=== PATIENT | male | born 1940 | race Caucasian/White ===

== ENCOUNTER 2016-08-30 13:34 | Outpatient (CLI) | payer MEDICARE, OTHER | END 2016-08-30 23:59 | DX: E11.9 Type 2 diabetes mellitus without complications (principal); N42.89 Other specified disorders of prostate; Z12.5 Encounter for screening for malignant neoplasm of prostate | CPT/HCPCS: 36415; 83036; G0103 ==

== ENCOUNTER 2016-10-01 10:35 | Outpatient (CLI) | payer MEDICARE, OTHER | END 2016-10-01 10:36 | disposition home or self-care (01) | DX: I10 Essential (primary) hypertension (principal) ==

== ENCOUNTER 2016-10-10 12:11 | Outpatient (CLI) | payer MEDICARE, OTHER | END 2016-10-10 12:12 | disposition home or self-care (01) | DX: I10 Essential (primary) hypertension (principal) ==

== ENCOUNTER 2016-11-22 11:05 | Outpatient (CLI) | payer MEDICARE, OTHER ==
[2016-11-22 13:38] LABS: BASOPHILS % (AUTO) 0.2 %; EOSINOPHILS # (AUTO) 0.1 10^3/uL (0.0-0.7); EOSINOPHILS % (AUTO) 0.6 %; HCT - HEMATOCRIT 40.1 % (42.0-52.0); HGB - HEMOGLOBIN 13.6 g/dL (14.0-18.0); LYMPHOCYTES # (AUTO) 18.8 10^3/uL (1.5-3.5); LYMPHOCYTES % (AUTO) 78.9 %; MEAN CORPUSCULAR HEMOGLOBIN 29.5 pg (27.0-31.0); MEAN CORPUSCULAR HGB CONC 33.8 g/dL (32.0-36.0); MEAN CORPUSCULAR VOLUME 87.2 fL (80.0-94.0); MEAN PLATELET VOLUME 8.9 fL (7.4-11.4); MONOCYTES # (AUTO) 0.7 10^3/uL (0.0-1.0); NEUTROPHILS # (AUTO) 4.1 10^3/uL (1.5-6.6); NEUTROPHILS % (AUTO) 17.3 %; NUCLEATED RED BLOOD CELLS AUTO 0.1 /100WBC; UNCORRECTED WHITE BLOOD COUNT 23.8 x10^3/uL; WHITE BLOOD COUNT 23.8 x10^3/uL (4.8-10.8)
[2016-11-22 13:56] LABS: ALBUMIN/GLOBULIN RATIO 1.3 (1.0-2.2); BILIRUBIN,TOTAL 0.6 mg/dL (0.2-1.0); BUN - BLOOD UREA NITROGEN 21 mg/dL (6-20); CALCIUM 9.6 mg/dL (8.5-10.3); CARBON DIOXIDE - CO2 30 mmol/L (21-32); CHLORIDE 99 mmol/L (101-111); CHOL/HDL RATIO 4.7 (<5.0); CHOLESTEROL 193 mg/dL; CREATININE 0.9 mg/dL (0.6-1.2); GFR - MDRD 82 (>89); GLUCOSE 99 mg/dL (70-100); HDL CHOLESTEROL 41 mg/dL; LDL/HDL RATIO 2.9 (<3.6); POTASSIUM 4.2 mmol/L (3.5-5.0); SODIUM 137 mmol/L (135-145); TOTAL PROTEIN 7.1 g/dL (6.7-8.2); TRIGLYCERIDES 159 mg/dL; VLDL CHOLESTEROL 32 mg/dL
[2016-11-22 14:17] LABS: WBC MORPHOLOGY (MULTIPLE) 2+ REACTIVE LYMPHS (NORMAL)
[2016-11-22 14:43] LABS: HEMOGLOBIN A1C 0.67 g/dL
== END 2016-11-22 11:06 | disposition home or self-care (01) ==
LOC: LAB.WCP 11:05
PROVIDERS: ATTEND Family Medicine
DX: I10 Essential (primary) hypertension (principal); E11.9 Type 2 diabetes mellitus without complications; E78.5 Hyperlipidemia, unspecified
CPT/HCPCS: 36415; 80053; 80061; 83036; 85025

== ENCOUNTER 2017-01-08 11:08 | Outpatient (CLI) | payer MEDICARE, OTHER ==
[2017-01-08 19:41] LABS: BASOPHILS % (AUTO) 0.1 %; EOSINOPHILS % (AUTO) 0.1 %; HCT - HEMATOCRIT 38.5 % (42.0-52.0); HGB - HEMOGLOBIN 12.6 g/dL (14.0-18.0); MEAN CORPUSCULAR HEMOGLOBIN 29.8 pg (27.0-31.0); MEAN CORPUSCULAR HGB CONC 32.6 g/dL (32.0-36.0); MEAN CORPUSCULAR VOLUME 91.3 fL (80.0-94.0); MEAN PLATELET VOLUME 8.8 fL (7.4-11.4); MONOCYTES % (AUTO) 2.9 %; NEUTROPHILS % (AUTO) 18.9 %; RED BLOOD COUNT 4.22 10^6/uL (4.70-6.10); RED CELL DISTRIBUTION WIDTH 14.7 % (12.0-15.0); UNCORRECTED WHITE BLOOD COUNT 24.8 x10^3/uL; WHITE BLOOD COUNT 24.8 x10^3/uL (4.8-10.8)
[2017-01-08 20:01] LABS: BAND NEUTROPHILS % (MANUAL) 0 %
[2017-01-08 20:32] LABS: PLATELET ESTIMATE, MANUAL NORMAL (130-450,000) (NORMAL); PLATELET MORPHOLOGY NORMAL APPEARANCE (NORMAL); SLIDE SENT FOR PATH REVIEW? Indicated
[2017-01-08 20:34] LABS: LYMPHOCYTES % (MANUAL) 50 %; NEUTROPHILS % (MANUAL) 24 %; NP AUTO DIFFERENTIAL? YES; NP MAN DIFFERENTIAL? NO; TOTAL CELLS COUNTED 100
[2017-01-08 20:39] LABS: CBC SPECIMEN NUMBER 711330; PATHOLOGIST REVIEW ORDER PATH SLIDE REVIEW
== END 2017-01-08 11:09 | disposition home or self-care (01) ==
LOC: LAB.WCP 11:08
PROVIDERS: ATTEND Family Medicine
DX: D72.829 Elevated white blood cell count, unspecified (principal)
CPT/HCPCS: 36415; 85025

== ENCOUNTER 2017-02-27 09:13 | Outpatient (CLI) | payer MEDICARE, OTHER ==
[2017-02-27 13:32] LABS: ALBUMIN/GLOBULIN RATIO 1.4 (1.0-2.2); BILIRUBIN,TOTAL 0.6 mg/dL (0.2-1.0); BUN - BLOOD UREA NITROGEN 22 mg/dL (6-20); CALCIUM 9.6 mg/dL (8.5-10.3); CARBON DIOXIDE - CO2 29 mmol/L (21-32); CHLORIDE 98 mmol/L (101-111); CHOL/HDL RATIO 5.4 (<5.0); CHOLESTEROL 216 mg/dL; GFR - MDRD 72 (>89); GLUCOSE 111 mg/dL (70-100); HDL CHOLESTEROL 40 mg/dL; LDL/HDL RATIO 3.3 (<3.6); POTASSIUM 4.4 mmol/L (3.5-5.0); SODIUM 135 mmol/L (135-145); TOTAL PROTEIN 7.3 g/dL (6.7-8.2); TRIGLYCERIDES 217 mg/dL; VLDL CHOLESTEROL 43 mg/dL
[2017-02-27 13:59] LABS: HEMOGLOBIN A1C 0.63 g/dL
== END 2017-02-27 09:14 | disposition home or self-care (01) ==
LOC: LAB.WCP 09:13
PROVIDERS: ATTEND Family Medicine
DX: E78.5 Hyperlipidemia, unspecified (principal); E11.9 Type 2 diabetes mellitus without complications
CPT/HCPCS: 36415; 80053; 80061; 83036

== ENCOUNTER 2017-03-19 13:03 | Outpatient (CLI) | payer MEDICARE, OTHER | END 2017-03-19 13:04 | disposition home or self-care (01) | LOC: SC 13:03 | PROVIDERS: ATTEND Internal Medicine Pulmonary Disease | DX: G47.33 Obstructive sleep apnea (adult) (pediatric) (principal); I10 Essential (primary) hypertension | CPT/HCPCS: 99203; G0463; 99212 ==

== ENCOUNTER 2017-04-01 20:26 | Outpatient (CLI) | payer MEDICARE, OTHER | END 2017-04-01 20:27 | disposition home or self-care (01) | LOC: SC 20:26 | PROVIDERS: ATTEND Internal Medicine Pulmonary Disease | DX: G47.33 Obstructive sleep apnea (adult) (pediatric) (principal); G47.61 Periodic limb movement disorder; Z68.30 Body mass index [BMI] 30.0-30.9, adult | CPT/HCPCS: 95810 ==

== ENCOUNTER 2017-05-23 11:05 | Outpatient (CLI) | payer MEDICARE, OTHER ==
[2017-05-23 19:13] LABS: ALBUMIN/GLOBULIN RATIO 1.2 (1.0-2.2); BILIRUBIN,TOTAL 0.9 mg/dL (0.2-1.0); BUN - BLOOD UREA NITROGEN 24 mg/dL (6-20); CARBON DIOXIDE - CO2 27 mmol/L (21-32); CHLORIDE 97 mmol/L (101-111); CHOL/HDL RATIO 5.2 (<5.0); CHOLESTEROL 208 mg/dL; CREATININE 1.1 mg/dL (0.6-1.2); GFR - MDRD 65 (>89); GLUCOSE 111 mg/dL (70-100); HDL CHOLESTEROL 40 mg/dL; LDL/HDL RATIO 3.4 (<3.6); POTASSIUM 4.1 mmol/L (3.5-5.0); SODIUM 133 mmol/L (135-145); TOTAL PROTEIN 7.7 g/dL (6.7-8.2); TRIGLYCERIDES 169 mg/dL; VLDL CHOLESTEROL 34 mg/dL
== END 2017-05-23 11:06 | disposition home or self-care (01) ==
LOC: LAB.WCP 11:05
PROVIDERS: ATTEND Family Medicine
DX: E78.5 Hyperlipidemia, unspecified (principal)
CPT/HCPCS: 36415; 80053; 80061

== ENCOUNTER 2017-05-27 09:11 | Outpatient (CLI) | payer MEDICARE, OTHER | END 2017-05-27 09:12 | disposition home or self-care (01) | LOC: SC 09:11 | PROVIDERS: ATTEND Nurse Practitioner Family | DX: G47.33 Obstructive sleep apnea (adult) (pediatric) (principal); G47.61 Periodic limb movement disorder | CPT/HCPCS: 99214; G0463; 99212 ==

== ENCOUNTER 2017-07-22 20:32 | Outpatient (CLI) | payer MEDICARE, OTHER | END 2017-07-22 20:33 | disposition home or self-care (01) | LOC: SC 20:32 | PROVIDERS: ATTEND Internal Medicine Pulmonary Disease | DX: G47.33 Obstructive sleep apnea (adult) (pediatric) (principal); G47.61 Periodic limb movement disorder | CPT/HCPCS: 95811 ==

== ENCOUNTER 2017-08-26 13:38 | Outpatient (CLI) | payer MEDICARE, OTHER | END 2017-08-26 13:39 | disposition home or self-care (01) | LOC: SC 13:38 | PROVIDERS: ATTEND Nurse Practitioner Family | DX: G47.33 Obstructive sleep apnea (adult) (pediatric) (principal) | CPT/HCPCS: 99214; G0463; 99212 ==

== ENCOUNTER 2017-09-16 08:54 | Outpatient (CLI) | payer MEDICARE, OTHER ==
[2017-09-16 13:44] LABS: ALBUMIN 4.1 g/dL (3.2-5.5); ALBUMIN/GLOBULIN RATIO 1.2 (1.0-2.2); ALKALINE PHOSPHATASE 60 IU/L (42-121); ALT ALANINE AMINOTRANSFERASE 21 IU/L (10-60); AST ASPARTATE AMINOTRANSFERASE 27 IU/L (10-42); BILIRUBIN,TOTAL 0.6 mg/dL (0.2-1.0); BUN - BLOOD UREA NITROGEN 21 mg/dL (6-20); CALCIUM 9.2 mg/dL (8.5-10.3); CARBON DIOXIDE - CO2 28 mmol/L (21-32); CHLORIDE 98 mmol/L (101-111); CHOL/HDL RATIO 4.5 (<5.0); CHOLESTEROL 195 mg/dL; GFR - MDRD 72 (>89); GLUCOSE 116 mg/dL (70-100); HDL CHOLESTEROL 43 mg/dL; LDL CHOLESTEROL,CALCULATED 126 mg/dL; LDL/HDL RATIO 2.9 (<3.6); SODIUM 135 mmol/L (135-145); TOTAL PROTEIN 7.4 g/dL (6.7-8.2); VLDL CHOLESTEROL 26 mg/dL
== END 2017-09-16 08:55 | disposition home or self-care (01) ==
LOC: LAB.WCP 08:54
PROVIDERS: ATTEND Family Medicine
DX: E78.5 Hyperlipidemia, unspecified (principal)
CPT/HCPCS: 36415; 80053; 80061; 83721

== ENCOUNTER 2017-11-13 10:17 | Outpatient (CLI) | payer MEDICARE, OTHER | END 2017-11-13 10:18 | disposition home or self-care (01) | LOC: SC 10:17 | PROVIDERS: ATTEND Nurse Practitioner Family | DX: G47.33 Obstructive sleep apnea (adult) (pediatric) (principal) | CPT/HCPCS: 99213; G0463; 99212 ==

== ENCOUNTER 2017-12-26 10:03 | Outpatient (CLI) | payer MEDICARE, OTHER | END 2017-12-26 10:04 | disposition home or self-care (01) | LOC: SC 10:03 | PROVIDERS: ATTEND Nurse Practitioner Family | DX: G47.33 Obstructive sleep apnea (adult) (pediatric) (principal) | CPT/HCPCS: 99213; G0463; 99212 ==

== ENCOUNTER 2017-12-31 08:19 | Outpatient (CLI) | payer MEDICARE, OTHER ==
[2017-12-31 12:57] LABS: BASOPHILS % (AUTO) 0.1 %; EOSINOPHILS % (AUTO) 0.3 %; HGB - HEMOGLOBIN 14.5 g/dL (14.0-18.0); LYMPHOCYTES % (AUTO) 79.7 %; MEAN CORPUSCULAR HEMOGLOBIN 29.9 pg (27.0-31.0); MEAN CORPUSCULAR HGB CONC 32.7 g/dL (32.0-36.0); MEAN CORPUSCULAR VOLUME 91.4 fL (80.0-94.0); MEAN PLATELET VOLUME 9.5 fL (7.4-11.4); MONOCYTES % (AUTO) 2.6 %; NEUTROPHILS % (AUTO) 17.3 %; PLT - PLATELET COUNT 209 10^3/uL (130-450); RED BLOOD COUNT 4.85 10^6/uL (4.70-6.10); RED CELL DISTRIBUTION WIDTH 15.3 % (12.0-15.0); WHITE BLOOD COUNT 24.9 x10^3/uL (4.8-10.8)
[2017-12-31 13:23] LABS: ABNORMAL LYMPHS % (MANUAL) 0 %; BAND NEUTROPHILS % (MANUAL) 0 %
[2017-12-31 13:32] LABS: LYMPHOCYTES # (MANUAL) 17.2 10^3/uL (1.5-3.5); LYMPHOCYTES % (MANUAL) 59 %; MONOCYTES # (MANUAL) 1.2 10^3/uL (0.0-1.0); NEUTROPHILS # (MANUAL) 6.5 10^3/uL (1.5-6.6); NEUTROPHILS % (MANUAL) 26 %; RBC MORPHOLOGY (MULTIPLE) 1+ ANISOCYTOSIS (NORMAL)
[2017-12-31 13:35] LABS: DIFFERENTIAL COMMENT MANUAL DIFFERENTIAL
== END 2017-12-31 08:20 | disposition home or self-care (01) ==
LOC: LAB.WCP 08:19
PROVIDERS: ATTEND Family Medicine
DX: Z01.812 Encounter for preprocedural laboratory examination (principal); Z86.010 Personal history of colon polyps
CPT/HCPCS: 36415; 85025

== ENCOUNTER 2018-01-02 13:02 | Day surgery (SDC) | payer MEDICARE, OTHER ==
[2018-01-02] MEDS ORDERED: LACTATED RINGERS 1,000 ML IV ONE (13:30)
[2018-01-02] MEDS ORDERED: PROPOFOL 200 MG/20 ML VIAL IVP ONE (14:45)
[2018-01-02 15:03] VITALS: BP 152/88
== END 2018-01-02 13:03 | disposition home or self-care (01) ==
LOC: SDS 13:02
PROVIDERS: ATTEND Internal Medicine Gastroenterology
PROC: 0DJD8ZZ Inspection of Lower Intestinal Tract, Via Natural or Artificial Opening Endoscopic (ICD-10-PCS; principal; 2018-01-02 14:15)
DX: Z12.11 Encounter for screening for malignant neoplasm of colon (principal); K57.30 Diverticulosis of large intestine without perforation or abscess without bleeding; Z86.010 Personal history of colon polyps; E11.9 Type 2 diabetes mellitus without complications; I10 Essential (primary) hypertension; E78.5 Hyperlipidemia, unspecified
CPT/HCPCS: G0105; J7120

== ENCOUNTER 2018-02-17 08:00 | Outpatient (CLI) | payer MEDICARE, OTHER ==
[2018-02-17 13:58] LABS: ALBUMIN 3.9 g/dL (3.2-5.5); ALBUMIN/GLOBULIN RATIO 1.1 (1.0-2.2); ALKALINE PHOSPHATASE 53 IU/L (42-121); ALT ALANINE AMINOTRANSFERASE 19 IU/L (10-60); AST ASPARTATE AMINOTRANSFERASE 26 IU/L (10-42); BUN - BLOOD UREA NITROGEN 23 mg/dL (6-20); CALCIUM 9.3 mg/dL (8.5-10.3); CARBON DIOXIDE - CO2 32 mmol/L (21-32); CHLORIDE 99 mmol/L (101-111); CHOL/HDL RATIO 4.2 (<5.0); CHOLESTEROL 162 mg/dL; CREATININE 0.9 mg/dL (0.6-1.2); GFR - MDRD 81 (>89); GLUCOSE 110 mg/dL (70-100); HDL CHOLESTEROL 39 mg/dL; LDL CHOLESTEROL,CALCULATED 101 mg/dL; LDL/HDL RATIO 2.6 (<3.6); SODIUM 139 mmol/L (135-145); TOTAL PROTEIN 7.4 g/dL (6.7-8.2); VLDL CHOLESTEROL 22 mg/dL
[2018-02-17 14:03] LABS: HB2 TOTAL 15.3 g/dL; HEMOGLOBIN A1C 0.58 g/dL; HEMOGLOBIN A1C % 5.6 % (4.6-6.2)
== END 2018-02-17 08:01 | disposition home or self-care (01) ==
LOC: LAB.WCP 08:00
PROVIDERS: ATTEND Family Medicine
DX: E78.5 Hyperlipidemia, unspecified (principal); E11.9 Type 2 diabetes mellitus without complications
CPT/HCPCS: 36415; 80053; 80061; 83036; 83721

== ENCOUNTER 2018-02-24 08:00 | Outpatient (CLI) | payer MEDICARE, OTHER ==
[2018-02-24 19:44] LABS: CALCIUM 9.4 mg/dL (8.5-10.3); CREATININE 0.9 mg/dL (0.6-1.2)
== END 2018-02-24 08:01 | disposition home or self-care (01) ==
LOC: LAB.WCP 08:00
PROVIDERS: ATTEND Family Medicine
DX: E87.6 Hypokalemia (principal)
CPT/HCPCS: 36415; 80048

== ENCOUNTER 2018-02-25 08:54 | Outpatient (CLI) | payer MEDICARE, OTHER | END 2018-02-25 08:55 | disposition home or self-care (01) | LOC: SC 08:54 | PROVIDERS: ATTEND Nurse Practitioner Family | DX: G47.33 Obstructive sleep apnea (adult) (pediatric) (principal) | CPT/HCPCS: 99214; G0463; 99212 ==

== ENCOUNTER 2018-03-31 09:59 | Outpatient (CLI) | payer MEDICARE, OTHER ==
[2018-03-31 13:37] LABS: CALCIUM 9.3 mg/dL (8.5-10.3); CREATININE 0.9 mg/dL (0.6-1.2)
== END 2018-03-31 10:00 | disposition home or self-care (01) ==
LOC: LAB.WCP 09:59
PROVIDERS: ATTEND Family Medicine
DX: E87.6 Hypokalemia (principal)
CPT/HCPCS: 36415; 80048

== ENCOUNTER 2018-04-09 09:33 | Outpatient (CLI) | payer MEDICARE, OTHER ==
[2018-04-09 13:20] LABS: CREATININE 0.9 mg/dL (0.6-1.2)
== END 2018-04-09 09:34 | disposition home or self-care (01) ==
LOC: LAB.WCP 09:33
PROVIDERS: ATTEND Family Medicine
DX: E87.6 Hypokalemia (principal)
CPT/HCPCS: 36415; 80048

== ENCOUNTER 2018-04-29 08:48 | Outpatient (CLI) | payer MEDICARE, OTHER | END 2018-04-29 08:49 | disposition home or self-care (01) | LOC: SC 08:48 | PROVIDERS: ATTEND Nurse Practitioner Family | DX: G47.33 Obstructive sleep apnea (adult) (pediatric) (principal) | CPT/HCPCS: 99214; G0463; 99212 ==

== ENCOUNTER 2018-09-15 10:40 | Outpatient (CLI) | payer MEDICARE, OTHER ==
[2018-09-15 19:53] LABS: BASOPHILS % (AUTO) 0.2 %; EOSINOPHILS % (AUTO) 0.2 %; HGB - HEMOGLOBIN 14.9 g/dL (14.0-18.0); LYMPHOCYTES % (AUTO) 74.2 %; MEAN CORPUSCULAR HGB CONC 32.3 g/dL (32.0-36.0); MEAN CORPUSCULAR VOLUME 89.7 fL (80.0-94.0); MEAN PLATELET VOLUME 9.3 fL (7.4-11.4); MONOCYTES % (AUTO) 3.4 %; PLT - PLATELET COUNT 222 10^3/uL (130-450); RED BLOOD COUNT 5.13 10^6/uL (4.70-6.10); WHITE BLOOD COUNT 19.7 x10^3/uL (4.8-10.8)
[2018-09-15 19:59] LABS: ALBUMIN 4.2 g/dL (3.2-5.5); ALBUMIN/GLOBULIN RATIO 1.2 (1.0-2.2); ALKALINE PHOSPHATASE 60 IU/L (42-121); ALT ALANINE AMINOTRANSFERASE 22 IU/L (10-60); AST ASPARTATE AMINOTRANSFERASE 27 IU/L (10-42); BILIRUBIN,TOTAL 0.6 mg/dL (0.2-1.0); BUN - BLOOD UREA NITROGEN 20 mg/dL (6-20); CHOL/HDL RATIO 4.2 (<5.0); CHOLESTEROL 191 mg/dL; CREATININE 0.7 mg/dL (0.6-1.2); GFR - MDRD 109 (>89); HDL CHOLESTEROL 46 mg/dL; LDL CHOLESTEROL,CALCULATED 109 mg/dL; LDL/HDL RATIO 2.4 (<3.6); TOTAL PROTEIN 7.6 g/dL (6.7-8.2); VLDL CHOLESTEROL 36 mg/dL
[2018-09-15 20:07] LABS: CALCIUM 9.3 mg/dL (8.5-10.3); CARBON DIOXIDE - CO2 36 mmol/L (21-32); CHLORIDE 97 mmol/L (101-111); GLUCOSE 89 mg/dL (70-100); SODIUM 143 mmol/L (135-145)
[2018-09-15 20:11] LABS: ABNORMAL LYMPHS % (MANUAL) 0 %
[2018-09-15 20:27] LABS: CREATININE,URINE 52.1 mg/dL; MICROALBUM/CREATININE RATIO,UR 15.4 ug/mg (<30.0); MICROALBUMIN,URINE 0.8 mg/dL (0-300.0)
[2018-09-15 22:02] LABS: HB2 TOTAL 16.7 g/dL; HEMOGLOBIN A1C 0.64 g/dL; HEMOGLOBIN A1C % 5.7 % (4.6-6.2)
[2018-09-15 22:27] LABS: BAND NEUTROPHILS % (MANUAL) 2 %; DIFFERENTIAL COMMENT MANUAL DIFFERENTIAL; EOSINOPHILS # (MANUAL) 0.2 10^3/uL (0-0.7); LYMPHOCYTES # (MANUAL) 14.4 10^3/uL (1.5-3.5); LYMPHOCYTES % (MANUAL) 38 %; NEUTROPHILS # (MANUAL) 5.1 10^3/uL (1.5-6.6); NEUTROPHILS % (MANUAL) 24 %; PLATELET ESTIMATE, MANUAL NORMAL (130-450,000) (NORMAL); PLATELET MORPHOLOGY NORMAL APPEARANCE (NORMAL); RBC MORPHOLOGY (MULTIPLE) NORMAL APPEARANCE (NORMAL)
== END 2018-09-15 10:41 | disposition home or self-care (01) ==
LOC: LAB.WCP 10:40
PROVIDERS: ATTEND Family Medicine
DX: E87.6 Hypokalemia (principal); E11.9 Type 2 diabetes mellitus without complications; E78.5 Hyperlipidemia, unspecified; I10 Essential (primary) hypertension
CPT/HCPCS: 36415; 80053; 80061; 82043; 82570; 83036; 83721; 85025

== ENCOUNTER 2018-09-17 07:14 | Outpatient (CLI) | payer MEDICARE, OTHER | END 2018-09-17 07:15 | disposition home or self-care (01) | LOC: DI 07:14 | PROVIDERS: ATTEND Family Medicine | DX: R01.1 Cardiac murmur, unspecified (principal); I11.9 Hypertensive heart disease without heart failure; I35.0 Nonrheumatic aortic (valve) stenosis; I77.810 Thoracic aortic ectasia | CPT/HCPCS: 93306 ==

== ENCOUNTER 2018-09-22 07:57 | Outpatient (CLI) | payer MEDICARE, OTHER | END 2018-09-22 23:59 | LOC: LAB.WCP 07:57 | PROVIDERS: ATTEND Family Medicine | DX: E87.6 Hypokalemia (principal) | CPT/HCPCS: 36415; 80048 ==

== ENCOUNTER 2018-09-23 08:00 | Outpatient (CLI) | payer MEDICARE, OTHER ==
[2018-09-23 19:02] LABS: CALCIUM 9.2 mg/dL (8.5-10.3); CREATININE 0.8 mg/dL (0.6-1.2)
== END 2018-09-23 23:59 | disposition home or self-care (01) ==
LOC: LAB.WCP 08:00
PROVIDERS: ATTEND Family Medicine
DX: E87.6 Hypokalemia (principal)
CPT/HCPCS: 36415; 80048

== ENCOUNTER 2018-10-16 09:08 | Outpatient (CLI) | payer MEDICARE, OTHER ==
[2018-10-16 13:20] LABS: CALCIUM 9.9 mg/dL (8.5-10.3); CREATININE 0.9 mg/dL (0.6-1.2)
== END 2018-10-16 23:59 | disposition home or self-care (01) ==
LOC: LAB.WCP 09:08
PROVIDERS: ATTEND Family Medicine
DX: E87.6 Hypokalemia (principal)
CPT/HCPCS: 36415; 80048

== ENCOUNTER 2018-10-30 08:00 | Outpatient (CLI) | payer MEDICARE, OTHER ==
[2018-10-30 13:16] LABS: CALCIUM 9.5 mg/dL (8.5-10.3); CREATININE 1.1 mg/dL (0.6-1.2)
== END 2018-10-30 23:59 | disposition home or self-care (01) ==
LOC: LAB.WCP 08:00
PROVIDERS: ATTEND Family Medicine
DX: E87.6 Hypokalemia (principal)
CPT/HCPCS: 36415; 80048

== ENCOUNTER 2018-12-09 09:40 | Outpatient (CLI) | payer MEDICARE, OTHER ==
[2018-12-09 13:51] LABS: ALBUMIN 4.2 g/dL (3.2-5.5); ALBUMIN/GLOBULIN RATIO 1.4 (1.0-2.2); ALKALINE PHOSPHATASE 45 IU/L (42-121); ALT ALANINE AMINOTRANSFERASE 19 IU/L (10-60); AST ASPARTATE AMINOTRANSFERASE 22 IU/L (10-42); BASOPHILS % (AUTO) 0.2 %; BILIRUBIN,TOTAL 0.8 mg/dL (0.2-1.0); BUN - BLOOD UREA NITROGEN 26 mg/dL (6-20); CALCIUM 9.3 mg/dL (8.5-10.3); CARBON DIOXIDE - CO2 28 mmol/L (21-32); CHLORIDE 100 mmol/L (101-111); CHOL/HDL RATIO 4.2 (<5.0); CHOLESTEROL 183 mg/dL; CREATININE 0.9 mg/dL (0.6-1.2); EOSINOPHILS # (AUTO) 0.1 10^3/uL (0.0-0.7); EOSINOPHILS % (AUTO) 0.3 %; GFR - MDRD 81 (>89); GLUCOSE 98 mg/dL (70-100); HDL CHOLESTEROL 44 mg/dL; HGB - HEMOGLOBIN 13.7 g/dL (14.0-18.0); LDL CHOLESTEROL,CALCULATED 119 mg/dL; LDL/HDL RATIO 2.7 (<3.6); LYMPHOCYTES # (AUTO) 18.6 10^3/uL (1.5-3.5); LYMPHOCYTES % (AUTO) 80.1 %; MEAN CORPUSCULAR HEMOGLOBIN 29.3 pg (27.0-31.0); MEAN CORPUSCULAR HGB CONC 33.4 g/dL (32.0-36.0); MEAN CORPUSCULAR VOLUME 87.8 fL (80.0-94.0); MEAN PLATELET VOLUME 8.7 fL (7.4-11.4); MONOCYTES # (AUTO) 0.7 10^3/uL (0.0-1.0); MONOCYTES % (AUTO) 3.1 %; NEUTROPHILS # (AUTO) 3.8 10^3/uL (1.5-6.6); NEUTROPHILS % (AUTO) 16.3 %; PLT - PLATELET COUNT 197 10^3/uL (130-450); RED BLOOD COUNT 4.66 10^6/uL (4.70-6.10); RED CELL DISTRIBUTION WIDTH 15.1 % (12.0-15.0); SODIUM 136 mmol/L (135-145); TOTAL PROTEIN 7.2 g/dL (6.7-8.2); VLDL CHOLESTEROL 20 mg/dL; WHITE BLOOD COUNT 23.2 x10^3/uL (4.8-10.8)
[2018-12-09 14:13] LABS: PLATELET ESTIMATE, MANUAL NORMAL (130-450,000) (NORMAL); PLATELET MORPHOLOGY 2+ LARGE PLATELETS (NORMAL)
[2018-12-09 14:19] LABS: HB2 TOTAL 15.2 g/dL; HEMOGLOBIN A1C 0.68 g/dL; HEMOGLOBIN A1C % 6.2 % (4.6-6.2)
== END 2018-12-09 09:41 | disposition home or self-care (01) ==
LOC: LAB.WCP 09:40
PROVIDERS: ATTEND Family Medicine
DX: E78.5 Hyperlipidemia, unspecified (principal); E11.9 Type 2 diabetes mellitus without complications; I10 Essential (primary) hypertension
CPT/HCPCS: 36415; 80053; 80061; 83036; 83721; 85025

== ENCOUNTER 2019-05-13 15:24 | Outpatient (CLI) | payer MEDICARE, OTHER ==
[2019-05-13 16:12] VITALS: BP 120/80
--- NOTE | 2019-05-13 16:12 | SLEEP CARE CONSULTATION ---
Information from patient questionnaire entered by Daisy Ward. I have reviewed and concur with the information entered by Daisy Ward. This document represents the service I personally performed and the decisions made by me, Anabel Leal, RN, MSN, DISP[employer]ER [employer]. History of Present Illness Previous diagnosis: Very Severe, Obstructive Sleep Apnea-Hypopnea Syndrome AHI: 70.9 Reason for follow up: annual Equipment type: CPAP Equipment obtained from: [facility] Mask style: Full face Mask brand: Rezolve Backup mask available: Yes Last cushion change: 2 weeks ago CPAP Compliance Data - Data Reviewed with Patient Average duration of nightly device use: 8.7 Compliance rate %: 100 (180 days) Current pressure setting (cmH2O): 12-14 Humidity settin Heated hose settin Average residual AHI: 9.3 Central apnea: 2.4 Obstructive apnea: 6.3 Hypopnea: 0.6 Subjective Patient concerns: reports: air blowing in eyes (rare). denies: aerophagia, mask discomfort, mask leak noise, condensation in mask/hose, nasal congestion, dry mouth, nose, throat, epistaxis Observed to snore while using device: No Current pressure setting perceived as: comfortable On therapy, patient: reports: sleeping better, awakening more refreshed, being more awake and alert during the day, more rested overall. denies: drowsiness while driving Initial [place] Sleepiness Scale score: 4 Current [place] Sleepiness Scale score: 2 Allergies and Home Medications Known drug allergies: Yes (erythromycin) Home medication list reviewed: Yes Allergy and home medication list: Lisinopril 40 mg tab one daily Atorvastatin 40mg tab one daily at bedtime Ibuprofen 800mg tab one prn up to 3 per day Hydrochlorothiazide 50mg tab one daily in the morning Amlodipine 10mg tab one daily Centrum Silver vitamin Tab one daily Aspirin EC 81mg tab one twice daily Vitamin D3 2000 units twice daily Fish oil 1400mg cap one daily Colace stool softener 100mg cap one twice daily Latanoprost 0.005% ophthalmic solution One drop each eye daily Timolol 0.5% ophthalmic solution One drop left eye twice daily Potassium Chloride ER 20meq tab one daily Review of Systems Review of systems same as previous: Yes Physical Exam Blood Pressure: 120/80 Cuff size: long Heart Rate: 51 O2 Saturation: 95 Height: 5 ft 11 in Weight: 241 lb 12.8 oz Body Mass Index: 33.7 BMI Classification: Obesity Class 1 Impression and Plan 1. Obstructive Sleep Apnea-Hypopnea Syndrome, very severe , with good treatment compliance and elevated residual apnea control. On CPAP therapy, the patient has better sleep quality and is more rested overall. To reduce residual apnea I will change his autoCPAP to [id number]. He is to contact me if uncomfortable to adjust pressure future. He is also advised to continue to lose weight as his BMI is still too high and class 1 obesity which increases apnea risk and overall health risks. I reviewed BMI chart and goals. Significant weight loss will also reduce his CPAP pressure requirements. Symptoms to report for pressure change discussed. Patient's apnea severity and rationale for treatment to reduce apnea, improve sleep quality and reduce cardiovascular and cerebrovascular events was reviewed. I also reviewed the benefit of consistent device use of CPAP for hypertension . * Change CPAP pressure to 16-20 cmH2O * Notify me if snoring with mask or feeling that the pressure is too much or too little * Continue to lose weight * Return for follow up in 1-2 months , or sooner if concerns arise I spent 100% of this 28 minute visit face to face with the patient with greater than 50% of this was spent time counseling the patient and coordination of care.
== END 2019-05-13 15:25 | disposition home or self-care (01) ==
LOC: SC 15:24
PROVIDERS: ATTEND Nurse Practitioner Family
DX: G47.33 Obstructive sleep apnea (adult) (pediatric) (principal); E66.9 Obesity, unspecified; Z68.33 Body mass index [BMI] 33.0-33.9, adult
CPT/HCPCS: 99214; G0463; 99212

== ENCOUNTER 2019-06-08 07:00 | Outpatient (CLI) | payer MEDICARE, OTHER ==
[2019-06-08 15:43] LABS: CALCIUM 9.1 mg/dL (8.5-10.3); CREATININE 0.8 mg/dL (0.6-1.2)
[2019-06-08 16:02] LABS: HEMOGLOBIN A1C 0.56 g/dL; HEMOGLOBIN A1C % 5.8 % (4.6-6.2)
== END 2019-06-08 23:59 | disposition home or self-care (01) ==
LOC: LAB.WCP 07:00
PROVIDERS: ATTEND Family Medicine
DX: E11.9 Type 2 diabetes mellitus without complications (principal)
CPT/HCPCS: 36415; 80048; 83036; 84443

== ENCOUNTER 2019-06-09 11:32 | Outpatient (CLI) | payer MEDICARE, OTHER ==
[2019-06-09 18:50] LABS: CALCIUM 9.2 mg/dL (8.5-10.3); CREATININE 0.7 mg/dL (0.6-1.2)
== END 2019-06-09 23:59 | disposition home or self-care (01) ==
LOC: LAB.WCP 11:32
PROVIDERS: ATTEND Family Medicine
DX: E87.6 Hypokalemia (principal)
CPT/HCPCS: 36415; 80048

== ENCOUNTER 2019-06-16 10:41 | Outpatient (CLI) | payer MEDICARE, OTHER ==
[2019-06-16 18:54] LABS: CALCIUM 9.6 mg/dL (8.5-10.3); CREATININE 0.8 mg/dL (0.6-1.2)
== END 2019-06-16 23:59 | disposition home or self-care (01) ==
LOC: LAB.WCP 10:41
PROVIDERS: ATTEND Family Medicine
DX: I10 Essential (primary) hypertension (principal); E87.6 Hypokalemia
CPT/HCPCS: 36415; 80048; 82088; 84244

== ENCOUNTER 2019-07-13 15:30 | Outpatient (CLI) | payer MEDICARE, OTHER ==
[2019-07-13 16:34] VITALS: BP 136/66
--- NOTE | 2019-07-13 16:34 | SLEEP CARE CONSULTATION ---
Information from patient questionnaire entered by Daisy Ward. I have reviewed and concur with the information entered by Daisy Ward. This document represents the service I personally performed and the decisions made by me, Anabel Leal, RN, MSN, FILM LABORATORY TECHNICIAN. History of Present Illness Previous diagnosis: Very Severe, Obstructive Sleep Apnea-Hypopnea Syndrome AHI: 70.9 Reason for follow up: other (2 month) Equipment type: CPAP Equipment obtained from: [facility] Mask style: Full face Mask brand: Resmed Backup mask available: Yes Last cushion change: 1 month ago HPI additional information: The auto CPAP pressure was increased to [id number] for elevated residual AHI but patient was unable to tolerate pressure change. Thus it was instead changed to [id number] and able to tolerate. CPAP Compliance Data - Data Reviewed with Patient Average duration of nightly device use: 8.99 Compliance rate %: 98.3 (60 days) Current pressure setting (cmH2O): 14-16 Humidity settin Heated hose settin Average residual AHI: 9.0 Central apnea: 2.5 Obstructive apnea: 5.7 Hypopnea: 0.8 Average large leak: zero Subjective Patient concerns: denies: aerophagia, mask discomfort, air blowing in eyes, mask leak noise, condensation in mask/hose, nasal congestion, dry mouth, nose, throat, epistaxis Observed to snore while using device: No Current pressure setting perceived as: comfortable On therapy, patient: reports: sleeping better, awakening more refreshed, being more awake and alert during the day, more rested overall. denies: drowsiness while driving Initial [place] Sleepiness Scale score: 4 Current [place] Sleepiness Scale score: 3 Allergies and Home Medications Known drug allergies: Yes Home medication list reviewed: Yes (added metoprolol 25mg bid and increased potassium to bid) Review of Systems Review of systems same as previous: No (medications changed to lower blood pressure ) Physical Exam Blood Pressure: 136/66 Cuff size: long Heart Rate: 58 O2 Saturation: 97 Height: 5 ft 10 in Weight: 236 lb 9.6 oz Weight change since last visit: lost 5 pounds Body Mass Index: 33.9 BMI Classification: Obesity Class 1 Impression and Plan 1. Obstructive Sleep Apnea-Hypopnea Syndrome, very severe, with good treatment compliance and good apnea control. On CPAP therapy, the patient has better sleep quality and is more rested overall. Since his residual AHI is still elevated, I will slightly adjust autoCPAP pressure to [id number]. He is to contact me if uncomfortable as before. The last pressure change of 16 to 20 cmH20 and uncomfortable and increased flatus. Patient's apnea severity and rationale for treatment to reduce apnea, improve sleep quality and reduce cardiovascular and cerebrovascular events was reviewed. I also reviewed the benefit of consistent device use of CPAP for hypertension. * Change CPAP pressure to 16-18 cmH2O * Notify me if snoring with mask or feeling that the pressure is too much or too little * Attempt to lose weight * Call this office if any problems using CPAP * Return for follow up in 2 months , or sooner if concerns arise Time Spent with Patient (minutes): 20 I spent 100% of this visit face to face with the patient with greater than 50% of this was spent time counseling the patient and coordination of care.
== END 2019-07-13 15:31 | disposition home or self-care (01) ==
LOC: SC 15:30
PROVIDERS: ATTEND Nurse Practitioner Family
DX: G47.33 Obstructive sleep apnea (adult) (pediatric) (principal); E66.9 Obesity, unspecified; Z68.33 Body mass index [BMI] 33.0-33.9, adult
CPT/HCPCS: 99213; G0463; 99212

== ENCOUNTER 2019-09-08 10:19 | Outpatient (CLI) | payer MEDICARE, OTHER ==
--- NOTE | 2019-09-08 11:05 | SLEEP CARE CONSULTATION ---
Information from patient questionnaire entered by Candi Engle. I have reviewed and concur with the information entered by Candi Engle. This document represents the service I personally performed and the decisions made by me, Anabel Leal, RN, MSN, BREAD PANNER. History of Present Illness Previous diagnosis: Very Severe, Obstructive Sleep Apnea-Hypopnea Syndrome AHI: 70.9 Reason for follow up: other (2 month with pressure change) Equipment type: CPAP Equipment obtained from: [facility] Mask style: Full face Backup mask available: Yes (old mask ) Last cushion change: last night Prior sleep studies: Yes HPI additional information: Pressure change comfortable. CPAP Compliance Data - Data Reviewed with Patient Average duration of nightly device use: 9h 12s Compliance rate %: 98.3 Current pressure setting (cmH2O): 16-18 Humidity settin Heated hose settin Average residual AHI: 8.9 Central apnea: 2.4 Obstructive apnea: 5.9 Hypopnea: 0.5 Average large leak: 1s Subjective Patient concerns: denies: aerophagia, mask discomfort, air blowing in eyes, mask leak noise, condensation in mask/hose, nasal congestion, dry mouth, nose, throat, epistaxis Observed to snore while using device: No Current pressure setting perceived as: comfortable On therapy, patient: reports: sleeping better, awakening more refreshed, being more awake and alert during the day, more rested overall. denies: drowsiness while driving Initial [place] Sleepiness Scale score: 4 Current [place] Sleepiness Scale score: 3 Allergies and Home Medications Known drug allergies: Yes (erythromycin ) Home medication list reviewed: Yes (new HTN meds ) Allergy and home medication list: Medication Name (generic/name brand) Strength & Dosage Lisinopril 40 mg tab one daily Simvastatin 40mg tab one daily at bedtime Ibuprofen 800mg tab one prn up to 3 per day Triamterene /Hydrochlorothiazide 75/ 50mg tab one daily in the morning metoprolol 25mg daily Amlodipine 10mg tab one daily Centrum Silver vitamin Tab one daily Aspirin EC 81mg tab one twice daily Vitamin D3 2000 units twice daily Fish oil 1200mg cap one daily Colace stool softener 100mg cap one twice daily Latanoprost 0.005% ophthalmic solution One drop each eye daily Timolol 0.5% ophthalmic solution One drop left eye twice daily Potassium Chloride ER 20meq tab one daily Review of Systems Review of systems same as previous: No Physical Exam Blood Pressure: 110/70 Cuff size: long Heart Rate: 75 O2 Saturation: 96 Height: 5 ft 10 in Weight: 236 lb 9.6 oz Body Mass Index: 33.9 BMI Classification: Obese Impression and Plan 1. Obstructive Sleep Apnea-Hypopnea Syndrome, very severe, with good treatment compliance and slightly elevated residual AHIl. On CPAP therapy, the patient has better sleep quality and is more rested overall. Higher CPAP pressures u ncomfortable with increase in flatus as well aerophagia. Thus the current pressure range seems to be the best CPAP pressure so far in controlling his apnea comfortably. I will confer with Dr. Hinds if a BiPAP is an option for treatment. I will contact patient if BiPAP is recommended. Patient has maintained weight. Currently patients BMI is 33.9 obesity class. He has been slowly losing weight with diet modification of healthy content and smaller portions. He was 260 in November 2017. I reviewed how obesity increases the risk of apnea, CPAP pressure requirements and overall health risks especially cardiovascular and diabetes. Thus patient is advised to continue to lose weight. A diet consultation can be helpful in achieving optimal weight loss goals. The BMI chart was reviewed. I emphasized it is a guideline and that central obesity is goal of weight loss to reduce health risks. Patient states he has discussed weight loss goals with their PCP. He is advised to consider a referral to a labor training manager. The patient's CPAP pressure range should accommodate some weight loss. Symptoms to report for additional pressure adjustment discussed. Patient's apnea severity and rationale for treatment to reduce apnea, improve sleep quality and reduce cardiovascular and cerebrovascular events was reviewed. I also reviewed the benefit of consistent device use of CPAP for hypertension. * Continue CPAP pressure at 16-18 cmH2O * Confer with Dr. Hinds. * Notify me if snoring with mask or feeling that the pressure is too much or too little * Attempt to lose weight * Call this office if any problems using CPAP * Return for follow up in 1 year , or sooner if concerns arise I later conferred with Dr. Hinds and he felt current CPAP pressure adequate and no need for transition to BiPAP at this time. Time Spent with Patient (minutes): 25 I spent 100% of this visit face to face with the patient with greater than 50% of this was spent time counseling the patient and coordination of care.
[2019-09-08 11:06] VITALS: BP 110/70
== END 2019-09-08 10:20 | disposition home or self-care (01) ==
LOC: SC 10:19
PROVIDERS: ATTEND Nurse Practitioner Family
DX: G47.33 Obstructive sleep apnea (adult) (pediatric) (principal); E66.9 Obesity, unspecified; Z68.33 Body mass index [BMI] 33.0-33.9, adult
CPT/HCPCS: 99214; G0463; 99212

== ENCOUNTER 2019-11-26 10:06 | Outpatient (CLI) | payer MEDICARE, OTHER ==
[2019-11-26 13:34] LABS: CALCIUM 9.4 mg/dL (8.5-10.3); CREATININE 1.2 mg/dL (0.6-1.2)
== END 2019-11-26 23:59 | disposition home or self-care (01) ==
LOC: LAB.WCP 10:06
PROVIDERS: ATTEND Family Medicine
DX: E87.6 Hypokalemia (principal)
CPT/HCPCS: 36415; 80048

== ENCOUNTER 2020-04-05 08:00 | Outpatient (CLI) | payer MEDICARE, OTHER ==
[2020-04-05 19:00] LABS: CALCIUM 9.5 mg/dL (8.5-10.3); CREATININE 1.1 mg/dL (0.6-1.2)
== END 2020-04-05 23:59 | disposition home or self-care (01) ==
LOC: LAB.WCP 08:00
PROVIDERS: ATTEND Family Medicine
DX: N18.9 Chronic kidney disease, unspecified (principal)
CPT/HCPCS: 36415; 80048

== ENCOUNTER 2020-08-30 08:58 | Outpatient (CLI) | payer MEDICARE, OTHER ==
--- NOTE | 2020-08-30 09:28 | SLEEP CARE CONSULTATION ---
Information from patient questionnaire entered by Daisy Ward. I have reviewed and concur with the information entered by Daisy Ward. This document represents the service I personally performed and the decisions made by , Matilde Khan ARNP. History of Present Illness Service Date and Time: 08/30/2020 0858 Previous diagnosis: Very Severe, Obstructive Sleep Apnea-Hypopnea Syndrome AHI: 70.9 (in 2017) Reason for follow up: annual (last seen 08/2019) Equipment type: CPAP Equipment obtained from: [facility] (getting supplies as needed) Mask style: Full face Backup mask available: Yes (old mask) Last cushion change: 3 weeks Prior sleep studies: Yes Year and Where: 2016 - [facility]; 1991 - in [facility] additional information: RAVEN SUTHERLAND was diagnosed to have very severe, AHI 70.9, obstructive sleep apnea-hypopnea syndrome and returned today for CPAP therapy annual follow-up. CPAP Compliance Data - Data Reviewed with Patient Average duration of nightly device use: 8 hr 52 min Compliance rate %: 99.4 (180 days) Current pressure setting (cmH2O): 16-18 Humidity settin Heated hose settin Average residual AHI: 5.4 Average large leak: 26 sec Subjective Patient concerns: denies: aerophagia, mask discomfort, air blowing in eyes, mask leak noise, condensation in mask/hose, nasal congestion, dry mouth, nose, throat, epistaxis, other Observed to snore while using device: No Current pressure setting perceived as: comfortable On therapy, patient: reports: sleeping better, awakening more refreshed, being more awake and alert during the day, more rested overall. denies: drowsiness while driving Initial [place] Sleepiness Scale score: 4 (in 2017) Current [place] Sleepiness Scale score: 2 Allergies and Home Medications Drug allergies reviewed: Yes (erythromycin) Home medication list reviewed: Yes (no changes) Review of Systems Review of systems same as previous: Yes (no changes) Physical Exam Heart Rate: 58 O2 Saturation: 96 Height: 5 ft 10 in Weight: 233 lb Body Mass Index: 33.4 BMI Classification: Obese Impression and Plan 1. Obstructive Sleep Apnea-Hypopnea Syndrome, very severe, with good treatment compliance and good apnea control. On CPAP therapy, the patient has better sleep quality and is more rested overall. He has no complaints or issues with mask or CPAP use. He states he has been using a CPAP for 25 years and is comfortable with its use. He has been trying to lose weight and does have a dog he has to take for walks twice a day. Currently patients BMI is 33.4. Obesity increases the risk of apnea, CPAP pressure requirements and overall health risks especially cardiovascular and diabetes. Thus patient is advised to continue to try lose weight. Weight loss can be done with reducing portion size, reducing refined foods and balancing content with vegetables, fruit and whole grain foods. Patient's apnea severity and rationale for treatment to reduce apnea, improve sleep quality and reduce cardiovascular and cerebrovascular events was reviewed. I also reviewed the benefit of consistent device use of CPAP for hypertension. * Continue auto CPAP pressure at 16-18 cmH2O * Notify me if snoring with mask or feeling that the pressure is too much or too little * Attempt to lose weight * Call this office if any problems using CPAP * Return for follow up in 1 year, or sooner if concerns arise Counseling Topics: Spare mask, Weight loss health impact Visit Type: In Office Time Spent with Patient (minutes): 14 Provider Statement: I spent 100% of the Face to Face Visit with the patient with greater than 50% spent counseling the patient and coordination of care.
== END 2020-08-30 08:59 | disposition home or self-care (01) ==
LOC: SC 08:58
PROVIDERS: ATTEND Nurse Practitioner Family
DX: G47.33 Obstructive sleep apnea (adult) (pediatric) (principal); E66.9 Obesity, unspecified; Z68.32 Body mass index [BMI] 32.0-32.9, adult
CPT/HCPCS: 99212; G0463

== ENCOUNTER 2020-09-09 08:00 | Outpatient (CLI) | payer MEDICARE, OTHER ==
[2020-09-09 11:52] LABS: BASOPHILS % (AUTO) 0.3 %; EOSINOPHILS % (AUTO) 0.6 %; HCT - HEMATOCRIT 46.9 % (42.0-52.0); HGB - HEMOGLOBIN 14.7 g/dL (14.0-18.0); LYMPHOCYTES % (AUTO) 80.1 %; MEAN CORPUSCULAR HGB CONC 31.3 g/dL (32.0-36.0); MEAN CORPUSCULAR VOLUME 95.7 fL (80.0-94.0); MEAN PLATELET VOLUME 11.3 fL (7.4-11.4); MONOCYTES % (AUTO) 2.5 %; NEUTROPHILS % (AUTO) 16.2 %; PLT - PLATELET COUNT 220 10^3/uL (130-450); RED CELL DISTRIBUTION WIDTH 14.3 % (12.0-15.0); WHITE BLOOD COUNT 22.4 x10^3/uL (4.8-10.8)
[2020-09-09 12:00] LABS: SLIDE REVIEW? Indicated
[2020-09-09 12:01] LABS: ABNORMAL LYMPHS % (MANUAL) 0 %; BAND NEUTROPHILS % (MANUAL) 0 %
[2020-09-09 12:12] LABS: EOSINOPHILS # (MANUAL) 0.2 10^3/uL (0-0.7); LYMPHOCYTES # (MANUAL) 18.1 10^3/uL (1.5-3.5); LYMPHOCYTES % (MANUAL) 66 %; MONOCYTES # (MANUAL) 0.9 10^3/uL (0.0-1.0); NEUTROPHILS # (MANUAL) 3.1 10^3/uL (1.5-6.6); REACTIVE LYMPHS % (MANUAL) 15 %
[2020-09-09 12:13] LABS: DIFFERENTIAL COMMENT MANUAL DIFFERENTIAL; RBC MORPHOLOGY (MULTIPLE) 2+ ANISOCYTOSIS (NORMAL)
[2020-09-09 12:20] LABS: ESTIMATED AVERAGE GLUCOSE 117 mg/dL (70-100); HEMOGLOBIN A1c% 5.7 % (4.27-6.07)
[2020-09-09 12:46] LABS: THYROID STIMULATING HORMONE 1.41 uIU/mL (0.34-5.60)
[2020-09-09 12:47] LABS: ALBUMIN 4.2 g/dL (3.2-5.5); ALBUMIN/GLOBULIN RATIO 1.3 (1.0-2.2); ALKALINE PHOSPHATASE 57 IU/L (42-121); ALT ALANINE AMINOTRANSFERASE 30 IU/L (10-60); AST ASPARTATE AMINOTRANSFERASE 26 IU/L (10-42); BILIRUBIN,TOTAL 0.7 mg/dL (0.2-1.0); BUN - BLOOD UREA NITROGEN 24 mg/dL (6-20); CALCIUM 9.7 mg/dL (8.5-10.3); CARBON DIOXIDE - CO2 30 mmol/L (21-32); CHLORIDE 98 mmol/L (101-111); CHOL/HDL RATIO 3.5 (<5.0); CHOLESTEROL 179 mg/dL; CREATININE 1.1 mg/dL (0.6-1.2); GFR - MDRD 64 (>89); GLUCOSE 98 mg/dL (70-100); HDL CHOLESTEROL 51 mg/dL; LDL CHOLESTEROL,CALCULATED 112 mg/dL; LDL/HDL RATIO 2.2 (<3.6); POTASSIUM 4.2 mmol/L (3.5-5.0); SODIUM 137 mmol/L (135-145); TOTAL PROTEIN 7.5 g/dL (6.7-8.2); TRIGLYCERIDES 78 mg/dL; VLDL CHOLESTEROL 16 mg/dL
[2020-09-09 12:59] LABS: CREATININE,URINE 63.5 mg/dL
[2020-09-09 13:05] LABS: MICROALBUMIN,URINE < 0.2 mg/dL (0-300.0)
== END 2020-09-09 08:01 | disposition home or self-care (01) ==
LOC: LAB.WCP 08:00
PROVIDERS: ATTEND Internal Medicine
DX: E11.22 Type 2 diabetes mellitus with diabetic chronic kidney disease (principal); N18.9 Chronic kidney disease, unspecified; Z85.46 Personal history of malignant neoplasm of prostate; C91.10 Chronic lymphocytic leukemia of B-cell type not having achieved remission
CPT/HCPCS: 36415; 80053; 80061; 82043; 82570; 83036; 83721; 84153; 84443; 85025

== ENCOUNTER 2021-05-30 07:06 | Outpatient (CLI) | payer MEDICARE, OTHER ==
[2021-05-30 12:15] LABS: CREATININE,URINE 56.6 mg/dL; MICROALBUM/CREATININE RATIO,UR 3.5 ug/mg (<30.0); MICROALBUMIN,URINE 0.2 mg/dL (0-300.0)
[2021-05-30 12:23] LABS: ALBUMIN 4.3 g/dL (3.2-5.5); ALBUMIN/GLOBULIN RATIO 1.2 (1.0-2.2); ALKALINE PHOSPHATASE 51 IU/L (42-121); ALT ALANINE AMINOTRANSFERASE 22 IU/L (10-60); AST ASPARTATE AMINOTRANSFERASE 23 IU/L (10-42); BILIRUBIN,TOTAL 0.6 mg/dL (0.2-1.0); BUN - BLOOD UREA NITROGEN 26 mg/dL (6-20); CALCIUM 10.1 mg/dL (8.5-10.3); CARBON DIOXIDE - CO2 31 mmol/L (21-32); CHLORIDE 98 mmol/L (101-111); CHOLESTEROL 182 mg/dL; CREATININE 1.2 mg/dL (0.6-1.2); GFR - MDRD 58 (>89); GLUCOSE 96 mg/dL (70-100); HDL CHOLESTEROL 45 mg/dL; LDL CHOLESTEROL,CALCULATED 117 mg/dL; LDL/HDL RATIO 2.6 (<3.6); POTASSIUM 3.9 mmol/L (3.5-5.0); SODIUM 140 mmol/L (135-145); TOTAL PROTEIN 7.8 g/dL (6.7-8.2); TRIGLYCERIDES 102 mg/dL; VLDL CHOLESTEROL 20 mg/dL
[2021-05-30 12:48] LABS: ESTIMATED AVERAGE GLUCOSE 111 mg/dL (70-100); HEMOGLOBIN A1c% 5.5 % (4.27-6.07)
[2021-05-30 12:57] LABS: BASOPHILS % (AUTO) 0.2 %; HCT - HEMATOCRIT 46.2 % (42.0-52.0); HGB - HEMOGLOBIN 14.2 g/dL (14.0-18.0); LYMPHOCYTES % (AUTO) 74.1 %; MEAN CORPUSCULAR HEMOGLOBIN 29.8 pg (27.0-31.0); MEAN CORPUSCULAR HGB CONC 30.7 g/dL (32.0-36.0); MEAN CORPUSCULAR VOLUME 96.9 fL (80.0-94.0); MEAN PLATELET VOLUME 11.8 fL (7.4-11.4); MONOCYTES % (AUTO) 6.9 %; NEUTROPHILS % (AUTO) 17.7 %; PLT - PLATELET COUNT 227 10^3/uL (130-450); RED BLOOD COUNT 4.77 10^6/uL (4.70-6.10); RED CELL DISTRIBUTION WIDTH 13.2 % (12.0-15.0); WHITE BLOOD COUNT 19.2 x10^3/uL (4.8-10.8)
[2021-05-30 13:00] LABS: ABNORMAL LYMPHS % (MANUAL) 0 %; BAND NEUTROPHILS % (MANUAL) 0 %
[2021-05-30 14:15] LABS: DIFFERENTIAL COMMENT MANUAL DIFFERENTIAL; EOSINOPHILS # (MANUAL) 0.6 10^3/uL (0-0.7); LYMPHOCYTES # (MANUAL) 14.6 10^3/uL (1.5-3.5); LYMPHOCYTES % (MANUAL) 76 %; MONOCYTES # (MANUAL) 0.8 10^3/uL (0.0-1.0); NEUTROPHILS # (MANUAL) 3.3 10^3/uL (1.5-6.6); PLATELET ESTIMATE, MANUAL NORMAL (130-450,000) (NORMAL); PLATELET MORPHOLOGY NORMAL APPEARANCE (NORMAL); RBC MORPHOLOGY (MULTIPLE) NORMAL APPEARANCE (NORMAL); WBC MORPHOLOGY (MULTIPLE) NORMAL APPEARANCE (NORMAL)
== END 2021-05-30 23:59 | disposition home or self-care (01) ==
LOC: LAB.WCP 07:06
PROVIDERS: ATTEND Internal Medicine
DX: E11.9 Type 2 diabetes mellitus without complications (principal); E55.9 Vitamin D deficiency, unspecified; I10 Essential (primary) hypertension
CPT/HCPCS: 36415; 80053; 80061; 82043; 82306; 82570; 83036; 83721; 85025

== ENCOUNTER 2021-10-12 10:01 | Outpatient (CLI) | payer MEDICARE, OTHER ==
[2021-10-12 11:56] LABS: BASOPHILS % (AUTO) 0.2 %; EOSINOPHILS % (AUTO) 0.5 %; HCT - HEMATOCRIT 44.4 % (42.0-52.0); HGB - HEMOGLOBIN 14.5 g/dL (14.0-18.0); LYMPHOCYTES % (AUTO) 74.8 %; MEAN CORPUSCULAR HEMOGLOBIN 29.9 pg (27.0-31.0); MEAN CORPUSCULAR HGB CONC 32.7 g/dL (32.0-36.0); MEAN CORPUSCULAR VOLUME 91.5 fL (80.0-94.0); MEAN PLATELET VOLUME 11.2 fL (7.4-11.4); MONOCYTES % (AUTO) 3.4 %; PLT - PLATELET COUNT 213 10^3/uL (130-450); RED BLOOD COUNT 4.85 10^6/uL (4.70-6.10); RED CELL DISTRIBUTION WIDTH 14.5 % (12.0-15.0)
[2021-10-12 12:18] LABS: ALBUMIN 4.6 g/dL (3.2-5.5); ALBUMIN/GLOBULIN RATIO 1.4 (1.0-2.2); ALKALINE PHOSPHATASE 78 IU/L (42-121); ALT ALANINE AMINOTRANSFERASE 15 IU/L (10-60); AST ASPARTATE AMINOTRANSFERASE 26 IU/L (10-42); BILIRUBIN,TOTAL 0.9 mg/dL (0.2-1.0); BUN - BLOOD UREA NITROGEN 40 mg/dL (6-20); CALCIUM 9.9 mg/dL (8.5-10.3); CARBON DIOXIDE - CO2 31 mmol/L (21-32); CHLORIDE 96 mmol/L (101-111); CHOL/HDL RATIO 3.9 (<5.0); CHOLESTEROL 174 mg/dL; CREATININE 1.5 mg/dL (0.6-1.2); GFR - MDRD 45 (>89); GLUCOSE 107 mg/dL (70-100); HDL CHOLESTEROL 45 mg/dL; LDL CHOLESTEROL,CALCULATED 109 mg/dL; LDL/HDL RATIO 2.4 (<3.6); POTASSIUM 3.4 mmol/L (3.5-5.0); SLIDE REVIEW? Indicated; SODIUM 138 mmol/L (135-145); TOTAL PROTEIN 7.8 g/dL (6.7-8.2); TRIGLYCERIDES 102 mg/dL; VLDL CHOLESTEROL 20 mg/dL
[2021-10-12 12:19] LABS: ABNORMAL LYMPHS % (MANUAL) 0 %; BAND NEUTROPHILS % (MANUAL) 0 %
[2021-10-12 12:23] LABS: BASOPHILS # (MANUAL) 0.2 10^3/uL (0-0.1); BASOPHILS % (MANUAL) 1 %; DIFFERENTIAL COMMENT MANUAL DIFFERENTIAL; EOSINOPHILS # (MANUAL) 0.2 10^3/uL (0-0.7); LYMPHOCYTES # (MANUAL) 13.4 10^3/uL (1.5-3.5); LYMPHOCYTES % (MANUAL) 36 %; MONOCYTES # (MANUAL) 0.6 10^3/uL (0.0-1.0); NEUTROPHILS # (MANUAL) 5.6 10^3/uL (1.5-6.6); REACTIVE LYMPHS % (MANUAL) 31 %
[2021-10-12 13:31] LABS: ESTIMATED AVERAGE GLUCOSE 114 mg/dL (70-100); HEMOGLOBIN A1c% 5.6 % (4.27-6.07)
== END 2021-10-12 10:02 | disposition home or self-care (01) ==
LOC: LAB.N 10:01
PROVIDERS: ATTEND Internal Medicine
DX: E11.9 Type 2 diabetes mellitus without complications (principal); E78.5 Hyperlipidemia, unspecified; Z85.46 Personal history of malignant neoplasm of prostate; C91.10 Chronic lymphocytic leukemia of B-cell type not having achieved remission
CPT/HCPCS: 36415; 80053; 80061; 83036; 83721; 84153; 85025

== ENCOUNTER 2021-12-04 13:53 | Outpatient (CLI) | payer MEDICARE, OTHER ==
[2021-12-04 17:42] LABS: BASOPHILS % (AUTO) 0.2 %; EOSINOPHILS % (AUTO) 0.4 %; HCT - HEMATOCRIT 32.9 % (42.0-52.0); HGB - HEMOGLOBIN 10.4 g/dL (14.0-18.0); LYMPHOCYTES % (AUTO) 86.1 %; MEAN CORPUSCULAR HEMOGLOBIN 29.5 pg (27.0-31.0); MEAN CORPUSCULAR HGB CONC 31.6 g/dL (32.0-36.0); MEAN CORPUSCULAR VOLUME 93.2 fL (80.0-94.0); MEAN PLATELET VOLUME 10.8 fL (7.4-11.4); MONOCYTES % (AUTO) 0.4 %; NEUTROPHILS % (AUTO) 12.7 %; PLT - PLATELET COUNT 228 10^3/uL (130-450); RED BLOOD COUNT 3.53 10^6/uL (4.70-6.10); RED CELL DISTRIBUTION WIDTH 13.7 % (12.0-15.0); SLIDE REVIEW? Indicated; WHITE BLOOD COUNT 31.8 x10^3/uL (4.8-10.8)
[2021-12-04 17:43] LABS: ABNORMAL LYMPHS % (MANUAL) 0 %; BAND NEUTROPHILS % (MANUAL) 0 %
[2021-12-04 17:48] LABS: ALBUMIN 3.6 g/dL (3.2-5.5); ALBUMIN/GLOBULIN RATIO 1.2 (1.0-2.2); BILIRUBIN,TOTAL 0.3 mg/dL (0.2-1.0); CALCIUM 9.5 mg/dL (8.5-10.3); CREATININE 1.3 mg/dL (0.6-1.2); POTASSIUM 3.9 mmol/L (3.5-5.0); TOTAL PROTEIN 6.6 g/dL (6.7-8.2)
[2021-12-04 18:05] LABS: EOSINOPHILS # (MANUAL) 0.3 10^3/uL (0-0.7); LYMPHOCYTES # (MANUAL) 24.8 10^3/uL (1.5-3.5); LYMPHOCYTES % (MANUAL) 78 %; MONOCYTES # (MANUAL) 1.3 10^3/uL (0.0-1.0); NEUTROPHILS # (MANUAL) 5.4 10^3/uL (1.5-6.6)
[2021-12-04 18:13] LABS: DIFFERENTIAL COMMENT MANUAL DIFFERENTIAL; PLATELET ESTIMATE, MANUAL NORMAL (130-450,000) (NORMAL); PLATELET MORPHOLOGY NORMAL APPEARANCE (NORMAL); RBC MORPHOLOGY (MULTIPLE) NORMAL APPEARANCE (NORMAL); SLIDE SENT FOR PATH REVIEW? Indicated; WBC MORPHOLOGY (MULTIPLE) 2+ SMUDGE (NORMAL)
== END 2021-12-04 13:54 | disposition home or self-care (01) ==
LOC: LAB.N 13:53
PROVIDERS: ATTEND Internal Medicine
DX: I10 Essential (primary) hypertension (principal); E78.5 Hyperlipidemia, unspecified; D72.820 Lymphocytosis (symptomatic)
CPT/HCPCS: 36415; 80053; 85025

== ENCOUNTER 2022-01-10 16:52 | Outpatient (CLI) | payer MEDICARE | END 2022-01-10 16:53 | disposition critical access hospital (66) | LOC: EMS 16:52 | DX: R53.1 Weakness (principal); R42 Dizziness and giddiness; R63.0 Anorexia; Z86.16 Personal history of COVID-19 | CPT/HCPCS: A0425; A0427 ==

== ENCOUNTER 2022-01-10 17:10 | Observation (INO) | payer MEDICARE ==
[2022-01-10 17:41] LABS: BASOPHILS % (AUTO) 0.2 %; HCT - HEMATOCRIT 36.3 % (42.0-52.0); HGB - HEMOGLOBIN 12.1 g/dL (14.0-18.0); LYMPHOCYTES % (AUTO) 58.4 %; MEAN CORPUSCULAR HEMOGLOBIN 29.7 pg (27.0-31.0); MEAN CORPUSCULAR HGB CONC 33.3 g/dL (32.0-36.0); MEAN CORPUSCULAR VOLUME 89.2 fL (80.0-94.0); MEAN PLATELET VOLUME 9.8 fL (7.4-11.4); MONOCYTES % (AUTO) 3.2 %; NEUTROPHILS % (AUTO) 37.8 %; PLT - PLATELET COUNT 241 10^3/uL (130-450); RED BLOOD COUNT 4.07 10^6/uL (4.70-6.10); RED CELL DISTRIBUTION WIDTH 14.6 % (12.0-15.0); WHITE BLOOD COUNT 33.9 x10^3/uL (4.8-10.8)
[2022-01-10] MEDS ORDERED: SODIUM CHLORIDE 0.9% 1,000 ML IV STA (17:41)
--- NOTE | 2022-01-10 17:44 | ED Physician Documentation ---
History of Present Illness - Stated complaint Stated Complaint: GENERAL WEAKNESS - Chief complaint Chief Complaint: Neuro - History obtained from History obtained from: Patient, EMS - Additonal information Additional information: 81-year-old gentleman with history of mitral regurgitation, glaucoma was hospitalized in November for hyperkalemia. He was initially taken [facility] and eventually transferred to [place] where he recovered without the need for dialysis. He states that the hyperkalemia was simply due to potassium supplements and that his renal function was fine. Later was being worked up for replacement of a urinary sphincter and had a stress and an echo which were negative per him and then subsequently got COVID about 3 weeks ago. Ever since getting COVID has been very fatigued with poor appetite. More recently has been testing negative for COVID but today he was feeling quite weak and get up to walk to the living room and did not make it because of weakness. There was no syncope. He did suffer a skin tear on the right elbow. He also has a history of chronically elevated leukocytosis being followed by a heavy equipment plumbing supervisor. He was noted to be orthostatic for EMS with a systolic blood pressure in the 70s on standing. Review of Systems Ten Systems: 10 systems reviewed and negative Constitutional: reports: Fatigue. denies: Fever, Chills Throat: denies: Dental pain / toothache Cardiac: denies: Chest pain / pressure, Palpitations Respiratory: denies: Dyspnea, Cough GI: reports: Constipation. denies: Abdominal Pain, Nausea, Vomiting PD PAST MEDICAL HISTORY - Present Medications Home Medications: Ambulatory Orders Medication Instructions Recorded Confirmed Amlodipine Besylate [Norvasc] 10 mg PO DAILY 01/02/18 01/02/18 Aspirin 81 mg PO DAILY 01/02/18 01/02/18 Atorvastatin Calcium 40 mg PO DAILY 01/02/18 01/02/18 Docusate Sodium 100 mg PO BID 01/02/18 01/02/18 Ibuprofen 800 mg PO TID PRN 01/02/18 01/02/18 Latanoprost 0.005% Ophth Drops 1 drops EACHEYE QPM 01/02/18 01/02/18 [Xalatan Ophth Drops] Lisinopril [Zestril] 40 mg PO DAILY 01/02/18 01/02/18 Multivitamin/Iron/Folic Acid 1 tab PO DAILY 01/02/18 01/02/18 [Centrum Adults Tablet] [place]-3/Dha/Epa/Fish Oil [Fish Oil 1 each PO DAILY 01/02/18 01/02/18 1,000 mg Softgel] Timolol 0.5% Ophth Drops [Timoptic 1 drops LEFTEYE BID 01/02/18 01/02/18 0.5% Ophth Drops] hydroCHLOROthiazide 50 mg PO DAILY 01/02/18 01/02/18 [Hydrochlorothiazide] - Allergies Allergies/Adverse Reactions: Allergies Allergy/AdvReac Type Severity Reaction Status Date / Time erythromycin base AdvReac all mycins Verified 01/10/22 17:21 cause open sores in mouth PD ED PE NORMAL - Vitals Vital signs reviewed: Yes - General General: Alert and oriented X 3, No acute distress - HEENT HEENT: PERRL, Other (Lazy eye) - Neck Neck: Supple, no meningeal sign, No bony TTP - Cardiac Cardiac: RRR, Other (Decrescendo systolic murmur heard best at the apex consistent with known mitral valve regurgitation) - Respiratory Respiratory: No respiratory distress, Clear bilaterally - Abdomen Abdomen: Normal bowel sounds, Soft, Non tender - Back Back: No CVA TTP, No spinal TTP - Derm Derm: Normal color, Warm and dry - Extremities Extremities: Other (Small skin tear abrasion on right olecranon, not deep, not tender) - Neuro Neuro: Alert and oriented X 3, Normal speech Eye Opening: Spontaneous Motor: Obeys Commands Verbal: Oriented GCS Score: 15 - Psych Psych: Normal mood, Normal affect Results - Vitals Vitals: Vital Signs - 24 hr 01/10/22 01/10/22 17:17 18:44 Temperature 37.6 C 36.3 C L Heart Rate 82 94 Respiratory 13 18 Rate Blood Pressure 125/62 106/64 O2 Saturation 94 100 Oxygen O2 Source Room air - EKG (time done) 1721 Rate: Rate (enter#) (87) Rhythm: NSR [place]: Normal Intervals: RBBB QRS: Normal Ischemia: Normal ST segments Compare to prior EKG: Changed from prior EKG (No change from December 19, 2021) Computer interpretation: Agree with computer - Labs Labs: Laboratory Tests 01/10/22 01/10/22 17:29 17:29 WBC 33.9 H RBC 4.07 L Hgb 12.1 L Hct 36.3 L MCV 89.2 MCH 29.7 MCHC 33.3 RDW 14.6 Plt Count 241 MPV 9.8 Neut # (Auto) Not Reportable Lymph # (Auto) Not Reportable [place] # (Auto) Not Reportable Eos # (Auto) Not Reportable Baso # (Auto) Not Reportable Absolute Nucleated RBC Not Reportable Total Counted 100 Band Neuts % (Manual) 0 Abnorm Lymph % (Manual) 0 Nucleated RBC % Not Reportable Neutrophils # (Manual) 14.6 H Lymphocytes # (Manual) 17.6 H Monocytes # (Manual) 1.7 H Eosinophils # (Manual) 0.0 Basophils # (Manual) 0.0 Differential Comment MANUAL DIFFERENTIAL WBC Morphology NORMAL APPEARANCE Platelet Estimate NORMAL (130-450,000) Platelet Morphology NORMAL APPEARANCE RBC Morph Micro Appear NORMAL APPEARANCE Sodium 133 L Potassium 3.0 L Chloride 93 L Carbon Dioxide 26 Anion Gap 14.0 H BUN 36 H Creatinine 2.1 H Estimated GFR (MDRD) 30 L Glucose 168 H Calcium 9.6 Total Bilirubin 1.3 H AST 23 ALT 18 Alkaline Phosphatase 70 Total Protein 7.5 Albumin 3.5 Globulin 4.0 Albumin/Globulin Ratio 0.9 L Lipase 30 PD MEDICAL DECISION MAKING - ED course ED course: 81-year-old gentleman presents with weakness related to orthostasis. He is found to have [place], his baseline creatinines have been in the low ones but bouncing around a bit this year. After the administration of 2 L of crystalloid and some oral potassium supplementation for a potassium level of 3.0 he was still feeling very weak and still orthostatic with a 20-25 point systolic drop for the RN. As such I spoke with Dr. Her for observation at 7:55 PM. Departure - Departure Disposition: ED Place in Observation Clinical Impression: Orthostasis, [place] (acute kidney injury) Condition: Stable
[2022-01-10 17:50] LABS: ABNORMAL LYMPHS % (MANUAL) 0 %; BAND NEUTROPHILS % (MANUAL) 0 %
[2022-01-10 17:56] LABS: ALBUMIN 3.5 g/dL (3.2-5.5); ALBUMIN/GLOBULIN RATIO 0.9 (1.0-2.2); BILIRUBIN,TOTAL 1.3 mg/dL (0.2-1.0); CALCIUM 9.6 mg/dL (8.5-10.3); CREATININE 2.1 mg/dL (0.6-1.2); TOTAL PROTEIN 7.5 g/dL (6.7-8.2)
[2022-01-10] MEDS ORDERED: POTASSIUM CHLORIDE 20 MEQ TABLET PO STA (18:01)
[2022-01-10] MEDS ORDERED: LACTATED RINGERS 1,000 ML IV STA (18:01)
[2022-01-10 18:14] LABS: LYMPHOCYTES # (MANUAL) 17.6 10^3/uL (1.5-3.5); LYMPHOCYTES % (MANUAL) 52 %; MONOCYTES # (MANUAL) 1.7 10^3/uL (0.0-1.0); NEUTROPHILS # (MANUAL) 14.6 10^3/uL (1.5-6.6)
[2022-01-10 18:15] LABS: DIFFERENTIAL COMMENT MANUAL DIFFERENTIAL; PLATELET ESTIMATE, MANUAL NORMAL (130-450,000) (NORMAL); PLATELET MORPHOLOGY NORMAL APPEARANCE (NORMAL); RBC MORPHOLOGY (MULTIPLE) NORMAL APPEARANCE (NORMAL); WBC MORPHOLOGY (MULTIPLE) NORMAL APPEARANCE (NORMAL)
--- OUTSIDE RECORDS SUMMARY | 2022-01-10 18:25 | EXTERNAL MEDICAL SUMMARY RPT | Continuity of Care Document ---
:1940 Author Organization [place] Address [address] [place] [address] Phone Allergies No information. Encounters No information. Functional Status No information. Immunizations No information. Medications date description facility Docusate Sodium 100 MG Oral Capsule I [facility] [id number] Ibuprofen 800 MG Oral Tablet [facility] [id number]+0000 Lisinopril 40 MG Oral Tablet [facility] [id number]+0000 Potassium Chloride 20 MEQ Extended Rel ease [facility] Tablet [id number] Aspirin 81 MG Oral Capsule [facility] pital [id number]+0000 Amlodipine 10 MG Oral Tablet [facility] [id number]+0000 Hydrochlorothiazide 50 MG / Triamteren e 75 [facility] MG Oral Tablet [id number]+0000 latanoprost 0.05 MG/ML [id number] Nystatin 100 UNT/MG Topical Powder Is [facility] [id number]+0000 Cholecalciferol 2000 UNT Oral Capsule [facility] [id number]+0000 Rosuvastatin calcium 40 MG Oral Tablet [facility] [id number]+0000 Metoprolol Tartrate 25 MG Oral Tablet [facility] Problems No information. Procedures date description facility + General Physician [facility] Results/Labs test date author facility value unit interpret ation Result panel 1 (unknown) (no (unknown) (unknown) (no value) (units (unk nown) date) unknown) (unknown) (no (unknown) (unknown) [address] [place] [address] (units (unknown) date) unknown) (unknown) (no (unknown) (unknown) CAMILLA Ortiz (units ( unknown) date) [id number] unknown) (unknown) (no (unknown) (unknown) [facility] (units (unknown) date) unknown) (unknown) (no (unknown) (unknown) Signed (units (unkno wn) date) unknown) (unknown) (no (unknown) (unknown) XRay Report (units (un known) date) unknown) (unknown) (no (unknown) (unknown) (no value) (units (unk nown) date) unknown) (unknown) (no (unknown) (unknown) 11/24/21 (units (unkno wn) date) unknown) (unknown) (no (unknown) (unknown) 1. Triangular (units ( unknown) date) shaped opacity unknown) within the left lung base is nonspecific and may (unknown) (no (unknown) (unknown) 2. Elsewhere, no (units (unknown) date) acute unknown) cardiopulmonary disease. (unknown) (no (unknown) (unknown) Approved by: (units (u nknown) date) Gunnar Houser unknownAlina Arroyo on 11/24/2021 at 22:51 (unknown) (no (unknown) (unknown) Bones and chest (units (unknown) date) wall: No unknown) suspicious bony lesions. Overlying soft tissues (unknown) (no (unknown) (unknown) COMPARISON: (units (un known) date) None. unknown) (unknown) (no (unknown) (unknown) Dictated by: (units (u nknown) date) kyle Pope M.D. on 11/24/2021 at 22:49 (unknown) (no (unknown) (unknown) FINDINGS: (units (unkn own) date) unknown) (unknown) (no (unknown) (unknown) IMPRESSION: (units (un known) date) unknown) (unknown) (no (unknown) (unknown) INDICATIONS: (units (u nknown) date) weakness unknown) (unknown) (no (unknown) (unknown) Lungs and pleura: (units (unknown) date) There is a unknown) triangular-shaped opacity projecting over the (unknown) (no (unknown) (unknown) Mediastinum: (units (u nknown) date) Mediastinal unknown) contours appear normal. Heart size is normal. (unknown) (no (unknown) (unknown) Surgical changes (units (unknown) date) and devices: unknown) None. (unknown) (no (unknown) (unknown) TECHNIQUE: One (units (unknown) date) view of the chest unknown) was acquired. (unknown) (no (unknown) (unknown) hemidiaphragm (units ( unknown) date) measuring up to unknown) 1.4 cm. Lungs are otherwise clear. No pleural (unknown) (no (unknown) (unknown) or pneumothorax. (units (unknown) date) unknown) (unknown) (no (unknown) (unknown) or resolution. (units (unknown) date) unknown) (unknown) (no (unknown) (unknown) possible (units (unkno wn) date) scarring. unknown) However, short-term follow-up is recommended to demonstrate (unknown) (no (unknown) (unknown) unremarkable. (units ( unknown) date) unknown) (unknown) (no (unknown) (unknown) Accession Number: (units (unknown) date) [id number] unknown) (unknown) (no (unknown) (unknown) Age/Sex: 81 / M (units (unknown) date) Date of Service: unknown) (unknown) (no (unknown) (unknown) : 1940 (units (unknown) date) Acct:[id number] unknown) (unknown) (no (unknown) (unknown) Loc: ED (units (unkno wn) date) unknown) (unknown) (no (unknown) (unknown) [id number] (units (unk nown) date) unknown) (unknown) (no (unknown) (unknown) Ordering (units (unkno wn) date) Provider: unknown) Aroldo Bazan D.O. (unknown) (no (unknown) (unknown) PROCEDURE: XR (units (unknown) date) CHEST 1V unknown) (unknown) (no (unknown) (unknown) Patient: (units (unkno wn) date) Raven Sutherland unknown) MR#: (unknown) (no (unknown) (unknown) Procedure: XR (units ( unknown) date) chest 1V unknown) (unknown) (no (unknown) (unknown) appear (units (unkno wn) date) unknown) (unknown) (no (unknown) (unknown) effusions (units (unkn own) date) unknown) (unknown) (no (unknown) (unknown) left (units (unkno wn) date) unknown) (unknown) (no (unknown) (unknown) represent (units (unkn own) date) unknown) (unknown) (no (unknown) (unknown) stability (units (unkn own) date) unknown) Result panel 2 (unknown) (no date) (unknown) (unknown) 13.0 g/dL (unkn own) (unknown) (no date) (unknown) (unknown) 14.1 % (unkn own) (unknown) (no date) (unknown) (unknown) 229 X10 3/uL (unkn own) (unknown) (no date) (unknown) (unknown) 29.2 PG (unkn own) (unknown) (no date) (unknown) (unknown) 31.9 % (unkn own) (unknown) (no date) (unknown) (unknown) 35.4 X10 3/uL (unkn own) (unknown) (no date) (unknown) (unknown) 4.45 X10 6/uL (unkn own) (unknown) (no date) (unknown) (unknown) 40.7 % (unkn own) (unknown) (no date) (unknown) (unknown) 91.5 fL (unkn own) Result panel 3 (unknown) (no (unknown) (unknown) (no value) (units (unk nown) date) unknown) (unknown) (no (unknown) (unknown) Date of Service: (units (unknown) date) 11/24/21 unknown) (unknown) (no (unknown) (unknown) (no value) (units (unk nown) date) unknown) (unknown) (no (unknown) (unknown) 11/24/21 21:40 (units (unknown) date) unknown) (unknown) (no (unknown) (unknown) Allergies (units (unkn own) date) unknown) (unknown) (no (unknown) (unknown) ED Orders (units (unkn own) date) unknown) (unknown) (no (unknown) (unknown) Emergency Report (units (unknown) date) unknown) (unknown) (no (unknown) (unknown) [facility] (units (unknown) date) [address] unknown) [place] [address] (unknown) (no (unknown) (unknown) Lab Results (units (un known) date) unknown) (unknown) (no (unknown) (unknown) Vital Signs - 8 (units (unknown) date) hr unknown) (unknown) (no (unknown) (unknown) (no value) (units (unk nown) date) unknown) (unknown) (no (unknown) (unknown) 11/24/21 (units (unkno wn) date) Range/Units unknown) (unknown) (no (unknown) (unknown) 21:40 (units (unkno wn) date) unknown) (unknown) (no (unknown) (unknown) 11/24/21 (units (unkno wn) date) unknown) (unknown) (no (unknown) (unknown) [id number] (units (unkn own) date) unknown) (unknown) (no (unknown) (unknown) 11/24/21 21:14 (units (unknown) date) unknown) (unknown) (no (unknown) (unknown) 11/24/21 21:40 (units (unknown) date) unknown) (unknown) (no (unknown) (unknown) 20:03 11/24/21 (units (unknown) date) unknown) (unknown) (no (unknown) (unknown) 21:19 11/24/21 (units (unknown) date) unknown) (unknown) (no (unknown) (unknown) 21:20 (units (unkno wn) date) unknown) (unknown) (no (unknown) (unknown) 21:30 (units (unkno wn) date) unknown) (unknown) (no (unknown) (unknown) Age/Sex: 81 / M (units (unknown) date) unknown) (unknown) (no (unknown) (unknown) Allergy/AdvReac (units (unknown) date) Type Severity unknown) Reaction Status Date / Time (unknown) (no (unknown) (unknown) Baso # (Auto) (units ( unknown) date) Not Reportable unknown) (unknown) (no (unknown) (unknown) Baso % (Auto) (units ( unknown) date) Not Reportable unknown) (unknown) (no (unknown) (unknown) Blood Pressure (units (unknown) date) 155/93 H unknown) 11/24/21 20:03 (unknown) (no (unknown) (unknown) Blood Pressure (units (unknown) date) 155/93 H 156/70 unknown) H (unknown) (no (unknown) (unknown) Blood Pressure (units (unknown) date) 162/70 H unknown) (unknown) (no (unknown) (unknown) Chief complaint: (units (unknown) date) Weakness unknown) (unknown) (no (unknown) (unknown) Complete Blood (units (unknown) date) Count AUTO DIFF unknown) Stat (unknown) (no (unknown) (unknown) Comprehensive (units ( unknown) date) Metabolic Panel unknown) Stat (unknown) (no (unknown) (unknown) Course (units (unkno wn) date) unknown) (unknown) (no (unknown) (unknown) : 1940 (units (unknown) date) Acct:[id number] unknown) (unknown) (no (unknown) (unknown) Departure (units (unkn own) date) unknown) (unknown) (no (unknown) (unknown) Discharge Plan (units (unknown) date) unknown) (unknown) (no (unknown) (unknown) EKG-12 Lead Stat (units (unknown) date) unknown) (unknown) (no (unknown) (unknown) ER Physician: (units ( unknown) date) Aroldo Bazan unknown) D.O. (unknown) (no (unknown) (unknown) Eos % (Auto) (units (u nknown) date) Not Reportable unknown) (unknown) (no (unknown) (unknown) Exam (units (unkno wn) date) unknown) (unknown) (no (unknown) (unknown) General (units (unkno wn) date) unknown) (unknown) (no (unknown) (unknown) GenericComposite (units (unknown) date) [Plt Count 229 unknown) (150-400) X10^3/uL ] (unknown) (no (unknown) (unknown) GenericComposite (units (unknown) date) [RBC 4.45 L unknown) (4.5-5.9) X10^6/uL ] (unknown) (no (unknown) (unknown) GenericComposite (units (unknown) date) [WBC 35.4 H* unknown) (4.5-11.0) X10^3/uL ] (unknown) (no (unknown) (unknown) HPI - Weakness (units (unknown) date) unknown) (unknown) (no (unknown) (unknown) Hct 40.7 L (units (un known) date) (41-53) % unknown) (unknown) (no (unknown) (unknown) Hgb 13.0 L (units (un known) date) (13.5-17.5) g/dL unknown) (unknown) (no (unknown) (unknown) Initial Vital (units ( unknown) date) Signs unknown) (unknown) (no (unknown) (unknown) Initial Vital (units ( unknown) date) Signs: unknown) (unknown) (no (unknown) (unknown) Lab Data (units (unkno wn) date) unknown) (unknown) (no (unknown) (unknown) Labs: (units (unkno wn) date) unknown) (unknown) (no (unknown) (unknown) Lipase Stat (units (un known) date) unknown) (unknown) (no (unknown) (unknown) Lymph # (Auto) (units (unknown) date) Not Reportable unknown) (unknown) (no (unknown) (unknown) Lymph % (Auto) (units (unknown) date) Not Reportable unknown) (unknown) (no (unknown) (unknown) MCH 29.2 (units (unkn own) date) (26-34) PG unknown) (unknown) (no (unknown) (unknown) MCHC 31.9 (units (unk nown) date) (30-36) % unknown) (unknown) (no (unknown) (unknown) MCV 91.5 (units (unkn own) date) (80-100) fL unknown) (unknown) (no (unknown) (unknown) MDM - Weakness (units (unknown) date) unknown) (unknown) (no (unknown) (unknown) [address], (units (unknown) date) MD [Primary Care unknown) Provider] - (unknown) (no (unknown) (unknown) Mode of arrival: (units (unknown) date) Wheelchair unknown) (unknown) (no (unknown) (unknown) [place] # (Auto) (units ( unknown) date) Not Reportable unknown) (unknown) (no (unknown) (unknown) [place] % (Auto) (units ( unknown) date) Not Reportable unknown) (unknown) (no (unknown) (unknown) Neut % (Auto) (units ( unknown) date) Not Reportable unknown) (unknown) (no (unknown) (unknown) Ordered: (units (unkno wn) date) unknown) (unknown) (no (unknown) (unknown) Orders (units (unkno wn) date) unknown) (unknown) (no (unknown) (unknown) Patient History (units (unknown) date) unknown) (unknown) (no (unknown) (unknown) Patient: (units (unkno wn) date) Raven Sutherland unknown) MR#: M (unknown) (no (unknown) (unknown) Pulse Oximetry (units (unknown) date) unknown) (unknown) (no (unknown) (unknown) Pulse Oximetry (units (unknown) date) 94 11/24/21 unknown) 20:03 (unknown) (no (unknown) (unknown) Pulse Oximetry (units (unknown) date) 94 89 L 96 unknown) (unknown) (no (unknown) (unknown) Pulse Rate 87 (units (unknown) date) 11/24/21 20:03 unknown) (unknown) (no (unknown) (unknown) Pulse Rate 72 (units ( unknown) date) unknown) (unknown) (no (unknown) (unknown) Pulse Rate 87 76 (units (unknown) date) 77 unknown) (unknown) (no (unknown) (unknown) RDW 14.1 (units (unkn own) date) (11.6-14.8) % unknown) (unknown) (no (unknown) (unknown) Referrals: (units (unk nown) date) unknown) (unknown) (no (unknown) (unknown) Related Data (units (u nknown) date) unknown) (unknown) (no (unknown) (unknown) Respiratory Rate (units (unknown) date) unknown) (unknown) (no (unknown) (unknown) Respiratory Rate (units (unknown) date) 15 11/24/21 unknown) 20:03 (unknown) (no (unknown) (unknown) Respiratory Rate (units (unknown) date) 15 25 H 18 unknown) (unknown) (no (unknown) (unknown) Result diagrams: (units (unknown) date) unknown) (unknown) (no (unknown) (unknown) Signed By: (units (unk nown) date) unknown) (unknown) (no (unknown) (unknown) Smoking Status: (units (unknown) date) Never smoker unknown) (unknown) (no (unknown) (unknown) Smoking Status: (units (unknown) date) Never smoker unknown) (unknown) (no (unknown) (unknown) Social History (units (unknown) date) unknown) (unknown) (no (unknown) (unknown) Sodium Chloride (units (unknown) date) (Normal Saline unknown) 0.9%) 1,000 mls @ 150 mls/hr IV CONT DEE (unknown) (no (unknown) (unknown) Source: patient (units (unknown) date) unknown) (unknown) (no (unknown) (unknown) Stated (units (unkno wn) date) complaint: unknown) Worsening Weakness x3 days (unknown) (no (unknown) (unknown) Substance Use (units ( unknown) date) Type: does not unknown) use (unknown) (no (unknown) (unknown) Temperature (units (un known) date) unknown) (unknown) (no (unknown) (unknown) Temperature (units (un known) date) 98.4 F 11/24/21 unknown) 20:03 (unknown) (no (unknown) (unknown) Temperature 98.4 (units (unknown) date) F unknown) (unknown) (no (unknown) (unknown) Time Seen by (units (u nknown) date) Provider: unknown) 11/24/21 21:14 (unknown) (no (unknown) (unknown) Troponin + CK (units ( unknown) date) Cardiac Panel unknown) Stat (unknown) (no (unknown) (unknown) Vital Signs (units (un known) date) unknown) (unknown) (no (unknown) (unknown) Vital signs: (units (u nknown) date) unknown) (unknown) (no (unknown) (unknown) XR chest 1V Stat (units (unknown) date) unknown) (unknown) (no (unknown) (unknown) [Embedded Image (units (unknown) date) Not Available] unknown) (unknown) (no (unknown) (unknown) alcohol intake (units (unknown) date) frequency: unknown) holidays/special occasions only (unknown) (no (unknown) (unknown) myacin family (units ( unknown) date) Allergy Blister unknown) Uncoded 11/24/21 20:03 Result panel 4 (unknown) (no date) (unknown) (unknown) 1+ (units (unkn own) unknown) (unknown) (no date) (unknown) (unknown) 100 (units (unkn own) unknown) (unknown) (no date) (unknown) (unknown) 13.0 g/dL (unkn own) (unknown) (no date) (unknown) (unknown) 14.1 % (unkn own) (unknown) (no date) (unknown) (unknown) 21.0 % (unkn own) (unknown) (no date) (unknown) (unknown) 229 X10 3/uL (unkn own) (unknown) (no date) (unknown) (unknown) 29.2 PG (unkn own) (unknown) (no date) (unknown) (unknown) 3.0 % (unkn own) (unknown) (no date) (unknown) (unknown) 31.9 % (unkn own) (unknown) (no date) (unknown) (unknown) 35.4 X10 3/uL (unkn own) (unknown) (no date) (unknown) (unknown) 4.45 X10 6/uL (unkn own) (unknown) (no date) (unknown) (unknown) 40.7 % (unkn own) (unknown) (no date) (unknown) (unknown) 7434 /uL (unkn own) (unknown) (no date) (unknown) (unknown) 76.0 % (unkn own) (unknown) (no date) (unknown) (unknown) 91.5 fL (unkn own) (unknown) (no date) (unknown) (unknown) Normal (units (unkn own) Morphology unknown) Result panel 5 (unknown) (no date) (unknown) (unknown) 0.016 ng/mL (unkn own) (unknown) (no date) (unknown) (unknown) 0.6 mg/dL (unkn own) (unknown) (no date) (unknown) (unknown) 1.2 (units (unkn own) unknown) (unknown) (no date) (unknown) (unknown) 10.7 mg/dL (unkn own) (unknown) (no date) (unknown) (unknown) 111 mmol/L (unkn own) (unknown) (no date) (unknown) (unknown) 117 mg/dL (unkn own) (unknown) (no date) (unknown) (unknown) 13 mmol/L (unkn own) (unknown) (no date) (unknown) (unknown) 134 mmol/L (unkn own) (unknown) (no date) (unknown) (unknown) 17 IU/L (unkn own) (unknown) (no date) (unknown) (unknown) 192 U/L (unkn own) (unknown) (no date) (unknown) (unknown) 2.53 mg/dL (unkn own) (unknown) (no date) (unknown) (unknown) 25 mL/min (unkn own) (unknown) (no date) (unknown) (unknown) 26 IU/L (unkn own) (unknown) (no date) (unknown) (unknown) 27.7 (units (unkn own) unknown) (unknown) (no date) (unknown) (unknown) 3.7 g/dL (unkn own) (unknown) (no date) (unknown) (unknown) 319 U/L (unkn own) (unknown) (no date) (unknown) (unknown) 4.6 g/dL (unkn own) (unknown) (no date) (unknown) (unknown) 53 U/L (unkn own) (unknown) (no date) (unknown) (unknown) 70 mg/dL (unkn own) (unknown) (no date) (unknown) (unknown) 8.3 g/dL (unkn own) (unknown) (no date) (unknown) (unknown) 8.6 mmol/L (unkn own) (unknown) (no date) (unknown) (unknown) Test not % (unkn own) performed (unknown) (no date) (unknown) (unknown) Test not ng/mL (unkn own) performed Result panel 6 (unknown) (no (unknown) (unknown) (no value) (units (unk nown) date) unknown) (unknown) (no (unknown) (unknown) [address]units (unkn own) date) Street unknown) (unknown) (no (unknown) (unknown) [place], [place] (units ( unknown) date) [id number] unknown) (unknown) (no (unknown) (unknown) [facility] (units (unknown) date) unknown) (unknown) (no (unknown) (unknown) Signed (units (unkno wn) date) unknown) (unknown) (no (unknown) (unknown) Ultrasound (units (unk nown) date) Report unknown) (unknown) (no (unknown) (unknown) (no value) (units (unk nown) date) unknown) (unknown) (no (unknown) (unknown) 11/24/21 (units (unkno wn) date) unknown) (unknown) (no (unknown) (unknown) 1. No evidence (units (unknown) date) of unknown) hydronephrosis. (unknown) (no (unknown) (unknown) 2. Bilateral (units (u nknown) date) mild renal unknown) cortical thinning. (unknown) (no (unknown) (unknown) Approved by: (units (u nknown) date) Gunnar Houser unknownAlina Arroyo on 11/25/2021 at 0:16 (unknown) (no (unknown) (unknown) Bladder: (units (unkno wn) date) Pre-void bladder unknown) was nondistended. Limited evaluation for (unknown) (no (unknown) (unknown) COMPARISON: (units (un known) date) None. unknown) (unknown) (no (unknown) (unknown) Dictated by: (units (u nknown) date) Gunnar Houser unknown) Cruz on 11/25/2021 at 0:10 (unknown) (no (unknown) (unknown) FINDINGS: (units (unkn own) date) unknown) (unknown) (no (unknown) (unknown) IMPRESSION: (units (un known) date) unknown) (unknown) (no (unknown) (unknown) INDICATIONS: (units (u nknown) date) ACUTE RENAL unknown) FAILURE (unknown) (no (unknown) (unknown) Kidneys: Right (units (unknown) date) kidney measures unknown) 11.8 cm long; left kidney measures 11.6 cm (unknown) (no (unknown) (unknown) Miscellaneous: (units (unknown) date) No free pelvic unknown) fluid. (unknown) (no (unknown) (unknown) Real-time (units (unkn own) date) scanning was unknown) performed of the kidneys and bladder, with image (unknown) (no (unknown) (unknown) TECHNIQUE: (units (unk nown) date) unknown) (unknown) (no (unknown) (unknown) cortical (units (unkno wn) date) echotexture unknown) appears grossly within normal limits. No hydronephrosis. (unknown) (no (unknown) (unknown) interrogation. (units (unknown) date) (Of note, unknown) ureteral jets may not be detectable in up to 25% of (unknown) (no (unknown) (unknown) or stones. On (units (unknown) date) pre-void images, unknown) neither ureteral jets are noted with color (unknown) (no (unknown) (unknown) renal cortical (units (unknown) date) thickness is 1.5 unknown) cm; left renal cortical thickness is 1.5 cm. (unknown) (no (unknown) (unknown) to insufficient (units (unknown) date) differences in unknown) specific gravity between ureteral and bladder (unknown) (no (unknown) (unknown) Accession (units (unkn own) date) Number: unknown) [id number] (unknown) (no (unknown) (unknown) Age/Sex: 81 / M (units (unknown) date) Date of unknown) Service: (unknown) (no (unknown) (unknown) : 1940 (units (unknown) date) unknown) Acct:[id number] (unknown) (no (unknown) (unknown) Doppler (units (unkno wn) date) unknown) (unknown) (no (unknown) (unknown) Loc: ED (units (unkno wn) date) unknown) (unknown) (no (unknown) (unknown) [id number] (units (unk nown) date) unknown) (unknown) (no (unknown) (unknown) Ordering (units (unkno wn) date) Provider: unknown) Aroldo Bazan D.O. (unknown) (no (unknown) (unknown) PROCEDURE: US (units (unknown) date) RENAL COMPLETE unknown) (unknown) (no (unknown) (unknown) Patient: (units (unkno wn) date) ReginaRaven tipton unknown) N MR#: (unknown) (no (unknown) (unknown) Procedure: US (units ( unknown) date) renal complete unknown) (unknown) (no (unknown) (unknown) Renal (units (unkno wn) date) unknown) (unknown) (no (unknown) (unknown) cases due (units (unkn own) date) unknown) (unknown) (no (unknown) (unknown) documentation. (units (unknown) date) unknown) (unknown) (no (unknown) (unknown) intraluminal (units (u nknown) date) masses unknown) (unknown) (no (unknown) (unknown) long. Right (units (u nknown) date) unknown) (unknown) (no (unknown) (unknown) urine). (units (unkno wn) date) unknown) Result panel 7 (unknown) (no date) (unknown) (unknown) Negative (units (unkn own) unknown) Result panel 8 (unknown) (no date) (unknown) (unknown) 104 mmol/L (unkn own) (unknown) (no date) (unknown) (unknown) 108.6 mg/dL (unkn own) Result panel 9 (unknown) (no (unknown) (unknown) (no value) (units (unk nown) date) unknown) (unknown) (no (unknown) (unknown) Date of Service: (units (unknown) date) 11/24/21 unknown) (unknown) (no (unknown) (unknown) (no value) (units (unk nown) date) unknown) (unknown) (no (unknown) (unknown) 11/24/21 21:40 (units (unknown) date) unknown) (unknown) (no (unknown) (unknown) Admin: 11/24/21 (units (unknown) date) 22:08 Dose: 150 unknown) mls/hr (unknown) (no (unknown) (unknown) Admin: 11/24/21 (units (unknown) date) 22:52 Dose: 250 unknown) mls/hr (unknown) (no (unknown) (unknown) Admin: 11/24/21 (units (unknown) date) 23:01 Dose: unknown) 1,000 mls/hr (unknown) (no (unknown) (unknown) Admin: 11/24/21 (units (unknown) date) 23:16 Dose: 140 unknown) mls/hr (unknown) (no (unknown) (unknown) Allergies (units (unkn own) date) unknown) (unknown) (no (unknown) (unknown) Documented by: (units (unknown) date) ATAYLOR unknown) Cosigned by: FREDIS (unknown) (no (unknown) (unknown) Documented by: (units (unknown) date) ATAYLOR unknown) (unknown) (no (unknown) (unknown) Documented by: (units (unknown) date) SBALDWIN unknown) (unknown) (no (unknown) (unknown) ED Orders (units (unkn own) date) unknown) (unknown) (no (unknown) (unknown) Emergency Report (units (unknown) date) unknown) (unknown) (no (unknown) (unknown) Infusion: (units (unkn own) date) 11/24/21 23:01 unknown) Dose: 0 mls/hr (unknown) (no (unknown) (unknown) [facility] (units (unknown) date) [address] unknown) [place] [address] (unknown) (no (unknown) (unknown) Lab Results (units (un known) date) unknown) (unknown) (no (unknown) (unknown) Last Admin: (units (un known) date) 11/24/21 22:56 unknown) Dose: 40 mg (unknown) (no (unknown) (unknown) Last Admin: (units (un known) date) 11/24/21 23:09 unknown) Dose: 5 unit (unknown) (no (unknown) (unknown) Last Admin: (units (un known) date) 11/24/21 23:15 unknown) Dose: 20 mg (unknown) (no (unknown) (unknown) Last Infusion: (units (unknown) date) 11/24/21 23:11 unknown) Dose: 0 mls/hr (unknown) (no (unknown) (unknown) Last Infusion: (units (unknown) date) 11/24/21 23:54 unknown) Dose: 0 mls/hr (unknown) (no (unknown) (unknown) Last Infusion: (units (unknown) date) 11/25/21 00:10 unknown) Dose: 0 mls/hr (unknown) (no (unknown) (unknown) Last Infusion: (units (unknown) date) 11/25/21 00:17 unknown) Dose: 150 mls/hr (unknown) (no (unknown) (unknown) PRN Reason: (units (un known) date) Hypoglycemia unknown) (unknown) (no (unknown) (unknown) Point of Care (units ( unknown) date) Testing unknown) (unknown) (no (unknown) (unknown) Stop: 11/24/21 (units (unknown) date) 22:22 unknown) (unknown) (no (unknown) (unknown) Stop: 11/24/21 (units (unknown) date) 22:50 unknown) (unknown) (no (unknown) (unknown) Stop: 11/24/21 (units (unknown) date) 23:20 unknown) (unknown) (no (unknown) (unknown) Vital Signs - 8 (units (unknown) date) hr unknown) (unknown) (no (unknown) (unknown) (no value) (units (unk nown) date) unknown) (unknown) (no (unknown) (unknown) 11/24/21 (units (unkno wn) date) 11/24/21 11/24/21 unknown) Range/Units (unknown) (no (unknown) (unknown) 11/24/21 (units (unkno wn) date) Range/Units unknown) (unknown) (no (unknown) (unknown) 21:40 21:40 (units (un known) date) 22:32 unknown) (unknown) (no (unknown) (unknown) 23:30 (units (unkno wn) date) unknown) (unknown) (no (unknown) (unknown) 11/24/21 (units (unkno wn) date) unknown) (unknown) (no (unknown) (unknown) [id number] (units (unkn own) date) unknown) (unknown) (no (unknown) (unknown) 00:00 (units (unkno wn) date) unknown) (unknown) (no (unknown) (unknown) 11/24/21 21:14 (units (unknown) date) unknown) (unknown) (no (unknown) (unknown) 11/24/21 21:40 (units (unknown) date) unknown) (unknown) (no (unknown) (unknown) 11/24/21 22:21 (units (unknown) date) unknown) (unknown) (no (unknown) (unknown) 11/24/21 22:32 (units (unknown) date) unknown) (unknown) (no (unknown) (unknown) 11/24/21 23:30 (units (unknown) date) unknown) (unknown) (no (unknown) (unknown) 20:03 11/24/21 (units (unknown) date) unknown) (unknown) (no (unknown) (unknown) 21:19 11/24/21 (units (unknown) date) unknown) (unknown) (no (unknown) (unknown) 21:20 (units (unkno wn) date) unknown) (unknown) (no (unknown) (unknown) 21:30 11/24/21 (units (unknown) date) unknown) (unknown) (no (unknown) (unknown) 22:00 11/24/21 (units (unknown) date) unknown) (unknown) (no (unknown) (unknown) 22:01 (units (unkno wn) date) unknown) (unknown) (no (unknown) (unknown) 22:30 11/24/21 (units (unknown) date) unknown) (unknown) (no (unknown) (unknown) 23:00 11/24/21 (units (unknown) date) unknown) (unknown) (no (unknown) (unknown) 23:04 (units (unkno wn) date) unknown) (unknown) (no (unknown) (unknown) 23:20 11/24/21 (units (unknown) date) unknown) (unknown) (no (unknown) (unknown) 23:30 11/25/21 (units (unknown) date) unknown) (unknown) (no (unknown) (unknown) ALT (<50) (units (un known) date) IU/L unknown) (unknown) (no (unknown) (unknown) ALT 17 (<50) (units (unknown) date) IU/L unknown) (unknown) (no (unknown) (unknown) AST (17-59) (units ( unknown) date) IU/L unknown) (unknown) (no (unknown) (unknown) AST 26 (units (unkno wn) date) (17-59) IU/L unknown) (unknown) (no (unknown) (unknown) Age/Sex: 81 / M (units (unknown) date) unknown) (unknown) (no (unknown) (unknown) Albumin (units (unkno wn) date) (3.5-5.0) g/dL unknown) (unknown) (no (unknown) (unknown) Albumin 4.6 (units ( unknown) date) (3.5-5.0) g/dL unknown) (unknown) (no (unknown) (unknown) Albumin/Globulin (units (unknown) date) Ratio (1.0-2.8) unknown) (unknown) (no (unknown) (unknown) Albumin/Globulin (units (unknown) date) Ratio 1.2 unknown) (1.0-2.8) (unknown) (no (unknown) (unknown) Albuterol (units (unkn own) date) (Albuterol 2.5 unknown) Mg/3 Ml Neb (Adult)) 20 mg INH NOW ONE (unknown) (no (unknown) (unknown) Alkaline (units (unkno wn) date) Phosphatase unknown) (38-126) U/L (unknown) (no (unknown) (unknown) Alkaline (units (unkno wn) date) Phosphatase 192 unknown) H (38-126) U/L (unknown) (no (unknown) (unknown) Allergy/AdvReac (units (unknown) date) Type Severity unknown) Reaction Status Date / Time (unknown) (no (unknown) (unknown) BUN (9-20) (units (u nknown) date) mg/dL unknown) (unknown) (no (unknown) (unknown) BUN 70 H (units (unk nown) date) (9-20) mg/dL unknown) (unknown) (no (unknown) (unknown) BUN/Creatinine (units (unknown) date) Ratio (6-22) unknown) (unknown) (no (unknown) (unknown) BUN/Creatinine (units (unknown) date) Ratio 27.7 H unknown) (6-22) (unknown) (no (unknown) (unknown) Baso # (Auto) (units ( unknown) date) unknown) (unknown) (no (unknown) (unknown) Baso # (Auto) (units ( unknown) date) Not Reportable unknown) (unknown) (no (unknown) (unknown) Baso % (Auto) (units ( unknown) date) unknown) (unknown) (no (unknown) (unknown) Baso % (Auto) (units ( unknown) date) Not Reportable unknown) (unknown) (no (unknown) (unknown) Blood Pressure (units (unknown) date) 131/58 L unknown) (unknown) (no (unknown) (unknown) Blood Pressure (units (unknown) date) 133/63 129/62 unknown) (unknown) (no (unknown) (unknown) Blood Pressure (units (unknown) date) 155/93 H unknown) 11/24/21 20:03 (unknown) (no (unknown) (unknown) Blood Pressure (units (unknown) date) 155/93 H 156/70 unknown) H (unknown) (no (unknown) (unknown) Blood Pressure (units (unknown) date) 162/70 H 164/76 unknown) H (unknown) (no (unknown) (unknown) CK-MB (CK-2) (units (u nknown) date) unknown) (unknown) (no (unknown) (unknown) CK-MB (CK-2) (units (u nknown) date) TNP unknown) (unknown) (no (unknown) (unknown) CK-MB (CK-2) Rel (units (unknown) date) Index unknown) (unknown) (no (unknown) (unknown) CK-MB (CK-2) Rel (units (unknown) date) Index TNP unknown) (unknown) (no (unknown) (unknown) COVID19 -Nasal (units (unknown) date) RAPID/Pre-Proc unknown) Stat (unknown) (no (unknown) (unknown) Calcium (units (unkno wn) date) (8.4-10.2) mg/dL unknown) (unknown) (no (unknown) (unknown) Calcium 10.7 H (units (unknown) date) (8.4-10.2) unknown) mg/dL (unknown) (no (unknown) (unknown) Calcium (units (unkno wn) date) Gluconate 9.3 unknown) meq/ (Sodium Chloride) 70 mls @ 140 mls/hr IV NOW ONE (unknown) (no (unknown) (unknown) Carbon Dioxide (units (unknown) date) (22-32) mmol/L unknown) (unknown) (no (unknown) (unknown) Carbon Dioxide (units (unknown) date) 13 L (22-32) unknown) mmol/L (unknown) (no (unknown) (unknown) Chief complaint: (units (unknown) date) Weakness unknown) (unknown) (no (unknown) (unknown) Chloride (units (unkno wn) date) (98-107) mmol/L unknown) (unknown) (no (unknown) (unknown) Chloride 111 H (units (unknown) date) (98-107) unknown) mmol/L (unknown) (no (unknown) (unknown) Complete Blood (units (unknown) date) Count AUTO DIFF unknown) Stat (unknown) (no (unknown) (unknown) Comprehensive (units ( unknown) date) Metabolic Panel unknown) Stat (unknown) (no (unknown) (unknown) Course (units (unkno wn) date) unknown) (unknown) (no (unknown) (unknown) Creatinine (units (unk nown) date) (0.66-1.25) unknown) mg/dL (unknown) (no (unknown) (unknown) Creatinine (units (unk nown) date) 2.53 H unknown) (0.66-1.25) mg/dL (unknown) (no (unknown) (unknown) Creatinine Urine (units (unknown) date) Random Stat unknown) (unknown) (no (unknown) (unknown) : 1940 (units (unknown) date) Acct:[id number] unknown) (unknown) (no (unknown) (unknown) Departure (units (unkn own) date) unknown) (unknown) (no (unknown) (unknown) Dextrose (D10w) (units (unknown) date) 250 mls @ 999 unknown) mls/hr IV PRN PRN (unknown) (no (unknown) (unknown) Discharge Plan (units (unknown) date) unknown) (unknown) (no (unknown) (unknown) Discontinued (units (u nknown) date) Medications unknown) (unknown) (no (unknown) (unknown) EKG-12 Lead Stat (units (unknown) date) unknown) (unknown) (no (unknown) (unknown) ER Physician: (units ( unknown) date) Aroldo Bazan unknown) D.O. (unknown) (no (unknown) (unknown) Eos % (Auto) (units (u nknown) date) unknown) (unknown) (no (unknown) (unknown) Eos % (Auto) (units (u nknown) date) Not Reportable unknown) (unknown) (no (unknown) (unknown) Estimated GFR (units ( unknown) date) (>60) mL/min unknown) (unknown) (no (unknown) (unknown) Estimated GFR (units ( unknown) date) 25 L (>60) unknown) mL/min (unknown) (no (unknown) (unknown) Exam (units (unkno wn) date) unknown) (unknown) (no (unknown) (unknown) Furosemide (units (unk nown) date) (Furosemide 40 unknown) Mg/4 Ml Vial) 40 mg IV NOW ONE (unknown) (no (unknown) (unknown) General (units (unkno wn) date) unknown) (unknown) (no (unknown) (unknown) GenericComposite (units (unknown) date) [Plt Count unknown) (150-400) X10^3/uL ] (unknown) (no (unknown) (unknown) GenericComposite (units (unknown) date) [Plt Count 229 unknown) (150-400) X10^3/uL ] (unknown) (no (unknown) (unknown) GenericComposite (units (unknown) date) [RBC (4.5-5.9) unknown) X10^6/uL ] (unknown) (no (unknown) (unknown) GenericComposite (units (unknown) date) [RBC 4.45 L unknown) (4.5-5.9) X10^6/uL ] (unknown) (no (unknown) (unknown) GenericComposite (units (unknown) date) [WBC (4.5-11.0) unknown) X10^3/uL ] (unknown) (no (unknown) (unknown) GenericComposite (units (unknown) date) [WBC 35.4 H* unknown) (4.5-11.0) X10^3/uL ] (unknown) (no (unknown) (unknown) Globulin (units (o wn) date) (1.7-4.1) g/dL unknown) (unknown) (no (unknown) (unknown) Globulin 3.7 (units (unknown) date) (1.7-4.1) g/dL unknown) (unknown) (no (unknown) (unknown) Glucose (units (unkno wn) date) (80-110) mg/dL unknown) (unknown) (no (unknown) (unknown) Glucose 117 H (units (unknown) date) (80-110) mg/dL unknown) (unknown) (no (unknown) (unknown) Glucose POC (units (un known) date) 136 unknown) (unknown) (no (unknown) (unknown) HPI - Weakness (units (unknown) date) unknown) (unknown) (no (unknown) (unknown) Hct (41-53) % (units (unknown) date) unknown) (unknown) (no (unknown) (unknown) Hct 40.7 L (units (un known) date) (41-53) % unknown) (unknown) (no (unknown) (unknown) Hgb (units (unkno wn) date) (13.5-17.5) g/dL unknown) (unknown) (no (unknown) (unknown) Hgb 13.0 L (units (un known) date) (13.5-17.5) g/dL unknown) (unknown) (no (unknown) (unknown) Initial Vital (units ( unknown) date) Signs unknown) (unknown) (no (unknown) (unknown) Initial Vital (units ( unknown) date) Signs: unknown) (unknown) (no (unknown) (unknown) Insulin Human (units (u nknown) date) Regular (Insulin unknown) Regular 100 Unit/Ml 3 Ml Vial) 5 unit IV NOW ONE (unknown) (no (unknown) (unknown) Lab Data (units (unkno wn) date) unknown) (unknown) (no (unknown) (unknown) Labs: (units (unkno wn) date) unknown) (unknown) (no (unknown) (unknown) Lipase (units (unkno wn) date) (23-300) U/L unknown) (unknown) (no (unknown) (unknown) Lipase 319 H (units (unknown) date) (23-300) U/L unknown) (unknown) (no (unknown) (unknown) Lipase Stat (units (un known) date) unknown) (unknown) (no (unknown) (unknown) Lymph # (Auto) (units (unknown) date) unknown) (unknown) (no (unknown) (unknown) Lymph # (Auto) (units (unknown) date) Not Reportable unknown) (unknown) (no (unknown) (unknown) Lymph % (Auto) (units (unknown) date) unknown) (unknown) (no (unknown) (unknown) Lymph % (Auto) (units (unknown) date) Not Reportable unknown) (unknown) (no (unknown) (unknown) Lymphocytes % (units ( unknown) date) (Manual) unknown) (25-45) % (unknown) (no (unknown) (unknown) Lymphocytes % (units ( unknown) date) (Manual) 76.0 H unknown) (25-45) % (unknown) (no (unknown) (unknown) MCH (26-34) (units ( unknown) date) PG unknown) (unknown) (no (unknown) (unknown) MCH 29.2 (units (unkn own) date) (26-34) PG unknown) (unknown) (no (unknown) (unknown) MCHC (30-36) (units (unknown) date) % unknown) (unknown) (no (unknown) (unknown) MCHC 31.9 (units (unk nown) date) (30-36) % unknown) (unknown) (no (unknown) (unknown) MCV (80-100) (units (unknown) date) fL unknown) (unknown) (no (unknown) (unknown) MCV 91.5 (units (unkn own) date) (80-100) fL unknown) (unknown) (no (unknown) (unknown) MDM - Weakness (units (unknown) date) unknown) (unknown) (no (unknown) (unknown) [address], (units (unknown) date) MD [Primary Care unknown) Provider] - (unknown) (no (unknown) (unknown) Mode of arrival: (units (unknown) date) Wheelchair unknown) (unknown) (no (unknown) (unknown) [place] # (Auto) (units ( unknown) date) unknown) (unknown) (no (unknown) (unknown) [place] # (Auto) (units ( unknown) date) Not Reportable unknown) (unknown) (no (unknown) (unknown) [place] % (Auto) (units ( unknown) date) unknown) (unknown) (no (unknown) (unknown) [place] % (Auto) (units ( unknown) date) Not Reportable unknown) (unknown) (no (unknown) (unknown) Monocytes % (units (un known) date) (Manual) (2-11) unknown) % (unknown) (no (unknown) (unknown) Monocytes % (units (un known) date) (Manual) 3.0 unknown) (2-11) % (unknown) (no (unknown) (unknown) Neut % (Auto) (units ( unknown) date) unknown) (unknown) (no (unknown) (unknown) Neut % (Auto) (units ( unknown) date) Not Reportable unknown) (unknown) (no (unknown) (unknown) Neutrophils # (units ( unknown) date) (Manual) unknown) ([id number]) /uL (unknown) (no (unknown) (unknown) Neutrophils # (units ( unknown) date) (Manual) 7434 H unknown) ([id number]) /uL (unknown) (no (unknown) (unknown) Ordered: (units (unkno wn) date) unknown) (unknown) (no (unknown) (unknown) Orders (units (unkno wn) date) unknown) (unknown) (no (unknown) (unknown) Patient History (units (unknown) date) unknown) (unknown) (no (unknown) (unknown) Patient: (units (unkno wn) date) Raven Sutherland unknown) MR#: M (unknown) (no (unknown) (unknown) Potassium (units (unkn own) date) (3.4-5.1) mmol/L unknown) (unknown) (no (unknown) (unknown) Potassium 8.6 (units (unknown) date) H* (3.4-5.1) unknown) mmol/L (unknown) (no (unknown) (unknown) Pulse Oximetry (units (unknown) date) 100 97 unknown) (unknown) (no (unknown) (unknown) Pulse Oximetry (units (unknown) date) 94 11/24/21 unknown) 20:03 (unknown) (no (unknown) (unknown) Pulse Oximetry (units (unknown) date) 97 97 unknown) (unknown) (no (unknown) (unknown) Pulse Oximetry (units (unknown) date) 94 89 L 96 unknown) (unknown) (no (unknown) (unknown) Pulse Oximetry (units (unknown) date) 96 96 unknown) (unknown) (no (unknown) (unknown) Pulse Rate 87 (units (unknown) date) 11/24/21 20:03 unknown) (unknown) (no (unknown) (unknown) Pulse Rate 72 78 (units (unknown) date) 79 unknown) (unknown) (no (unknown) (unknown) Pulse Rate 72 80 (units (unknown) date) 81 unknown) (unknown) (no (unknown) (unknown) Pulse Rate 79 91 (units (unknown) date) H 104 H unknown) (unknown) (no (unknown) (unknown) Pulse Rate 87 76 (units (unknown) date) 77 unknown) (unknown) (no (unknown) (unknown) RBC Morphology (units (unknown) date) unknown) (unknown) (no (unknown) (unknown) RBC Morphology (units (unknown) date) Normal morphology unknown) (unknown) (no (unknown) (unknown) RDW (units (unkno wn) date) (11.6-14.8) % unknown) (unknown) (no (unknown) (unknown) RDW 14.1 (units (unkn own) date) (11.6-14.8) % unknown) (unknown) (no (unknown) (unknown) Referrals: (units (unk nown) date) unknown) (unknown) (no (unknown) (unknown) Related Data (units (u nknown) date) unknown) (unknown) (no (unknown) (unknown) Respiratory Rate (units (unknown) date) unknown) (unknown) (no (unknown) (unknown) Respiratory Rate (units (unknown) date) 15 11/24/21 unknown) 20:03 (unknown) (no (unknown) (unknown) Respiratory Rate (units (unknown) date) 23 25 H unknown) (unknown) (no (unknown) (unknown) Respiratory Rate (units (unknown) date) 15 25 H 18 unknown) (unknown) (no (unknown) (unknown) Respiratory Rate (units (unknown) date) 25 H 11 L 22 unknown) (unknown) (no (unknown) (unknown) Result diagrams: (units (unknown) date) unknown) (unknown) (no (unknown) (unknown) SARS-CoV-2 (PCR) (units (unknown) date) Negative unknown) (Negative) (unknown) (no (unknown) (unknown) SARS-CoV-2 (PCR) (units (unknown) date) (Negative) unknown) (unknown) (no (unknown) (unknown) Seg Neutrophils (units (unknown) date) % (38-70) % unknown) (unknown) (no (unknown) (unknown) Seg Neutrophils (units (unknown) date) % 21.0 L unknown) (38-70) % (unknown) (no (unknown) (unknown) Signed By: (units (unk nown) date) unknown) (unknown) (no (unknown) (unknown) Smoking Status: (units (unknown) date) Never smoker unknown) (unknown) (no (unknown) (unknown) Smoking Status: (units (unknown) date) Never smoker unknown) (unknown) (no (unknown) (unknown) Smudge Cells (units (u nknown) date) unknown) (unknown) (no (unknown) (unknown) Smudge Cells 1+ (units (unknown) date) H unknown) (unknown) (no (unknown) (unknown) Social History (units (unknown) date) unknown) (unknown) (no (unknown) (unknown) Sodium (units (unkno wn) date) (137-145) mmol/L unknown) (unknown) (no (unknown) (unknown) Sodium 134 L (units (unknown) date) (137-145) mmol/L unknown) (unknown) (no (unknown) (unknown) Sodium Chloride (units (unknown) date) (Normal Saline unknown) 0.9%) 1,000 mls @ 1,000 mls/hr IV BOLUS ONE (unknown) (no (unknown) (unknown) Sodium Chloride (units (unknown) date) (Normal Saline unknown) 0.9%) 1,000 mls @ 150 mls/hr IV CONT DEE (unknown) (no (unknown) (unknown) Sodium Urine (units (u nknown) date) Random Stat unknown) (unknown) (no (unknown) (unknown) Source: patient (units (unknown) date) unknown) (unknown) (no (unknown) (unknown) Stated (units (unkno wn) date) complaint: unknown) Worsening Weakness x3 days (unknown) (no (unknown) (unknown) Substance Use (units ( unknown) date) Type: does not unknown) use (unknown) (no (unknown) (unknown) Temperature (units (un known) date) unknown) (unknown) (no (unknown) (unknown) Temperature (units (un known) date) 98.4 F 11/24/21 unknown) 20:03 (unknown) (no (unknown) (unknown) Temperature 98.4 (units (unknown) date) F unknown) (unknown) (no (unknown) (unknown) Time Seen by (units (u nknown) date) Provider: unknown) 11/24/21 21:14 (unknown) (no (unknown) (unknown) Total Bilirubin (units (unknown) date) (0.2-1.3) mg/dL unknown) (unknown) (no (unknown) (unknown) Total Bilirubin (units (unknown) date) 0.6 (0.2-1.3) unknown) mg/dL (unknown) (no (unknown) (unknown) Total Counted (units ( unknown) date) unknown) (unknown) (no (unknown) (unknown) Total Counted (units ( unknown) date) 100 unknown) (unknown) (no (unknown) (unknown) Total Creatine (units (unknown) date) Kinase (55-170) unknown) U/L (unknown) (no (unknown) (unknown) Total Creatine (units (unknown) date) Kinase 53 L unknown) (55-170) U/L (unknown) (no (unknown) (unknown) Total Protein (units ( unknown) date) (6.3-8.2) g/dL unknown) (unknown) (no (unknown) (unknown) Total Protein (units ( unknown) date) 8.3 H (6.3-8.2) unknown) g/dL (unknown) (no (unknown) (unknown) Troponin + CK (units ( unknown) date) Cardiac Panel unknown) Stat (unknown) (no (unknown) (unknown) Troponin I (units (unk nown) date) (0.01-0.034) unknown) ng/mL (unknown) (no (unknown) (unknown) Troponin I (units (unk nown) date) 0.016 unknown) (0.01-0.034) ng/mL (unknown) (no (unknown) (unknown) US renal (units (unkno wn) date) complete Stat unknown) (unknown) (no (unknown) (unknown) Ur Random Sodium (units (unknown) date) (30-90) unknown) mmol/L (unknown) (no (unknown) (unknown) Ur Random Sodium (units (unknown) date) 104 H (30-90) unknown) mmol/L (unknown) (no (unknown) (unknown) Urine Creatinine (units (unknown) date) mg/dL unknown) (unknown) (no (unknown) (unknown) Urine Creatinine (units (unknown) date) 108.6 mg/dL unknown) (unknown) (no (unknown) (unknown) Vital Signs (units (un known) date) unknown) (unknown) (no (unknown) (unknown) Vital signs: (units (u nknown) date) unknown) (unknown) (no (unknown) (unknown) XR chest 1V Stat (units (unknown) date) unknown) (unknown) (no (unknown) (unknown) [Embedded Image (units (unknown) date) Not Available] unknown) (unknown) (no (unknown) (unknown) alcohol intake (units (unknown) date) frequency: unknown) holidays/special occasions only (unknown) (no (unknown) (unknown) myacin family (units ( unknown) date) Allergy Blister unknown) Uncoded 11/24/21 20:03 Result panel 10 (unknown) (no (unknown) (unknown) (no value) (units (unk nown) date) unknown) (unknown) (no (unknown) (unknown) Date of Service: (units (unknown) date) 11/24/21 unknown) (unknown) (no (unknown) (unknown) (no value) (units (unk nown) date) unknown) (unknown) (no (unknown) (unknown) 11/24/21 21:40 (units (unknown) date) unknown) (unknown) (no (unknown) (unknown) Admin: 11/24/21 (units (unknown) date) 22:08 Dose: 150 unknown) mls/hr (unknown) (no (unknown) (unknown) Admin: 11/24/21 (units (unknown) date) 22:52 Dose: 250 unknown) mls/hr (unknown) (no (unknown) (unknown) Admin: 11/24/21 (units (unknown) date) 23:01 Dose: unknown) 1,000 mls/hr (unknown) (no (unknown) (unknown) Admin: 11/24/21 (units (unknown) date) 23:16 Dose: 140 unknown) mls/hr (unknown) (no (unknown) (unknown) Allergies (units (unkn own) date) unknown) (unknown) (no (unknown) (unknown) Documented by: (units (unknown) date) NAMITAOR unknown) Cosigned by: FREDIS (unknown) (no (unknown) (unknown) Documented by: (units (unknown) date) JAIRO unknown) (unknown) (no (unknown) (unknown) Documented by: (units (unknown) date) FREDIS unknown) (unknown) (no (unknown) (unknown) ED Orders (units (unkn own) date) unknown) (unknown) (no (unknown) (unknown) Emergency Report (units (unknown) date) unknown) (unknown) (no (unknown) (unknown) Infusion: (units (unkn own) date) 11/24/21 23:01 unknown) Dose: 0 mls/hr (unknown) (no (unknown) (unknown) [facility] (units (unknown) date) [address] unknown) [place] [address] (unknown) (no (unknown) (unknown) Lab Results (units (un known) date) unknown) (unknown) (no (unknown) (unknown) Last Admin: (units (un known) date) 11/24/21 22:56 unknown) Dose: 40 mg (unknown) (no (unknown) (unknown) Last Admin: (units (un known) date) 11/24/21 23:09 unknown) Dose: 5 unit (unknown) (no (unknown) (unknown) Last Admin: (units (un known) date) 11/24/21 23:15 unknown) Dose: 20 mg (unknown) (no (unknown) (unknown) Last Infusion: (units (unknown) date) 11/24/21 23:11 unknown) Dose: 0 mls/hr (unknown) (no (unknown) (unknown) Last Infusion: (units (unknown) date) 11/24/21 23:54 unknown) Dose: 0 mls/hr (unknown) (no (unknown) (unknown) Last Infusion: (units (unknown) date) 11/25/21 00:10 unknown) Dose: 0 mls/hr (unknown) (no (unknown) (unknown) Last Infusion: (units (unknown) date) 11/25/21 00:17 unknown) Dose: 150 mls/hr (unknown) (no (unknown) (unknown) PRN Reason: (units (un known) date) Hypoglycemia unknown) (unknown) (no (unknown) (unknown) Point of Care (units ( unknown) date) Testing unknown) (unknown) (no (unknown) (unknown) Stop: 11/24/21 (units (unknown) date) 22:22 unknown) (unknown) (no (unknown) (unknown) Stop: 11/24/21 (units (unknown) date) 22:50 unknown) (unknown) (no (unknown) (unknown) Stop: 11/24/21 (units (unknown) date) 23:20 unknown) (unknown) (no (unknown) (unknown) Vital Signs - 8 (units (unknown) date) hr unknown) (unknown) (no (unknown) (unknown) (no value) (units (unk nown) date) unknown) (unknown) (no (unknown) (unknown) 11/24/21 (units (unkno wn) date) 11/24/21 11/24/21 unknown) Range/Units (unknown) (no (unknown) (unknown) 11/24/21 (units (unkno wn) date) Range/Units unknown) (unknown) (no (unknown) (unknown) 21:40 21:40 (units (un known) date) 22:32 unknown) (unknown) (no (unknown) (unknown) 23:30 (units (unkno wn) date) unknown) (unknown) (no (unknown) (unknown) 11/24/21 (units (unkno wn) date) unknown) (unknown) (no (unknown) (unknown) [id number] (units (unkn own) date) unknown) (unknown) (no (unknown) (unknown) 00:00 (units (unkno wn) date) unknown) (unknown) (no (unknown) (unknown) 11/24/21 21:14 (units (unknown) date) unknown) (unknown) (no (unknown) (unknown) 11/24/21 21:40 (units (unknown) date) unknown) (unknown) (no (unknown) (unknown) 11/24/21 22:21 (units (unknown) date) unknown) (unknown) (no (unknown) (unknown) 11/24/21 22:32 (units (unknown) date) unknown) (unknown) (no (unknown) (unknown) 11/24/21 23:30 (units (unknown) date) unknown) (unknown) (no (unknown) (unknown) 11/25/21 00:56 (units (unknown) date) unknown) (unknown) (no (unknown) (unknown) 20:03 11/24/21 (units (unknown) date) unknown) (unknown) (no (unknown) (unknown) 21:19 11/24/21 (units (unknown) date) unknown) (unknown) (no (unknown) (unknown) 21:20 (units (unkno wn) date) unknown) (unknown) (no (unknown) (unknown) 21:30 11/24/21 (units (unknown) date) unknown) (unknown) (no (unknown) (unknown) 22:00 11/24/21 (units (unknown) date) unknown) (unknown) (no (unknown) (unknown) 22:01 (units (unkno wn) date) unknown) (unknown) (no (unknown) (unknown) 22:30 11/24/21 (units (unknown) date) unknown) (unknown) (no (unknown) (unknown) 23:00 11/24/21 (units (unknown) date) unknown) (unknown) (no (unknown) (unknown) 23:04 (units (unkno wn) date) unknown) (unknown) (no (unknown) (unknown) 23:20 11/24/21 (units (unknown) date) unknown) (unknown) (no (unknown) (unknown) 23:30 11/25/21 (units (unknown) date) unknown) (unknown) (no (unknown) (unknown) ALT (<50) (units (un known) date) IU/L unknown) (unknown) (no (unknown) (unknown) ALT 17 (<50) (units (unknown) date) IU/L unknown) (unknown) (no (unknown) (unknown) AST (17-59) (units ( unknown) date) IU/L unknown) (unknown) (no (unknown) (unknown) AST 26 (units (unkno wn) date) (17-59) IU/L unknown) (unknown) (no (unknown) (unknown) Age/Sex: 81 / M (units (unknown) date) unknown) (unknown) (no (unknown) (unknown) Albumin (units (unkno wn) date) (3.5-5.0) g/dL unknown) (unknown) (no (unknown) (unknown) Albumin 4.6 (units ( unknown) date) (3.5-5.0) g/dL unknown) (unknown) (no (unknown) (unknown) Albumin/Globulin (units (unknown) date) Ratio (1.0-2.8) unknown) (unknown) (no (unknown) (unknown) Albumin/Globulin (units (unknown) date) Ratio 1.2 unknown) (1.0-2.8) (unknown) (no (unknown) (unknown) Albuterol (units (unkn own) date) (Albuterol 2.5 unknown) Mg/3 Ml Neb (Adult)) 20 mg INH NOW ONE (unknown) (no (unknown) (unknown) Alkaline (units (unkno wn) date) Phosphatase unknown) (38-126) U/L (unknown) (no (unknown) (unknown) Alkaline (units (unkno wn) date) Phosphatase 192 unknown) H (38-126) U/L (unknown) (no (unknown) (unknown) Allergy/AdvReac (units (unknown) date) Type Severity unknown) Reaction Status Date / Time (unknown) (no (unknown) (unknown) BMP [Basic (units (unk nown) date) Metabolic Panel] unknown) Stat (unknown) (no (unknown) (unknown) BUN (9-20) (units (u nknown) date) mg/dL unknown) (unknown) (no (unknown) (unknown) BUN 70 H (units (unk nown) date) (9-20) mg/dL unknown) (unknown) (no (unknown) (unknown) BUN/Creatinine (units (unknown) date) Ratio (6-22) unknown) (unknown) (no (unknown) (unknown) BUN/Creatinine (units (unknown) date) Ratio 27.7 H unknown) (6-22) (unknown) (no (unknown) (unknown) Baso # (Auto) (units ( unknown) date) unknown) (unknown) (no (unknown) (unknown) Baso # (Auto) (units ( unknown) date) Not Reportable unknown) (unknown) (no (unknown) (unknown) Baso % (Auto) (units ( unknown) date) unknown) (unknown) (no (unknown) (unknown) Baso % (Auto) (units ( unknown) date) Not Reportable unknown) (unknown) (no (unknown) (unknown) Blood Pressure (units (unknown) date) 131/58 L unknown) (unknown) (no (unknown) (unknown) Blood Pressure (units (unknown) date) 133/63 129/62 unknown) (unknown) (no (unknown) (unknown) Blood Pressure (units (unknown) date) 155/93 H unknown) 11/24/21 20:03 (unknown) (no (unknown) (unknown) Blood Pressure (units (unknown) date) 155/93 H 156/70 unknown) H (unknown) (no (unknown) (unknown) Blood Pressure (units (unknown) date) 162/70 H 164/76 unknown) H (unknown) (no (unknown) (unknown) CK-MB (CK-2) (units (u nknown) date) unknown) (unknown) (no (unknown) (unknown) CK-MB (CK-2) (units (u nknown) date) TNP unknown) (unknown) (no (unknown) (unknown) CK-MB (CK-2) Rel (units (unknown) date) Index unknown) (unknown) (no (unknown) (unknown) CK-MB (CK-2) Rel (units (unknown) date) Index TNP unknown) (unknown) (no (unknown) (unknown) COVID19 -Nasal (units (unknown) date) RAPID/Pre-Proc unknown) Stat (unknown) (no (unknown) (unknown) Calcium (units (unkno wn) date) (8.4-10.2) mg/dL unknown) (unknown) (no (unknown) (unknown) Calcium 10.7 H (units (unknown) date) (8.4-10.2) unknown) mg/dL (unknown) (no (unknown) (unknown) Calcium (units (unkno wn) date) Gluconate 9.3 unknown) meq/ (Sodium Chloride) 70 mls @ 140 mls/hr IV NOW ONE (unknown) (no (unknown) (unknown) Carbon Dioxide (units (unknown) date) (22-32) mmol/L unknown) (unknown) (no (unknown) (unknown) Carbon Dioxide (units (unknown) date) 13 L (22-32) unknown) mmol/L (unknown) (no (unknown) (unknown) Chief complaint: (units (unknown) date) Weakness unknown) (unknown) (no (unknown) (unknown) Chloride (units (unkno wn) date) (98-107) mmol/L unknown) (unknown) (no (unknown) (unknown) Chloride 111 H (units (unknown) date) (98-107) unknown) mmol/L (unknown) (no (unknown) (unknown) Complete Blood (units (unknown) date) Count AUTO DIFF unknown) Stat (unknown) (no (unknown) (unknown) Comprehensive (units ( unknown) date) Metabolic Panel unknown) Stat (unknown) (no (unknown) (unknown) Course (units (unkno wn) date) unknown) (unknown) (no (unknown) (unknown) Creatinine (units (unk nown) date) (0.66-1.25) unknown) mg/dL (unknown) (no (unknown) (unknown) Creatinine (units (unk nown) date) 2.53 H unknown) (0.66-1.25) mg/dL (unknown) (no (unknown) (unknown) Creatinine Urine (units (unknown) date) Random Stat unknown) (unknown) (no (unknown) (unknown) : 1940 (units (unknown) date) Acct:[id number] unknown) (unknown) (no (unknown) (unknown) Departure (units (unkn own) date) unknown) (unknown) (no (unknown) (unknown) Dextrose (D10w) (units (unknown) date) 250 mls @ 999 unknown) mls/hr IV PRN PRN (unknown) (no (unknown) (unknown) Discharge Plan (units (unknown) date) unknown) (unknown) (no (unknown) (unknown) Discontinued (units (u nknown) date) Medications unknown) (unknown) (no (unknown) (unknown) EKG-12 Lead Stat (units (unknown) date) unknown) (unknown) (no (unknown) (unknown) ER Physician: (units ( unknown) date) Aroldo Bazan unknown) D.O. (unknown) (no (unknown) (unknown) Eos % (Auto) (units (u nknown) date) unknown) (unknown) (no (unknown) (unknown) Eos % (Auto) (units (u nknown) date) Not Reportable unknown) (unknown) (no (unknown) (unknown) Estimated GFR (units ( unknown) date) (>60) mL/min unknown) (unknown) (no (unknown) (unknown) Estimated GFR (units ( unknown) date) 25 L (>60) unknown) mL/min (unknown) (no (unknown) (unknown) Exam (units (unkno wn) date) unknown) (unknown) (no (unknown) (unknown) Furosemide (units (unk nown) date) (Furosemide 40 unknown) Mg/4 Ml Vial) 40 mg IV NOW ONE (unknown) (no (unknown) (unknown) General (units (unkno wn) date) unknown) (unknown) (no (unknown) (unknown) GenericComposite (units (unknown) date) [Plt Count unknown) (150-400) X10^3/uL ] (unknown) (no (unknown) (unknown) GenericComposite (units (unknown) date) [Plt Count 229 unknown) (150-400) X10^3/uL ] (unknown) (no (unknown) (unknown) GenericComposite (units (unknown) date) [RBC (4.5-5.9) unknown) X10^6/uL ] (unknown) (no (unknown) (unknown) GenericComposite (units (unknown) date) [RBC 4.45 L unknown) (4.5-5.9) X10^6/uL ] (unknown) (no (unknown) (unknown) GenericComposite (units (unknown) date) [WBC (4.5-11.0) unknown) X10^3/uL ] (unknown) (no (unknown) (unknown) GenericComposite (units (unknown) date) [WBC 35.4 H* unknown) (4.5-11.0) X10^3/uL ] (unknown) (no (unknown) (unknown) Globulin (units (unkno wn) date) (1.7-4.1) g/dL unknown) (unknown) (no (unknown) (unknown) Globulin 3.7 (units (unknown) date) (1.7-4.1) g/dL unknown) (unknown) (no (unknown) (unknown) Glucose (units (unkno wn) date) (80-110) mg/dL unknown) (unknown) (no (unknown) (unknown) Glucose 117 H (units (unknown) date) (80-110) mg/dL unknown) (unknown) (no (unknown) (unknown) Glucose POC (units (un known) date) 119 unknown) (unknown) (no (unknown) (unknown) HPI - Weakness (units (unknown) date) unknown) (unknown) (no (unknown) (unknown) Hct (41-53) % (units (unknown) date) unknown) (unknown) (no (unknown) (unknown) Hct 40.7 L (units (un known) date) (41-53) % unknown) (unknown) (no (unknown) (unknown) Hgb (units (unkno wn) date) (13.5-17.5) g/dL unknown) (unknown) (no (unknown) (unknown) Hgb 13.0 L (units (un known) date) (13.5-17.5) g/dL unknown) (unknown) (no (unknown) (unknown) Initial Vital (units ( unknown) date) Signs unknown) (unknown) (no (unknown) (unknown) Initial Vital (units ( unknown) date) Signs: unknown) (unknown) (no (unknown) (unknown) Insulin Human (units (u nknown) date) Regular (Insulin unknown) Regular 100 Unit/Ml 3 Ml Vial) 5 unit IV NOW ONE (unknown) (no (unknown) (unknown) Lab Data (units (unkno wn) date) unknown) (unknown) (no (unknown) (unknown) Labs: (units (unkno wn) date) unknown) (unknown) (no (unknown) (unknown) Lipase (units (unkno wn) date) (23-300) U/L unknown) (unknown) (no (unknown) (unknown) Lipase 319 H (units (unknown) date) (23-300) U/L unknown) (unknown) (no (unknown) (unknown) Lipase Stat (units (un known) date) unknown) (unknown) (no (unknown) (unknown) Lymph # (Auto) (units (unknown) date) unknown) (unknown) (no (unknown) (unknown) Lymph # (Auto) (units (unknown) date) Not Reportable unknown) (unknown) (no (unknown) (unknown) Lymph % (Auto) (units (unknown) date) unknown) (unknown) (no (unknown) (unknown) Lymph % (Auto) (units (unknown) date) Not Reportable unknown) (unknown) (no (unknown) (unknown) Lymphocytes % (units ( unknown) date) (Manual) unknown) (25-45) % (unknown) (no (unknown) (unknown) Lymphocytes % (units ( unknown) date) (Manual) 76.0 H unknown) (25-45) % (unknown) (no (unknown) (unknown) MCH (26-34) (units ( unknown) date) PG unknown) (unknown) (no (unknown) (unknown) MCH 29.2 (units (unkn own) date) (26-34) PG unknown) (unknown) (no (unknown) (unknown) MCHC (30-36) (units (unknown) date) % unknown) (unknown) (no (unknown) (unknown) MCHC 31.9 (units (unk nown) date) (30-36) % unknown) (unknown) (no (unknown) (unknown) MCV (80-100) (units (unknown) date) fL unknown) (unknown) (no (unknown) (unknown) MCV 91.5 (units (unkn own) date) (80-100) fL unknown) (unknown) (no (unknown) (unknown) MDM - Weakness (units (unknown) date) unknown) (unknown) (no (unknown) (unknown) [address], (units (unknown) date) MD [Primary Care unknown) Provider] - (unknown) (no (unknown) (unknown) Mode of arrival: (units (unknown) date) Wheelchair unknown) (unknown) (no (unknown) (unknown) [place] # (Auto) (units ( unknown) date) unknown) (unknown) (no (unknown) (unknown) [place] # (Auto) (units ( unknown) date) Not Reportable unknown) (unknown) (no (unknown) (unknown) [place] % (Auto) (units ( unknown) date) unknown) (unknown) (no (unknown) (unknown) [place] % (Auto) (units ( unknown) date) Not Reportable unknown) (unknown) (no (unknown) (unknown) Monocytes % (units (un known) date) (Manual) (2-11) unknown) % (unknown) (no (unknown) (unknown) Monocytes % (units (un known) date) (Manual) 3.0 unknown) (2-11) % (unknown) (no (unknown) (unknown) Neut % (Auto) (units ( unknown) date) unknown) (unknown) (no (unknown) (unknown) Neut % (Auto) (units ( unknown) date) Not Reportable unknown) (unknown) (no (unknown) (unknown) Neutrophils # (units ( unknown) date) (Manual) unknown) ([id number]) /uL (unknown) (no (unknown) (unknown) Neutrophils # (units ( unknown) date) (Manual) 7434 H unknown) ([id number]) /uL (unknown) (no (unknown) (unknown) Ordered: (units (unkno wn) date) unknown) (unknown) (no (unknown) (unknown) Orders (units (unkno wn) date) unknown) (unknown) (no (unknown) (unknown) Patient History (units (unknown) date) unknown) (unknown) (no (unknown) (unknown) Patient: (units (unkno wn) date) Raven Sutherland unknown) MR#: M (unknown) (no (unknown) (unknown) Potassium (units (unkn own) date) (3.4-5.1) mmol/L unknown) (unknown) (no (unknown) (unknown) Potassium 8.6 (units (unknown) date) H* (3.4-5.1) unknown) mmol/L (unknown) (no (unknown) (unknown) Pulse Oximetry (units (unknown) date) 100 97 unknown) (unknown) (no (unknown) (unknown) Pulse Oximetry (units (unknown) date) 94 11/24/21 unknown) 20:03 (unknown) (no (unknown) (unknown) Pulse Oximetry (units (unknown) date) 97 97 unknown) (unknown) (no (unknown) (unknown) Pulse Oximetry (units (unknown) date) 94 89 L 96 unknown) (unknown) (no (unknown) (unknown) Pulse Oximetry (units (unknown) date) 96 96 unknown) (unknown) (no (unknown) (unknown) Pulse Rate 87 (units (unknown) date) 11/24/21 20:03 unknown) (unknown) (no (unknown) (unknown) Pulse Rate 72 78 (units (unknown) date) 79 unknown) (unknown) (no (unknown) (unknown) Pulse Rate 72 80 (units (unknown) date) 81 unknown) (unknown) (no (unknown) (unknown) Pulse Rate 79 91 (units (unknown) date) H 104 H unknown) (unknown) (no (unknown) (unknown) Pulse Rate 87 76 (units (unknown) date) 77 unknown) (unknown) (no (unknown) (unknown) RBC Morphology (units (unknown) date) unknown) (unknown) (no (unknown) (unknown) RBC Morphology (units (unknown) date) Normal morphology unknown) (unknown) (no (unknown) (unknown) RDW (units (unkno wn) date) (11.6-14.8) % unknown) (unknown) (no (unknown) (unknown) RDW 14.1 (units (unkn own) date) (11.6-14.8) % unknown) (unknown) (no (unknown) (unknown) Referrals: (units (unk nown) date) unknown) (unknown) (no (unknown) (unknown) Related Data (units (u nknown) date) unknown) (unknown) (no (unknown) (unknown) Respiratory Rate (units (unknown) date) unknown) (unknown) (no (unknown) (unknown) Respiratory Rate (units (unknown) date) 15 11/24/21 unknown) 20:03 (unknown) (no (unknown) (unknown) Respiratory Rate (units (unknown) date) 23 25 H unknown) (unknown) (no (unknown) (unknown) Respiratory Rate (units (unknown) date) 15 25 H 18 unknown) (unknown) (no (unknown) (unknown) Respiratory Rate (units (unknown) date) 25 H 11 L 22 unknown) (unknown) (no (unknown) (unknown) Result diagrams: (units (unknown) date) unknown) (unknown) (no (unknown) (unknown) SARS-CoV-2 (PCR) (units (unknown) date) Negative unknown) (Negative) (unknown) (no (unknown) (unknown) SARS-CoV-2 (PCR) (units (unknown) date) (Negative) unknown) (unknown) (no (unknown) (unknown) Seg Neutrophils (units (unknown) date) % (38-70) % unknown) (unknown) (no (unknown) (unknown) Seg Neutrophils (units (unknown) date) % 21.0 L unknown) (38-70) % (unknown) (no (unknown) (unknown) Signed By: (units (unk nown) date) unknown) (unknown) (no (unknown) (unknown) Smoking Status: (units (unknown) date) Never smoker unknown) (unknown) (no (unknown) (unknown) Smoking Status: (units (unknown) date) Never smoker unknown) (unknown) (no (unknown) (unknown) Smudge Cells (units (u nknown) date) unknown) (unknown) (no (unknown) (unknown) Smudge Cells 1+ (units (unknown) date) H unknown) (unknown) (no (unknown) (unknown) Social History (units (unknown) date) unknown) (unknown) (no (unknown) (unknown) Sodium (units (unkno wn) date) (137-145) mmol/L unknown) (unknown) (no (unknown) (unknown) Sodium 134 L (units (unknown) date) (137-145) mmol/L unknown) (unknown) (no (unknown) (unknown) Sodium Chloride (units (unknown) date) (Normal Saline unknown) 0.9%) 1,000 mls @ 1,000 mls/hr IV BOLUS ONE (unknown) (no (unknown) (unknown) Sodium Chloride (units (unknown) date) (Normal Saline unknown) 0.9%) 1,000 mls @ 150 mls/hr IV CONT DEE (unknown) (no (unknown) (unknown) Sodium Urine (units (u nknown) date) Random Stat unknown) (unknown) (no (unknown) (unknown) Source: patient (units (unknown) date) unknown) (unknown) (no (unknown) (unknown) Stated (units (unkno wn) date) complaint: unknown) Worsening Weakness x3 days (unknown) (no (unknown) (unknown) Substance Use (units ( unknown) date) Type: does not unknown) use (unknown) (no (unknown) (unknown) Temperature (units (un known) date) unknown) (unknown) (no (unknown) (unknown) Temperature (units (un known) date) 98.4 F 11/24/21 unknown) 20:03 (unknown) (no (unknown) (unknown) Temperature 98.4 (units (unknown) date) F unknown) (unknown) (no (unknown) (unknown) Time Seen by (units (u nknown) date) Provider: unknown) 11/24/21 21:14 (unknown) (no (unknown) (unknown) Total Bilirubin (units (unknown) date) (0.2-1.3) mg/dL unknown) (unknown) (no (unknown) (unknown) Total Bilirubin (units (unknown) date) 0.6 (0.2-1.3) unknown) mg/dL (unknown) (no (unknown) (unknown) Total Counted (units ( unknown) date) unknown) (unknown) (no (unknown) (unknown) Total Counted (units ( unknown) date) 100 unknown) (unknown) (no (unknown) (unknown) Total Creatine (units (unknown) date) Kinase (55-170) unknown) U/L (unknown) (no (unknown) (unknown) Total Creatine (units (unknown) date) Kinase 53 L unknown) (55-170) U/L (unknown) (no (unknown) (unknown) Total Protein (units ( unknown) date) (6.3-8.2) g/dL unknown) (unknown) (no (unknown) (unknown) Total Protein (units ( unknown) date) 8.3 H (6.3-8.2) unknown) g/dL (unknown) (no (unknown) (unknown) Troponin + CK (units ( unknown) date) Cardiac Panel unknown) Stat (unknown) (no (unknown) (unknown) Troponin I (units (unk nown) date) (0.01-0.034) unknown) ng/mL (unknown) (no (unknown) (unknown) Troponin I (units (unk nown) date) 0.016 unknown) (0.01-0.034) ng/mL (unknown) (no (unknown) (unknown) US renal (units (unkno wn) date) complete Stat unknown) (unknown) (no (unknown) (unknown) Ur Random Sodium (units (unknown) date) (30-90) unknown) mmol/L (unknown) (no (unknown) (unknown) Ur Random Sodium (units (unknown) date) 104 H (30-90) unknown) mmol/L (unknown) (no (unknown) (unknown) Urine Creatinine (units (unknown) date) mg/dL unknown) (unknown) (no (unknown) (unknown) Urine Creatinine (units (unknown) date) 108.6 mg/dL unknown) (unknown) (no (unknown) (unknown) Vital Signs (units (un known) date) unknown) (unknown) (no (unknown) (unknown) Vital signs: (units (u nknown) date) unknown) (unknown) (no (unknown) (unknown) XR chest 1V Stat (units (unknown) date) unknown) (unknown) (no (unknown) (unknown) [Embedded Image (units (unknown) date) Not Available] unknown) (unknown) (no (unknown) (unknown) alcohol intake (units (unknown) date) frequency: unknown) holidays/special occasions only (unknown) (no (unknown) (unknown) myacin family (units ( unknown) date) Allergy Blister unknown) Uncoded 11/24/21 20:03 Result panel 11 (unknown) (no (unknown) (unknown) (no value) (units (unk nown) date) unknown) (unknown) (no (unknown) (unknown) Date of Service: (units (unknown) date) 11/24/21 unknown) (unknown) (no (unknown) (unknown) (no value) (units (unk nown) date) unknown) (unknown) (no (unknown) (unknown) 11/24/21 21:40 (units (unknown) date) unknown) (unknown) (no (unknown) (unknown) Admin: 11/24/21 (units (unknown) date) 22:08 Dose: 150 unknown) mls/hr (unknown) (no (unknown) (unknown) Admin: 11/24/21 (units (unknown) date) 22:52 Dose: 250 unknown) mls/hr (unknown) (no (unknown) (unknown) Admin: 11/24/21 (units (unknown) date) 23:01 Dose: unknown) 1,000 mls/hr (unknown) (no (unknown) (unknown) Admin: 11/24/21 (units (unknown) date) 23:16 Dose: 140 unknown) mls/hr (unknown) (no (unknown) (unknown) Allergies (units (unkn own) date) unknown) (unknown) (no (unknown) (unknown) Documented by: (units (unknown) date) JAIRO unknown) Cosigned by: FREDIS (unknown) (no (unknown) (unknown) Documented by: (units (unknown) date) JAIRO unknown) (unknown) (no (unknown) (unknown) Documented by: (units (unknown) date) FREDIS unknown) (unknown) (no (unknown) (unknown) ED Orders (units (unkn own) date) unknown) (unknown) (no (unknown) (unknown) Emergency Report (units (unknown) date) unknown) (unknown) (no (unknown) (unknown) Infusion: (units (unkn own) date) 11/24/21 23:01 unknown) Dose: 0 mls/hr (unknown) (no (unknown) (unknown) [facility] (units (unknown) date) [address] unknown) [place] [address] (unknown) (no (unknown) (unknown) Lab Results (units (un known) date) unknown) (unknown) (no (unknown) (unknown) Last Admin: (units (un known) date) 11/24/21 22:56 unknown) Dose: 40 mg (unknown) (no (unknown) (unknown) Last Admin: (units (un known) date) 11/24/21 23:09 unknown) Dose: 5 unit (unknown) (no (unknown) (unknown) Last Admin: (units (un known) date) 11/24/21 23:15 unknown) Dose: 20 mg (unknown) (no (unknown) (unknown) Last Infusion: (units (unknown) date) 11/24/21 23:11 unknown) Dose: 0 mls/hr (unknown) (no (unknown) (unknown) Last Infusion: (units (unknown) date) 11/24/21 23:54 unknown) Dose: 0 mls/hr (unknown) (no (unknown) (unknown) Last Infusion: (units (unknown) date) 11/25/21 00:10 unknown) Dose: 0 mls/hr (unknown) (no (unknown) (unknown) Last Infusion: (units (unknown) date) 11/25/21 00:17 unknown) Dose: 150 mls/hr (unknown) (no (unknown) (unknown) PRN Reason: (units (un known) date) Hypoglycemia unknown) (unknown) (no (unknown) (unknown) Point of Care (units ( unknown) date) Testing unknown) (unknown) (no (unknown) (unknown) Stop: 11/24/21 (units (unknown) date) 22:22 unknown) (unknown) (no (unknown) (unknown) Stop: 11/24/21 (units (unknown) date) 22:50 unknown) (unknown) (no (unknown) (unknown) Stop: 11/24/21 (units (unknown) date) 23:20 unknown) (unknown) (no (unknown) (unknown) Vital Signs - 8 (units (unknown) date) hr unknown) (unknown) (no (unknown) (unknown) (no value) (units (unk nown) date) unknown) (unknown) (no (unknown) (unknown) 11/24/21 (units (unkno wn) date) 11/24/21 11/24/21 unknown) Range/Units (unknown) (no (unknown) (unknown) 11/24/21 (units (unkno wn) date) Range/Units unknown) (unknown) (no (unknown) (unknown) 21:40 21:40 (units (un known) date) 22:32 unknown) (unknown) (no (unknown) (unknown) 23:30 (units (unkno wn) date) unknown) (unknown) (no (unknown) (unknown) 11/24/21 (units (unkno wn) date) unknown) (unknown) (no (unknown) (unknown) [id number] (units (unkn own) date) unknown) (unknown) (no (unknown) (unknown) 00:00 (units (unkno wn) date) unknown) (unknown) (no (unknown) (unknown) 11/24/21 21:14 (units (unknown) date) unknown) (unknown) (no (unknown) (unknown) 11/24/21 21:40 (units (unknown) date) unknown) (unknown) (no (unknown) (unknown) 11/24/21 22:21 (units (unknown) date) unknown) (unknown) (no (unknown) (unknown) 11/24/21 22:32 (units (unknown) date) unknown) (unknown) (no (unknown) (unknown) 11/24/21 23:30 (units (unknown) date) unknown) (unknown) (no (unknown) (unknown) 11/25/21 00:56 (units (unknown) date) unknown) (unknown) (no (unknown) (unknown) 20:03 11/24/21 (units (unknown) date) unknown) (unknown) (no (unknown) (unknown) 21:19 11/24/21 (units (unknown) date) unknown) (unknown) (no (unknown) (unknown) 21:20 (units (unkno wn) date) unknown) (unknown) (no (unknown) (unknown) 21:30 11/24/21 (units (unknown) date) unknown) (unknown) (no (unknown) (unknown) 22:00 11/24/21 (units (unknown) date) unknown) (unknown) (no (unknown) (unknown) 22:01 (units (unkno wn) date) unknown) (unknown) (no (unknown) (unknown) 22:30 11/24/21 (units (unknown) date) unknown) (unknown) (no (unknown) (unknown) 23:00 11/24/21 (units (unknown) date) unknown) (unknown) (no (unknown) (unknown) 23:04 (units (unkno wn) date) unknown) (unknown) (no (unknown) (unknown) 23:20 11/24/21 (units (unknown) date) unknown) (unknown) (no (unknown) (unknown) 23:30 11/25/21 (units (unknown) date) unknown) (unknown) (no (unknown) (unknown) 81-year-old male (units (unknown) date) Nonsmoker with unknown) history of HTN, hyperlipidemia presents with (unknown) (no (unknown) (unknown) ALT (<50) (units (un known) date) IU/L unknown) (unknown) (no (unknown) (unknown) ALT 17 (<50) (units (unknown) date) IU/L unknown) (unknown) (no (unknown) (unknown) AST (17-59) (units ( unknown) date) IU/L unknown) (unknown) (no (unknown) (unknown) AST 26 (units (unkno wn) date) (17-59) IU/L unknown) (unknown) (no (unknown) (unknown) Age/Sex: 81 / M (units (unknown) date) unknown) (unknown) (no (unknown) (unknown) Albumin (units (unkno wn) date) (3.5-5.0) g/dL unknown) (unknown) (no (unknown) (unknown) Albumin 4.6 (units ( unknown) date) (3.5-5.0) g/dL unknown) (unknown) (no (unknown) (unknown) Albumin/Globulin (units (unknown) date) Ratio (1.0-2.8) unknown) (unknown) (no (unknown) (unknown) Albumin/Globulin (units (unknown) date) Ratio 1.2 unknown) (1.0-2.8) (unknown) (no (unknown) (unknown) Albuterol (units (unkn own) date) (Albuterol 2.5 unknown) Mg/3 Ml Neb (Adult)) 20 mg INH NOW ONE (unknown) (no (unknown) (unknown) Alkaline (units (unkno wn) date) Phosphatase unknown) (38-126) U/L (unknown) (no (unknown) (unknown) Alkaline (units (unkno wn) date) Phosphatase 192 unknown) H (38-126) U/L (unknown) (no (unknown) (unknown) Allergy/AdvReac (units (unknown) date) Type Severity unknown) Reaction Status Date / Time (unknown) (no (unknown) (unknown) BMP [Basic (units (unk nown) date) Metabolic Panel] unknown) Stat (unknown) (no (unknown) (unknown) BUN (9-20) (units (u nknown) date) mg/dL unknown) (unknown) (no (unknown) (unknown) BUN 70 H (units (unk nown) date) (9-20) mg/dL unknown) (unknown) (no (unknown) (unknown) BUN/Creatinine (units (unknown) date) Ratio (6-22) unknown) (unknown) (no (unknown) (unknown) BUN/Creatinine (units (unknown) date) Ratio 27.7 H unknown) (6) (unknown) (no (unknown) (unknown) Baso # (Auto) (units ( unknown) date) unknown) (unknown) (no (unknown) (unknown) Baso # (Auto) (units ( unknown) date) Not Reportable unknown) (unknown) (no (unknown) (unknown) Baso % (Auto) (units ( unknown) date) unknown) (unknown) (no (unknown) (unknown) Baso % (Auto) (units ( unknown) date) Not Reportable unknown) (unknown) (no (unknown) (unknown) Blood Pressure (units (unknown) date) 131/58 L unknown) (unknown) (no (unknown) (unknown) Blood Pressure (units (unknown) date) 133/63 129/62 unknown) (unknown) (no (unknown) (unknown) Blood Pressure (units (unknown) date) 155/93 H unknown) 11/24/21 20:03 (unknown) (no (unknown) (unknown) Blood Pressure (units (unknown) date) 155/93 H 156/70 unknown) H (unknown) (no (unknown) (unknown) Blood Pressure (units (unknown) date) 162/70 H 164/76 unknown) H (unknown) (no (unknown) (unknown) CK-MB (CK-2) (units (u nknown) date) unknown) (unknown) (no (unknown) (unknown) CK-MB (CK-2) (units (u nknown) date) TNP unknown) (unknown) (no (unknown) (unknown) CK-MB (CK-2) Rel (units (unknown) date) Index unknown) (unknown) (no (unknown) (unknown) CK-MB (CK-2) Rel (units (unknown) date) Index TNP unknown) (unknown) (no (unknown) (unknown) COVID19 -Nasal (units (unknown) date) RAPID/Pre-Proc unknown) Stat (unknown) (no (unknown) (unknown) Calcium (units (unkno wn) date) (8.4-10.2) mg/dL unknown) (unknown) (no (unknown) (unknown) Calcium 10.7 H (units (unknown) date) (8.4-10.2) unknown) mg/dL (unknown) (no (unknown) (unknown) Calcium (units (unkno wn) date) Gluconate 9.3 unknown) meq/ (Sodium Chloride) 70 mls @ 140 mls/hr IV NOW ONE (unknown) (no (unknown) (unknown) Carbon Dioxide (units (unknown) date) (22-32) mmol/L unknown) (unknown) (no (unknown) (unknown) Carbon Dioxide (units (unknown) date) 13 L (22-32) unknown) mmol/L (unknown) (no (unknown) (unknown) Chief complaint: (units (unknown) date) Weakness unknown) (unknown) (no (unknown) (unknown) Chloride (units (unkno wn) date) (98-107) mmol/L unknown) (unknown) (no (unknown) (unknown) Chloride 111 H (units (unknown) date) (98-107) unknown) mmol/L (unknown) (no (unknown) (unknown) Complete Blood (units (unknown) date) Count AUTO DIFF unknown) Stat (unknown) (no (unknown) (unknown) Comprehensive (units ( unknown) date) Metabolic Panel unknown) Stat (unknown) (no (unknown) (unknown) Course (units (unkno wn) date) unknown) (unknown) (no (unknown) (unknown) Creatinine (units (unk nown) date) (0.66-1.25) unknown) mg/dL (unknown) (no (unknown) (unknown) Creatinine (units (unk nown) date) 2.53 H unknown) (0.66-1.25) mg/dL (unknown) (no (unknown) (unknown) Creatinine Urine (units (unknown) date) Random Stat unknown) (unknown) (no (unknown) (unknown) : 1940 (units (unknown) date) Acct:[id number] unknown) (unknown) (no (unknown) (unknown) Departure (units (unkn own) date) unknown) (unknown) (no (unknown) (unknown) Dextrose (D10w) (units (unknown) date) 250 mls @ 999 unknown) mls/hr IV PRN PRN (unknown) (no (unknown) (unknown) Discharge Plan (units (unknown) date) unknown) (unknown) (no (unknown) (unknown) Discontinued (units (u nknown) date) Medications unknown) (unknown) (no (unknown) (unknown) EKG-12 Lead Stat (units (unknown) date) unknown) (unknown) (no (unknown) (unknown) ER Physician: (units ( unknown) date) Aroldo Bazan unknown) D.O. (unknown) (no (unknown) (unknown) Eos % (Auto) (units (u nknown) date) unknown) (unknown) (no (unknown) (unknown) Eos % (Auto) (units (u nknown) date) Not Reportable unknown) (unknown) (no (unknown) (unknown) Estimated GFR (units ( unknown) date) (>60) mL/min unknown) (unknown) (no (unknown) (unknown) Estimated GFR (units ( unknown) date) 25 L (>60) unknown) mL/min (unknown) (no (unknown) (unknown) Exam (units (unkno wn) date) unknown) (unknown) (no (unknown) (unknown) Furosemide (units (unk nown) date) (Furosemide 40 unknown) Mg/4 Ml Vial) 40 mg IV NOW ONE (unknown) (no (unknown) (unknown) General (units (unkno wn) date) unknown) (unknown) (no (unknown) (unknown) GenericComposite (units (unknown) date) [Plt Count unknown) (150-400) X10^3/uL ] (unknown) (no (unknown) (unknown) GenericComposite (units (unknown) date) [Plt Count 229 unknown) (150-400) X10^3/uL ] (unknown) (no (unknown) (unknown) GenericComposite (units (unknown) date) [RBC (4.5-5.9) unknown) X10^6/uL ] (unknown) (no (unknown) (unknown) GenericComposite (units (unknown) date) [RBC 4.45 L unknown) (4.5-5.9) X10^6/uL ] (unknown) (no (unknown) (unknown) GenericComposite (units (unknown) date) [WBC (4.5-11.0) unknown) X10^3/uL ] (unknown) (no (unknown) (unknown) GenericComposite (units (unknown) date) [WBC 35.4 H* unknown) (4.5-11.0) X10^3/uL ] (unknown) (no (unknown) (unknown) Globulin (units (unkno wn) date) (1.7-4.1) g/dL unknown) (unknown) (no (unknown) (unknown) Globulin 3.7 (units (unknown) date) (1.7-4.1) g/dL unknown) (unknown) (no (unknown) (unknown) Glucose (units (unkno wn) date) (80-110) mg/dL unknown) (unknown) (no (unknown) (unknown) Glucose 117 H (units (unknown) date) (80-110) mg/dL unknown) (unknown) (no (unknown) (unknown) Glucose POC (units (un known) date) 119 unknown) (unknown) (no (unknown) (unknown) HPI - Weakness (units (unknown) date) unknown) (unknown) (no (unknown) (unknown) HPI Narrative: (units (unknown) date) unknown) (unknown) (no (unknown) (unknown) Hct (41-53) % (units (unknown) date) unknown) (unknown) (no (unknown) (unknown) Hct 40.7 L (units (un known) date) (41-53) % unknown) (unknown) (no (unknown) (unknown) Hgb (units (unkno wn) date) (13.5-17.5) g/dL unknown) (unknown) (no (unknown) (unknown) Hgb 13.0 L (units (un known) date) (13.5-17.5) g/dL unknown) (unknown) (no (unknown) (unknown) History of (units (unk nown) date) Present Illness unknown) (unknown) (no (unknown) (unknown) Initial Vital (units ( unknown) date) Signs unknown) (unknown) (no (unknown) (unknown) Initial Vital (units ( unknown) date) Signs: unknown) (unknown) (no (unknown) (unknown) Insulin Human (units (u nknown) date) Regular (Insulin unknown) Regular 100 Unit/Ml 3 Ml Vial) 5 unit IV NOW ONE (unknown) (no (unknown) (unknown) Lab Data (units (unkno wn) date) unknown) (unknown) (no (unknown) (unknown) Labs: (units (unkno wn) date) unknown) (unknown) (no (unknown) (unknown) Lipase (units (unkno wn) date) (23-300) U/L unknown) (unknown) (no (unknown) (unknown) Lipase 319 H (units (unknown) date) (23-300) U/L unknown) (unknown) (no (unknown) (unknown) Lipase Stat (units (un known) date) unknown) (unknown) (no (unknown) (unknown) Lymph # (Auto) (units (unknown) date) unknown) (unknown) (no (unknown) (unknown) Lymph # (Auto) (units (unknown) date) Not Reportable unknown) (unknown) (no (unknown) (unknown) Lymph % (Auto) (units (unknown) date) unknown) (unknown) (no (unknown) (unknown) Lymph % (Auto) (units (unknown) date) Not Reportable unknown) (unknown) (no (unknown) (unknown) Lymphocytes % (units ( unknown) date) (Manual) unknown) (25-45) % (unknown) (no (unknown) (unknown) Lymphocytes % (units ( unknown) date) (Manual) 76.0 H unknown) (25-45) % (unknown) (no (unknown) (unknown) MCH (26-34) (units ( unknown) date) PG unknown) (unknown) (no (unknown) (unknown) MCH 29.2 (units (unkn own) date) (26-34) PG unknown) (unknown) (no (unknown) (unknown) MCHC (30-36) (units (unknown) date) % unknown) (unknown) (no (unknown) (unknown) MCHC 31.9 (units (unk nown) date) (30-36) % unknown) (unknown) (no (unknown) (unknown) MCV (80-100) (units (unknown) date) fL unknown) (unknown) (no (unknown) (unknown) MCV 91.5 (units (unkn own) date) (80-100) fL unknown) (unknown) (no (unknown) (unknown) MDM - Weakness (units (unknown) date) unknown) (unknown) (no (unknown) (unknown) [address], (units (unknown) date) MD [Primary Care unknown) Provider] - (unknown) (no (unknown) (unknown) Mode of arrival: (units (unknown) date) Wheelchair unknown) (unknown) (no (unknown) (unknown) [place] # (Auto) (units ( unknown) date) unknown) (unknown) (no (unknown) (unknown) [place] # (Auto) (units ( unknown) date) Not Reportable unknown) (unknown) (no (unknown) (unknown) [place] % (Auto) (units ( unknown) date) unknown) (unknown) (no (unknown) (unknown) [place] % (Auto) (units ( unknown) date) Not Reportable unknown) (unknown) (no (unknown) (unknown) Monocytes % (units (un known) date) (Manual) (2-11) unknown) % (unknown) (no (unknown) (unknown) Monocytes % (units (un known) date) (Manual) 3.0 unknown) (2-11) % (unknown) (no (unknown) (unknown) Neut % (Auto) (units ( unknown) date) unknown) (unknown) (no (unknown) (unknown) Neut % (Auto) (units ( unknown) date) Not Reportable unknown) (unknown) (no (unknown) (unknown) Neutrophils # (units ( unknown) date) (Manual) unknown) ([id number]) /uL (unknown) (no (unknown) (unknown) Neutrophils # (units ( unknown) date) (Manual) 7434 H unknown) ([id number]) /uL (unknown) (no (unknown) (unknown) Ordered: (units (unkno wn) date) unknown) (unknown) (no (unknown) (unknown) Orders (units (unkno wn) date) unknown) (unknown) (no (unknown) (unknown) Patient History (units (unknown) date) unknown) (unknown) (no (unknown) (unknown) Patient: (units (unkno wn) date) Raven Sutherland unknown) MR#: M (unknown) (no (unknown) (unknown) Potassium (units (unkn own) date) (3.4-5.1) mmol/L unknown) (unknown) (no (unknown) (unknown) Potassium 8.6 (units (unknown) date) H* (3.4-5.1) unknown) mmol/L (unknown) (no (unknown) (unknown) Pulse Oximetry (units (unknown) date) 100 97 unknown) (unknown) (no (unknown) (unknown) Pulse Oximetry (units (unknown) date) 94 11/24/21 unknown) 20:03 (unknown) (no (unknown) (unknown) Pulse Oximetry (units (unknown) date) 97 97 unknown) (unknown) (no (unknown) (unknown) Pulse Oximetry (units (unknown) date) 94 89 L 96 unknown) (unknown) (no (unknown) (unknown) Pulse Oximetry (units (unknown) date) 96 96 unknown) (unknown) (no (unknown) (unknown) Pulse Rate 87 (units (unknown) date) 11/24/21 20:03 unknown) (unknown) (no (unknown) (unknown) Pulse Rate 72 78 (units (unknown) date) 79 unknown) (unknown) (no (unknown) (unknown) Pulse Rate 72 80 (units (unknown) date) 81 unknown) (unknown) (no (unknown) (unknown) Pulse Rate 79 91 (units (unknown) date) H 104 H unknown) (unknown) (no (unknown) (unknown) Pulse Rate 87 76 (units (unknown) date) 77 unknown) (unknown) (no (unknown) (unknown) RBC Morphology (units (unknown) date) unknown) (unknown) (no (unknown) (unknown) RBC Morphology (units (unknown) date) Normal morphology unknown) (unknown) (no (unknown) (unknown) RDW (units (unkno wn) date) (11.6-14.8) % unknown) (unknown) (no (unknown) (unknown) RDW 14.1 (units (unkn own) date) (11.6-14.8) % unknown) (unknown) (no (unknown) (unknown) Referrals: (units (unk nown) date) unknown) (unknown) (no (unknown) (unknown) Related Data (units (u nknown) date) unknown) (unknown) (no (unknown) (unknown) Respiratory Rate (units (unknown) date) unknown) (unknown) (no (unknown) (unknown) Respiratory Rate (units (unknown) date) 15 11/24/21 unknown) 20:03 (unknown) (no (unknown) (unknown) Respiratory Rate (units (unknown) date) 23 25 H unknown) (unknown) (no (unknown) (unknown) Respiratory Rate (units (unknown) date) 15 25 H 18 unknown) (unknown) (no (unknown) (unknown) Respiratory Rate (units (unknown) date) 25 H 11 L 22 unknown) (unknown) (no (unknown) (unknown) Result diagrams: (units (unknown) date) unknown) (unknown) (no (unknown) (unknown) SARS-CoV-2 (PCR) (units (unknown) date) Negative unknown) (Negative) (unknown) (no (unknown) (unknown) SARS-CoV-2 (PCR) (units (unknown) date) (Negative) unknown) (unknown) (no (unknown) (unknown) Seg Neutrophils (units (unknown) date) % (38-70) % unknown) (unknown) (no (unknown) (unknown) Seg Neutrophils (units (unknown) date) % 21.0 L unknown) (38-70) % (unknown) (no (unknown) (unknown) Signed By: (units (unk nown) date) unknown) (unknown) (no (unknown) (unknown) Smoking Status: (units (unknown) date) Never smoker unknown) (unknown) (no (unknown) (unknown) Smoking Status: (units (unknown) date) Never smoker unknown) (unknown) (no (unknown) (unknown) Smudge Cells (units (u nknown) date) unknown) (unknown) (no (unknown) (unknown) Smudge Cells 1+ (units (unknown) date) H unknown) (unknown) (no (unknown) (unknown) Social History (units (unknown) date) unknown) (unknown) (no (unknown) (unknown) Sodium (units (unkno wn) date) (137-145) mmol/L unknown) (unknown) (no (unknown) (unknown) Sodium 134 L (units (unknown) date) (137-145) mmol/L unknown) (unknown) (no (unknown) (unknown) Sodium Chloride (units (unknown) date) (Normal Saline unknown) 0.9%) 1,000 mls @ 1,000 mls/hr IV BOLUS ONE (unknown) (no (unknown) (unknown) Sodium Chloride (units (unknown) date) (Normal Saline unknown) 0.9%) 1,000 mls @ 150 mls/hr IV CONT DEE (unknown) (no (unknown) (unknown) Sodium Urine (units (u nknown) date) Random Stat unknown) (unknown) (no (unknown) (unknown) Source: patient (units (unknown) date) unknown) (unknown) (no (unknown) (unknown) Stated (units (unkno wn) date) complaint: unknown) Worsening Weakness x3 days (unknown) (no (unknown) (unknown) Substance Use (units ( unknown) date) Type: does not unknown) use (unknown) (no (unknown) (unknown) Temperature (units (un known) date) unknown) (unknown) (no (unknown) (unknown) Temperature (units (un known) date) 98.4 F 11/24/21 unknown) 20:03 (unknown) (no (unknown) (unknown) Temperature 98.4 (units (unknown) date) F unknown) (unknown) (no (unknown) (unknown) Time Seen by (units (u nknown) date) Provider: unknown) 11/24/21 21:14 (unknown) (no (unknown) (unknown) Total Bilirubin (units (unknown) date) (0.2-1.3) mg/dL unknown) (unknown) (no (unknown) (unknown) Total Bilirubin (units (unknown) date) 0.6 (0.2-1.3) unknown) mg/dL (unknown) (no (unknown) (unknown) Total Counted (units ( unknown) date) unknown) (unknown) (no (unknown) (unknown) Total Counted (units ( unknown) date) 100 unknown) (unknown) (no (unknown) (unknown) Total Creatine (units (unknown) date) Kinase (55-170) unknown) U/L (unknown) (no (unknown) (unknown) Total Creatine (units (unknown) date) Kinase 53 L unknown) (55-170) U/L (unknown) (no (unknown) (unknown) Total Protein (units ( unknown) date) (6.3-8.2) g/dL unknown) (unknown) (no (unknown) (unknown) Total Protein (units ( unknown) date) 8.3 H (6.3-8.2) unknown) g/dL (unknown) (no (unknown) (unknown) Troponin + CK (units ( unknown) date) Cardiac Panel unknown) Stat (unknown) (no (unknown) (unknown) Troponin I (units (unk nown) date) (0.01-0.034) unknown) ng/mL (unknown) (no (unknown) (unknown) Troponin I (units (unk nown) date) 0.016 unknown) (0.01-0.034) ng/mL (unknown) (no (unknown) (unknown) US renal (units (unkno wn) date) complete Stat unknown) (unknown) (no (unknown) (unknown) Ur Random Sodium (units (unknown) date) (30-90) unknown) mmol/L (unknown) (no (unknown) (unknown) Ur Random Sodium (units (unknown) date) 104 H (30-90) unknown) mmol/L (unknown) (no (unknown) (unknown) Urine Creatinine (units (unknown) date) mg/dL unknown) (unknown) (no (unknown) (unknown) Urine Creatinine (units (unknown) date) 108.6 mg/dL unknown) (unknown) (no (unknown) (unknown) Vital Signs (units (un known) date) unknown) (unknown) (no (unknown) (unknown) Vital signs: (units (u nknown) date) unknown) (unknown) (no (unknown) (unknown) XR chest 1V Stat (units (unknown) date) unknown) (unknown) (no (unknown) (unknown) [Embedded Image (units (unknown) date) Not Available] unknown) (unknown) (no (unknown) (unknown) alcohol intake (units (unknown) date) frequency: unknown) holidays/special occasions only (unknown) (no (unknown) (unknown) generalized (units (un known) date) weakness unknown) gradually worsening over the past few months. He states (unknown) (no (unknown) (unknown) myacin family (units ( unknown) date) Allergy Blister unknown) Uncoded 11/24/21 20:03 (unknown) (no (unknown) (unknown) some time, (units (unk nown) date) unknown) (unknown) (no (unknown) (unknown) that he feels (units ( unknown) date) like his joints unknown) are tired and this has been going on for quite Result panel 12 (unknown) (no (unknown) (unknown) (no value) (units (unk nown) date) unknown) (unknown) (no (unknown) (unknown) Radiologist (units (un known) date) Impression: unknown) (unknown) (no (unknown) (unknown) (no value) (units (unk nown) date) unknown) (unknown) (no (unknown) (unknown) Date of Service: (units (unknown) date) 11/24/21 unknown) (unknown) (no (unknown) (unknown) (no value) (units (unk nown) date) unknown) (unknown) (no (unknown) (unknown) 11/24/21 21:40 (units (unknown) date) unknown) (unknown) (no (unknown) (unknown) [address] [place] [address] (units (unknown) date) unknown) (unknown) (no (unknown) (unknown) Admin: 11/24/21 (units (unknown) date) 22:08 Dose: 150 unknown) mls/hr (unknown) (no (unknown) (unknown) Admin: 11/24/21 (units (unknown) date) 22:52 Dose: 250 unknown) mls/hr (unknown) (no (unknown) (unknown) Admin: 11/24/21 (units (unknown) date) 23:01 Dose: 1,000 unknown) mls/hr (unknown) (no (unknown) (unknown) Admin: 11/24/21 (units (unknown) date) 23:16 Dose: 140 unknown) mls/hr (unknown) (no (unknown) (unknown) Allergies (units (unkn own) date) unknown) (unknown) (no (unknown) (unknown) CAMILLA Ortiz (units ( unknown) date) [id number] unknown) (unknown) (no (unknown) (unknown) Documented by: (units (unknown) date) JAIRO Cosigned unknown) by: FREDIS (unknown) (no (unknown) (unknown) Documented by: (units (unknown) date) NAMITAOR unknown) (unknown) (no (unknown) (unknown) Documented by: (units (unknown) date) SBALDWIN unknown) (unknown) (no (unknown) (unknown) ED Orders (units (unkn own) date) unknown) (unknown) (no (unknown) (unknown) Emergency Report (units (unknown) date) unknown) (unknown) (no (unknown) (unknown) Infusion: (units (unkn own) date) 11/24/21 23:01 unknown) Dose: 0 mls/hr (unknown) (no (unknown) (unknown) [facility] (units (unknown) date) unknown) (unknown) (no (unknown) (unknown) [facility] (units (unknown) date) [address] unknown) [place] [address] (unknown) (no (unknown) (unknown) Lab Results (units (un known) date) unknown) (unknown) (no (unknown) (unknown) Last Admin: (units (un known) date) 11/24/21 22:56 unknown) Dose: 40 mg (unknown) (no (unknown) (unknown) Last Admin: (units (un known) date) 11/24/21 23:09 unknown) Dose: 5 unit (unknown) (no (unknown) (unknown) Last Admin: (units (un known) date) 11/24/21 23:15 unknown) Dose: 20 mg (unknown) (no (unknown) (unknown) Last Infusion: (units (unknown) date) 11/24/21 23:11 unknown) Dose: 0 mls/hr (unknown) (no (unknown) (unknown) Last Infusion: (units (unknown) date) 11/24/21 23:54 unknown) Dose: 0 mls/hr (unknown) (no (unknown) (unknown) Last Infusion: (units (unknown) date) 11/25/21 00:10 unknown) Dose: 0 mls/hr (unknown) (no (unknown) (unknown) Last Infusion: (units (unknown) date) 11/25/21 00:17 unknown) Dose: 150 mls/hr (unknown) (no (unknown) (unknown) PRN Reason: (units (un known) date) Hypoglycemia unknown) (unknown) (no (unknown) (unknown) Point of Care (units ( unknown) date) Testing unknown) (unknown) (no (unknown) (unknown) Signed (units (unkno wn) date) unknown) (unknown) (no (unknown) (unknown) Stop: 11/24/21 (units (unknown) date) 22:22 unknown) (unknown) (no (unknown) (unknown) Stop: 11/24/21 (units (unknown) date) 22:50 unknown) (unknown) (no (unknown) (unknown) Stop: 11/24/21 (units (unknown) date) 23:20 unknown) (unknown) (no (unknown) (unknown) Ultrasound Report (units (unknown) date) unknown) (unknown) (no (unknown) (unknown) Vital Signs - 8 (units (unknown) date) hr unknown) (unknown) (no (unknown) (unknown) (no value) (units (unk nown) date) unknown) (unknown) (no (unknown) (unknown) 11/24/21 11/24/21 (units (unknown) date) 11/24/21 unknown) Range/Units (unknown) (no (unknown) (unknown) 11/24/21 (units (unkno wn) date) Range/Units unknown) (unknown) (no (unknown) (unknown) 21:40 21:40 22:32 (units (unknown) date) unknown) (unknown) (no (unknown) (unknown) 23:30 (units (unkno wn) date) unknown) (unknown) (no (unknown) (unknown) 11/24/21 (units (unkno wn) date) unknown) (unknown) (no (unknown) (unknown) rales, or (units (unkn own) date) rhonchi. unknown) (unknown) (no (unknown) (unknown) [phone] (units (unkn own) date) unknown) (unknown) (no (unknown) (unknown) 00:00 (units (unkno wn) date) unknown) (unknown) (no (unknown) (unknown) 11/24/21 21:14 (units (unknown) date) unknown) (unknown) (no (unknown) (unknown) 11/24/21 21:40 (units (unknown) date) unknown) (unknown) (no (unknown) (unknown) 11/24/21 22:21 (units (unknown) date) unknown) (unknown) (no (unknown) (unknown) 11/24/21 22:32 (units (unknown) date) unknown) (unknown) (no (unknown) (unknown) 11/24/21 23:30 (units (unknown) date) unknown) (unknown) (no (unknown) (unknown) 11/25/21 00:56 (units (unknown) date) unknown) (unknown) (no (unknown) (unknown) 1. No evidence of (units (unknown) date) hydronephrosis. unknown) (unknown) (no (unknown) (unknown) 12 point review (units (unknown) date) of systems is unknown) negative except for those stated above (unknown) (no (unknown) (unknown) 2. Bilateral mild (units (unknown) date) renal cortical unknown) thinning.? (unknown) (no (unknown) (unknown) 20:03 11/24/21 (units (unknown) date) unknown) (unknown) (no (unknown) (unknown) 21:19 11/24/21 (units (unknown) date) unknown) (unknown) (no (unknown) (unknown) 21:20 (units (unkno wn) date) unknown) (unknown) (no (unknown) (unknown) 21:30 11/24/21 (units (unknown) date) unknown) (unknown) (no (unknown) (unknown) 22:00 11/24/21 (units (unknown) date) unknown) (unknown) (no (unknown) (unknown) 22:01 (units (unkno wn) date) unknown) (unknown) (no (unknown) (unknown) 22:30 11/24/21 (units (unknown) date) unknown) (unknown) (no (unknown) (unknown) 23:00 11/24/21 (units (unknown) date) unknown) (unknown) (no (unknown) (unknown) 23:04 (units (unkno wn) date) unknown) (unknown) (no (unknown) (unknown) 23:20 11/24/21 (units (unknown) date) unknown) (unknown) (no (unknown) (unknown) 23:30 11/25/21 (units (unknown) date) unknown) (unknown) (no (unknown) (unknown) 81-year-old male (units (unknown) date) Nonsmoker with unknown) history of HTN, hyperlipidemia presents with (unknown) (no (unknown) (unknown) ? (units (unkno wn) date) unknown) (unknown) (no (unknown) (unknown) ALT (<50) IU/L (units (unknown) date) unknown) (unknown) (no (unknown) (unknown) ALT 17 (<50) (units (unknown) date) IU/L unknown) (unknown) (no (unknown) (unknown) AST (17-59) (units ( unknown) date) IU/L unknown) (unknown) (no (unknown) (unknown) AST 26 (units (unkno wn) date) (17-59) IU/L unknown) (unknown) (no (unknown) (unknown) Accession Number: (units (unknown) date) [id number] ?? unknown) (unknown) (no (unknown) (unknown) Acct:[id number] (units (unknown) date) unknown) (unknown) (no (unknown) (unknown) Age/Sex: 81 / M (units (unknown) date) unknown) (unknown) (no (unknown) (unknown) Age/Sex: 81 / M (units (unknown) date) unknown) (unknown) (no (unknown) (unknown) Albumin (units (unkno wn) date) (3.5-5.0) g/dL unknown) (unknown) (no (unknown) (unknown) Albumin 4.6 (units ( unknown) date) (3.5-5.0) g/dL unknown) (unknown) (no (unknown) (unknown) Albumin/Globulin (units (unknown) date) Ratio (1.0-2.8) unknown) (unknown) (no (unknown) (unknown) Albumin/Globulin (units (unknown) date) Ratio 1.2 unknown) (1.0-2.8) (unknown) (no (unknown) (unknown) Albuterol (units (unkn own) date) (Albuterol 2.5 unknown) Mg/3 Ml Neb (Adult)) 20 mg INH NOW ONE (unknown) (no (unknown) (unknown) Alkaline (units (unkno wn) date) Phosphatase unknown) (38-126) U/L (unknown) (no (unknown) (unknown) Alkaline (units (unkno wn) date) Phosphatase 192 unknown) H (38-126) U/L (unknown) (no (unknown) (unknown) Allergy/AdvReac (units (unknown) date) Type Severity unknown) Reaction Status Date / Time (unknown) (no (unknown) (unknown) Approved by: (units (u nknown) date) kyle Pope M.D. on 11/25/2021 at 0:16 ? (unknown) (no (unknown) (unknown) BACK: Nontender (units (unknown) date) without deformity unknown) or crepitance. No flank tenderness. (unknown) (no (unknown) (unknown) BMP [Basic (units (unk nown) date) Metabolic Panel] unknown) Stat (unknown) (no (unknown) (unknown) BUN (9-20) (units (u nknown) date) mg/dL unknown) (unknown) (no (unknown) (unknown) BUN 70 H (units (unk nown) date) (9-20) mg/dL unknown) (unknown) (no (unknown) (unknown) BUN/Creatinine (units (unknown) date) Ratio (6-22) unknown) (unknown) (no (unknown) (unknown) BUN/Creatinine (units (unknown) date) Ratio 27.7 H unknown) (6-22) (unknown) (no (unknown) (unknown) Baso # (Auto) (units ( unknown) date) unknown) (unknown) (no (unknown) (unknown) Baso # (Auto) (units ( unknown) date) Not Reportable unknown) (unknown) (no (unknown) (unknown) Baso % (Auto) (units ( unknown) date) unknown) (unknown) (no (unknown) (unknown) Baso % (Auto) (units ( unknown) date) Not Reportable unknown) (unknown) (no (unknown) (unknown) Bladder:? (units (unkn own) date) Pre-void bladder unknown) was nondistended.? Limited evaluation for (unknown) (no (unknown) (unknown) Blood Pressure (units (unknown) date) 131/58 L unknown) (unknown) (no (unknown) (unknown) Blood Pressure (units (unknown) date) 133/63 129/62 unknown) (unknown) (no (unknown) (unknown) Blood Pressure (units (unknown) date) 155/93 H 11/24/21 unknown) 20:03 (unknown) (no (unknown) (unknown) Blood Pressure (units (unknown) date) 155/93 H 156/70 H unknown) (unknown) (no (unknown) (unknown) Blood Pressure (units (unknown) date) 162/70 H 164/76 H unknown) (unknown) (no (unknown) (unknown) CARDIOVASCULAR: (units (unknown) date) Denies chest pain, unknown) palpitations, orthopnea, edema, (unknown) (no (unknown) (unknown) CARDIOVASCULAR: (units (unknown) date) Regular rate and unknown) rhythm without murmurs, gallops, or rubs. (unknown) (no (unknown) (unknown) CK-MB (CK-2) (units (u nknown) date) unknown) (unknown) (no (unknown) (unknown) CK-MB (CK-2) (units (u nknown) date) TNP unknown) (unknown) (no (unknown) (unknown) CK-MB (CK-2) Rel (units (unknown) date) Index unknown) (unknown) (no (unknown) (unknown) CK-MB (CK-2) Rel (units (unknown) date) Index TNP unknown) (unknown) (no (unknown) (unknown) COMPARISON:? (units (u nknown) date) None. unknown) (unknown) (no (unknown) (unknown) COVID19 -Nasal (units (unknown) date) RAPID/Pre-Proc unknown) Stat (unknown) (no (unknown) (unknown) Calcium (units (unkno wn) date) (8.4-10.2) mg/dL unknown) (unknown) (no (unknown) (unknown) Calcium 10.7 H (units (unknown) date) (8.4-10.2) mg/dL unknown) (unknown) (no (unknown) (unknown) Calcium Gluconate (units (unknown) date) 9.3 meq/ (Sodium unknown) Chloride) 70 mls @ 140 mls/hr IV NOW ONE (unknown) (no (unknown) (unknown) Carbon Dioxide (units (unknown) date) (22-32) mmol/L unknown) (unknown) (no (unknown) (unknown) Carbon Dioxide (units (unknown) date) 13 L (22-32) unknown) mmol/L (unknown) (no (unknown) (unknown) Chief complaint: (units (unknown) date) Weakness unknown) (unknown) (no (unknown) (unknown) Chloride (units (unkno wn) date) (98-107) mmol/L unknown) (unknown) (no (unknown) (unknown) Chloride 111 H (units (unknown) date) (98-107) mmol/L unknown) (unknown) (no (unknown) (unknown) Complete Blood (units (unknown) date) Count AUTO DIFF unknown) Stat (unknown) (no (unknown) (unknown) Comprehensive (units ( unknown) date) Metabolic Panel unknown) Stat (unknown) (no (unknown) (unknown) Course (units (unkno wn) date) unknown) (unknown) (no (unknown) (unknown) Creatinine (units (unk nown) date) (0.66-1.25) mg/dL unknown) (unknown) (no (unknown) (unknown) Creatinine 2.53 (units (unknown) date) H (0.66-1.25) unknown) mg/dL (unknown) (no (unknown) (unknown) Creatinine Urine (units (unknown) date) Random Stat unknown) (unknown) (no (unknown) (unknown) : 1940 (units (unknown) date) Acct:[id number] unknown) (unknown) (no (unknown) (unknown) : 1940 (units (unknown) date) unknown) (unknown) (no (unknown) (unknown) Date of Service: (units (unknown) date) 11/24/21 unknown) (unknown) (no (unknown) (unknown) Departure (units (unkn own) date) unknown) (unknown) (no (unknown) (unknown) Dextrose (D10w) (units (unknown) date) 250 mls @ 999 unknown) mls/hr IV PRN PRN (unknown) (no (unknown) (unknown) Dictated by: (units (u nknown) date) Gunnar Houser, unknown) Cruz on 11/25/2021 at 0:10 ? ? (unknown) (no (unknown) (unknown) Discharge Plan (units (unknown) date) unknown) (unknown) (no (unknown) (unknown) Discontinued (units (u nknown) date) Medications unknown) (unknown) (no (unknown) (unknown) Doppler (units (unkno wn) date) unknown) (unknown) (no (unknown) (unknown) ECG Data (units (unkno wn) date) unknown) (unknown) (no (unknown) (unknown) EKG 1 (2121): (units ( unknown) date) EKG is normal unknown) sinus rhythm rate [70 ] and free of any signs of (unknown) (no (unknown) (unknown) EKG 2 (0112): (units ( unknown) date) EKG is normal unknown) sinus rhythm rate [103 ] and free of any signs of (unknown) (no (unknown) (unknown) EKG-12 Lead Stat (units (unknown) date) unknown) (unknown) (no (unknown) (unknown) ENT: Nose without (units (unknown) date) bleeding, purulent unknown) drainage. Throat without erythema, (unknown) (no (unknown) (unknown) ER Physician: (units ( unknown) date) Aroldo Bazan D.O. unknown) (unknown) (no (unknown) (unknown) EXTREMITIES: No (units (unknown) date) edema or joint unknown) tenderness. (unknown) (no (unknown) (unknown) EYES: Pupils (units (u nknown) date) equal round and unknown) reactive. Extraocular motions intact. No scleral (unknown) (no (unknown) (unknown) Eos % (Auto) (units (u nknown) date) unknown) (unknown) (no (unknown) (unknown) Eos % (Auto) Not (units (unknown) date) Reportable unknown) (unknown) (no (unknown) (unknown) Estimated GFR (units ( unknown) date) (>60) mL/min unknown) (unknown) (no (unknown) (unknown) Estimated GFR (units ( unknown) date) 25 L (>60) unknown) mL/min (unknown) (no (unknown) (unknown) Exam (units (unkno wn) date) unknown) (unknown) (no (unknown) (unknown) Exam Narrative: (units (unknown) date) unknown) (unknown) (no (unknown) (unknown) FINDINGS:? (units (unk nown) date) unknown) (unknown) (no (unknown) (unknown) Furosemide (units (unk nown) date) (Furosemide 40 unknown) Mg/4 Ml Vial) 40 mg IV NOW ONE (unknown) (no (unknown) (unknown) GASTROINTESTINAL: (units (unknown) date) Abdomen soft, unknown) non-tender, nondistended. (unknown) (no (unknown) (unknown) GASTROINTESTINAL: (units (unknown) date) Denies nausea, unknown) vomiting, abdominal pain, diarrhea, (unknown) (no (unknown) (unknown) GENERAL: Denies (units (unknown) date) chills, fatigue, unknown) malaise, fever, sweats. (unknown) (no (unknown) (unknown) GENERAL: [81 year (units (unknown) date) old patient unknown) appears stated age. Well-developed patient, in (unknown) (no (unknown) (unknown) : Denies (units (unk nown) date) dysuria, unknown) frequency, incontinence, hematuria, urinary retention. (unknown) (no (unknown) (unknown) General (units (unkno wn) date) unknown) (unknown) (no (unknown) (unknown) GenericComposite[ (units (unknown) date) Plt Count unknown) (150-400) X10^3/uL ] (unknown) (no (unknown) (unknown) GenericComposite[ (units (unknown) date) Plt Count 229 unknown) (150-400) X10^3/uL ] (unknown) (no (unknown) (unknown) GenericComposite[ (units (unknown) date) RBC (4.5-5.9) unknown) X10^6/uL ] (unknown) (no (unknown) (unknown) GenericComposite[ (units (unknown) date) RBC 4.45 L unknown) (4.5-5.9) X10^6/uL ] (unknown) (no (unknown) (unknown) GenericComposite[ (units (unknown) date) WBC (4.5-11.0) unknown) X10^3/uL ] (unknown) (no (unknown) (unknown) GenericComposite[ (units (unknown) date) WBC 35.4 H* unknown) (4.5-11.0) X10^3/uL ] (unknown) (no (unknown) (unknown) Globulin (units (unkno wn) date) (1.7-4.1) g/dL unknown) (unknown) (no (unknown) (unknown) Globulin 3.7 (units (unknown) date) (1.7-4.1) g/dL unknown) (unknown) (no (unknown) (unknown) Glucose (units (unkno wn) date) (80-110) mg/dL unknown) (unknown) (no (unknown) (unknown) Glucose 117 H (units (unknown) date) (80-110) mg/dL unknown) (unknown) (no (unknown) (unknown) Glucose POC (units (un known) date) 119 unknown) (unknown) (no (unknown) (unknown) HEAD: Atraumatic. (units (unknown) date) Normocephalic. unknown) (unknown) (no (unknown) (unknown) HEENT: Denies (units ( unknown) date) sinus pain, ear unknown) pain, sore throat, difficulty swallowing, (unknown) (no (unknown) (unknown) HPI - Weakness (units (unknown) date) unknown) (unknown) (no (unknown) (unknown) HPI Narrative: (units (unknown) date) unknown) (unknown) (no (unknown) (unknown) Hct (41-53) % (units (unknown) date) unknown) (unknown) (no (unknown) (unknown) Hct 40.7 L (units (un known) date) (41-53) % unknown) (unknown) (no (unknown) (unknown) Hgb (13.5-17.5) (units (unknown) date) g/dL unknown) (unknown) (no (unknown) (unknown) Hgb 13.0 L (units (un known) date) (13.5-17.5) g/dL unknown) (unknown) (no (unknown) (unknown) History of (units (unk nown) date) Present Illness unknown) (unknown) (no (unknown) (unknown) IMPRESSION:? (units (u nknown) date) unknown) (unknown) (no (unknown) (unknown) INDICATIONS:? (units ( unknown) date) ACUTE RENAL unknown) FAILURE (unknown) (no (unknown) (unknown) Imaging Data (units (u nknown) date) unknown) (unknown) (no (unknown) (unknown) Initial Vital (units ( unknown) date) Signs unknown) (unknown) (no (unknown) (unknown) Initial Vital (units ( unknown) date) Signs: unknown) (unknown) (no (unknown) (unknown) Insulin Human (units (u nknown) date) Regular (Insulin unknown) Regular 100 Unit/Ml 3 Ml Vial) 5 unit IV NOW ONE (unknown) (no (unknown) (unknown) Interpretation: (units (unknown) date) unknown) (unknown) (no (unknown) (unknown) Kidneys:? Right (units (unknown) date) kidney measures unknown) 11.8 cm long; left kidney measures 11.6 cm (unknown) (no (unknown) (unknown) Lab Data (units (unkno wn) date) unknown) (unknown) (no (unknown) (unknown) Labs: (units (unkno wn) date) unknown) (unknown) (no (unknown) (unknown) Lipase (23-300) (units (unknown) date) U/L unknown) (unknown) (no (unknown) (unknown) Lipase 319 H (units (unknown) date) (23-300) U/L unknown) (unknown) (no (unknown) (unknown) Lipase Stat (units (un known) date) unknown) (unknown) (no (unknown) (unknown) Loc: ED (units (unkno wn) date) unknown) (unknown) (no (unknown) (unknown) Lymph # (Auto) (units (unknown) date) unknown) (unknown) (no (unknown) (unknown) Lymph # (Auto) (units (unknown) date) Not Reportable unknown) (unknown) (no (unknown) (unknown) Lymph % (Auto) (units (unknown) date) unknown) (unknown) (no (unknown) (unknown) Lymph % (Auto) (units (unknown) date) Not Reportable unknown) (unknown) (no (unknown) (unknown) Lymphocytes % (units ( unknown) date) (Manual) (25-45) unknown) % (unknown) (no (unknown) (unknown) Lymphocytes % (units ( unknown) date) (Manual) 76.0 H unknown) (25-45) % (unknown) (no (unknown) (unknown) MCH (26-34) PG (units (unknown) date) unknown) (unknown) (no (unknown) (unknown) MCH 29.2 (units (unkn own) date) (26-34) PG unknown) (unknown) (no (unknown) (unknown) MCHC (30-36) % (units (unknown) date) unknown) (unknown) (no (unknown) (unknown) MCHC 31.9 (units (unk nown) date) (30-36) % unknown) (unknown) (no (unknown) (unknown) MCV (80-100) (units (unknown) date) fL unknown) (unknown) (no (unknown) (unknown) MCV 91.5 (units (unkn own) date) (80-100) fL unknown) (unknown) (no (unknown) (unknown) MDM - Weakness (units (unknown) date) unknown) (unknown) (no (unknown) (unknown) MR#: [id number] (units (unknown) date) unknown) (unknown) (no (unknown) (unknown) MUSCULOSKELETAL: (units (unknown) date) See HPI unknown) (unknown) (no (unknown) (unknown) [address], (units (unknown) date) MD [Primary Care unknown) Provider] - (unknown) (no (unknown) (unknown) Miscellaneous:? (units (unknown) date) No free pelvic unknown) fluid.? (unknown) (no (unknown) (unknown) Mode of arrival: (units (unknown) date) Wheelchair unknown) (unknown) (no (unknown) (unknown) [place] # (Auto) (units ( unknown) date) unknown) (unknown) (no (unknown) (unknown) [place] # (Auto) (units ( unknown) date) Not Reportable unknown) (unknown) (no (unknown) (unknown) [place] % (Auto) (units ( unknown) date) unknown) (unknown) (no (unknown) (unknown) [place] % (Auto) (units ( unknown) date) Not Reportable unknown) (unknown) (no (unknown) (unknown) Monocytes % (units (un known) date) (Manual) (2-11) unknown) % (unknown) (no (unknown) (unknown) Monocytes % (units (un known) date) (Manual) 3.0 unknown) (2-11) % (unknown) (no (unknown) (unknown) NECK: [place]achea (units ( unknown) date) midline. Non unknown) tender (unknown) (no (unknown) (unknown) NEURO: AOx3. (units (u nknown) date) unknown) (unknown) (no (unknown) (unknown) NEUROLOGIC: (units (un known) date) Denies weakness, unknown) headache, numbness, change in speech, confusion, (unknown) (no (unknown) (unknown) Narrative (units (unkn own) date) unknown) (unknown) (no (unknown) (unknown) Narrative: (units (unk nown) date) unknown) (unknown) (no (unknown) (unknown) Neut % (Auto) (units ( unknown) date) unknown) (unknown) (no (unknown) (unknown) Neut % (Auto) (units ( unknown) date) Not Reportable unknown) (unknown) (no (unknown) (unknown) Neutrophils # (units ( unknown) date) (Manual) unknown) ([id number]) /uL (unknown) (no (unknown) (unknown) Neutrophils # (units ( unknown) date) (Manual) 7434 H unknown) ([phone]) /uL (unknown) (no (unknown) (unknown) Ordered: (units (unkno wn) date) unknown) (unknown) (no (unknown) (unknown) Ordering (units (unkno wn) date) Provider: unknown) Aroldo Bazan D.O. (unknown) (no (unknown) (unknown) Orders (units (unkno wn) date) unknown) (unknown) (no (unknown) (unknown) PROCEDURE:? US (units (unknown) date) RENAL COMPLETE unknown) (unknown) (no (unknown) (unknown) PSYCHIATRIC: No (units (unknown) date) concerning unknown) psychosocial issues. (unknown) (no (unknown) (unknown) Patient History (units (unknown) date) unknown) (unknown) (no (unknown) (unknown) Patient: (units (unkno wn) date) Raven Sutherland unknown) MR#: M (unknown) (no (unknown) (unknown) Patient: (units (unkno wn) date) Raven Sutherland unknown) (unknown) (no (unknown) (unknown) Potassium (units (unkn own) date) (3.4-5.1) mmol/L unknown) (unknown) (no (unknown) (unknown) Potassium 8.6 (units (unknown) date) H* (3.4-5.1) unknown) mmol/L (unknown) (no (unknown) (unknown) Procedure: US (units ( unknown) date) renal complete unknown) (unknown) (no (unknown) (unknown) Pulse Oximetry (units (unknown) date) 100 97 unknown) (unknown) (no (unknown) (unknown) Pulse Oximetry (units (unknown) date) 94 11/24/21 unknown) 20:03 (unknown) (no (unknown) (unknown) Pulse Oximetry (units (unknown) date) 97 97 unknown) (unknown) (no (unknown) (unknown) Pulse Oximetry 94 (units (unknown) date) 89 L 96 unknown) (unknown) (no (unknown) (unknown) Pulse Oximetry 96 (units (unknown) date) 96 unknown) (unknown) (no (unknown) (unknown) Pulse Rate 87 (units (unknown) date) 11/24/21 20:03 unknown) (unknown) (no (unknown) (unknown) Pulse Rate 72 78 (units (unknown) date) 79 unknown) (unknown) (no (unknown) (unknown) Pulse Rate 72 80 (units (unknown) date) 81 unknown) (unknown) (no (unknown) (unknown) Pulse Rate 79 91 (units (unknown) date) H 104 H unknown) (unknown) (no (unknown) (unknown) Pulse Rate 87 76 (units (unknown) date) 77 unknown) (unknown) (no (unknown) (unknown) RBC Morphology (units (unknown) date) unknown) (unknown) (no (unknown) (unknown) RBC Morphology (units (unknown) date) Normal morphology unknown) (unknown) (no (unknown) (unknown) RDW (11.6-14.8) (units (unknown) date) % unknown) (unknown) (no (unknown) (unknown) RDW 14.1 (units (unkn own) date) (11.6-14.8) % unknown) (unknown) (no (unknown) (unknown) RESPIRATORY: Clear (units (unknown) date) to auscultation. unknown) Breath sounds equal bilaterally. No wheezes, (unknown) (no (unknown) (unknown) RESPIRATORY: (units (u nknown) date) Denies dyspnea, unknown) cough, wheezing, hemoptysis, sputum. (unknown) (no (unknown) (unknown) Real-time (units (unkn own) date) scanning was unknown) performed of the kidneys and bladder, with image (unknown) (no (unknown) (unknown) Referrals: (units (unk nown) date) unknown) (unknown) (no (unknown) (unknown) Related Data (units (u nknown) date) unknown) (unknown) (no (unknown) (unknown) Renal (units (unkno wn) date) unknown) (unknown) (no (unknown) (unknown) Renal US: (units (unk nown) date) unknown) (unknown) (no (unknown) (unknown) Respiratory Rate (units (unknown) date) unknown) (unknown) (no (unknown) (unknown) Respiratory Rate (units (unknown) date) 15 11/24/21 unknown) 20:03 (unknown) (no (unknown) (unknown) Respiratory Rate (units (unknown) date) 23 25 H unknown) (unknown) (no (unknown) (unknown) Respiratory Rate (units (unknown) date) 15 25 H 18 unknown) (unknown) (no (unknown) (unknown) Respiratory Rate (units (unknown) date) 25 H 11 L 22 unknown) (unknown) (no (unknown) (unknown) Result diagrams: (units (unknown) date) unknown) (unknown) (no (unknown) (unknown) Review of Systems (units (unknown) date) unknown) (unknown) (no (unknown) (unknown) SARS-CoV-2 (PCR) (units (unknown) date) Negative unknown) (Negative) (unknown) (no (unknown) (unknown) SARS-CoV-2 (PCR) (units (unknown) date) (Negative) unknown) (unknown) (no (unknown) (unknown) SKIN: Denies (units (u nknown) date) rash, skin unknown) lesions, or other (unknown) (no (unknown) (unknown) SKIN: No rash or (units (unknown) date) erythema of unknown) visible areas (unknown) (no (unknown) (unknown) Seg Neutrophils % (units (unknown) date) (38-70) % unknown) (unknown) (no (unknown) (unknown) Seg Neutrophils % (units (unknown) date) 21.0 L (38-70) unknown) % (unknown) (no (unknown) (unknown) Signed By: (units (unk nown) date) unknown) (unknown) (no (unknown) (unknown) Smoking Status: (units (unknown) date) Never smoker unknown) (unknown) (no (unknown) (unknown) Smoking Status: (units (unknown) date) Never smoker unknown) (unknown) (no (unknown) (unknown) Smudge Cells (units (u nknown) date) unknown) (unknown) (no (unknown) (unknown) Smudge Cells 1+ (units (unknown) date) H unknown) (unknown) (no (unknown) (unknown) Social History (units (unknown) date) (Reviewed 11/25/21 unknown) @ 01:28 by Aroldo Bazan DO) (unknown) (no (unknown) (unknown) Sodium (units (unkno wn) date) (137-145) mmol/L unknown) (unknown) (no (unknown) (unknown) Sodium 134 L (units (unknown) date) (137-145) mmol/L unknown) (unknown) (no (unknown) (unknown) Sodium Chloride (units (unknown) date) (Normal Saline unknown) 0.9%) 1,000 mls @ 1,000 mls/hr IV BOLUS ONE (unknown) (no (unknown) (unknown) Sodium Chloride (units (unknown) date) (Normal Saline unknown) 0.9%) 1,000 mls @ 150 mls/hr IV CONT DEE (unknown) (no (unknown) (unknown) Sodium Urine (units (u nknown) date) Random Stat unknown) (unknown) (no (unknown) (unknown) Source: patient (units (unknown) date) unknown) (unknown) (no (unknown) (unknown) Stated complaint: (units (unknown) date) Worsening Weakness unknown) x3 days (unknown) (no (unknown) (unknown) Substance Use (units ( unknown) date) Type: does not use unknown) (unknown) (no (unknown) (unknown) TECHNIQUE:? (units (un known) date) unknown) (unknown) (no (unknown) (unknown) Temperature (units (un known) date) unknown) (unknown) (no (unknown) (unknown) Temperature 98.4 (units (unknown) date) F 11/24/21 20:03 unknown) (unknown) (no (unknown) (unknown) Temperature 98.4 (units (unknown) date) F unknown) (unknown) (no (unknown) (unknown) Time Seen by (units (u nknown) date) Provider: 11/24/21 unknown) 21:14 (unknown) (no (unknown) (unknown) Total Bilirubin (units (unknown) date) (0.2-1.3) mg/dL unknown) (unknown) (no (unknown) (unknown) Total Bilirubin (units (unknown) date) 0.6 (0.2-1.3) unknown) mg/dL (unknown) (no (unknown) (unknown) Total Counted (units ( unknown) date) unknown) (unknown) (no (unknown) (unknown) Total Counted (units ( unknown) date) 100 unknown) (unknown) (no (unknown) (unknown) Total Creatine (units (unknown) date) Kinase (55-170) unknown) U/L (unknown) (no (unknown) (unknown) Total Creatine (units (unknown) date) Kinase 53 L unknown) (55-170) U/L (unknown) (no (unknown) (unknown) Total Protein (units ( unknown) date) (6.3-8.2) g/dL unknown) (unknown) (no (unknown) (unknown) Total Protein (units ( unknown) date) 8.3 H (6.3-8.2) unknown) g/dL (unknown) (no (unknown) (unknown) Troponin + CK (units ( unknown) date) Cardiac Panel Stat unknown) (unknown) (no (unknown) (unknown) Troponin I (units (unk nown) date) (0.01-0.034) unknown) ng/mL (unknown) (no (unknown) (unknown) Troponin I (units (unk nown) date) 0.016 unknown) (0.01-0.034) ng/mL (unknown) (no (unknown) (unknown) US renal complete (units (unknown) date) Stat unknown) (unknown) (no (unknown) (unknown) Ur Random Sodium (units (unknown) date) (30-90) mmol/L unknown) (unknown) (no (unknown) (unknown) Ur Random Sodium (units (unknown) date) 104 H (30-90) unknown) mmol/L (unknown) (no (unknown) (unknown) Urine Creatinine (units (unknown) date) mg/dL unknown) (unknown) (no (unknown) (unknown) Urine Creatinine (units (unknown) date) 108.6 mg/dL unknown) (unknown) (no (unknown) (unknown) Vital Signs (units (un known) date) unknown) (unknown) (no (unknown) (unknown) Vital signs: (units (u nknown) date) unknown) (unknown) (no (unknown) (unknown) XR chest 1V Stat (units (unknown) date) unknown) (unknown) (no (unknown) (unknown) [Embedded Image (units (unknown) date) Not Available] unknown) (unknown) (no (unknown) (unknown) alcohol intake (units (unknown) date) frequency: unknown) holidays/special occasions only (unknown) (no (unknown) (unknown) cases due (units (unkn own) date) unknown) (unknown) (no (unknown) (unknown) constipation, (units ( unknown) date) melena. unknown) (unknown) (no (unknown) (unknown) cortical (units (unkno wn) date) echotexture unknown) appears grossly within normal limits.? No hydronephrosis.? (unknown) (no (unknown) (unknown) dizziness. (units (unk nown) date) unknown) (unknown) (no (unknown) (unknown) documentation.? (units (unknown) date) unknown) (unknown) (no (unknown) (unknown) generalized (units (un known) date) weakness gradually unknown) worsening over the past few months. He states (unknown) (no (unknown) (unknown) generally, and on (units (unknown) date) the whole, and unknown) very nonspecifically he feels weak. (unknown) (no (unknown) (unknown) icterus. No (units (un known) date) injection or unknown) drainage. (unknown) (no (unknown) (unknown) interrogation.? (units (unknown) date) (Of note, ureteral unknown) jets may not be detectable in up to 25% of (unknown) (no (unknown) (unknown) intraluminal (units (u nknown) date) masses unknown) (unknown) (no (unknown) (unknown) inversions. OK (units (unknown) date) 126. QRS 140. T unknown) waves improved. (unknown) (no (unknown) (unknown) inversions. OK (units (unknown) date) 152. QRS 164. T unknown) waves peaked (unknown) (no (unknown) (unknown) ischemia or (units (un known) date) ectopy. No ST unknown) segmental elevation or depression. No T wave (unknown) (no (unknown) (unknown) long.? Right (units (u nknown) date) unknown) (unknown) (no (unknown) (unknown) medications or (units (unknown) date) diet. He denies unknown) any headache, blurred vision or trouble with (unknown) (no (unknown) (unknown) mild distress. (units (unknown) date) unknown) (unknown) (no (unknown) (unknown) myacin family (units ( unknown) date) Allergy Blister unknown) Uncoded 11/24/21 20:03 (unknown) (no (unknown) (unknown) or stones.? On (units (unknown) date) pre-void images, unknown) neither ureteral jets are noted with color (unknown) (no (unknown) (unknown) primary care (units (u nknown) date) provider early in unknown) the week. He denies any change in his (unknown) (no (unknown) (unknown) problems such as (units (unknown) date) unilateral unknown) numbness, tingling or weakness. He states that (unknown) (no (unknown) (unknown) renal cortical (units (unknown) date) thickness is 1.5 unknown) cm; left renal cortical thickness is 1.5 cm.? (unknown) (no (unknown) (unknown) seizures, (units (unkn own) date) incoordination. unknown) (unknown) (no (unknown) (unknown) some time, and he (units (unknown) date) met with his unknown) orthopedist today and has an appointment with his (unknown) (no (unknown) (unknown) speech. He (units (un known) date) denies any chest unknown) pain or shortness of breath. He denies any focal (unknown) (no (unknown) (unknown) that he feels (units ( unknown) date) like his joints unknown) are tired and this has been going on for quite (unknown) (no (unknown) (unknown) to insufficient (units (unknown) date) differences in unknown) specific gravity between ureteral and bladder (unknown) (no (unknown) (unknown) tonsillar (units (unkn own) date) hypertrophy or unknown) exudate. Airway patent. (unknown) (no (unknown) (unknown) urine).? (units (unkno wn) date) unknown) Result panel 13 (unknown) (no (unknown) (unknown) (no value) (units (unk nown) date) unknown) (unknown) (no (unknown) (unknown) Radiologist (units (un known) date) Impression: unknown) (unknown) (no (unknown) (unknown) (no value) (units (unk nown) date) unknown) (unknown) (no (unknown) (unknown) Date of Service: (units (unknown) date) 11/24/21 unknown) (unknown) (no (unknown) (unknown) (no value) (units (unk nown) date) unknown) (unknown) (no (unknown) (unknown) 11/24/21 21:40 (units (unknown) date) unknown) (unknown) (no (unknown) (unknown) 1 applic TOPICAL (units (unknown) date) BID 0RF unknown) (unknown) (no (unknown) (unknown) 1 drp OPHTHALMIC (units (unknown) date) (EYE) DAILY 0RF unknown) (unknown) (no (unknown) (unknown) 1 tab PO DAILY (units (unknown) date) 0RF unknown) (unknown) (no (unknown) (unknown) 1 tab PO QAM 0RF (units (unknown) date) unknown) (unknown) (no (unknown) (unknown) 1,000 mg PO DAILY (units (unknown) date) 0RF unknown) (unknown) (no (unknown) (unknown) 10 mg PO DAILY (units (unknown) date) 0RF unknown) (unknown) (no (unknown) (unknown) 10 mg PO DAILY (units (unknown) date) PRN (Reason: unknown) intercourse) 0RF (unknown) (no (unknown) (unknown) 100 mg PO BID 0RF (units (unknown) date) unknown) (unknown) (no (unknown) (unknown) [facility]) (unknown) (no (unknown) (unknown) 20 meq PO BID 0RF (units (unknown) date) unknown) (unknown) (no (unknown) (unknown) 20 mg PO DAILY (units (unknown) date) 0RF unknown) (unknown) (no (unknown) (unknown) 25 mg PO BID 0RF (units (unknown) date) unknown) (unknown) (no (unknown) (unknown) 40 mg PO DAILY (units (unknown) date) 0RF unknown) (unknown) (no (unknown) (unknown) 50 mcg PO DAILY (units (unknown) date) 0RF unknown) (unknown) (no (unknown) (unknown) 800 mg PO Q8H PRN (units (unknown) date) (Reason: Pain, unknown) Moderate) 0RF (unknown) (no (unknown) (unknown) 81 mg PO DAILY (units (unknown) date) 0RF unknown) (unknown) (no (unknown) (unknown) Admin: 11/24/21 (units (unknown) date) 22:08 Dose: 150 unknown) mls/hr (unknown) (no (unknown) (unknown) Admin: 11/24/21 (units (unknown) date) 22:52 Dose: 250 unknown) mls/hr (unknown) (no (unknown) (unknown) Admin: 11/24/21 (units (unknown) date) 23:01 Dose: 1,000 unknown) mls/hr (unknown) (no (unknown) (unknown) Admin: 11/24/21 (units (unknown) date) 23:16 Dose: 140 unknown) mls/hr (unknown) (no (unknown) (unknown) Allergies (units (unkn own) date) unknown) (unknown) (no (unknown) (unknown) [place], [place] (units ( unknown) date) [id number] unknown) (unknown) (no (unknown) (unknown) Documented by: (units (unknown) date) ATAYLOR Cosigned unknown) by: FREDIS (unknown) (no (unknown) (unknown) Documented by: (units (unknown) date) ATAYLJOHN unknown) (unknown) (no (unknown) (unknown) Documented by: (units (unknown) date) FREDIS unknown) (unknown) (no (unknown) (unknown) ED Orders (units (unkn own) date) unknown) (unknown) (no (unknown) (unknown) Emergency Report (units (unknown) date) unknown) (unknown) (no (unknown) (unknown) Home Medications (units (unknown) date) unknown) (unknown) (no (unknown) (unknown) Infusion: (units (unkn own) date) 11/24/21 23:01 unknown) Dose: 0 mls/hr (unknown) (no (unknown) (unknown) [facility] (units (unknown) date) unknown) (unknown) (no (unknown) (unknown) [facility] (units (unknown) date) [address] unknown) [place] [address] (unknown) (no (unknown) (unknown) Lab Results (units (un known) date) unknown) (unknown) (no (unknown) (unknown) Label Comments: (units (unknown) date) unknown) (unknown) (no (unknown) (unknown) Last Admin: (units (un known) date) 11/24/21 22:56 unknown) Dose: 40 mg (unknown) (no (unknown) (unknown) Last Admin: (units (un known) date) 11/24/21 23:09 unknown) Dose: 5 unit (unknown) (no (unknown) (unknown) Last Admin: (units (un known) date) 11/24/21 23:15 unknown) Dose: 20 mg (unknown) (no (unknown) (unknown) Last Infusion: (units (unknown) date) 11/24/21 23:11 unknown) Dose: 0 mls/hr (unknown) (no (unknown) (unknown) Last Infusion: (units (unknown) date) 11/24/21 23:54 unknown) Dose: 0 mls/hr (unknown) (no (unknown) (unknown) Last Infusion: (units (unknown) date) 11/25/21 00:10 unknown) Dose: 0 mls/hr (unknown) (no (unknown) (unknown) Last Infusion: (units (unknown) date) 11/25/21 00:17 unknown) Dose: 150 mls/hr (unknown) (no (unknown) (unknown) PRN Reason: (units (un known) date) Hypoglycemia unknown) (unknown) (no (unknown) (unknown) Point of Care (units ( unknown) date) Testing unknown) (unknown) (no (unknown) (unknown) Rx Instructions: (units (unknown) date) unknown) (unknown) (no (unknown) (unknown) Signed (units (unkno wn) date) unknown) (unknown) (no (unknown) (unknown) Stop: 11/24/21 (units (unknown) date) 22:22 unknown) (unknown) (no (unknown) (unknown) Stop: 11/24/21 (units (unknown) date) 22:50 unknown) (unknown) (no (unknown) (unknown) Stop: 11/24/21 (units (unknown) date) 23:20 unknown) (unknown) (no (unknown) (unknown) Take 1 tablet by (units (unknown) date) mouth once a day unknown) (unknown) (no (unknown) (unknown) Ultrasound Report (units (unknown) date) unknown) (unknown) (no (unknown) (unknown) Vital Signs - 8 (units (unknown) date) hr unknown) (unknown) (no (unknown) (unknown) administer (units (unk nown) date) approximately unknown) 30min before sexual activity; do not use more than 1 (unknown) (no (unknown) (unknown) (no value) (units (unk nown) date) unknown) (unknown) (no (unknown) (unknown) 11/24/21 11/24/21 (units (unknown) date) 11/24/21 unknown) Range/Units (unknown) (no (unknown) (unknown) 11/24/21 (units (unkno wn) date) Range/Units unknown) (unknown) (no (unknown) (unknown) 21:40 21:40 22:32 (units (unknown) date) unknown) (unknown) (no (unknown) (unknown) 23:30 (units (unkno wn) date) unknown) (unknown) (no (unknown) (unknown) Centrum Silver (units (unknown) date) 0.4-300-250 unknown) mg-mcg-mcg Tablet (unknown) (no (unknown) (unknown) Fish Oil Capsule (units (unknown) date) unknown) (unknown) (no (unknown) (unknown) Prevagen 20 mg (units (unknown) date) unknown) (unknown) (no (unknown) (unknown) amlodipine 10 mg (units (unknown) date) Tablet unknown) (unknown) (no (unknown) (unknown) aspirin 81 mg (units ( unknown) date) Capsule unknown) (unknown) (no (unknown) (unknown) cholecalciferol (units (unknown) date) (vitamin D3) unknown) [Vitamin D3] 50 mcg (2,000 unit) Capsule (unknown) (no (unknown) (unknown) docusate sodium (units (unknown) date) [Colace] 100 mg unknown) Capsule (unknown) (no (unknown) (unknown) ibuprofen 800 mg (units (unknown) date) Tablet unknown) (unknown) (no (unknown) (unknown) latanoprost 0.005 (units (unknown) date) % Drops unknown) (unknown) (no (unknown) (unknown) lisinopril 40 mg (units (unknown) date) tablet unknown) (unknown) (no (unknown) (unknown) metoprolol (units (unk nown) date) tartrate 25 mg unknown) Tablet (unknown) (no (unknown) (unknown) nystatin 100,000 (units (unknown) date) unit/gram Powder unknown) (unknown) (no (unknown) (unknown) potassium (units (unkn own) date) chloride 20 mEq unknown) Tablet Extended Release (unknown) (no (unknown) (unknown) rosuvastatin 40 (units (unknown) date) mg Tablet unknown) (unknown) (no (unknown) (unknown) tadalafil 10 mg (units (unknown) date) Tablet unknown) (unknown) (no (unknown) (unknown) timolol 0.5 % (units ( unknown) date) Drops unknown) (unknown) (no (unknown) (unknown) triamterene-hydro (units (unknown) date) chlorothiazid unknown) 75-50 mg Tablet (unknown) (no (unknown) (unknown) 11/24/21 (units (unkno wn) date) unknown) (unknown) (no (unknown) (unknown) Medication (units (unk nown) date) Instructions unknown) Recorded Confirmed (unknown) (no (unknown) (unknown) dose per 24hrs (units (unknown) date) unknown) (unknown) (no (unknown) (unknown) rales, or (units (unkn own) date) rhonchi. unknown) (unknown) (no (unknown) (unknown) (Colace) (units (unkno wn) date) unknown) (unknown) (no (unknown) (unknown) [phone] (units (unkn own) date) unknown) (unknown) (no (unknown) (unknown) 00:00 (units (unkno wn) date) unknown) (unknown) (no (unknown) (unknown) 11/24/21 21:14 (units (unknown) date) unknown) (unknown) (no (unknown) (unknown) 11/24/21 21:40 (units (unknown) date) unknown) (unknown) (no (unknown) (unknown) 11/24/21 22:21 (units (unknown) date) unknown) (unknown) (no (unknown) (unknown) 11/24/21 22:32 (units (unknown) date) unknown) (unknown) (no (unknown) (unknown) 11/24/21 23:30 (units (unknown) date) unknown) (unknown) (no (unknown) (unknown) 11/25/21 00:56 (units (unknown) date) unknown) (unknown) (no (unknown) (unknown) 1. No evidence of (units (unknown) date) hydronephrosis. unknown) (unknown) (no (unknown) (unknown) 12 point review (units (unknown) date) of systems is unknown) negative except for those stated above (unknown) (no (unknown) (unknown) 2. Bilateral mild (units (unknown) date) renal cortical unknown) thinning.? (unknown) (no (unknown) (unknown) 20:03 11/24/21 (units (unknown) date) unknown) (unknown) (no (unknown) (unknown) 21:19 11/24/21 (units (unknown) date) unknown) (unknown) (no (unknown) (unknown) 21:20 (units (unkno wn) date) unknown) (unknown) (no (unknown) (unknown) 21:30 11/24/21 (units (unknown) date) unknown) (unknown) (no (unknown) (unknown) 22:00 11/24/21 (units (unknown) date) unknown) (unknown) (no (unknown) (unknown) 22:01 (units (unkno wn) date) unknown) (unknown) (no (unknown) (unknown) 22:30 11/24/21 (units (unknown) date) unknown) (unknown) (no (unknown) (unknown) 23:00 11/24/21 (units (unknown) date) unknown) (unknown) (no (unknown) (unknown) 23:04 (units (unkno wn) date) unknown) (unknown) (no (unknown) (unknown) 23:20 11/24/21 (units (unknown) date) unknown) (unknown) (no (unknown) (unknown) 23:30 11/25/21 (units (unknown) date) unknown) (unknown) (no (unknown) (unknown) 81-year-old male (units (unknown) date) Nonsmoker with unknown) history of HTN, hyperlipidemia presents with (unknown) (no (unknown) (unknown) ? (units (unkno wn) date) unknown) (unknown) (no (unknown) (unknown) ALT (<50) IU/L (units (unknown) date) unknown) (unknown) (no (unknown) (unknown) ALT 17 (<50) (units (unknown) date) IU/L unknown) (unknown) (no (unknown) (unknown) AST (17-59) (units ( unknown) date) IU/L unknown) (unknown) (no (unknown) (unknown) AST 26 (units (unkno wn) date) (17-59) IU/L unknown) (unknown) (no (unknown) (unknown) Accession Number: (units (unknown) date) [id number] ?? unknown) (unknown) (no (unknown) (unknown) Acct:[id number] (units (unknown) date) unknown) (unknown) (no (unknown) (unknown) Age/Sex: 81 / M (units (unknown) date) unknown) (unknown) (no (unknown) (unknown) Age/Sex: 81 / M (units (unknown) date) unknown) (unknown) (no (unknown) (unknown) Albumin (units (unkno wn) date) (3.5-5.0) g/dL unknown) (unknown) (no (unknown) (unknown) Albumin 4.6 (units ( unknown) date) (3.5-5.0) g/dL unknown) (unknown) (no (unknown) (unknown) Albumin/Globulin (units (unknown) date) Ratio (1.0-2.8) unknown) (unknown) (no (unknown) (unknown) Albumin/Globulin (units (unknown) date) Ratio 1.2 unknown) (1.0-2.8) (unknown) (no (unknown) (unknown) Albuterol (units (unkn own) date) (Albuterol 2.5 unknown) Mg/3 Ml Neb (Adult)) 20 mg INH NOW ONE (unknown) (no (unknown) (unknown) Alkaline (units (unkno wn) date) Phosphatase unknown) (38-126) U/L (unknown) (no (unknown) (unknown) Alkaline (units (unkno wn) date) Phosphatase 192 unknown) H (38-126) U/L (unknown) (no (unknown) (unknown) Allergy/AdvReac (units (unknown) date) Type Severity unknown) Reaction Status Date / Time (unknown) (no (unknown) (unknown) Approved by: (units (u nknown) date) Gunnar Houser unknownAlina Arroyo on 11/25/2021 at 0:16 ? (unknown) (no (unknown) (unknown) BACK: Nontender (units (unknown) date) without deformity unknown) or crepitance. No flank tenderness. (unknown) (no (unknown) (unknown) BMP [Basic (units (unk nown) date) Metabolic Panel] unknown) Stat (unknown) (no (unknown) (unknown) BUN (9-20) (units (u nknown) date) mg/dL unknown) (unknown) (no (unknown) (unknown) BUN 70 H (units (unk nown) date) (9-20) mg/dL unknown) (unknown) (no (unknown) (unknown) BUN/Creatinine (units (unknown) date) Ratio (6-22) unknown) (unknown) (no (unknown) (unknown) BUN/Creatinine (units (unknown) date) Ratio 27.7 H unknown) (6-) (unknown) (no (unknown) (unknown) Baso # (Auto) (units ( unknown) date) unknown) (unknown) (no (unknown) (unknown) Baso # (Auto) (units ( unknown) date) Not Reportable unknown) (unknown) (no (unknown) (unknown) Baso % (Auto) (units ( unknown) date) unknown) (unknown) (no (unknown) (unknown) Baso % (Auto) (units ( unknown) date) Not Reportable unknown) (unknown) (no (unknown) (unknown) Bladder:? (units (unkn own) date) Pre-void bladder unknown) was nondistended.? Limited evaluation for (unknown) (no (unknown) (unknown) Blood Pressure (units (unknown) date) 131/58 L unknown) (unknown) (no (unknown) (unknown) Blood Pressure (units (unknown) date) 133/63 129/62 unknown) (unknown) (no (unknown) (unknown) Blood Pressure (units (unknown) date) 155/93 H 11/24/21 unknown) 20:03 (unknown) (no (unknown) (unknown) Blood Pressure (units (unknown) date) 155/93 H 156/70 H unknown) (unknown) (no (unknown) (unknown) Blood Pressure (units (unknown) date) 162/70 H 164/76 H unknown) (unknown) (no (unknown) (unknown) CARDIOVASCULAR: (units (unknown) date) Denies chest pain, unknown) palpitations, orthopnea, edema, (unknown) (no (unknown) (unknown) CARDIOVASCULAR: (units (unknown) date) Regular rate and unknown) rhythm without murmurs, gallops, or rubs. (unknown) (no (unknown) (unknown) CK-MB (CK-2) (units (u nknown) date) unknown) (unknown) (no (unknown) (unknown) CK-MB (CK-2) (units (u nknown) date) TNP unknown) (unknown) (no (unknown) (unknown) CK-MB (CK-2) Rel (units (unknown) date) Index unknown) (unknown) (no (unknown) (unknown) CK-MB (CK-2) Rel (units (unknown) date) Index TNP unknown) (unknown) (no (unknown) (unknown) COMPARISON:? (units (u nknown) date) None. unknown) (unknown) (no (unknown) (unknown) COVID19 -Nasal (units (unknown) date) RAPID/Pre-Proc unknown) Stat (unknown) (no (unknown) (unknown) Calcium (units (unkno wn) date) (8.4-10.2) mg/dL unknown) (unknown) (no (unknown) (unknown) Calcium 10.7 H (units (unknown) date) (8.4-10.2) mg/dL unknown) (unknown) (no (unknown) (unknown) Calcium Gluconate (units (unknown) date) 9.3 meq/ (Sodium unknown) Chloride) 70 mls @ 140 mls/hr IV NOW ONE (unknown) (no (unknown) (unknown) Carbon Dioxide (units (unknown) date) (22-32) mmol/L unknown) (unknown) (no (unknown) (unknown) Carbon Dioxide (units (unknown) date) 13 L (22-32) unknown) mmol/L (unknown) (no (unknown) (unknown) Chief complaint: (units (unknown) date) Weakness unknown) (unknown) (no (unknown) (unknown) Chloride (units (unkno wn) date) (98-107) mmol/L unknown) (unknown) (no (unknown) (unknown) Chloride 111 H (units (unknown) date) (98-107) mmol/L unknown) (unknown) (no (unknown) (unknown) Complete Blood (units (unknown) date) Count AUTO DIFF unknown) Stat (unknown) (no (unknown) (unknown) Comprehensive (units ( unknown) date) Metabolic Panel unknown) Stat (unknown) (no (unknown) (unknown) Course (units (unkno wn) date) unknown) (unknown) (no (unknown) (unknown) Creatinine (units (unk nown) date) (0.66-1.25) mg/dL unknown) (unknown) (no (unknown) (unknown) Creatinine 2.53 (units (unknown) date) H (0.66-1.25) unknown) mg/dL (unknown) (no (unknown) (unknown) Creatinine Urine (units (unknown) date) Random Stat unknown) (unknown) (no (unknown) (unknown) D3) (units (unkno wn) date) unknown) (unknown) (no (unknown) (unknown) : 1940 (units (unknown) date) Acct:[id number] unknown) (unknown) (no (unknown) (unknown) : 1940 (units (unknown) date) unknown) (unknown) (no (unknown) (unknown) Date of Service: (units (unknown) date) 11/24/21 unknown) (unknown) (no (unknown) (unknown) Departure (units (unkn own) date) unknown) (unknown) (no (unknown) (unknown) Dextrose (D10w) (units (unknown) date) 250 mls @ 999 unknown) mls/hr IV PRN PRN (unknown) (no (unknown) (unknown) Dictated by: (units (u nknown) date) Gunnar Houser unknownAlina Arroyo on 11/25/2021 at 0:10 ? ? (unknown) (no (unknown) (unknown) Discharge Plan (units (unknown) date) unknown) (unknown) (no (unknown) (unknown) Discontinued (units (u nknown) date) Medications unknown) (unknown) (no (unknown) (unknown) Doppler (units (unkno wn) date) unknown) (unknown) (no (unknown) (unknown) ECG Data (units (unkno wn) date) unknown) (unknown) (no (unknown) (unknown) EKG 1 (2121): (units ( unknown) date) EKG is normal unknown) sinus rhythm rate [70 ] and free of any signs of (unknown) (no (unknown) (unknown) EKG 2 (0112): (units ( unknown) date) EKG is normal unknown) sinus rhythm rate [103 ] and free of any signs of (unknown) (no (unknown) (unknown) EKG-12 Lead Stat (units (unknown) date) unknown) (unknown) (no (unknown) (unknown) ENT: Nose without (units (unknown) date) bleeding, purulent unknown) drainage. Throat without erythema, (unknown) (no (unknown) (unknown) ER Physician: (units ( unknown) date) Aroldo Bazan D.O. unknown) (unknown) (no (unknown) (unknown) EXTREMITIES: No (units (unknown) date) edema or joint unknown) tenderness. (unknown) (no (unknown) (unknown) EYES: Pupils (units (u nknown) date) equal round and unknown) reactive. Extraocular motions intact. No scleral (unknown) (no (unknown) (unknown) Eos % (Auto) (units (u nknown) date) unknown) (unknown) (no (unknown) (unknown) Eos % (Auto) Not (units (unknown) date) Reportable unknown) (unknown) (no (unknown) (unknown) Estimated GFR (units ( unknown) date) (>60) mL/min unknown) (unknown) (no (unknown) (unknown) Estimated GFR (units ( unknown) date) 25 L (>60) unknown) mL/min (unknown) (no (unknown) (unknown) Exam (units (unkno wn) date) unknown) (unknown) (no (unknown) (unknown) Exam Narrative: (units (unknown) date) unknown) (unknown) (no (unknown) (unknown) FINDINGS:? (units (unk nown) date) unknown) (unknown) (no (unknown) (unknown) Furosemide (units (unk nown) date) (Furosemide 40 unknown) Mg/4 Ml Vial) 40 mg IV NOW ONE (unknown) (no (unknown) (unknown) GASTROINTESTINAL: (units (unknown) date) Abdomen soft, unknown) non-tender, nondistended. (unknown) (no (unknown) (unknown) GASTROINTESTINAL: (units (unknown) date) Denies nausea, unknown) vomiting, abdominal pain, diarrhea, (unknown) (no (unknown) (unknown) GENERAL: Denies (units (unknown) date) chills, fatigue, unknown) malaise, fever, sweats. (unknown) (no (unknown) (unknown) GENERAL: [81 year (units (unknown) date) old patient unknown) appears stated age. Well-developed patient, in (unknown) (no (unknown) (unknown) : Denies (units (unk nown) date) dysuria, unknown) frequency, incontinence, hematuria, urinary retention. (unknown) (no (unknown) (unknown) General (units (unkno wn) date) unknown) (unknown) (no (unknown) (unknown) GenericComposite[ (units (unknown) date) Plt Count unknown) (150-400) X10^3/uL ] (unknown) (no (unknown) (unknown) GenericComposite[ (units (unknown) date) Plt Count 229 unknown) (150-400) X10^3/uL ] (unknown) (no (unknown) (unknown) GenericComposite[ (units (unknown) date) RBC (4.5-5.9) unknown) X10^6/uL ] (unknown) (no (unknown) (unknown) GenericComposite[ (units (unknown) date) RBC 4.45 L unknown) (4.5-5.9) X10^6/uL ] (unknown) (no (unknown) (unknown) GenericComposite[ (units (unknown) date) WBC (4.5-11.0) unknown) X10^3/uL ] (unknown) (no (unknown) (unknown) GenericComposite[ (units (unknown) date) WBC 35.4 H* unknown) (4.5-11.0) X10^3/uL ] (unknown) (no (unknown) (unknown) Globulin (units (unkno wn) date) (1.7-4.1) g/dL unknown) (unknown) (no (unknown) (unknown) Globulin 3.7 (units (unknown) date) (1.7-4.1) g/dL unknown) (unknown) (no (unknown) (unknown) Glucose (units (unkno wn) date) (80-110) mg/dL unknown) (unknown) (no (unknown) (unknown) Glucose 117 H (units (unknown) date) (80-110) mg/dL unknown) (unknown) (no (unknown) (unknown) Glucose POC (units (un known) date) 119 unknown) (unknown) (no (unknown) (unknown) HEAD: Atraumatic. (units (unknown) date) Normocephalic. unknown) (unknown) (no (unknown) (unknown) HEENT: Denies (units ( unknown) date) sinus pain, ear unknown) pain, sore throat, difficulty swallowing, (unknown) (no (unknown) (unknown) HPI - Weakness (units (unknown) date) unknown) (unknown) (no (unknown) (unknown) HPI Narrative: (units (unknown) date) unknown) (unknown) (no (unknown) (unknown) Hct (41-53) % (units (unknown) date) unknown) (unknown) (no (unknown) (unknown) Hct 40.7 L (units (un known) date) (41-53) % unknown) (unknown) (no (unknown) (unknown) Hgb (13.5-17.5) (units (unknown) date) g/dL unknown) (unknown) (no (unknown) (unknown) Hgb 13.0 L (units (un known) date) (13.5-17.5) g/dL unknown) (unknown) (no (unknown) (unknown) History of (units (unk nown) date) Present Illness unknown) (unknown) (no (unknown) (unknown) IMPRESSION:? (units (u nknown) date) unknown) (unknown) (no (unknown) (unknown) INDICATIONS:? (units ( unknown) date) ACUTE RENAL unknown) FAILURE (unknown) (no (unknown) (unknown) Imaging Data (units (u nknown) date) unknown) (unknown) (no (unknown) (unknown) Initial Vital (units ( unknown) date) Signs unknown) (unknown) (no (unknown) (unknown) Initial Vital (units ( unknown) date) Signs: unknown) (unknown) (no (unknown) (unknown) Insulin Human (units (u nknown) date) Regular (Insulin unknown) Regular 100 Unit/Ml 3 Ml Vial) 5 unit IV NOW ONE (unknown) (no (unknown) (unknown) Interpretation: (units (unknown) date) unknown) (unknown) (no (unknown) (unknown) Kidneys:? Right (units (unknown) date) kidney measures unknown) 11.8 cm long; left kidney measures 11.6 cm (unknown) (no (unknown) (unknown) Lab Data (units (unkno wn) date) unknown) (unknown) (no (unknown) (unknown) Labs: (units (unkno wn) date) unknown) (unknown) (no (unknown) (unknown) Lipase (23-300) (units (unknown) date) U/L unknown) (unknown) (no (unknown) (unknown) Lipase 319 H (units (unknown) date) (23-300) U/L unknown) (unknown) (no (unknown) (unknown) Lipase Stat (units (un known) date) unknown) (unknown) (no (unknown) (unknown) Loc: ED (units (unkno wn) date) unknown) (unknown) (no (unknown) (unknown) Lymph # (Auto) (units (unknown) date) unknown) (unknown) (no (unknown) (unknown) Lymph # (Auto) (units (unknown) date) Not Reportable unknown) (unknown) (no (unknown) (unknown) Lymph % (Auto) (units (unknown) date) unknown) (unknown) (no (unknown) (unknown) Lymph % (Auto) (units (unknown) date) Not Reportable unknown) (unknown) (no (unknown) (unknown) Lymphocytes % (units ( unknown) date) (Manual) (25-45) unknown) % (unknown) (no (unknown) (unknown) Lymphocytes % (units ( unknown) date) (Manual) 76.0 H unknown) (25-45) % (unknown) (no (unknown) (unknown) MCH (26-34) PG (units (unknown) date) unknown) (unknown) (no (unknown) (unknown) MCH 29.2 (units (unkn own) date) (26-34) PG unknown) (unknown) (no (unknown) (unknown) MCHC (30-36) % (units (unknown) date) unknown) (unknown) (no (unknown) (unknown) MCHC 31.9 (units (unk nown) date) (30-36) % unknown) (unknown) (no (unknown) (unknown) MCV (80-100) (units (unknown) date) fL unknown) (unknown) (no (unknown) (unknown) MCV 91.5 (units (unkn own) date) (80-100) fL unknown) (unknown) (no (unknown) (unknown) MDM - Weakness (units (unknown) date) unknown) (unknown) (no (unknown) (unknown) MR#: [id number] (units (unknown) date) unknown) (unknown) (no (unknown) (unknown) MUSCULOSKELETAL: (units (unknown) date) See HPI unknown) (unknown) (no (unknown) (unknown) [address], (units (unknown) date) MD [Primary Care unknown) Provider] - (unknown) (no (unknown) (unknown) Miscellaneous:? (units (unknown) date) No free pelvic unknown) fluid.? (unknown) (no (unknown) (unknown) Mode of arrival: (units (unknown) date) Wheelchair unknown) (unknown) (no (unknown) (unknown) [place] # (Auto) (units ( unknown) date) unknown) (unknown) (no (unknown) (unknown) [place] # (Auto) (units ( unknown) date) Not Reportable unknown) (unknown) (no (unknown) (unknown) [place] % (Auto) (units ( unknown) date) unknown) (unknown) (no (unknown) (unknown) [place] % (Auto) (units ( unknown) date) Not Reportable unknown) (unknown) (no (unknown) (unknown) Monocytes % (units (un known) date) (Manual) (2-11) unknown) % (unknown) (no (unknown) (unknown) Monocytes % (units (un known) date) (Manual) 3.0 unknown) (2-11) % (unknown) (no (unknown) (unknown) NECK: [place] (units ( unknown) date) midline. Non unknown) tender (unknown) (no (unknown) (unknown) NEURO: AOx3. (units (u nknown) date) unknown) (unknown) (no (unknown) (unknown) NEUROLOGIC: (units (un known) date) Denies weakness, unknown) headache, numbness, change in speech, confusion, (unknown) (no (unknown) (unknown) Narrative (units (unkn own) date) unknown) (unknown) (no (unknown) (unknown) Narrative: (units (unk nown) date) unknown) (unknown) (no (unknown) (unknown) Neut % (Auto) (units ( unknown) date) unknown) (unknown) (no (unknown) (unknown) Neut % (Auto) (units ( unknown) date) Not Reportable unknown) (unknown) (no (unknown) (unknown) Neutrophils # (units ( unknown) date) (Manual) unknown) ([id number]) /uL (unknown) (no (unknown) (unknown) Neutrophils # (units ( unknown) date) (Manual) 7434 H unknown) ([phone]) /uL (unknown) (no (unknown) (unknown) No Action (units (unkn own) date) unknown) (unknown) (no (unknown) (unknown) Ordered: (units (unkno wn) date) unknown) (unknown) (no (unknown) (unknown) Ordering (units (unkno wn) date) Provider: unknown) Aroldo Bazan D.O. (unknown) (no (unknown) (unknown) Orders (units (unkno wn) date) unknown) (unknown) (no (unknown) (unknown) PROCEDURE:? US (units (unknown) date) RENAL COMPLETE unknown) (unknown) (no (unknown) (unknown) PSYCHIATRIC: No (units (unknown) date) concerning unknown) psychosocial issues. (unknown) (no (unknown) (unknown) Patient History (units (unknown) date) unknown) (unknown) (no (unknown) (unknown) Patient: (units (unkno wn) date) Raven Sutherland unknown) MR#: M (unknown) (no (unknown) (unknown) Patient: (units (unkno wn) date) Raven Sutherland unknown) (unknown) (no (unknown) (unknown) Potassium (units (unkn own) date) (3.4-5.1) mmol/L unknown) (unknown) (no (unknown) (unknown) Potassium 8.6 (units (unknown) date) H* (3.4-5.1) unknown) mmol/L (unknown) (no (unknown) (unknown) Prescriptions: (units (unknown) date) unknown) (unknown) (no (unknown) (unknown) Prevagen 20 mg PO (units (unknown) date) DAILY 11/25/21 unknown) (unknown) (no (unknown) (unknown) Procedure: US (units ( unknown) date) renal complete unknown) (unknown) (no (unknown) (unknown) Pulse Oximetry (units (unknown) date) 100 97 unknown) (unknown) (no (unknown) (unknown) Pulse Oximetry (units (unknown) date) 94 11/24/21 unknown) 20:03 (unknown) (no (unknown) (unknown) Pulse Oximetry (units (unknown) date) 97 97 unknown) (unknown) (no (unknown) (unknown) Pulse Oximetry 94 (units (unknown) date) 89 L 96 unknown) (unknown) (no (unknown) (unknown) Pulse Oximetry 96 (units (unknown) date) 96 unknown) (unknown) (no (unknown) (unknown) Pulse Rate 87 (units (unknown) date) 11/24/21 20:03 unknown) (unknown) (no (unknown) (unknown) Pulse Rate 72 78 (units (unknown) date) 79 unknown) (unknown) (no (unknown) (unknown) Pulse Rate 72 80 (units (unknown) date) 81 unknown) (unknown) (no (unknown) (unknown) Pulse Rate 79 91 (units (unknown) date) H 104 H unknown) (unknown) (no (unknown) (unknown) Pulse Rate 87 76 (units (unknown) date) 77 unknown) (unknown) (no (unknown) (unknown) RBC Morphology (units (unknown) date) unknown) (unknown) (no (unknown) (unknown) RBC Morphology (units (unknown) date) Normal morphology unknown) (unknown) (no (unknown) (unknown) RDW (11.6-14.8) (units (unknown) date) % unknown) (unknown) (no (unknown) (unknown) RDW 14.1 (units (unkn own) date) (11.6-14.8) % unknown) (unknown) (no (unknown) (unknown) RESPIRATORY: Clear (units (unknown) date) to auscultation. unknown) Breath sounds equal bilaterally. No wheezes, (unknown) (no (unknown) (unknown) RESPIRATORY: (units (u nknown) date) Denies dyspnea, unknown) cough, wheezing, hemoptysis, sputum. (unknown) (no (unknown) (unknown) Real-time (units (unkn own) date) scanning was unknown) performed of the kidneys and bladder, with image (unknown) (no (unknown) (unknown) Referrals: (units (unk nown) date) unknown) (unknown) (no (unknown) (unknown) Related Data (units (u nknown) date) unknown) (unknown) (no (unknown) (unknown) Renal (units (unkno wn) date) unknown) (unknown) (no (unknown) (unknown) Renal US: (units (unk nown) date) unknown) (unknown) (no (unknown) (unknown) Respiratory Rate (units (unknown) date) unknown) (unknown) (no (unknown) (unknown) Respiratory Rate (units (unknown) date) 15 11/24/21 unknown) 20:03 (unknown) (no (unknown) (unknown) Respiratory Rate (units (unknown) date) 23 25 H unknown) (unknown) (no (unknown) (unknown) Respiratory Rate (units (unknown) date) 15 25 H 18 unknown) (unknown) (no (unknown) (unknown) Respiratory Rate (units (unknown) date) 25 H 11 L 22 unknown) (unknown) (no (unknown) (unknown) Result diagrams: (units (unknown) date) unknown) (unknown) (no (unknown) (unknown) Review of Systems (units (unknown) date) unknown) (unknown) (no (unknown) (unknown) SARS-CoV-2 (PCR) (units (unknown) date) Negative unknown) (Negative) (unknown) (no (unknown) (unknown) SARS-CoV-2 (PCR) (units (unknown) date) (Negative) unknown) (unknown) (no (unknown) (unknown) SKIN: Denies (units (u nknown) date) rash, skin unknown) lesions, or other (unknown) (no (unknown) (unknown) SKIN: No rash or (units (unknown) date) erythema of unknown) visible areas (unknown) (no (unknown) (unknown) Seg Neutrophils % (units (unknown) date) (38-70) % unknown) (unknown) (no (unknown) (unknown) Seg Neutrophils % (units (unknown) date) 21.0 L (38-70) unknown) % (unknown) (no (unknown) (unknown) Signed By: (units (unk nown) date) unknown) (unknown) (no (unknown) (unknown) Smoking Status: (units (unknown) date) Never smoker unknown) (unknown) (no (unknown) (unknown) Smoking Status: (units (unknown) date) Never smoker unknown) (unknown) (no (unknown) (unknown) Smudge Cells (units (u nknown) date) unknown) (unknown) (no (unknown) (unknown) Smudge Cells 1+ (units (unknown) date) H unknown) (unknown) (no (unknown) (unknown) Social History (units (unknown) date) (Reviewed 11/25/21 unknown) @ 01:28 by Aroldo Bazan DO) (unknown) (no (unknown) (unknown) Sodium (units (unkno wn) date) (137-145) mmol/L unknown) (unknown) (no (unknown) (unknown) Sodium 134 L (units (unknown) date) (137-145) mmol/L unknown) (unknown) (no (unknown) (unknown) Sodium Chloride (units (unknown) date) (Normal Saline unknown) 0.9%) 1,000 mls @ 1,000 mls/hr IV BOLUS ONE (unknown) (no (unknown) (unknown) Sodium Chloride (units (unknown) date) (Normal Saline unknown) 0.9%) 1,000 mls @ 150 mls/hr IV CONT DEE (unknown) (no (unknown) (unknown) Sodium Urine (units (u nknown) date) Random Stat unknown) (unknown) (no (unknown) (unknown) Source: patient (units (unknown) date) unknown) (unknown) (no (unknown) (unknown) Stated complaint: (units (unknown) date) Worsening Weakness unknown) x3 days (unknown) (no (unknown) (unknown) Substance Use (units ( unknown) date) Type: does not use unknown) (unknown) (no (unknown) (unknown) TECHNIQUE:? (units (un known) date) unknown) (unknown) (no (unknown) (unknown) Temperature (units (un known) date) unknown) (unknown) (no (unknown) (unknown) Temperature 98.4 (units (unknown) date) F 11/24/21 20:03 unknown) (unknown) (no (unknown) (unknown) Temperature 98.4 (units (unknown) date) F unknown) (unknown) (no (unknown) (unknown) Time Seen by (units (u nknown) date) Provider: 11/24/21 unknown) 21:14 (unknown) (no (unknown) (unknown) Total Bilirubin (units (unknown) date) (0.2-1.3) mg/dL unknown) (unknown) (no (unknown) (unknown) Total Bilirubin (units (unknown) date) 0.6 (0.2-1.3) unknown) mg/dL (unknown) (no (unknown) (unknown) Total Counted (units ( unknown) date) unknown) (unknown) (no (unknown) (unknown) Total Counted (units ( unknown) date) 100 unknown) (unknown) (no (unknown) (unknown) Total Creatine (units (unknown) date) Kinase (55-170) unknown) U/L (unknown) (no (unknown) (unknown) Total Creatine (units (unknown) date) Kinase 53 L unknown) (55-170) U/L (unknown) (no (unknown) (unknown) Total Protein (units ( unknown) date) (6.3-8.2) g/dL unknown) (unknown) (no (unknown) (unknown) Total Protein (units ( unknown) date) 8.3 H (6.3-8.2) unknown) g/dL (unknown) (no (unknown) (unknown) Troponin + CK (units ( unknown) date) Cardiac Panel Stat unknown) (unknown) (no (unknown) (unknown) Troponin I (units (unk nown) date) (0.01-0.034) unknown) ng/mL (unknown) (no (unknown) (unknown) Troponin I (units (unk nown) date) 0.016 unknown) (0.01-0.034) ng/mL (unknown) (no (unknown) (unknown) US renal complete (units (unknown) date) Stat unknown) (unknown) (no (unknown) (unknown) Ur Random Sodium (units (unknown) date) (30-90) mmol/L unknown) (unknown) (no (unknown) (unknown) Ur Random Sodium (units (unknown) date) 104 H (30-90) unknown) mmol/L (unknown) (no (unknown) (unknown) Urine Creatinine (units (unknown) date) mg/dL unknown) (unknown) (no (unknown) (unknown) Urine Creatinine (units (unknown) date) 108.6 mg/dL unknown) (unknown) (no (unknown) (unknown) Vital Signs (units (un known) date) unknown) (unknown) (no (unknown) (unknown) Vital signs: (units (u nknown) date) unknown) (unknown) (no (unknown) (unknown) XR chest 1V Stat (units (unknown) date) unknown) (unknown) (no (unknown) (unknown) [Embedded Image (units (unknown) date) Not Available] unknown) (unknown) (no (unknown) (unknown) alcohol intake (units (unknown) date) frequency: unknown) holidays/special occasions only (unknown) (no (unknown) (unknown) amlodipine 10 mg (units (unknown) date) tablet 10 mg PO unknown) DAILY 11/25/21 11/25/21 (unknown) (no (unknown) (unknown) aspirin 81 mg (units ( unknown) date) capsule 81 mg PO unknown) DAILY 11/25/21 11/25/21 (unknown) (no (unknown) (unknown) cases due (units (unkn own) date) unknown) (unknown) (no (unknown) (unknown) cholecalciferol (units (unknown) date) (vitamin D3) 50 50 unknown) mcg PO DAILY 11/25/21 11/25/21 (unknown) (no (unknown) (unknown) constipation, (units ( unknown) date) melena. unknown) (unknown) (no (unknown) (unknown) cortical (units (unkno wn) date) echotexture unknown) appears grossly within normal limits.? No hydronephrosis.? (unknown) (no (unknown) (unknown) dizziness. (units (unk nown) date) unknown) (unknown) (no (unknown) (unknown) documentation.? (units (unknown) date) unknown) (unknown) (no (unknown) (unknown) docusate sodium (units (unknown) date) 100 mg capsule 100 unknown) mg PO BID 11/25/21 11/25/21 (unknown) (no (unknown) (unknown) generalized (units (un known) date) weakness gradually unknown) worsening over the past few months. He states (unknown) (no (unknown) (unknown) generally, and on (units (unknown) date) the whole, and unknown) very nonspecifically he feels weak. (unknown) (no (unknown) (unknown) ibuprofen 800 mg (units (unknown) date) tablet 800 mg PO unknown) Q8H PRN 11/25/21 11/25/21 (unknown) (no (unknown) (unknown) icterus. No (units (un known) date) injection or unknown) drainage. (unknown) (no (unknown) (unknown) interrogation.? (units (unknown) date) (Of note, ureteral unknown) jets may not be detectable in up to 25% of (unknown) (no (unknown) (unknown) intraluminal (units (u nknown) date) masses unknown) (unknown) (no (unknown) (unknown) inversions. OK (units (unknown) date) 126. QRS 140. T unknown) waves improved. (unknown) (no (unknown) (unknown) inversions. OK (units (unknown) date) 152. QRS 164. T unknown) waves peaked (unknown) (no (unknown) (unknown) ischemia or (units (un known) date) ectopy. No ST unknown) segmental elevation or depression. No T wave (unknown) (no (unknown) (unknown) latanoprost 0.005 (units (unknown) date) % eye drops 1 drp unknown) OPHTHALMIC (EYE) DAILY 11/25/21 11/25/21 (unknown) (no (unknown) (unknown) lisinopril 40 mg (units (unknown) date) tablet 40 mg PO unknown) DAILY 11/25/21 11/25/21 (unknown) (no (unknown) (unknown) long.? Right (units (u nknown) date) unknown) (unknown) (no (unknown) (unknown) mcg (2,000 unit) (units (unknown) date) capsule (Vitamin unknown) (unknown) (no (unknown) (unknown) medications or (units (unknown) date) diet. He denies unknown) any headache, blurred vision or trouble with (unknown) (no (unknown) (unknown) metoprolol (units (unk nown) date) tartrate 25 mg unknown) tablet 25 mg PO BID 11/25/21 11/25/21 (unknown) (no (unknown) (unknown) mg-hydrochlorothi (units (unknown) date) azide 50 mg tablet unknown) (unknown) (no (unknown) (unknown) mg-lycopene 300 (units (unknown) date) mcg-lutein 250 mcg unknown) (unknown) (no (unknown) (unknown) mild distress. (units (unknown) date) unknown) (unknown) (no (unknown) (unknown) [id number] (units (unknown) date) c acid 0.4 1 tab unknown) PO DAILY 11/25/21 11/25/21 (unknown) (no (unknown) (unknown) myacin family (units ( unknown) date) Allergy Blister unknown) Uncoded 11/24/21 20:03 (unknown) (no (unknown) (unknown) nystatin 100,000 (units (unknown) date) unit/gram topical unknown) 1 applic TOPICAL BID 11/25/21 11/25/21 (unknown) (no (unknown) (unknown) omega-3 fatty (units ( unknown) date) acids 1,000 mg PO unknown) DAILY 11/25/21 11/25/21 (unknown) (no (unknown) (unknown) or stones.? On (units (unknown) date) pre-void images, unknown) neither ureteral jets are noted with color (unknown) (no (unknown) (unknown) potassium (units (unkn own) date) chloride 20 mEq 20 unknown) meq PO BID 11/25/21 11/25/21 (unknown) (no (unknown) (unknown) powder (units (unkno wn) date) unknown) (unknown) (no (unknown) (unknown) primary care (units (u nknown) date) provider early in unknown) the week. He denies any change in his (unknown) (no (unknown) (unknown) problems such as (units (unknown) date) unilateral unknown) numbness, tingling or weakness. He states that (unknown) (no (unknown) (unknown) renal cortical (units (unknown) date) thickness is 1.5 unknown) cm; left renal cortical thickness is 1.5 cm.? (unknown) (no (unknown) (unknown) rosuvastatin 40 (units (unknown) date) mg tablet 40 mg PO unknown) DAILY 11/25/21 11/25/21 (unknown) (no (unknown) (unknown) seizures, (units (unkn own) date) incoordination. unknown) (unknown) (no (unknown) (unknown) some time, and he (units (unknown) date) met with his unknown) orthopedist today and has an appointment with his (unknown) (no (unknown) (unknown) speech. He (units (un known) date) denies any chest unknown) pain or shortness of breath. He denies any focal (unknown) (no (unknown) (unknown) tablet (Centrum (units (unknown) date) Silver) unknown) (unknown) (no (unknown) (unknown) tablet,extended (units (unknown) date) release unknown) (unknown) (no (unknown) (unknown) tadalafil 10 mg (units (unknown) date) tablet 10 mg PO unknown) DAILY PRN 11/25/21 11/25/21 (unknown) (no (unknown) (unknown) that he feels (units ( unknown) date) like his joints unknown) are tired and this has been going on for quite (unknown) (no (unknown) (unknown) timolol 0.5 % eye (units (unknown) date) drops 1 drp unknown) OPHTHALMIC (EYE) DAILY 11/25/21 11/25/21 (unknown) (no (unknown) (unknown) to insufficient (units (unknown) date) differences in unknown) specific gravity between ureteral and bladder (unknown) (no (unknown) (unknown) tonsillar (units (unkn own) date) hypertrophy or unknown) exudate. Airway patent. (unknown) (no (unknown) (unknown) triamterene 75 1 (units (unknown) date) tab PO QAM unknown) 11/25/21 11/25/21 (unknown) (no (unknown) (unknown) urine).? (units (unkno wn) date) unknown) Result panel 14 (unknown) (no date) (unknown) (unknown) 10.9 mg/dL (unkn own) (unknown) (no date) (unknown) (unknown) 112 mmol/L (unkn own) (unknown) (no date) (unknown) (unknown) 115 mg/dL (unkn own) (unknown) (no date) (unknown) (unknown) 136 mmol/L (unkn own) (unknown) (no date) (unknown) (unknown) 14 mmol/L (unkn own) (unknown) (no date) (unknown) (unknown) 2.40 mg/dL (unkn own) (unknown) (no date) (unknown) (unknown) 26 mL/min (unkn own) (unknown) (no date) (unknown) (unknown) 27.5 (units unknown) (unknown) (unknown) (no date) (unknown) (unknown) 66 mg/dL (unkn own) (unknown) (no date) (unknown) (unknown) 7.7 mmol/L (unkn own) Result panel 15 (unknown) (no (unknown) (unknown) (no value) (units (unk nown) date) unknown) (unknown) (no (unknown) (unknown) Radiologist (units (un known) date) Impression: unknown) (unknown) (no (unknown) (unknown) (no value) (units (unk nown) date) unknown) (unknown) (no (unknown) (unknown) Date of Service: (units (unknown) date) 11/24/21 unknown) (unknown) (no (unknown) (unknown) (no value) (units (unk nown) date) unknown) (unknown) (no (unknown) (unknown) 11/24/21 21:40 (units (unknown) date) unknown) (unknown) (no (unknown) (unknown) 11/25/21 01:44 (units (unknown) date) unknown) (unknown) (no (unknown) (unknown) 1 applic TOPICAL (units (unknown) date) BID 0RF unknown) (unknown) (no (unknown) (unknown) 1 drp OPHTHALMIC (units (unknown) date) (EYE) DAILY 0RF unknown) (unknown) (no (unknown) (unknown) 1 tab PO DAILY (units (unknown) date) 0RF unknown) (unknown) (no (unknown) (unknown) 1 tab PO QAM 0RF (units (unknown) date) unknown) (unknown) (no (unknown) (unknown) 1,000 mg PO DAILY (units (unknown) date) 0RF unknown) (unknown) (no (unknown) (unknown) 10 mg PO DAILY (units (unknown) date) 0RF unknown) (unknown) (no (unknown) (unknown) 10 mg PO DAILY (units (unknown) date) PRN (Reason: unknown) intercourse) 0RF (unknown) (no (unknown) (unknown) 100 mg PO BID 0RF (units (unknown) date) unknown) (unknown) (no (unknown) (unknown) [facility] ([facility] unknown) (unknown) (no (unknown) (unknown) 20 meq PO BID 0RF (units (unknown) date) unknown) (unknown) (no (unknown) (unknown) 20 mg PO DAILY (units (unknown) date) 0RF unknown) (unknown) (no (unknown) (unknown) 25 mg PO BID 0RF (units (unknown) date) unknown) (unknown) (no (unknown) (unknown) 40 mg PO DAILY (units (unknown) date) 0RF unknown) (unknown) (no (unknown) (unknown) 50 mcg PO DAILY (units (unknown) date) 0RF unknown) (unknown) (no (unknown) (unknown) 800 mg PO Q8H PRN (units (unknown) date) (Reason: Pain, unknown) Moderate) 0RF (unknown) (no (unknown) (unknown) 81 mg PO DAILY (units (unknown) date) 0RF unknown) (unknown) (no (unknown) (unknown) Admin: 11/24/21 (units (unknown) date) 22:08 Dose: 150 unknown) mls/hr (unknown) (no (unknown) (unknown) Admin: 11/24/21 (units (unknown) date) 22:52 Dose: 250 unknown) mls/hr (unknown) (no (unknown) (unknown) Admin: 11/24/21 (units (unknown) date) 23:01 Dose: 1,000 unknown) mls/hr (unknown) (no (unknown) (unknown) Admin: 11/24/21 (units (unknown) date) 23:16 Dose: 140 unknown) mls/hr (unknown) (no (unknown) (unknown) Allergies (units (unkn own) date) unknown) (unknown) (no (unknown) (unknown) CAMILLA Ortiz (units ( unknown) date) [id number] unknown) (unknown) (no (unknown) (unknown) Documented by: (units (unknown) date) NAMITAOR Cosigned unknown) by: FREDIS (unknown) (no (unknown) (unknown) Documented by: (units (unknown) date) JAIRO unknown) (unknown) (no (unknown) (unknown) Documented by: (units (unknown) date) FREDIS unknown) (unknown) (no (unknown) (unknown) ED Orders (units (unkn own) date) unknown) (unknown) (no (unknown) (unknown) Emergency Report (units (unknown) date) unknown) (unknown) (no (unknown) (unknown) Home Medications (units (unknown) date) unknown) (unknown) (no (unknown) (unknown) Infusion: (units (unkn own) date) 11/24/21 23:01 unknown) Dose: 0 mls/hr (unknown) (no (unknown) (unknown) [facility] (units (unknown) date) unknown) (unknown) (no (unknown) (unknown) [facility] (units (unknown) date) [address] [place] [address] unknown) [place] [address] (unknown) (no (unknown) (unknown) Lab Results (units (un known) date) unknown) (unknown) (no (unknown) (unknown) Label Comments: (units (unknown) date) unknown) (unknown) (no (unknown) (unknown) Last Admin: (units (un known) date) 11/24/21 22:56 unknown) Dose: 40 mg (unknown) (no (unknown) (unknown) Last Admin: (units (un known) date) 11/24/21 23:09 unknown) Dose: 5 unit (unknown) (no (unknown) (unknown) Last Admin: (units (un known) date) 11/24/21 23:15 unknown) Dose: 20 mg (unknown) (no (unknown) (unknown) Last Infusion: (units (unknown) date) 11/24/21 23:11 unknown) Dose: 0 mls/hr (unknown) (no (unknown) (unknown) Last Infusion: (units (unknown) date) 11/24/21 23:54 unknown) Dose: 0 mls/hr (unknown) (no (unknown) (unknown) Last Infusion: (units (unknown) date) 11/25/21 00:10 unknown) Dose: 0 mls/hr (unknown) (no (unknown) (unknown) Last Infusion: (units (unknown) date) 11/25/21 00:17 unknown) Dose: 150 mls/hr (unknown) (no (unknown) (unknown) PRN Reason: (units (un known) date) Hypoglycemia unknown) (unknown) (no (unknown) (unknown) Point of Care (units ( unknown) date) Testing unknown) (unknown) (no (unknown) (unknown) Rx Instructions: (units (unknown) date) unknown) (unknown) (no (unknown) (unknown) Signed (units (unkno wn) date) unknown) (unknown) (no (unknown) (unknown) Stop: 11/24/21 (units (unknown) date) 22:22 unknown) (unknown) (no (unknown) (unknown) Stop: 11/24/21 (units (unknown) date) 22:50 unknown) (unknown) (no (unknown) (unknown) Stop: 11/24/21 (units (unknown) date) 23:20 unknown) (unknown) (no (unknown) (unknown) Take 1 tablet by (units (unknown) date) mouth once a day unknown) (unknown) (no (unknown) (unknown) Ultrasound Report (units (unknown) date) unknown) (unknown) (no (unknown) (unknown) Vital Signs - 8 (units (unknown) date) hr unknown) (unknown) (no (unknown) (unknown) administer (units (unk nown) date) approximately unknown) 30min before sexual activity; do not use more than 1 (unknown) (no (unknown) (unknown) (no value) (units (unk nown) date) unknown) (unknown) (no (unknown) (unknown) 11/24/21 11/24/21 (units (unknown) date) 11/24/21 unknown) Range/Units (unknown) (no (unknown) (unknown) 11/24/21 11/25/21 (units (unknown) date) Range/Units unknown) (unknown) (no (unknown) (unknown) 21:40 21:40 22:32 (units (unknown) date) unknown) (unknown) (no (unknown) (unknown) 23:30 01:44 (units (un known) date) unknown) (unknown) (no (unknown) (unknown) Centrum Silver (units (unknown) date) 0.4-300-250 unknown) mg-mcg-mcg Tablet (unknown) (no (unknown) (unknown) Fish Oil Capsule (units (unknown) date) unknown) (unknown) (no (unknown) (unknown) Prevagen 20 mg (units (unknown) date) unknown) (unknown) (no (unknown) (unknown) amlodipine 10 mg (units (unknown) date) Tablet unknown) (unknown) (no (unknown) (unknown) aspirin 81 mg (units ( unknown) date) Capsule unknown) (unknown) (no (unknown) (unknown) cholecalciferol (units (unknown) date) (vitamin D3) unknown) [Vitamin D3] 50 mcg (2,000 unit) Capsule (unknown) (no (unknown) (unknown) docusate sodium (units (unknown) date) [Colace] 100 mg unknown) Capsule (unknown) (no (unknown) (unknown) ibuprofen 800 mg (units (unknown) date) Tablet unknown) (unknown) (no (unknown) (unknown) latanoprost 0.005 (units (unknown) date) % Drops unknown) (unknown) (no (unknown) (unknown) lisinopril 40 mg (units (unknown) date) tablet unknown) (unknown) (no (unknown) (unknown) metoprolol (units (unk nown) date) tartrate 25 mg unknown) Tablet (unknown) (no (unknown) (unknown) nystatin 100,000 (units (unknown) date) unit/gram Powder unknown) (unknown) (no (unknown) (unknown) potassium (units (unkn own) date) chloride 20 mEq unknown) Tablet Extended Release (unknown) (no (unknown) (unknown) rosuvastatin 40 (units (unknown) date) mg Tablet unknown) (unknown) (no (unknown) (unknown) tadalafil 10 mg (units (unknown) date) Tablet unknown) (unknown) (no (unknown) (unknown) timolol 0.5 % (units ( unknown) date) Drops unknown) (unknown) (no (unknown) (unknown) triamterene-hydro (units (unknown) date) chlorothiazid unknown) 75-50 mg Tablet (unknown) (no (unknown) (unknown) 11/24/21 (units (unkno wn) date) unknown) (unknown) (no (unknown) (unknown) Medication (units (unk nown) date) Instructions unknown) Recorded Confirmed (unknown) (no (unknown) (unknown) dose per 24hrs (units (unknown) date) unknown) (unknown) (no (unknown) (unknown) rales, or (units (unkn own) date) rhonchi. unknown) (unknown) (no (unknown) (unknown) (Colace) (units (unkno wn) date) unknown) (unknown) (no (unknown) (unknown) [phone] (units (unkn own) date) unknown) (unknown) (no (unknown) (unknown) 00:00 (units (unkno wn) date) unknown) (unknown) (no (unknown) (unknown) 11/24/21 21:14 (units (unknown) date) unknown) (unknown) (no (unknown) (unknown) 11/24/21 21:40 (units (unknown) date) unknown) (unknown) (no (unknown) (unknown) 11/24/21 22:21 (units (unknown) date) unknown) (unknown) (no (unknown) (unknown) 11/24/21 22:32 (units (unknown) date) unknown) (unknown) (no (unknown) (unknown) 11/24/21 23:30 (units (unknown) date) unknown) (unknown) (no (unknown) (unknown) 11/25/21 00:56 (units (unknown) date) unknown) (unknown) (no (unknown) (unknown) 11/25/21 01:44 (units (unknown) date) unknown) (unknown) (no (unknown) (unknown) 1. No evidence of (units (unknown) date) hydronephrosis. unknown) (unknown) (no (unknown) (unknown) 12 point review (units (unknown) date) of systems is unknown) negative except for those stated above (unknown) (no (unknown) (unknown) 2. Bilateral mild (units (unknown) date) renal cortical unknown) thinning.? (unknown) (no (unknown) (unknown) 20:03 11/24/21 (units (unknown) date) unknown) (unknown) (no (unknown) (unknown) 21:19 11/24/21 (units (unknown) date) unknown) (unknown) (no (unknown) (unknown) 21:20 (units (unkno wn) date) unknown) (unknown) (no (unknown) (unknown) 21:30 11/24/21 (units (unknown) date) unknown) (unknown) (no (unknown) (unknown) 22:00 11/24/21 (units (unknown) date) unknown) (unknown) (no (unknown) (unknown) 22:01 (units (unkno wn) date) unknown) (unknown) (no (unknown) (unknown) 22:30 11/24/21 (units (unknown) date) unknown) (unknown) (no (unknown) (unknown) 23:00 11/24/21 (units (unknown) date) unknown) (unknown) (no (unknown) (unknown) 23:04 (units (unkno wn) date) unknown) (unknown) (no (unknown) (unknown) 23:20 11/24/21 (units (unknown) date) unknown) (unknown) (no (unknown) (unknown) 23:30 11/25/21 (units (unknown) date) unknown) (unknown) (no (unknown) (unknown) 81-year-old male (units (unknown) date) Nonsmoker with unknown) history of HTN, hyperlipidemia presents with (unknown) (no (unknown) (unknown) ? (units (unkno wn) date) unknown) (unknown) (no (unknown) (unknown) ALT (<50) (units (u nknown) date) IU/L unknown) (unknown) (no (unknown) (unknown) ALT 17 (<50) (units (unknown) date) IU/L unknown) (unknown) (no (unknown) (unknown) AST (17-59) (units (unknown) date) IU/L unknown) (unknown) (no (unknown) (unknown) AST 26 (units (unkno wn) date) (17-59) IU/L unknown) (unknown) (no (unknown) (unknown) Accession Number: (units (unknown) date) [id number] ?? unknown) (unknown) (no (unknown) (unknown) Acct:[id number] (units (unknown) date) unknown) (unknown) (no (unknown) (unknown) Age/Sex: 81 / M (units (unknown) date) unknown) (unknown) (no (unknown) (unknown) Age/Sex: 81 / M (units (unknown) date) unknown) (unknown) (no (unknown) (unknown) Albumin (units (unkno wn) date) (3.5-5.0) g/dL unknown) (unknown) (no (unknown) (unknown) Albumin 4.6 (units ( unknown) date) (3.5-5.0) g/dL unknown) (unknown) (no (unknown) (unknown) Albumin/Globulin (units (unknown) date) Ratio (1.0-2.8) unknown) (unknown) (no (unknown) (unknown) Albumin/Globulin (units (unknown) date) Ratio 1.2 unknown) (1.0-2.8) (unknown) (no (unknown) (unknown) Albuterol (units (unkn own) date) (Albuterol 2.5 unknown) Mg/3 Ml Neb (Adult)) 20 mg INH NOW ONE (unknown) (no (unknown) (unknown) Alkaline (units (unkno wn) date) Phosphatase unknown) (38-126) U/L (unknown) (no (unknown) (unknown) Alkaline (units (unkno wn) date) Phosphatase 192 unknown) H (38-126) U/L (unknown) (no (unknown) (unknown) Allergy/AdvReac (units (unknown) date) Type Severity unknown) Reaction Status Date / Time (unknown) (no (unknown) (unknown) Approved by: (units (u nknown) date) Gunnar Houser, unknownAlina Arroyo on 11/25/2021 at 0:16 ? (unknown) (no (unknown) (unknown) BACK: Nontender (units (unknown) date) without deformity unknown) or crepitance. No flank tenderness. (unknown) (no (unknown) (unknown) BMP [Basic (units (unk nown) date) Metabolic Panel] unknown) Stat (unknown) (no (unknown) (unknown) BUN 66 H (units (unk nown) date) (9-20) mg/dL unknown) (unknown) (no (unknown) (unknown) BUN 70 H (units (unk nown) date) (9-20) mg/dL unknown) (unknown) (no (unknown) (unknown) BUN/Creatinine (units (unknown) date) Ratio 27.5 H unknown) (6-22) (unknown) (no (unknown) (unknown) BUN/Creatinine (units (unknown) date) Ratio 27.7 H unknown) (6-22) (unknown) (no (unknown) (unknown) Baso # (Auto) (units ( unknown) date) unknown) (unknown) (no (unknown) (unknown) Baso # (Auto) (units ( unknown) date) Not Reportable unknown) (unknown) (no (unknown) (unknown) Baso % (Auto) (units ( unknown) date) unknown) (unknown) (no (unknown) (unknown) Baso % (Auto) (units ( unknown) date) Not Reportable unknown) (unknown) (no (unknown) (unknown) Bladder:? (units (unkn own) date) Pre-void bladder unknown) was nondistended.? Limited evaluation for (unknown) (no (unknown) (unknown) Blood Pressure (units (unknown) date) 131/58 L unknown) (unknown) (no (unknown) (unknown) Blood Pressure (units (unknown) date) 133/63 129/62 unknown) (unknown) (no (unknown) (unknown) Blood Pressure (units (unknown) date) 155/93 H 11/24/21 unknown) 20:03 (unknown) (no (unknown) (unknown) Blood Pressure (units (unknown) date) 155/93 H 156/70 H unknown) (unknown) (no (unknown) (unknown) Blood Pressure (units (unknown) date) 162/70 H 164/76 H unknown) (unknown) (no (unknown) (unknown) CARDIOVASCULAR: (units (unknown) date) Denies chest pain, unknown) palpitations, orthopnea, edema, (unknown) (no (unknown) (unknown) CARDIOVASCULAR: (units (unknown) date) Regular rate and unknown) rhythm without murmurs, gallops, or rubs. (unknown) (no (unknown) (unknown) CK-MB (CK-2) (units (u nknown) date) unknown) (unknown) (no (unknown) (unknown) CK-MB (CK-2) (units (u nknown) date) TNP unknown) (unknown) (no (unknown) (unknown) CK-MB (CK-2) Rel (units (unknown) date) Index unknown) (unknown) (no (unknown) (unknown) CK-MB (CK-2) Rel (units (unknown) date) Index TNP unknown) (unknown) (no (unknown) (unknown) COMPARISON:? (units (u nknown) date) None. unknown) (unknown) (no (unknown) (unknown) COVID19 -Nasal (units (unknown) date) RAPID/Pre-Proc unknown) Stat (unknown) (no (unknown) (unknown) Calcium 10.7 H (units (unknown) date) (8.4-10.2) mg/dL unknown) (unknown) (no (unknown) (unknown) Calcium 10.9 H (units (unknown) date) (8.4-10.2) mg/dL unknown) (unknown) (no (unknown) (unknown) Calcium Gluconate (units (unknown) date) 9.3 meq/ (Sodium unknown) Chloride) 70 mls @ 140 mls/hr IV NOW ONE (unknown) (no (unknown) (unknown) Carbon Dioxide (units (unknown) date) 13 L (22-32) unknown) mmol/L (unknown) (no (unknown) (unknown) Carbon Dioxide (units (unknown) date) 14 L (22-32) unknown) mmol/L (unknown) (no (unknown) (unknown) Chief complaint: (units (unknown) date) Weakness unknown) (unknown) (no (unknown) (unknown) Chloride 111 H (units (unknown) date) (98-107) mmol/L unknown) (unknown) (no (unknown) (unknown) Chloride 112 H (units (unknown) date) (98-107) mmol/L unknown) (unknown) (no (unknown) (unknown) Complete Blood (units (unknown) date) Count AUTO DIFF unknown) Stat (unknown) (no (unknown) (unknown) Comprehensive (units ( unknown) date) Metabolic Panel unknown) Stat (unknown) (no (unknown) (unknown) Course (units (unkno wn) date) unknown) (unknown) (no (unknown) (unknown) Creatinine 2.40 (units (unknown) date) H (0.66-1.25) unknown) mg/dL (unknown) (no (unknown) (unknown) Creatinine 2.53 (units (unknown) date) H (0.66-1.25) unknown) mg/dL (unknown) (no (unknown) (unknown) Creatinine Urine (units (unknown) date) Random Stat unknown) (unknown) (no (unknown) (unknown) D3) (units (unkno wn) date) unknown) (unknown) (no (unknown) (unknown) : 1940 (units (unknown) date) Acct:[id number] unknown) (unknown) (no (unknown) (unknown) : 1940 (units (unknown) date) unknown) (unknown) (no (unknown) (unknown) Date of Service: (units (unknown) date) 11/24/21 unknown) (unknown) (no (unknown) (unknown) Departure (units (unkn own) date) unknown) (unknown) (no (unknown) (unknown) Dextrose (D10w) (units (unknown) date) 250 mls @ 999 unknown) mls/hr IV PRN PRN (unknown) (no (unknown) (unknown) Dictated by: (units (u nknown) date) Gunnar Houser unknownAlina Arroyo on 11/25/2021 at 0:10 ? ? (unknown) (no (unknown) (unknown) Discharge Plan (units (unknown) date) unknown) (unknown) (no (unknown) (unknown) Discontinued (units (u nknown) date) Medications unknown) (unknown) (no (unknown) (unknown) Doppler (units (unkno wn) date) unknown) (unknown) (no (unknown) (unknown) ECG Data (units (unkno wn) date) unknown) (unknown) (no (unknown) (unknown) EKG 1 (2121): (units ( unknown) date) EKG is normal unknown) sinus rhythm rate [70 ] and free of any signs of (unknown) (no (unknown) (unknown) EKG 2 (0112): (units ( unknown) date) EKG is normal unknown) sinus rhythm rate [103 ] and free of any signs of (unknown) (no (unknown) (unknown) EKG-12 Lead Stat (units (unknown) date) unknown) (unknown) (no (unknown) (unknown) ENT: Nose without (units (unknown) date) bleeding, purulent unknown) drainage. Throat without erythema, (unknown) (no (unknown) (unknown) ER Physician: (units ( unknown) date) Aroldo Bazan D.O. unknown) (unknown) (no (unknown) (unknown) EXTREMITIES: No (units (unknown) date) edema or joint unknown) tenderness. (unknown) (no (unknown) (unknown) EYES: Pupils (units (u nknown) date) equal round and unknown) reactive. Extraocular motions intact. No scleral (unknown) (no (unknown) (unknown) Eos % (Auto) (units (u nknown) date) unknown) (unknown) (no (unknown) (unknown) Eos % (Auto) Not (units (unknown) date) Reportable unknown) (unknown) (no (unknown) (unknown) Estimated GFR (units ( unknown) date) 25 L (>60) unknown) mL/min (unknown) (no (unknown) (unknown) Estimated GFR (units ( unknown) date) 26 L (>60) unknown) mL/min (unknown) (no (unknown) (unknown) Exam (units (unkno wn) date) unknown) (unknown) (no (unknown) (unknown) Exam Narrative: (units (unknown) date) unknown) (unknown) (no (unknown) (unknown) FINDINGS:? (units (unk nown) date) unknown) (unknown) (no (unknown) (unknown) Furosemide (units (unk n) date) (Furosemide 40 unknown) Mg/4 Ml Vial) 40 mg IV NOW ONE (unknown) (no (unknown) (unknown) GASTROINTESTINAL: (units (unknown) date) Abdomen soft, unknown) non-tender, nondistended. (unknown) (no (unknown) (unknown) GASTROINTESTINAL: (units (unknown) date) Denies nausea, unknown) vomiting, abdominal pain, diarrhea, (unknown) (no (unknown) (unknown) GENERAL: Denies (units (unknown) date) chills, fatigue, unknown) malaise, fever, sweats. (unknown) (no (unknown) (unknown) GENERAL: [81 year (units (unknown) date) old patient unknown) appears stated age. Well-developed patient, in (unknown) (no (unknown) (unknown) : Denies (units (unk nown) date) dysuria, unknown) frequency, incontinence, hematuria, urinary retention. (unknown) (no (unknown) (unknown) General (units (unkno wn) date) unknown) (unknown) (no (unknown) (unknown) GenericComposite[ (units (unknown) date) Plt Count unknown) (150-400) X10^3/uL ] (unknown) (no (unknown) (unknown) GenericComposite[ (units (unknown) date) Plt Count 229 unknown) (150-400) X10^3/uL ] (unknown) (no (unknown) (unknown) GenericComposite[ (units (unknown) date) RBC (4.5-5.9) unknown) X10^6/uL ] (unknown) (no (unknown) (unknown) GenericComposite[ (units (unknown) date) RBC 4.45 L unknown) (4.5-5.9) X10^6/uL ] (unknown) (no (unknown) (unknown) GenericComposite[ (units (unknown) date) WBC (4.5-11.0) unknown) X10^3/uL ] (unknown) (no (unknown) (unknown) GenericComposite[ (units (unknown) date) WBC 35.4 H* unknown) (4.5-11.0) X10^3/uL ] (unknown) (no (unknown) (unknown) Globulin (units (unkno wn) date) (1.7-4.1) g/dL unknown) (unknown) (no (unknown) (unknown) Globulin 3.7 (units (unknown) date) (1.7-4.1) g/dL unknown) (unknown) (no (unknown) (unknown) Glucose 115 H (units (unknown) date) (80-110) mg/dL unknown) (unknown) (no (unknown) (unknown) Glucose 117 H (units (unknown) date) (80-110) mg/dL unknown) (unknown) (no (unknown) (unknown) Glucose POC (units (un known) date) 119 unknown) (unknown) (no (unknown) (unknown) HEAD: Atraumatic. (units (unknown) date) Normocephalic. unknown) (unknown) (no (unknown) (unknown) HEENT: Denies (units ( unknown) date) sinus pain, ear unknown) pain, sore throat, difficulty swallowing, (unknown) (no (unknown) (unknown) HPI - Weakness (units (unknown) date) unknown) (unknown) (no (unknown) (unknown) HPI Narrative: (units (unknown) date) unknown) (unknown) (no (unknown) (unknown) Hct (41-53) % (units (unknown) date) unknown) (unknown) (no (unknown) (unknown) Hct 40.7 L (units (un known) date) (41-53) % unknown) (unknown) (no (unknown) (unknown) Hgb (units (unkno wn) date) (13.5-17.5) g/dL unknown) (unknown) (no (unknown) (unknown) Hgb 13.0 L (units (un known) date) (13.5-17.5) g/dL unknown) (unknown) (no (unknown) (unknown) History of (units (unk nown) date) Present Illness unknown) (unknown) (no (unknown) (unknown) IMPRESSION:? (units (u nknown) date) unknown) (unknown) (no (unknown) (unknown) INDICATIONS:? (units ( unknown) date) ACUTE RENAL unknown) FAILURE (unknown) (no (unknown) (unknown) Imaging Data (units (u nknown) date) unknown) (unknown) (no (unknown) (unknown) Initial Vital (units ( unknown) date) Signs unknown) (unknown) (no (unknown) (unknown) Initial Vital (units ( unknown) date) Signs: unknown) (unknown) (no (unknown) (unknown) Insulin Human (units (u nknown) date) Regular (Insulin unknown) Regular 100 Unit/Ml 3 Ml Vial) 5 unit IV NOW ONE (unknown) (no (unknown) (unknown) Interpretation: (units (unknown) date) unknown) (unknown) (no (unknown) (unknown) Kidneys:? Right (units (unknown) date) kidney measures unknown) 11.8 cm long; left kidney measures 11.6 cm (unknown) (no (unknown) (unknown) Lab Data (units (unkno wn) date) unknown) (unknown) (no (unknown) (unknown) Labs: (units (unkno wn) date) unknown) (unknown) (no (unknown) (unknown) Lipase (units (unkno wn) date) (23-300) U/L unknown) (unknown) (no (unknown) (unknown) Lipase 319 H (units (unknown) date) (23-300) U/L unknown) (unknown) (no (unknown) (unknown) Lipase Stat (units (un known) date) unknown) (unknown) (no (unknown) (unknown) Loc: ED (units (unkno wn) date) unknown) (unknown) (no (unknown) (unknown) Lymph # (Auto) (units (unknown) date) unknown) (unknown) (no (unknown) (unknown) Lymph # (Auto) (units (unknown) date) Not Reportable unknown) (unknown) (no (unknown) (unknown) Lymph % (Auto) (units (unknown) date) unknown) (unknown) (no (unknown) (unknown) Lymph % (Auto) (units (unknown) date) Not Reportable unknown) (unknown) (no (unknown) (unknown) Lymphocytes % (units ( unknown) date) (Manual) unknown) (25-45) % (unknown) (no (unknown) (unknown) Lymphocytes % (units ( unknown) date) (Manual) 76.0 H unknown) (25-45) % (unknown) (no (unknown) (unknown) MCH (26-34) (units (unknown) date) PG unknown) (unknown) (no (unknown) (unknown) MCH 29.2 (units (unkn own) date) (26-34) PG unknown) (unknown) (no (unknown) (unknown) MCHC (30-36) (units (unknown) date) % unknown) (unknown) (no (unknown) (unknown) MCHC 31.9 (units (unk nown) date) (30-36) % unknown) (unknown) (no (unknown) (unknown) MCV (80-100) (units (unknown) date) fL unknown) (unknown) (no (unknown) (unknown) MCV 91.5 (units (unkn own) date) (80-100) fL unknown) (unknown) (no (unknown) (unknown) MDM - Weakness (units (unknown) date) unknown) (unknown) (no (unknown) (unknown) MR#: [id number] (units (unknown) date) unknown) (unknown) (no (unknown) (unknown) MUSCULOSKELETAL: (units (unknown) date) See HPI unknown) (unknown) (no (unknown) (unknown) [address], (units (unknown) date) MD [Primary Care unknown) Provider] - (unknown) (no (unknown) (unknown) Miscellaneous:? (units (unknown) date) No free pelvic unknown) fluid.? (unknown) (no (unknown) (unknown) Mode of arrival: (units (unknown) date) Wheelchair unknown) (unknown) (no (unknown) (unknown) [place] # (Auto) (units ( unknown) date) unknown) (unknown) (no (unknown) (unknown) [place] # (Auto) (units ( unknown) date) Not Reportable unknown) (unknown) (no (unknown) (unknown) [place] % (Auto) (units ( unknown) date) unknown) (unknown) (no (unknown) (unknown) [place] % (Auto) (units ( unknown) date) Not Reportable unknown) (unknown) (no (unknown) (unknown) Monocytes % (units (un known) date) (Manual) (2-11) unknown) % (unknown) (no (unknown) (unknown) Monocytes % (units (un known) date) (Manual) 3.0 unknown) (2-11) % (unknown) (no (unknown) (unknown) NECK: [place] (units ( unknown) date) midline. Non unknown) tender (unknown) (no (unknown) (unknown) NEURO: AOx3. (units (u nknown) date) unknown) (unknown) (no (unknown) (unknown) NEUROLOGIC: (units (un known) date) Denies weakness, unknown) headache, numbness, change in speech, confusion, (unknown) (no (unknown) (unknown) Narrative (units (unkn own) date) unknown) (unknown) (no (unknown) (unknown) Narrative: (units (unk nown) date) unknown) (unknown) (no (unknown) (unknown) Neut % (Auto) (units ( unknown) date) unknown) (unknown) (no (unknown) (unknown) Neut % (Auto) (units ( unknown) date) Not Reportable unknown) (unknown) (no (unknown) (unknown) Neutrophils # (units ( unknown) date) (Manual) unknown) ([id number]) /uL (unknown) (no (unknown) (unknown) Neutrophils # (units ( unknown) date) (Manual) 7434 H unknown) ([id number]) /uL (unknown) (no (unknown) (unknown) No Action (units (unkn own) date) unknown) (unknown) (no (unknown) (unknown) Ordered: (units (unkno wn) date) unknown) (unknown) (no (unknown) (unknown) Ordering (units (unkno wn) date) Provider: unknown) Aroldo Bazan D.O. (unknown) (no (unknown) (unknown) Orders (units (unkno wn) date) unknown) (unknown) (no (unknown) (unknown) PROCEDURE:? US (units (unknown) date) RENAL COMPLETE unknown) (unknown) (no (unknown) (unknown) PSYCHIATRIC: No (units (unknown) date) concerning unknown) psychosocial issues. (unknown) (no (unknown) (unknown) Patient History (units (unknown) date) unknown) (unknown) (no (unknown) (unknown) Patient: (units (unkno wn) date) Raven Sutherland unknown) MR#: M (unknown) (no (unknown) (unknown) Patient: (units (unkno wn) date) Raven Sutherland unknown) (unknown) (no (unknown) (unknown) Potassium 7.7 (units (unknown) date) H* (3.4-5.1) unknown) mmol/L (unknown) (no (unknown) (unknown) Potassium 8.6 (units (unknown) date) H* (3.4-5.1) unknown) mmol/L (unknown) (no (unknown) (unknown) Prescriptions: (units (unknown) date) unknown) (unknown) (no (unknown) (unknown) Prevagen 20 mg PO (units (unknown) date) DAILY 11/25/21 unknown) (unknown) (no (unknown) (unknown) Procedure: US (units ( unknown) date) renal complete unknown) (unknown) (no (unknown) (unknown) Pulse Oximetry (units (unknown) date) 100 97 unknown) (unknown) (no (unknown) (unknown) Pulse Oximetry (units (unknown) date) 94 11/24/21 unknown) 20:03 (unknown) (no (unknown) (unknown) Pulse Oximetry (units (unknown) date) 97 97 unknown) (unknown) (no (unknown) (unknown) Pulse Oximetry 94 (units (unknown) date) 89 L 96 unknown) (unknown) (no (unknown) (unknown) Pulse Oximetry 96 (units (unknown) date) 96 unknown) (unknown) (no (unknown) (unknown) Pulse Rate 87 (units (unknown) date) 11/24/21 20:03 unknown) (unknown) (no (unknown) (unknown) Pulse Rate 72 78 (units (unknown) date) 79 unknown) (unknown) (no (unknown) (unknown) Pulse Rate 72 80 (units (unknown) date) 81 unknown) (unknown) (no (unknown) (unknown) Pulse Rate 79 91 (units (unknown) date) H 104 H unknown) (unknown) (no (unknown) (unknown) Pulse Rate 87 76 (units (unknown) date) 77 unknown) (unknown) (no (unknown) (unknown) RBC Morphology (units (unknown) date) unknown) (unknown) (no (unknown) (unknown) RBC Morphology (units (unknown) date) Normal morphology unknown) (unknown) (no (unknown) (unknown) RDW (units (unkno wn) date) (11.6-14.8) % unknown) (unknown) (no (unknown) (unknown) RDW 14.1 (units (unkn own) date) (11.6-14.8) % unknown) (unknown) (no (unknown) (unknown) RESPIRATORY: Clear (units (unknown) date) to auscultation. unknown) Breath sounds equal bilaterally. No wheezes, (unknown) (no (unknown) (unknown) RESPIRATORY: (units (u nknown) date) Denies dyspnea, unknown) cough, wheezing, hemoptysis, sputum. (unknown) (no (unknown) (unknown) Real-time (units (unkn own) date) scanning was unknown) performed of the kidneys and bladder, with image (unknown) (no (unknown) (unknown) Referrals: (units (unk nown) date) unknown) (unknown) (no (unknown) (unknown) Related Data (units (u nknown) date) unknown) (unknown) (no (unknown) (unknown) Renal (units (unkno wn) date) unknown) (unknown) (no (unknown) (unknown) Renal US: (units (unk nown) date) unknown) (unknown) (no (unknown) (unknown) Respiratory Rate (units (unknown) date) unknown) (unknown) (no (unknown) (unknown) Respiratory Rate (units (unknown) date) 15 11/24/21 unknown) 20:03 (unknown) (no (unknown) (unknown) Respiratory Rate (units (unknown) date) 23 25 H unknown) (unknown) (no (unknown) (unknown) Respiratory Rate (units (unknown) date) 15 25 H 18 unknown) (unknown) (no (unknown) (unknown) Respiratory Rate (units (unknown) date) 25 H 11 L 22 unknown) (unknown) (no (unknown) (unknown) Result diagrams: (units (unknown) date) unknown) (unknown) (no (unknown) (unknown) Review of Systems (units (unknown) date) unknown) (unknown) (no (unknown) (unknown) SARS-CoV-2 (PCR) (units (unknown) date) (Negative) unknown) (unknown) (no (unknown) (unknown) SARS-CoV-2 (PCR) (units (unknown) date) Negative unknown) (Negative) (unknown) (no (unknown) (unknown) SKIN: Denies (units (u nknown) date) rash, skin unknown) lesions, or other (unknown) (no (unknown) (unknown) SKIN: No rash or (units (unknown) date) erythema of unknown) visible areas (unknown) (no (unknown) (unknown) Seg Neutrophils % (units (unknown) date) (38-70) % unknown) (unknown) (no (unknown) (unknown) Seg Neutrophils % (units (unknown) date) 21.0 L (38-70) unknown) % (unknown) (no (unknown) (unknown) Signed By: (units (unk nown) date) unknown) (unknown) (no (unknown) (unknown) Smoking Status: (units (unknown) date) Never smoker unknown) (unknown) (no (unknown) (unknown) Smoking Status: (units (unknown) date) Never smoker unknown) (unknown) (no (unknown) (unknown) Smudge Cells (units (u nknown) date) unknown) (unknown) (no (unknown) (unknown) Smudge Cells 1+ (units (unknown) date) H unknown) (unknown) (no (unknown) (unknown) Social History (units (unknown) date) (Reviewed 11/25/21 unknown) @ 01:28 by Aroldo Bazan DO) (unknown) (no (unknown) (unknown) Sodium 134 L (units (unknown) date) (137-145) mmol/L unknown) (unknown) (no (unknown) (unknown) Sodium 136 L (units (unknown) date) (137-145) mmol/L unknown) (unknown) (no (unknown) (unknown) Sodium Chloride (units (unknown) date) (Normal Saline unknown) 0.9%) 1,000 mls @ 1,000 mls/hr IV BOLUS ONE (unknown) (no (unknown) (unknown) Sodium Chloride (units (unknown) date) (Normal Saline unknown) 0.9%) 1,000 mls @ 150 mls/hr IV CONT EDE (unknown) (no (unknown) (unknown) Sodium Urine (units (u nknown) date) Random Stat unknown) (unknown) (no (unknown) (unknown) Source: patient (units (unknown) date) unknown) (unknown) (no (unknown) (unknown) Stated complaint: (units (unknown) date) Worsening Weakness unknown) x3 days (unknown) (no (unknown) (unknown) Substance Use (units ( unknown) date) Type: does not use unknown) (unknown) (no (unknown) (unknown) TECHNIQUE:? (units (un known) date) unknown) (unknown) (no (unknown) (unknown) Temperature (units (un known) date) unknown) (unknown) (no (unknown) (unknown) Temperature 98.4 (units (unknown) date) F 11/24/21 20:03 unknown) (unknown) (no (unknown) (unknown) Temperature 98.4 (units (unknown) date) F unknown) (unknown) (no (unknown) (unknown) Time Seen by (units (u nknown) date) Provider: 11/24/21 unknown) 21:14 (unknown) (no (unknown) (unknown) Total Bilirubin (units (unknown) date) (0.2-1.3) mg/dL unknown) (unknown) (no (unknown) (unknown) Total Bilirubin (units (unknown) date) 0.6 (0.2-1.3) unknown) mg/dL (unknown) (no (unknown) (unknown) Total Counted (units ( unknown) date) unknown) (unknown) (no (unknown) (unknown) Total Counted (units ( unknown) date) 100 unknown) (unknown) (no (unknown) (unknown) Total Creatine (units (unknown) date) Kinase (55-170) unknown) U/L (unknown) (no (unknown) (unknown) Total Creatine (units (unknown) date) Kinase 53 L unknown) (55-170) U/L (unknown) (no (unknown) (unknown) Total Protein (units ( unknown) date) (6.3-8.2) g/dL unknown) (unknown) (no (unknown) (unknown) Total Protein (units ( unknown) date) 8.3 H (6.3-8.2) unknown) g/dL (unknown) (no (unknown) (unknown) Troponin + CK (units ( unknown) date) Cardiac Panel Stat unknown) (unknown) (no (unknown) (unknown) Troponin I (units (unk nown) date) (0.01-0.034) unknown) ng/mL (unknown) (no (unknown) (unknown) Troponin I (units (unk nown) date) 0.016 unknown) (0.01-0.034) ng/mL (unknown) (no (unknown) (unknown) US renal complete (units (unknown) date) Stat unknown) (unknown) (no (unknown) (unknown) Ur Random Sodium (units (unknown) date) (30-90) mmol/L unknown) (unknown) (no (unknown) (unknown) Ur Random Sodium (units (unknown) date) 104 H (30-90) unknown) mmol/L (unknown) (no (unknown) (unknown) Urine Creatinine (units (unknown) date) mg/dL unknown) (unknown) (no (unknown) (unknown) Urine Creatinine (units (unknown) date) 108.6 mg/dL unknown) (unknown) (no (unknown) (unknown) Vital Signs (units (un known) date) unknown) (unknown) (no (unknown) (unknown) Vital signs: (units (u nknown) date) unknown) (unknown) (no (unknown) (unknown) XR chest 1V Stat (units (unknown) date) unknown) (unknown) (no (unknown) (unknown) [Embedded Image (units (unknown) date) Not Available] unknown) (unknown) (no (unknown) (unknown) alcohol intake (units (unknown) date) frequency: unknown) holidays/special occasions only (unknown) (no (unknown) (unknown) amlodipine 10 mg (units (unknown) date) tablet 10 mg PO unknown) DAILY 11/25/21 11/25/21 (unknown) (no (unknown) (unknown) aspirin 81 mg (units ( unknown) date) capsule 81 mg PO unknown) DAILY 11/25/21 11/25/21 (unknown) (no (unknown) (unknown) cases due (units (unkn own) date) unknown) (unknown) (no (unknown) (unknown) cholecalciferol (units (unknown) date) (vitamin D3) 50 50 unknown) mcg PO DAILY 11/25/21 11/25/21 (unknown) (no (unknown) (unknown) constipation, (units ( unknown) date) melena. unknown) (unknown) (no (unknown) (unknown) cortical (units (unkno wn) date) echotexture unknown) appears grossly within normal limits.? No hydronephrosis.? (unknown) (no (unknown) (unknown) dizziness. (units (unk nown) date) unknown) (unknown) (no (unknown) (unknown) documentation.? (units (unknown) date) unknown) (unknown) (no (unknown) (unknown) docusate sodium (units (unknown) date) 100 mg capsule 100 unknown) mg PO BID 11/25/21 11/25/21 (unknown) (no (unknown) (unknown) generalized (units (un known) date) weakness gradually unknown) worsening over the past few months. He states (unknown) (no (unknown) (unknown) generally, and on (units (unknown) date) the whole, and unknown) very nonspecifically he feels weak. (unknown) (no (unknown) (unknown) ibuprofen 800 mg (units (unknown) date) tablet 800 mg PO unknown) Q8H PRN 11/25/21 11/25/21 (unknown) (no (unknown) (unknown) icterus. No (units (un known) date) injection or unknown) drainage. (unknown) (no (unknown) (unknown) interrogation.? (units (unknown) date) (Of note, ureteral unknown) jets may not be detectable in up to 25% of (unknown) (no (unknown) (unknown) intraluminal (units (u nknown) date) masses unknown) (unknown) (no (unknown) (unknown) inversions. OK (units (unknown) date) 126. QRS 140. T unknown) waves improved. (unknown) (no (unknown) (unknown) inversions. OK (units (unknown) date) 152. QRS 164. T unknown) waves peaked (unknown) (no (unknown) (unknown) ischemia or (units (un known) date) ectopy. No ST unknown) segmental elevation or depression. No T wave (unknown) (no (unknown) (unknown) latanoprost 0.005 (units (unknown) date) % eye drops 1 drp unknown) OPHTHALMIC (EYE) DAILY 11/25/21 11/25/21 (unknown) (no (unknown) (unknown) lisinopril 40 mg (units (unknown) date) tablet 40 mg PO unknown) DAILY 11/25/21 11/25/21 (unknown) (no (unknown) (unknown) long.? Right (units (u nknown) date) unknown) (unknown) (no (unknown) (unknown) mcg (2,000 unit) (units (unknown) date) capsule (Vitamin unknown) (unknown) (no (unknown) (unknown) medications or (units (unknown) date) diet. He denies unknown) any headache, blurred vision or trouble with (unknown) (no (unknown) (unknown) metoprolol (units (unk nown) date) tartrate 25 mg unknown) tablet 25 mg PO BID 11/25/21 11/25/21 (unknown) (no (unknown) (unknown) mg-hydrochlorothi (units (unknown) date) azide 50 mg tablet unknown) (unknown) (no (unknown) (unknown) mg-lycopene 300 (units (unknown) date) mcg-lutein 250 mcg unknown) (unknown) (no (unknown) (unknown) mild distress. (units (unknown) date) unknown) (unknown) (no (unknown) (unknown) [id number] (units (unknown) date) c acid 0.4 1 tab unknown) PO DAILY 11/25/21 11/25/21 (unknown) (no (unknown) (unknown) myacin family (units ( unknown) date) Allergy Blister unknown) Uncoded 11/24/21 20:03 (unknown) (no (unknown) (unknown) nystatin 100,000 (units (unknown) date) unit/gram topical unknown) 1 applic TOPICAL BID 11/25/21 11/25/21 (unknown) (no (unknown) (unknown) omega-3 fatty (units ( unknown) date) acids 1,000 mg PO unknown) DAILY 11/25/21 11/25/21 (unknown) (no (unknown) (unknown) or stones.? On (units (unknown) date) pre-void images, unknown) neither ureteral jets are noted with color (unknown) (no (unknown) (unknown) potassium (units (unkn own) date) chloride 20 mEq 20 unknown) meq PO BID 11/25/21 11/25/21 (unknown) (no (unknown) (unknown) powder (units (unkno wn) date) unknown) (unknown) (no (unknown) (unknown) primary care (units (u nknown) date) provider early in unknown) the week. He denies any change in his (unknown) (no (unknown) (unknown) problems such as (units (unknown) date) unilateral unknown) numbness, tingling or weakness. He states that (unknown) (no (unknown) (unknown) renal cortical (units (unknown) date) thickness is 1.5 unknown) cm; left renal cortical thickness is 1.5 cm.? (unknown) (no (unknown) (unknown) rosuvastatin 40 (units (unknown) date) mg tablet 40 mg PO unknown) DAILY 11/25/21 11/25/21 (unknown) (no (unknown) (unknown) seizures, (units (unkn own) date) incoordination. unknown) (unknown) (no (unknown) (unknown) some time, and he (units (unknown) date) met with his unknown) orthopedist today and has an appointment with his (unknown) (no (unknown) (unknown) speech. He (units (un known) date) denies any chest unknown) pain or shortness of breath. He denies any focal (unknown) (no (unknown) (unknown) tablet (Centrum (units (unknown) date) Silver) unknown) (unknown) (no (unknown) (unknown) tablet,extended (units (unknown) date) release unknown) (unknown) (no (unknown) (unknown) tadalafil 10 mg (units (unknown) date) tablet 10 mg PO unknown) DAILY PRN 11/25/21 11/25/21 (unknown) (no (unknown) (unknown) that he feels (units ( unknown) date) like his joints unknown) are tired and this has been going on for quite (unknown) (no (unknown) (unknown) timolol 0.5 % eye (units (unknown) date) drops 1 drp unknown) OPHTHALMIC (EYE) DAILY 11/25/21 11/25/21 (unknown) (no (unknown) (unknown) to insufficient (units (unknown) date) differences in unknown) specific gravity between ureteral and bladder (unknown) (no (unknown) (unknown) tonsillar (units (unkn own) date) hypertrophy or unknown) exudate. Airway patent. (unknown) (no (unknown) (unknown) triamterene 75 1 (units (unknown) date) tab PO QAM unknown) 11/25/21 11/25/21 (unknown) (no (unknown) (unknown) urine).? (units (unkno wn) date) unknown) Result panel 16 (unknown) (no (unknown) (unknown) (no value) (units (unk nown) date) unknown) (unknown) (no (unknown) (unknown) Radiologist (units (un known) date) Impression: unknown) (unknown) (no (unknown) (unknown) (no value) (units (unk nown) date) unknown) (unknown) (no (unknown) (unknown) Date of Service: (units (unknown) date) 11/24/21 unknown) (unknown) (no (unknown) (unknown) (no value) (units (unk nown) date) unknown) (unknown) (no (unknown) (unknown) 11/24/21 21:40 (units (unknown) date) unknown) (unknown) (no (unknown) (unknown) 11/25/21 01:44 (units (unknown) date) unknown) (unknown) (no (unknown) (unknown) 1 applic TOPICAL (units (unknown) date) BID 0RF unknown) (unknown) (no (unknown) (unknown) 1 drp OPHTHALMIC (units (unknown) date) (EYE) DAILY 0RF unknown) (unknown) (no (unknown) (unknown) 1 tab PO DAILY (units (unknown) date) 0RF unknown) (unknown) (no (unknown) (unknown) 1 tab PO QAM 0RF (units (unknown) date) unknown) (unknown) (no (unknown) (unknown) 1,000 mg PO DAILY (units (unknown) date) 0RF unknown) (unknown) (no (unknown) (unknown) 10 mg PO DAILY (units (unknown) date) 0RF unknown) (unknown) (no (unknown) (unknown) 10 mg PO DAILY (units (unknown) date) PRN (Reason: unknown) intercourse) 0RF (unknown) (no (unknown) (unknown) 100 mg PO BID 0RF (units (unknown) date) unknown) (unknown) (no (unknown) (unknown) [address] [place] [address] (units (unknown) date) unknown) (unknown) (no (unknown) (unknown) 20 meq PO BID 0RF (units (unknown) date) unknown) (unknown) (no (unknown) (unknown) 20 mg PO DAILY (units (unknown) date) 0RF unknown) (unknown) (no (unknown) (unknown) 25 mg PO BID 0RF (units (unknown) date) unknown) (unknown) (no (unknown) (unknown) 40 mg PO DAILY (units (unknown) date) 0RF unknown) (unknown) (no (unknown) (unknown) 50 mcg PO DAILY (units (unknown) date) 0RF unknown) (unknown) (no (unknown) (unknown) 800 mg PO Q8H PRN (units (unknown) date) (Reason: Pain, unknown) Moderate) 0RF (unknown) (no (unknown) (unknown) 81 mg PO DAILY (units (unknown) date) 0RF unknown) (unknown) (no (unknown) (unknown) Admin: 11/24/21 (units (unknown) date) 22:08 Dose: 150 unknown) mls/hr (unknown) (no (unknown) (unknown) Admin: 11/24/21 (units (unknown) date) 22:52 Dose: 250 unknown) mls/hr (unknown) (no (unknown) (unknown) Admin: 11/24/21 (units (unknown) date) 23:01 Dose: 1,000 unknown) mls/hr (unknown) (no (unknown) (unknown) Admin: 11/24/21 (units (unknown) date) 23:16 Dose: 140 unknown) mls/hr (unknown) (no (unknown) (unknown) Allergies (units (unkn own) date) unknown) (unknown) (no (unknown) (unknown) [place] (units ( unknown) date) [id number] unknown) (unknown) (no (unknown) (unknown) Documented by: (units (unknown) date) JAIRO Cosigned unknown) by: FREDIS (unknown) (no (unknown) (unknown) Documented by: (units (unknown) date) JAIRO unknown) (unknown) (no (unknown) (unknown) Documented by: (units (unknown) date) FREDIS unknown) (unknown) (no (unknown) (unknown) ED Orders (units (unkn own) date) unknown) (unknown) (no (unknown) (unknown) Emergency Report (units (unknown) date) unknown) (unknown) (no (unknown) (unknown) Home Medications (units (unknown) date) unknown) (unknown) (no (unknown) (unknown) Infusion: (units (unkn own) date) 11/24/21 23:01 unknown) Dose: 0 mls/hr (unknown) (no (unknown) (unknown) [facility] (units (unknown) date) unknown) (unknown) (no (unknown) (unknown) [facility] (units (unknown) date) [address] unknown) [place] [id number] (unknown) (no (unknown) (unknown) Lab Results (units (un known) date) unknown) (unknown) (no (unknown) (unknown) Label Comments: (units (unknown) date) unknown) (unknown) (no (unknown) (unknown) Last Admin: (units (un known) date) 11/24/21 22:56 unknown) Dose: 40 mg (unknown) (no (unknown) (unknown) Last Admin: (units (un known) date) 11/24/21 23:09 unknown) Dose: 5 unit (unknown) (no (unknown) (unknown) Last Admin: (units (un known) date) 11/24/21 23:15 unknown) Dose: 20 mg (unknown) (no (unknown) (unknown) Last Infusion: (units (unknown) date) 11/24/21 23:11 unknown) Dose: 0 mls/hr (unknown) (no (unknown) (unknown) Last Infusion: (units (unknown) date) 11/24/21 23:54 unknown) Dose: 0 mls/hr (unknown) (no (unknown) (unknown) Last Infusion: (units (unknown) date) 11/25/21 00:10 unknown) Dose: 0 mls/hr (unknown) (no (unknown) (unknown) Last Infusion: (units (unknown) date) 11/25/21 00:17 unknown) Dose: 150 mls/hr (unknown) (no (unknown) (unknown) PRN Reason: (units (un known) date) Hypoglycemia unknown) (unknown) (no (unknown) (unknown) Point of Care (units ( unknown) date) Testing unknown) (unknown) (no (unknown) (unknown) Rx Instructions: (units (unknown) date) unknown) (unknown) (no (unknown) (unknown) Signed (units (unkno wn) date) unknown) (unknown) (no (unknown) (unknown) Stop: 11/24/21 (units (unknown) date) 22:22 unknown) (unknown) (no (unknown) (unknown) Stop: 11/24/21 (units (unknown) date) 22:50 unknown) (unknown) (no (unknown) (unknown) Stop: 11/24/21 (units (unknown) date) 23:20 unknown) (unknown) (no (unknown) (unknown) Take 1 tablet by (units (unknown) date) mouth once a day unknown) (unknown) (no (unknown) (unknown) Ultrasound Report (units (unknown) date) unknown) (unknown) (no (unknown) (unknown) Vital Signs - 8 (units (unknown) date) hr unknown) (unknown) (no (unknown) (unknown) administer (units (unk nown) date) approximately unknown) 30min before sexual activity; do not use more than 1 (unknown) (no (unknown) (unknown) (no value) (units (unk nown) date) unknown) (unknown) (no (unknown) (unknown) 11/24/21 11/24/21 (units (unknown) date) 11/24/21 unknown) Range/Units (unknown) (no (unknown) (unknown) 11/24/21 11/25/21 (units (unknown) date) Range/Units unknown) (unknown) (no (unknown) (unknown) 21:40 21:40 22:32 (units (unknown) date) unknown) (unknown) (no (unknown) (unknown) 23:30 01:44 (units (un known) date) unknown) (unknown) (no (unknown) (unknown) Centrum Silver (units (unknown) date) 0.4-300-250 unknown) mg-mcg-mcg Tablet (unknown) (no (unknown) (unknown) Fish Oil Capsule (units (unknown) date) unknown) (unknown) (no (unknown) (unknown) Prevagen 20 mg (units (unknown) date) unknown) (unknown) (no (unknown) (unknown) amlodipine 10 mg (units (unknown) date) Tablet unknown) (unknown) (no (unknown) (unknown) aspirin 81 mg (units ( unknown) date) Capsule unknown) (unknown) (no (unknown) (unknown) cholecalciferol (units (unknown) date) (vitamin D3) unknown) [Vitamin D3] 50 mcg (2,000 unit) Capsule (unknown) (no (unknown) (unknown) docusate sodium (units (unknown) date) [Colace] 100 mg unknown) Capsule (unknown) (no (unknown) (unknown) ibuprofen 800 mg (units (unknown) date) Tablet unknown) (unknown) (no (unknown) (unknown) latanoprost 0.005 (units (unknown) date) % Drops unknown) (unknown) (no (unknown) (unknown) lisinopril 40 mg (units (unknown) date) tablet unknown) (unknown) (no (unknown) (unknown) metoprolol (units (unk nown) date) tartrate 25 mg unknown) Tablet (unknown) (no (unknown) (unknown) nystatin 100,000 (units (unknown) date) unit/gram Powder unknown) (unknown) (no (unknown) (unknown) potassium (units (unkn own) date) chloride 20 mEq unknown) Tablet Extended Release (unknown) (no (unknown) (unknown) rosuvastatin 40 (units (unknown) date) mg Tablet unknown) (unknown) (no (unknown) (unknown) tadalafil 10 mg (units (unknown) date) Tablet unknown) (unknown) (no (unknown) (unknown) timolol 0.5 % (units ( unknown) date) Drops unknown) (unknown) (no (unknown) (unknown) triamterene-hydro (units (unknown) date) chlorothiazid unknown) 75-50 mg Tablet (unknown) (no (unknown) (unknown) 11/24/21 (units (unkno wn) date) unknown) (unknown) (no (unknown) (unknown) 11/25/21 (units (unkno wn) date) unknown) (unknown) (no (unknown) (unknown) Medication (units (unk nown) date) Instructions unknown) Recorded Confirmed (unknown) (no (unknown) (unknown) dose per 24hrs (units (unknown) date) unknown) (unknown) (no (unknown) (unknown) rales, or (units (unkn own) date) rhonchi. unknown) (unknown) (no (unknown) (unknown) (Colace) (units (unkno wn) date) unknown) (unknown) (no (unknown) (unknown) [id number] (units (unkn own) date) unknown) (unknown) (no (unknown) (unknown) 00:00 (units (unkno wn) date) unknown) (unknown) (no (unknown) (unknown) 00:30 11/25/21 (units (unknown) date) unknown) (unknown) (no (unknown) (unknown) 01:00 11/25/21 (units (unknown) date) unknown) (unknown) (no (unknown) (unknown) 01:30 (units (unkno wn) date) unknown) (unknown) (no (unknown) (unknown) 02:00 11/25/21 (units (unknown) date) unknown) (unknown) (no (unknown) (unknown) 02:30 (units (unkno wn) date) unknown) (unknown) (no (unknown) (unknown) 11/24/21 21:14 (units (unknown) date) unknown) (unknown) (no (unknown) (unknown) 11/24/21 21:40 (units (unknown) date) unknown) (unknown) (no (unknown) (unknown) 11/24/21 22:21 (units (unknown) date) unknown) (unknown) (no (unknown) (unknown) 11/24/21 22:32 (units (unknown) date) unknown) (unknown) (no (unknown) (unknown) 11/24/21 23:30 (units (unknown) date) unknown) (unknown) (no (unknown) (unknown) 11/25/21 00:56 (units (unknown) date) unknown) (unknown) (no (unknown) (unknown) 11/25/21 01:44 (units (unknown) date) unknown) (unknown) (no (unknown) (unknown) 1. No evidence of (units (unknown) date) hydronephrosis. unknown) (unknown) (no (unknown) (unknown) 12 point review (units (unknown) date) of systems is unknown) negative except for those stated above (unknown) (no (unknown) (unknown) 2. Bilateral mild (units (unknown) date) renal cortical unknown) thinning.? (unknown) (no (unknown) (unknown) 20:03 11/24/21 (units (unknown) date) unknown) (unknown) (no (unknown) (unknown) 21:19 11/24/21 (units (unknown) date) unknown) (unknown) (no (unknown) (unknown) 21:20 (units (unkno wn) date) unknown) (unknown) (no (unknown) (unknown) 21:30 11/24/21 (units (unknown) date) unknown) (unknown) (no (unknown) (unknown) 22:00 11/24/21 (units (unknown) date) unknown) (unknown) (no (unknown) (unknown) 22:01 (units (unkno wn) date) unknown) (unknown) (no (unknown) (unknown) 22:30 11/24/21 (units (unknown) date) unknown) (unknown) (no (unknown) (unknown) 23:00 11/24/21 (units (unknown) date) unknown) (unknown) (no (unknown) (unknown) 23:04 (units (unkno wn) date) unknown) (unknown) (no (unknown) (unknown) 23:20 11/24/21 (units (unknown) date) unknown) (unknown) (no (unknown) (unknown) 23:30 11/25/21 (units (unknown) date) unknown) (unknown) (no (unknown) (unknown) 81-year-old male (units (unknown) date) Nonsmoker with unknown) history of HTN, hyperlipidemia presents with (unknown) (no (unknown) (unknown) ? (units (unkno wn) date) unknown) (unknown) (no (unknown) (unknown) ALT (<50) (units (u nknown) date) IU/L unknown) (unknown) (no (unknown) (unknown) ALT 17 (<50) (units (unknown) date) IU/L unknown) (unknown) (no (unknown) (unknown) AST (17-59) (units (unknown) date) IU/L unknown) (unknown) (no (unknown) (unknown) AST 26 (units (unkno wn) date) (17-59) IU/L unknown) (unknown) (no (unknown) (unknown) Accession Number: (units (unknown) date) [id number] ?? unknown) (unknown) (no (unknown) (unknown) Acct:[id number] (units (unknown) date) unknown) (unknown) (no (unknown) (unknown) Age/Sex: 81 / M (units (unknown) date) unknown) (unknown) (no (unknown) (unknown) Age/Sex: 81 / M (units (unknown) date) unknown) (unknown) (no (unknown) (unknown) Albumin (units (unkno wn) date) (3.5-5.0) g/dL unknown) (unknown) (no (unknown) (unknown) Albumin 4.6 (units ( unknown) date) (3.5-5.0) g/dL unknown) (unknown) (no (unknown) (unknown) Albumin/Globulin (units (unknown) date) Ratio (1.0-2.8) unknown) (unknown) (no (unknown) (unknown) Albumin/Globulin (units (unknown) date) Ratio 1.2 unknown) (1.0-2.8) (unknown) (no (unknown) (unknown) Albuterol (units (unkn own) date) (Albuterol 2.5 unknown) Mg/3 Ml Neb (Adult)) 20 mg INH NOW ONE (unknown) (no (unknown) (unknown) Alkaline (units (unkno wn) date) Phosphatase unknown) (38-126) U/L (unknown) (no (unknown) (unknown) Alkaline (units (unkno wn) date) Phosphatase 192 unknown) H (38-126) U/L (unknown) (no (unknown) (unknown) Allergy/AdvReac (units (unknown) date) Type Severity unknown) Reaction Status Date / Time (unknown) (no (unknown) (unknown) Approved by: (units (u nknown) date) Gunnar Houser unknownAlina Arroyo on 11/25/2021 at 0:16 ? (unknown) (no (unknown) (unknown) BACK: Nontender (units (unknown) date) without deformity unknown) or crepitance. No flank tenderness. (unknown) (no (unknown) (unknown) BMP [Basic (units (unk nown) date) Metabolic Panel] unknown) Stat (unknown) (no (unknown) (unknown) BUN 66 H (units (unk nown) date) (9-20) mg/dL unknown) (unknown) (no (unknown) (unknown) BUN 70 H (units (unk nown) date) (9-20) mg/dL unknown) (unknown) (no (unknown) (unknown) BUN/Creatinine (units (unknown) date) Ratio 27.5 H unknown) (6-22) (unknown) (no (unknown) (unknown) BUN/Creatinine (units (unknown) date) Ratio 27.7 H unknown) (6-22) (unknown) (no (unknown) (unknown) Baso # (Auto) (units ( unknown) date) unknown) (unknown) (no (unknown) (unknown) Baso # (Auto) (units ( unknown) date) Not Reportable unknown) (unknown) (no (unknown) (unknown) Baso % (Auto) (units ( unknown) date) unknown) (unknown) (no (unknown) (unknown) Baso % (Auto) (units ( unknown) date) Not Reportable unknown) (unknown) (no (unknown) (unknown) Bladder:? (units (unkn own) date) Pre-void bladder unknown) was nondistended.? Limited evaluation for (unknown) (no (unknown) (unknown) Blood Pressure (units (unknown) date) 131/58 L unknown) (unknown) (no (unknown) (unknown) Blood Pressure (units (unknown) date) 133/63 129/62 unknown) (unknown) (no (unknown) (unknown) Blood Pressure (units (unknown) date) 155/93 H 11/24/21 unknown) 20:03 (unknown) (no (unknown) (unknown) Blood Pressure (units (unknown) date) 137/63 161/72 H unknown) (unknown) (no (unknown) (unknown) Blood Pressure (units (unknown) date) 141/61 H 129/60 unknown) 141/63 H (unknown) (no (unknown) (unknown) Blood Pressure (units (unknown) date) 155/93 H 156/70 H unknown) (unknown) (no (unknown) (unknown) Blood Pressure (units (unknown) date) 162/70 H 164/76 H unknown) (unknown) (no (unknown) (unknown) CARDIOVASCULAR: (units (unknown) date) Denies chest pain, unknown) palpitations, orthopnea, edema, (unknown) (no (unknown) (unknown) CARDIOVASCULAR: (units (unknown) date) Regular rate and unknown) rhythm without murmurs, gallops, or rubs. (unknown) (no (unknown) (unknown) CK-MB (CK-2) (units (u nknown) date) unknown) (unknown) (no (unknown) (unknown) CK-MB (CK-2) (units (u nknown) date) TNP unknown) (unknown) (no (unknown) (unknown) CK-MB (CK-2) Rel (units (unknown) date) Index unknown) (unknown) (no (unknown) (unknown) CK-MB (CK-2) Rel (units (unknown) date) Index TNP unknown) (unknown) (no (unknown) (unknown) COMPARISON:? (units (u nknown) date) None. unknown) (unknown) (no (unknown) (unknown) COVID19 -Nasal (units (unknown) date) RAPID/Pre-Proc unknown) Stat (unknown) (no (unknown) (unknown) Calcium 10.7 H (units (unknown) date) (8.4-10.2) mg/dL unknown) (unknown) (no (unknown) (unknown) Calcium 10.9 H (units (unknown) date) (8.4-10.2) mg/dL unknown) (unknown) (no (unknown) (unknown) Calcium Gluconate (units (unknown) date) 9.3 meq/ (Sodium unknown) Chloride) 70 mls @ 140 mls/hr IV NOW ONE (unknown) (no (unknown) (unknown) Carbon Dioxide (units (unknown) date) 13 L (22-32) unknown) mmol/L (unknown) (no (unknown) (unknown) Carbon Dioxide (units (unknown) date) 14 L (22-32) unknown) mmol/L (unknown) (no (unknown) (unknown) Chief complaint: (units (unknown) date) Weakness unknown) (unknown) (no (unknown) (unknown) Chloride 111 H (units (unknown) date) (98-107) mmol/L unknown) (unknown) (no (unknown) (unknown) Chloride 112 H (units (unknown) date) (98-107) mmol/L unknown) (unknown) (no (unknown) (unknown) Complete Blood (units (unknown) date) Count AUTO DIFF unknown) Stat (unknown) (no (unknown) (unknown) Comprehensive (units ( unknown) date) Metabolic Panel unknown) Stat (unknown) (no (unknown) (unknown) Course (units (unkno wn) date) unknown) (unknown) (no (unknown) (unknown) Creatinine 2.40 (units (unknown) date) H (0.66-1.25) unknown) mg/dL (unknown) (no (unknown) (unknown) Creatinine 2.53 (units (unknown) date) H (0.66-1.25) unknown) mg/dL (unknown) (no (unknown) (unknown) Creatinine Urine (units (unknown) date) Random Stat unknown) (unknown) (no (unknown) (unknown) D3) (units (unkno wn) date) unknown) (unknown) (no (unknown) (unknown) : 1940 (units (unknown) date) Acct:[id number] unknown) (unknown) (no (unknown) (unknown) : 1940 (units (unknown) date) unknown) (unknown) (no (unknown) (unknown) Date of Service: (units (unknown) date) 11/24/21 unknown) (unknown) (no (unknown) (unknown) Departure (units (unkn own) date) unknown) (unknown) (no (unknown) (unknown) Dextrose (D10w) (units (unknown) date) 250 mls @ 999 unknown) mls/hr IV PRN PRN (unknown) (no (unknown) (unknown) Dictated by: (units (u nknown) date) Gunnar Houser, unknown) Cruz on 11/25/2021 at 0:10 ? ? (unknown) (no (unknown) (unknown) Discharge Plan (units (unknown) date) unknown) (unknown) (no (unknown) (unknown) Discontinued (units (u nknown) date) Medications unknown) (unknown) (no (unknown) (unknown) Doppler (units (unkno wn) date) unknown) (unknown) (no (unknown) (unknown) ECG Data (units (unkno wn) date) unknown) (unknown) (no (unknown) (unknown) EKG 1 (2): (units ( unknown) date) EKG is normal unknown) sinus rhythm rate [70 ] and free of any signs of (unknown) (no (unknown) (unknown) EKG 2 (0112): (units ( unknown) date) EKG is normal unknown) sinus rhythm rate [103 ] and free of any signs of (unknown) (no (unknown) (unknown) EKG-12 Lead Stat (units (unknown) date) unknown) (unknown) (no (unknown) (unknown) ENT: Nose without (units (unknown) date) bleeding, purulent unknown) drainage. Throat without erythema, (unknown) (no (unknown) (unknown) ER Physician: (units ( unknown) date) Aroldo Bazan D.O. unknown) (unknown) (no (unknown) (unknown) EXTREMITIES: No (units (unknown) date) edema or joint unknown) tenderness. (unknown) (no (unknown) (unknown) EYES: Pupils (units (u nknown) date) equal round and unknown) reactive. Extraocular motions intact. No scleral (unknown) (no (unknown) (unknown) Eos % (Auto) (units (u nknown) date) unknown) (unknown) (no (unknown) (unknown) Eos % (Auto) Not (units (unknown) date) Reportable unknown) (unknown) (no (unknown) (unknown) Estimated GFR (units ( unknown) date) 25 L (>60) unknown) mL/min (unknown) (no (unknown) (unknown) Estimated GFR (units ( unknown) date) 26 L (>60) unknown) mL/min (unknown) (no (unknown) (unknown) Exam (units (unkno wn) date) unknown) (unknown) (no (unknown) (unknown) Exam Narrative: (units (unknown) date) unknown) (unknown) (no (unknown) (unknown) FINDINGS:? (units (unk nown) date) unknown) (unknown) (no (unknown) (unknown) Furosemide (units (unk nown) date) (Furosemide 40 unknown) Mg/4 Ml Vial) 40 mg IV NOW ONE (unknown) (no (unknown) (unknown) GASTROINTESTINAL: (units (unknown) date) Abdomen soft, unknown) non-tender, nondistended. (unknown) (no (unknown) (unknown) GASTROINTESTINAL: (units (unknown) date) Denies nausea, unknown) vomiting, abdominal pain, diarrhea, (unknown) (no (unknown) (unknown) GENERAL: Denies (units (unknown) date) chills, fatigue, unknown) malaise, fever, sweats. (unknown) (no (unknown) (unknown) GENERAL: [81 year (units (unknown) date) old patient unknown) appears stated age. Well-developed patient, in (unknown) (no (unknown) (unknown) : Denies (units (unk nown) date) dysuria, unknown) frequency, incontinence, hematuria, urinary retention. (unknown) (no (unknown) (unknown) General (units (unkno wn) date) unknown) (unknown) (no (unknown) (unknown) GenericComposite[ (units (unknown) date) Plt Count unknown) (150-400) X10^3/uL ] (unknown) (no (unknown) (unknown) GenericComposite[ (units (unknown) date) Plt Count 229 unknown) (150-400) X10^3/uL ] (unknown) (no (unknown) (unknown) GenericComposite[ (units (unknown) date) RBC (4.5-5.9) unknown) X10^6/uL ] (unknown) (no (unknown) (unknown) GenericComposite[ (units (unknown) date) RBC 4.45 L unknown) (4.5-5.9) X10^6/uL ] (unknown) (no (unknown) (unknown) GenericComposite[ (units (unknown) date) WBC (4.5-11.0) unknown) X10^3/uL ] (unknown) (no (unknown) (unknown) GenericComposite[ (units (unknown) date) WBC 35.4 H* unknown) (4.5-11.0) X10^3/uL ] (unknown) (no (unknown) (unknown) Globulin (units (unkno wn) date) (1.7-4.1) g/dL unknown) (unknown) (no (unknown) (unknown) Globulin 3.7 (units (unknown) date) (1.7-4.1) g/dL unknown) (unknown) (no (unknown) (unknown) Glucose 115 H (units (unknown) date) (80-110) mg/dL unknown) (unknown) (no (unknown) (unknown) Glucose 117 H (units (unknown) date) (80-110) mg/dL unknown) (unknown) (no (unknown) (unknown) Glucose POC (units (un known) date) 119 unknown) (unknown) (no (unknown) (unknown) HEAD: Atraumatic. (units (unknown) date) Normocephalic. unknown) (unknown) (no (unknown) (unknown) HEENT: Denies (units ( unknown) date) sinus pain, ear unknown) pain, sore throat, difficulty swallowing, (unknown) (no (unknown) (unknown) HPI - Weakness (units (unknown) date) unknown) (unknown) (no (unknown) (unknown) HPI Narrative: (units (unknown) date) unknown) (unknown) (no (unknown) (unknown) Hct (41-53) % (units (unknown) date) unknown) (unknown) (no (unknown) (unknown) Hct 40.7 L (units (un known) date) (41-53) % unknown) (unknown) (no (unknown) (unknown) Hgb (units (unkno wn) date) (13.5-17.5) g/dL unknown) (unknown) (no (unknown) (unknown) Hgb 13.0 L (units (un known) date) (13.5-17.5) g/dL unknown) (unknown) (no (unknown) (unknown) History of (units (unk nown) date) Present Illness unknown) (unknown) (no (unknown) (unknown) IMPRESSION:? (units (u nknown) date) unknown) (unknown) (no (unknown) (unknown) INDICATIONS:? (units ( unknown) date) ACUTE RENAL unknown) FAILURE (unknown) (no (unknown) (unknown) Imaging Data (units (u nknown) date) unknown) (unknown) (no (unknown) (unknown) Initial Vital (units ( unknown) date) Signs unknown) (unknown) (no (unknown) (unknown) Initial Vital (units ( unknown) date) Signs: unknown) (unknown) (no (unknown) (unknown) Insulin Human (units (u nknown) date) Regular (Insulin unknown) Regular 100 Unit/Ml 3 Ml Vial) 5 unit IV NOW ONE (unknown) (no (unknown) (unknown) Interpretation: (units (unknown) date) unknown) (unknown) (no (unknown) (unknown) Kidneys:? Right (units (unknown) date) kidney measures unknown) 11.8 cm long; left kidney measures 11.6 cm (unknown) (no (unknown) (unknown) Lab Data (units (unkno wn) date) unknown) (unknown) (no (unknown) (unknown) Labs: (units (unkno wn) date) unknown) (unknown) (no (unknown) (unknown) Lipase (units (unkno wn) date) (23-300) U/L unknown) (unknown) (no (unknown) (unknown) Lipase 319 H (units (unknown) date) (23-300) U/L unknown) (unknown) (no (unknown) (unknown) Lipase Stat (units (un known) date) unknown) (unknown) (no (unknown) (unknown) Loc: ED (units (unkno wn) date) unknown) (unknown) (no (unknown) (unknown) Lymph # (Auto) (units (unknown) date) unknown) (unknown) (no (unknown) (unknown) Lymph # (Auto) (units (unknown) date) Not Reportable unknown) (unknown) (no (unknown) (unknown) Lymph % (Auto) (units (unknown) date) unknown) (unknown) (no (unknown) (unknown) Lymph % (Auto) (units (unknown) date) Not Reportable unknown) (unknown) (no (unknown) (unknown) Lymphocytes % (units ( unknown) date) (Manual) unknown) (25-45) % (unknown) (no (unknown) (unknown) Lymphocytes % (units ( unknown) date) (Manual) 76.0 H unknown) (25-45) % (unknown) (no (unknown) (unknown) MCH (26-34) (units (unknown) date) PG unknown) (unknown) (no (unknown) (unknown) MCH 29.2 (units (unkn own) date) (26-34) PG unknown) (unknown) (no (unknown) (unknown) MCHC (30-36) (units (unknown) date) % unknown) (unknown) (no (unknown) (unknown) MCHC 31.9 (units (unk nown) date) (30-36) % unknown) (unknown) (no (unknown) (unknown) MCV (80-100) (units (unknown) date) fL unknown) (unknown) (no (unknown) (unknown) MCV 91.5 (units (unkn own) date) (80-100) fL unknown) (unknown) (no (unknown) (unknown) MDM - Weakness (units (unknown) date) unknown) (unknown) (no (unknown) (unknown) MR#: [id number] (units (unknown) date) unknown) (unknown) (no (unknown) (unknown) MUSCULOSKELETAL: (units (unknown) date) See HPI unknown) (unknown) (no (unknown) (unknown) [address], (units (unknown) date) [Primary Care unknown) Provider] - (unknown) (no (unknown) (unknown) Miscellaneous:? (units (unknown) date) No free pelvic unknown) fluid.? (unknown) (no (unknown) (unknown) Mode of arrival: (units (unknown) date) Wheelchair unknown) (unknown) (no (unknown) (unknown) [place] # (Auto) (units ( unknown) date) unknown) (unknown) (no (unknown) (unknown) [place] # (Auto) (units ( unknown) date) Not Reportable unknown) (unknown) (no (unknown) (unknown) [place] % (Auto) (units ( unknown) date) unknown) (unknown) (no (unknown) (unknown) [place] % (Auto) (units ( unknown) date) Not Reportable unknown) (unknown) (no (unknown) (unknown) Monocytes % (units (un known) date) (Manual) (2-11) unknown) % (unknown) (no (unknown) (unknown) Monocytes % (units (un known) date) (Manual) 3.0 unknown) (2-11) % (unknown) (no (unknown) (unknown) NECK: [place] (units ( unknown) date) midline. Non unknown) tender (unknown) (no (unknown) (unknown) NEURO: AOx3. (units (u nknown) date) unknown) (unknown) (no (unknown) (unknown) NEUROLOGIC: (units (un known) date) Denies weakness, unknown) headache, numbness, change in speech, confusion, (unknown) (no (unknown) (unknown) Narrative (units (unkn own) date) unknown) (unknown) (no (unknown) (unknown) Narrative: (units (unk nown) date) unknown) (unknown) (no (unknown) (unknown) Neut % (Auto) (units ( unknown) date) unknown) (unknown) (no (unknown) (unknown) Neut % (Auto) (units ( unknown) date) Not Reportable unknown) (unknown) (no (unknown) (unknown) Neutrophils # (units ( unknown) date) (Manual) unknown) ([id number]) /uL (unknown) (no (unknown) (unknown) Neutrophils # (units ( unknown) date) (Manual) 7434 H unknown) ([id number]) /uL (unknown) (no (unknown) (unknown) No Action (units (unkn own) date) unknown) (unknown) (no (unknown) (unknown) Ordered: (units (unkno wn) date) unknown) (unknown) (no (unknown) (unknown) Ordering (units (unkno wn) date) Provider: unknown) Aroldo Bazan D.O. (unknown) (no (unknown) (unknown) Orders (units (unkno wn) date) unknown) (unknown) (no (unknown) (unknown) PROCEDURE:? US (units (unknown) date) RENAL COMPLETE unknown) (unknown) (no (unknown) (unknown) PSYCHIATRIC: No (units (unknown) date) concerning unknown) psychosocial issues. (unknown) (no (unknown) (unknown) Patient History (units (unknown) date) unknown) (unknown) (no (unknown) (unknown) Patient: (units (unkno wn) date) Raven Sutherland unknown) MR#: M (unknown) (no (unknown) (unknown) Patient: (units (unkno wn) date) Raven Sutherland Tia unknown) (unknown) (no (unknown) (unknown) Potassium 7.7 (units (unknown) date) H* (3.4-5.1) unknown) mmol/L (unknown) (no (unknown) (unknown) Potassium 8.6 (units (unknown) date) H* (3.4-5.1) unknown) mmol/L (unknown) (no (unknown) (unknown) Prescriptions: (units (unknown) date) unknown) (unknown) (no (unknown) (unknown) Prevagen 20 mg PO (units (unknown) date) DAILY 11/25/21 unknown) (unknown) (no (unknown) (unknown) Procedure: US (units ( unknown) date) renal complete unknown) (unknown) (no (unknown) (unknown) Pulse Oximetry (units (unknown) date) 100 97 unknown) (unknown) (no (unknown) (unknown) Pulse Oximetry (units (unknown) date) 94 11/24/21 unknown) 20:03 (unknown) (no (unknown) (unknown) Pulse Oximetry (units (unknown) date) 97 97 unknown) (unknown) (no (unknown) (unknown) Pulse Oximetry 94 (units (unknown) date) 89 L 96 unknown) (unknown) (no (unknown) (unknown) Pulse Oximetry 95 (units (unknown) date) 96 unknown) (unknown) (no (unknown) (unknown) Pulse Oximetry 96 (units (unknown) date) 96 unknown) (unknown) (no (unknown) (unknown) Pulse Oximetry 96 (units (unknown) date) 97 97 unknown) (unknown) (no (unknown) (unknown) Pulse Rate 87 (units (unknown) date) 11/24/21 20:03 unknown) (unknown) (no (unknown) (unknown) Pulse Rate 102 H (units (unknown) date) 99 H 97 H unknown) (unknown) (no (unknown) (unknown) Pulse Rate 72 78 (units (unknown) date) 79 unknown) (unknown) (no (unknown) (unknown) Pulse Rate 72 80 (units (unknown) date) 81 unknown) (unknown) (no (unknown) (unknown) Pulse Rate 79 91 (units (unknown) date) H 104 H unknown) (unknown) (no (unknown) (unknown) Pulse Rate 87 76 (units (unknown) date) 77 unknown) (unknown) (no (unknown) (unknown) Pulse Rate 99 H (units (unknown) date) 100 H unknown) (unknown) (no (unknown) (unknown) RBC Morphology (units (unknown) date) unknown) (unknown) (no (unknown) (unknown) RBC Morphology (units (unknown) date) Normal morphology unknown) (unknown) (no (unknown) (unknown) RDW (units (unkno wn) date) (11.6-14.8) % unknown) (unknown) (no (unknown) (unknown) RDW 14.1 (units (unkn own) date) (11.6-14.8) % unknown) (unknown) (no (unknown) (unknown) RESPIRATORY: Clear (units (unknown) date) to auscultation. unknown) Breath sounds equal bilaterally. No wheezes, (unknown) (no (unknown) (unknown) RESPIRATORY: (units (u nknown) date) Denies dyspnea, unknown) cough, wheezing, hemoptysis, sputum. (unknown) (no (unknown) (unknown) Real-time (units (unkn own) date) scanning was unknown) performed of the kidneys and bladder, with image (unknown) (no (unknown) (unknown) Referrals: (units (unk nown) date) unknown) (unknown) (no (unknown) (unknown) Related Data (units (u nknown) date) unknown) (unknown) (no (unknown) (unknown) Renal (units (unkno wn) date) unknown) (unknown) (no (unknown) (unknown) Renal US: (units (unk nown) date) unknown) (unknown) (no (unknown) (unknown) Respiratory Rate (units (unknown) date) unknown) (unknown) (no (unknown) (unknown) Respiratory Rate (units (unknown) date) 15 11/24/21 unknown) 20:03 (unknown) (no (unknown) (unknown) Respiratory Rate (units (unknown) date) 23 25 H unknown) (unknown) (no (unknown) (unknown) Respiratory Rate (units (unknown) date) 12 16 unknown) (unknown) (no (unknown) (unknown) Respiratory Rate (units (unknown) date) 15 25 H 18 unknown) (unknown) (no (unknown) (unknown) Respiratory Rate (units (unknown) date) 18 21 19 unknown) (unknown) (no (unknown) (unknown) Respiratory Rate (units (unknown) date) 25 H 11 L 22 unknown) (unknown) (no (unknown) (unknown) Result diagrams: (units (unknown) date) unknown) (unknown) (no (unknown) (unknown) Review of Systems (units (unknown) date) unknown) (unknown) (no (unknown) (unknown) SARS-CoV-2 (PCR) (units (unknown) date) (Negative) unknown) (unknown) (no (unknown) (unknown) SARS-CoV-2 (PCR) (units (unknown) date) Negative unknown) (Negative) (unknown) (no (unknown) (unknown) SKIN: Denies (units (u nknown) date) rash, skin unknown) lesions, or other (unknown) (no (unknown) (unknown) SKIN: No rash or (units (unknown) date) erythema of unknown) visible areas (unknown) (no (unknown) (unknown) Seg Neutrophils % (units (unknown) date) (38-70) % unknown) (unknown) (no (unknown) (unknown) Seg Neutrophils % (units (unknown) date) 21.0 L (38-70) unknown) % (unknown) (no (unknown) (unknown) Signed By: (units (unk nown) date) unknown) (unknown) (no (unknown) (unknown) Smoking Status: (units (unknown) date) Never smoker unknown) (unknown) (no (unknown) (unknown) Smoking Status: (units (unknown) date) Never smoker unknown) (unknown) (no (unknown) (unknown) Smudge Cells (units (u nknown) date) unknown) (unknown) (no (unknown) (unknown) Smudge Cells 1+ (units (unknown) date) H unknown) (unknown) (no (unknown) (unknown) Social History (units (unknown) date) (Reviewed 11/25/21 unknown) @ 01:28 by Aroldo Bazan DO) (unknown) (no (unknown) (unknown) Sodium 134 L (units (unknown) date) (137-145) mmol/L unknown) (unknown) (no (unknown) (unknown) Sodium 136 L (units (unknown) date) (137-145) mmol/L unknown) (unknown) (no (unknown) (unknown) Sodium Chloride (units (unknown) date) (Normal Saline unknown) 0.9%) 1,000 mls @ 1,000 mls/hr IV BOLUS ONE (unknown) (no (unknown) (unknown) Sodium Chloride (units (unknown) date) (Normal Saline unknown) 0.9%) 1,000 mls @ 150 mls/hr IV CONT DEE (unknown) (no (unknown) (unknown) Sodium Urine (units (u nknown) date) Random Stat unknown) (unknown) (no (unknown) (unknown) Source: patient (units (unknown) date) unknown) (unknown) (no (unknown) (unknown) Stated complaint: (units (unknown) date) Worsening Weakness unknown) x3 days (unknown) (no (unknown) (unknown) Substance Use (units ( unknown) date) Type: does not use unknown) (unknown) (no (unknown) (unknown) TECHNIQUE:? (units (un known) date) unknown) (unknown) (no (unknown) (unknown) Temperature (units (un known) date) unknown) (unknown) (no (unknown) (unknown) Temperature (units (un known) date) unknown) (unknown) (no (unknown) (unknown) Temperature 98.4 (units (unknown) date) F 11/24/21 20:03 unknown) (unknown) (no (unknown) (unknown) Temperature 98.4 (units (unknown) date) F unknown) (unknown) (no (unknown) (unknown) Time Seen by (units (u nknown) date) Provider: 11/24/21 unknown) 21:14 (unknown) (no (unknown) (unknown) Total Bilirubin (units (unknown) date) (0.2-1.3) mg/dL unknown) (unknown) (no (unknown) (unknown) Total Bilirubin (units (unknown) date) 0.6 (0.2-1.3) unknown) mg/dL (unknown) (no (unknown) (unknown) Total Counted (units ( unknown) date) unknown) (unknown) (no (unknown) (unknown) Total Counted (units ( unknown) date) 100 unknown) (unknown) (no (unknown) (unknown) Total Creatine (units (unknown) date) Kinase (55-170) unknown) U/L (unknown) (no (unknown) (unknown) Total Creatine (units (unknown) date) Kinase 53 L unknown) (55-170) U/L (unknown) (no (unknown) (unknown) Total Protein (units ( unknown) date) (6.3-8.2) g/dL unknown) (unknown) (no (unknown) (unknown) Total Protein (units ( unknown) date) 8.3 H (6.3-8.2) unknown) g/dL (unknown) (no (unknown) (unknown) Troponin + CK (units ( unknown) date) Cardiac Panel Stat unknown) (unknown) (no (unknown) (unknown) Troponin I (units (unk nown) date) (0.01-0.034) unknown) ng/mL (unknown) (no (unknown) (unknown) Troponin I (units (unk nown) date) 0.016 unknown) (0.01-0.034) ng/mL (unknown) (no (unknown) (unknown) US renal complete (units (unknown) date) Stat unknown) (unknown) (no (unknown) (unknown) Ur Random Sodium (units (unknown) date) (30-90) mmol/L unknown) (unknown) (no (unknown) (unknown) Ur Random Sodium (units (unknown) date) 104 H (30-90) unknown) mmol/L (unknown) (no (unknown) (unknown) Urine Creatinine (units (unknown) date) mg/dL unknown) (unknown) (no (unknown) (unknown) Urine Creatinine (units (unknown) date) 108.6 mg/dL unknown) (unknown) (no (unknown) (unknown) Vital Signs (units (un known) date) unknown) (unknown) (no (unknown) (unknown) Vital signs: (units (u nknown) date) unknown) (unknown) (no (unknown) (unknown) XR chest 1V Stat (units (unknown) date) unknown) (unknown) (no (unknown) (unknown) [Embedded Image (units (unknown) date) Not Available] unknown) (unknown) (no (unknown) (unknown) ago and failed 2 (units (unknown) date) months ago. He unknown) does not suffer urinary retention but instead (unknown) (no (unknown) (unknown) alcohol intake (units (unknown) date) frequency: unknown) holidays/special occasions only (unknown) (no (unknown) (unknown) amlodipine 10 mg (units (unknown) date) tablet 10 mg PO unknown) DAILY 11/25/21 11/25/21 (unknown) (no (unknown) (unknown) aspirin 81 mg (units ( unknown) date) capsule 81 mg PO unknown) DAILY 11/25/21 11/25/21 (unknown) (no (unknown) (unknown) been managed by (units (unknown) date) urology at unknown) [facility]. It was placed originally about 5 years (unknown) (no (unknown) (unknown) cases due (units (unkn own) date) unknown) (unknown) (no (unknown) (unknown) cholecalciferol (units (unknown) date) (vitamin D3) 50 50 unknown) mcg PO DAILY 11/25/21 11/25/21 (unknown) (no (unknown) (unknown) constantly leaks (units (unknown) date) urine. He was unknown) scoped by his urologist about 10 days ago and (unknown) (no (unknown) (unknown) constipation, (units ( unknown) date) melena. unknown) (unknown) (no (unknown) (unknown) cortical (units (unkno wn) date) echotexture unknown) appears grossly within normal limits.? No hydronephrosis.? (unknown) (no (unknown) (unknown) dizziness. (units (unk nown) date) unknown) (unknown) (no (unknown) (unknown) documentation.? (units (unknown) date) unknown) (unknown) (no (unknown) (unknown) docusate sodium (units (unknown) date) 100 mg capsule 100 unknown) mg PO BID 11/25/21 11/25/21 (unknown) (no (unknown) (unknown) generalized (units (un known) date) weakness gradually unknown) worsening over the past few months. He states (unknown) (no (unknown) (unknown) generally, and on (units (unknown) date) the whole, and unknown) very nonspecifically he feels weak. Patient (unknown) (no (unknown) (unknown) ibuprofen 800 mg (units (unknown) date) tablet 800 mg PO unknown) Q8H PRN 11/25/21 11/25/21 (unknown) (no (unknown) (unknown) icterus. No (units (un known) date) injection or unknown) drainage. (unknown) (no (unknown) (unknown) interrogation.? (units (unknown) date) (Of note, ureteral unknown) jets may not be detectable in up to 25% of (unknown) (no (unknown) (unknown) intraluminal (units (u nknown) date) masses unknown) (unknown) (no (unknown) (unknown) inversions. OK (units (unknown) date) 126. QRS 140. T unknown) waves improved. (unknown) (no (unknown) (unknown) inversions. OK (units (unknown) date) 152. QRS 164. T unknown) waves peaked (unknown) (no (unknown) (unknown) ischemia or (units (un known) date) ectopy. No ST unknown) segmental elevation or depression. No T wave (unknown) (no (unknown) (unknown) latanoprost 0.005 (units (unknown) date) % eye drops 1 drp unknown) OPHTHALMIC (EYE) DAILY 11/25/21 11/25/21 (unknown) (no (unknown) (unknown) lisinopril 40 mg (units (unknown) date) tablet 40 mg PO unknown) DAILY 11/25/21 11/25/21 (unknown) (no (unknown) (unknown) long.? Right (units (u nknown) date) unknown) (unknown) (no (unknown) (unknown) mcg (2,000 unit) (units (unknown) date) capsule (Vitamin unknown) (unknown) (no (unknown) (unknown) medications or (units (unknown) date) diet. He denies unknown) any headache, blurred vision or trouble with (unknown) (no (unknown) (unknown) metoprolol (units (unk nown) date) tartrate 25 mg unknown) tablet 25 mg PO BID 11/25/21 11/25/21 (unknown) (no (unknown) (unknown) mg-hydrochlorothi (units (unknown) date) azide 50 mg tablet unknown) (unknown) (no (unknown) (unknown) mg-lycopene 300 (units (unknown) date) mcg-lutein 250 mcg unknown) (unknown) (no (unknown) (unknown) mild distress. (units (unknown) date) unknown) (unknown) (no (unknown) (unknown) [id number] (units (unknown) date) c acid 0.4 1 tab unknown) PO DAILY 11/25/21 11/25/21 (unknown) (no (unknown) (unknown) myacin family (units ( unknown) date) Allergy Blister unknown) Uncoded 11/24/21 20:03 (unknown) (no (unknown) (unknown) nystatin 100,000 (units (unknown) date) unit/gram topical unknown) 1 applic TOPICAL BID 11/25/21 11/25/21 (unknown) (no (unknown) (unknown) omega-3 fatty (units ( unknown) date) acids 1,000 mg PO unknown) DAILY 11/25/21 11/25/21 (unknown) (no (unknown) (unknown) or stones.? On (units (unknown) date) pre-void images, unknown) neither ureteral jets are noted with color (unknown) (no (unknown) (unknown) potassium (units (unkn own) date) chloride 20 mEq 20 unknown) meq PO BID 11/25/21 11/25/21 (unknown) (no (unknown) (unknown) powder (units (unkno wn) date) unknown) (unknown) (no (unknown) (unknown) primary care (units (u nknown) date) provider early in unknown) the week. He denies any change in his (unknown) (no (unknown) (unknown) problems such as (units (unknown) date) unilateral unknown) numbness, tingling or weakness. He states that (unknown) (no (unknown) (unknown) renal cortical (units (unknown) date) thickness is 1.5 unknown) cm; left renal cortical thickness is 1.5 cm.? (unknown) (no (unknown) (unknown) revision in December (units (unknown) date) unknown) (unknown) (no (unknown) (unknown) rosuvastatin 40 (units (unknown) date) mg tablet 40 mg PO unknown) DAILY 11/25/21 11/25/21 (unknown) (no (unknown) (unknown) seizures, (units (unkn own) date) incoordination. unknown) (unknown) (no (unknown) (unknown) some time, and he (units (unknown) date) met with his unknown) orthopedist today and has an appointment with his (unknown) (no (unknown) (unknown) speech. He (units (un known) date) denies any chest unknown) pain or shortness of breath. 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 He is scheduled for a (unknown) (no (unknown) (unknown) timolol 0.5 % eye (units (unknown) date) drops 1 drp unknown) OPHTHALMIC (EYE) DAILY 11/25/21 11/25/21 (unknown) (no (unknown) (unknown) to insufficient (units (unknown) date) differences in unknown) specific gravity between ureteral and bladder (unknown) (no (unknown) (unknown) tonsillar (units (unkn own) date) hypertrophy or unknown) exudate. Airway patent. (unknown) (no (unknown) (unknown) triamterene 75 1 (units (unknown) date) tab PO QAM unknown) 11/25/21 11/25/21 (unknown) (no (unknown) (unknown) urine).? (units (unkno wn) date) unknown) Result panel 17 (unknown) (no (unknown) (unknown) (no value) (units (unk nown) date) unknown) (unknown) (no (unknown) (unknown) Radiologist (units (un known) date) Impression: unknown) (unknown) (no (unknown) (unknown) (no value) (units (unk nown) date) unknown) (unknown) (no (unknown) (unknown) Date of Service: (units (unknown) date) 11/24/21 unknown) (unknown) (no (unknown) (unknown) (no value) (units (unk nown) date) unknown) (unknown) (no (unknown) (unknown) 11/24/21 21:40 (units (unknown) date) unknown) (unknown) (no (unknown) (unknown) 11/25/21 01:44 (units (unknown) date) unknown) (unknown) (no (unknown) (unknown) 1 applic TOPICAL BID (uni ts (unknown) date) 0RF unknown) (unknown) (no (unknown) (unknown) 1 drp OPHTHALMIC (units (unknown) date) (EYE) DAILY 0RF unknown) (unknown) (no (unknown) (unknown) 1 tab PO DAILY 0RF (units (unknown) date) unknown) (unknown) (no (unknown) (unknown) 1 tab PO QAM 0RF (units (unknown) date) unknown) (unknown) (no (unknown) (unknown) 1,000 mg PO DAILY 0RF (un its (unknown) date) unknown) (unknown) (no (unknown) (unknown) 10 mg PO DAILY 0RF (units (unknown) date) unknown) (unknown) (no (unknown) (unknown) 10 mg PO DAILY PRN (units (unknown) date) (Reason: intercourse) unknown) 0RF (unknown) (no (unknown) (unknown) 100 mg PO BID 0RF (units (unknown) date) unknown) (unknown) (no (unknown) (unknown) [facility] ([facility]) unknown) (unknown) (no (unknown) (unknown) 20 meq PO BID 0RF (units (unknown) date) unknown) (unknown) (no (unknown) (unknown) 20 mg PO DAILY 0RF (units (unknown) date) unknown) (unknown) (no (unknown) (unknown) 25 mg PO BID 0RF (units (unknown) date) unknown) (unknown) (no (unknown) (unknown) 40 mg PO DAILY 0RF (units (unknown) date) unknown) (unknown) (no (unknown) (unknown) 50 mcg PO DAILY 0RF (unit s (unknown) date) unknown) (unknown) (no (unknown) (unknown) 800 mg PO Q8H PRN (units (unknown) date) (Reason: Pain, unknown) Moderate) 0RF (unknown) (no (unknown) (unknown) 81 mg PO DAILY 0RF (units (unknown) date) unknown) (unknown) (no (unknown) (unknown) Admin: 11/24/21 22:08 (un its (unknown) date) Dose: 150 mls/hr unknown) (unknown) (no (unknown) (unknown) Admin: 11/24/21 22:52 (un its (unknown) date) Dose: 250 mls/hr unknown) (unknown) (no (unknown) (unknown) Admin: 11/24/21 23:01 (un its (unknown) date) Dose: 1,000 mls/hr unknown) (unknown) (no (unknown) (unknown) Admin: 11/24/21 23:16 (un its (unknown) date) Dose: 140 mls/hr unknown) (unknown) (no (unknown) (unknown) Allergies (units (unkn own) date) unknown) (unknown) (no (unknown) (unknown) CAMILLA Ortiz [id number] (unit s (unknown) date) unknown) (unknown) (no (unknown) (unknown) Documented by: (units (unknown) date) JAIRO Cosigned by: unknown ) FREDIS (unknown) (no (unknown) (unknown) Documented by: (units (unknown) date) JAIRO unknown) (unknown) (no (unknown) (unknown) Documented by: (units (unknown) date) FREDIS unknown) (unknown) (no (unknown) (unknown) ED Orders (units (unkn own) date) unknown) (unknown) (no (unknown) (unknown) Emergency Report (units (unknown) date) unknown) (unknown) (no (unknown) (unknown) Home Medications (units (unknown) date) unknown) (unknown) (no (unknown) (unknown) Infusion: 11/24/21 (units (unknown) date) 23:01 Dose: 0 mls/hr unknown) (unknown) (no (unknown) (unknown) [facility] (units (unknown) date) unknown) (unknown) (no (unknown) (unknown) [facility] [address] (uni ts (unknown) date) [address] [place] [address] [place], unknown ) [place] [id number] (unknown) (no (unknown) (unknown) Lab Results (units (un known) date) unknown) (unknown) (no (unknown) (unknown) Label Comments: (units (unknown) date) unknown) (unknown) (no (unknown) (unknown) Last Admin: 11/24/21 (uni ts (unknown) date) 22:56 Dose: 40 mg unknown) (unknown) (no (unknown) (unknown) Last Admin: 11/24/21 (uni ts (unknown) date) 23:09 Dose: 5 unit unknown) (unknown) (no (unknown) (unknown) Last Admin: 11/24/21 (uni ts (unknown) date) 23:15 Dose: 20 mg unknown) (unknown) (no (unknown) (unknown) Last Infusion: (units (unknown) date) 11/24/21 23:11 Dose: unknown) 0 mls/hr (unknown) (no (unknown) (unknown) Last Infusion: (units (unknown) date) 11/24/21 23:54 Dose: unknown) 0 mls/hr (unknown) (no (unknown) (unknown) Last Infusion: (units (unknown) date) 11/25/21 00:10 Dose: unknown) 0 mls/hr (unknown) (no (unknown) (unknown) Last Infusion: (units (unknown) date) 11/25/21 00:17 Dose: unknown) 150 mls/hr (unknown) (no (unknown) (unknown) PRN Reason: (units (un known) date) Hypoglycemia unknown) (unknown) (no (unknown) (unknown) Point of Care Testing (un its (unknown) date) unknown) (unknown) (no (unknown) (unknown) Rx Instructions: (units (unknown) date) unknown) (unknown) (no (unknown) (unknown) Signed (units (unkno wn) date) unknown) (unknown) (no (unknown) (unknown) Stop: 11/24/21 22:22 (uni ts (unknown) date) unknown) (unknown) (no (unknown) (unknown) Stop: 11/24/21 22:50 (uni ts (unknown) date) unknown) (unknown) (no (unknown) (unknown) Stop: 11/24/21 23:20 (uni ts (unknown) date) unknown) (unknown) (no (unknown) (unknown) Take 1 tablet by (units (unknown) date) mouth once a day unknown) (unknown) (no (unknown) (unknown) Ultrasound Report (units (unknown) date) unknown) (unknown) (no (unknown) (unknown) Vital Signs - 8 hr (units (unknown) date) unknown) (unknown) (no (unknown) (unknown) administer (units (unk nown) date) approximately 30min unknown) before sexual activity; do not use more than 1 (unknown) (no (unknown) (unknown) (no value) (units (unk nown) date) unknown) (unknown) (no (unknown) (unknown) 11/24/21 11/24/21 (units (unknown) date) 11/24/21 Range/Units unknown) (unknown) (no (unknown) (unknown) 11/24/21 11/25/21 (units (unknown) date) Range/Units unknown) (unknown) (no (unknown) (unknown) 21:40 21:40 22:32 (units (unknown) date) unknown) (unknown) (no (unknown) (unknown) 23:30 01:44 (units (un known) date) unknown) (unknown) (no (unknown) (unknown) Centrum Silver (units (unknown) date) 0.4-300-250 mg-mcg-mcg unknown ) Tablet (unknown) (no (unknown) (unknown) Fish Oil Capsule (units (unknown) date) unknown) (unknown) (no (unknown) (unknown) Prevagen 20 mg (units (unknown) date) unknown) (unknown) (no (unknown) (unknown) amlodipine 10 mg (units (unknown) date) Tablet unknown) (unknown) (no (unknown) (unknown) aspirin 81 mg Capsule (un its (unknown) date) unknown) (unknown) (no (unknown) (unknown) cholecalciferol (units (unknown) date) (vitamin D3) [Vitamin unknown) D3] 50 mcg (2,000 unit) Capsule (unknown) (no (unknown) (unknown) docusate sodium (units (unknown) date) [Colace] 100 mg unknown) Capsule (unknown) (no (unknown) (unknown) ibuprofen 800 mg (units (unknown) date) Tablet unknown) (unknown) (no (unknown) (unknown) latanoprost 0.005 % (unit s (unknown) date) Drops unknown) (unknown) (no (unknown) (unknown) lisinopril 40 mg (units (unknown) date) tablet unknown) (unknown) (no (unknown) (unknown) metoprolol tartrate (unit s (unknown) date) 25 mg Tablet unknown) (unknown) (no (unknown) (unknown) nystatin 100,000 (units (unknown) date) unit/gram Powder unknown) (unknown) (no (unknown) (unknown) potassium chloride 20 (un its (unknown) date) mEq Tablet Extended unknown) Release (unknown) (no (unknown) (unknown) rosuvastatin 40 mg (units (unknown) date) Tablet unknown) (unknown) (no (unknown) (unknown) tadalafil 10 mg (units (unknown) date) Tablet unknown) (unknown) (no (unknown) (unknown) timolol 0.5 % Drops (unit s (unknown) date) unknown) (unknown) (no (unknown) (unknown) triamterene-hydrochlo (un its (unknown) date) rothiazid 75-50 mg unknown) Tablet (unknown) (no (unknown) (unknown) 11/24/21 (units (unkno wn) date) unknown) (unknown) (no (unknown) (unknown) 11/25/21 (units (unkno wn) date) unknown) (unknown) (no (unknown) (unknown) Medication (units (unk nown) date) Instructions Recorded unknown ) Confirmed (unknown) (no (unknown) (unknown) dose per 24hrs (units (unknown) date) unknown) (unknown) (no (unknown) (unknown) rales, or rhonchi. (units (unknown) date) unknown) (unknown) (no (unknown) (unknown) (Colace) (units (unkno wn) date) unknown) (unknown) (no (unknown) (unknown) All calculations (unit s (unknown) date) should be rechecked by unknown ) clinician prior to use (unknown) (no (unknown) (unknown) [id number] (units (unkn own) date) unknown) (unknown) (no (unknown) (unknown) 00:00 (units (unkno wn) date) unknown) (unknown) (no (unknown) (unknown) 00:30 11/25/21 (units (unknown) date) unknown) (unknown) (no (unknown) (unknown) 01:00 11/25/21 (units (unknown) date) unknown) (unknown) (no (unknown) (unknown) 01:30 (units (unkno wn) date) unknown) (unknown) (no (unknown) (unknown) 02:00 11/25/21 (units (unknown) date) unknown) (unknown) (no (unknown) (unknown) 02:30 (units (unkno wn) date) unknown) (unknown) (no (unknown) (unknown) 11/24/21 21:14 (units (unknown) date) unknown) (unknown) (no (unknown) (unknown) 11/24/21 21:40 (units (unknown) date) unknown) (unknown) (no (unknown) (unknown) 11/24/21 22:21 (units (unknown) date) unknown) (unknown) (no (unknown) (unknown) 11/24/21 22:32 (units (unknown) date) unknown) (unknown) (no (unknown) (unknown) 11/24/21 23:30 (units (unknown) date) unknown) (unknown) (no (unknown) (unknown) 11/25/21 00:56 (units (unknown) date) unknown) (unknown) (no (unknown) (unknown) 11/25/21 01:44 (units (unknown) date) unknown) (unknown) (no (unknown) (unknown) 1. No evidence of (units (unknown) date) hydronephrosis. unknown) (unknown) (no (unknown) (unknown) 1.8 % (units (unkno wn) date) unknown) (unknown) (no (unknown) (unknown) 12 point review of (units (unknown) date) systems is negative unknown) except for those stated above (unknown) (no (unknown) (unknown) 2. Bilateral mild (units (unknown) date) renal cortical unknown) thinning.? (unknown) (no (unknown) (unknown) 20:03 11/24/21 (units (unknown) date) unknown) (unknown) (no (unknown) (unknown) 21:19 11/24/21 (units (unknown) date) unknown) (unknown) (no (unknown) (unknown) 21:20 (units (unkno wn) date) unknown) (unknown) (no (unknown) (unknown) 21:30 11/24/21 (units (unknown) date) unknown) (unknown) (no (unknown) (unknown) 22:00 11/24/21 (units (unknown) date) unknown) (unknown) (no (unknown) (unknown) 22:01 (units (unkno wn) date) unknown) (unknown) (no (unknown) (unknown) 22:30 11/24/21 (units (unknown) date) unknown) (unknown) (no (unknown) (unknown) 23:00 11/24/21 (units (unknown) date) unknown) (unknown) (no (unknown) (unknown) 23:04 (units (unkno wn) date) unknown) (unknown) (no (unknown) (unknown) 23:20 11/24/21 (units (unknown) date) unknown) (unknown) (no (unknown) (unknown) 23:30 11/25/21 (units (unknown) date) unknown) (unknown) (no (unknown) (unknown) 81-year-old male (units (unknown) date) Nonsmoker with history unknown ) of HTN, hyperlipidemia presents with (unknown) (no (unknown) (unknown) ? (units (unkno wn) date) unknown) (unknown) (no (unknown) (unknown) ALT (<50) IU/L (units (unknown) date) unknown) (unknown) (no (unknown) (unknown) ALT 17 (<50) (units (unknown) date) IU/L unknown) (unknown) (no (unknown) (unknown) AST (17-59) IU/L (uni ts (unknown) date) unknown) (unknown) (no (unknown) (unknown) AST 26 (17-59) (units (unknown) date) IU/L unknown) (unknown) (no (unknown) (unknown) Accession Number: (units (unknown) date) [id number] ?? unknown) (unknown) (no (unknown) (unknown) Acct:[id number] (units (unknown) date) unknown) (unknown) (no (unknown) (unknown) Age/Sex: 81 / M (units (unknown) date) unknown) (unknown) (no (unknown) (unknown) Age/Sex: 81 / M (units (unknown) date) unknown) (unknown) (no (unknown) (unknown) Albumin (3.5-5.0) (uni ts (unknown) date) g/dL unknown) (unknown) (no (unknown) (unknown) Albumin 4.6 (units ( unknown) date) (3.5-5.0) g/dL unknown) (unknown) (no (unknown) (unknown) Albumin/Globulin (units (unknown) date) Ratio (1.0-2.8) unknown) (unknown) (no (unknown) (unknown) Albumin/Globulin (units (unknown) date) Ratio 1.2 unknown) (1.0-2.8) (unknown) (no (unknown) (unknown) Albuterol (Albuterol (uni ts (unknown) date) 2.5 Mg/3 Ml Neb unknown) (Adult)) 20 mg INH NOW ONE (unknown) (no (unknown) (unknown) Alkaline Phosphatase (uni ts (unknown) date) (38-126) U/L unknown) (unknown) (no (unknown) (unknown) Alkaline Phosphatase (uni ts (unknown) date) 192 H (38-126) U/L unknown ) (unknown) (no (unknown) (unknown) Allergy/AdvReac Type (uni ts (unknown) date) Severity Reaction unknown) Status Date / Time (unknown) (no (unknown) (unknown) Approved by: Gunnar (unit s (unknown) date) Abrahan Houser M.D. on unknown) 11/25/2021 at 0:16 ? (unknown) (no (unknown) (unknown) BACK: Nontender (units (unknown) date) without deformity or unknown) crepitance. No flank tenderness. (unknown) (no (unknown) (unknown) BMP [Basic Metabolic (uni ts (unknown) date) Panel] Stat unknown) (unknown) (no (unknown) (unknown) BUN 66 H (9-20) (units (unknown) date) mg/dL unknown) (unknown) (no (unknown) (unknown) BUN 70 H (9-20) (unit s (unknown) date) mg/dL unknown) (unknown) (no (unknown) (unknown) BUN/Creatinine Ratio (uni ts (unknown) date) 27.5 H (6-22) unknown) (unknown) (no (unknown) (unknown) BUN/Creatinine Ratio (uni ts (unknown) date) 27.7 H (6-22) unknown) (unknown) (no (unknown) (unknown) Baso # (Auto) (units ( unknown) date) unknown) (unknown) (no (unknown) (unknown) Baso # (Auto) Not (units (unknown) date) Reportable unknown) (unknown) (no (unknown) (unknown) Baso % (Auto) (units ( unknown) date) unknown) (unknown) (no (unknown) (unknown) Baso % (Auto) Not (units (unknown) date) Reportable unknown) (unknown) (no (unknown) (unknown) Bladder:? Pre-void (units (unknown) date) bladder was unknown) nondistended.? Limited evaluation for (unknown) (no (unknown) (unknown) Blood Pressure (units (unknown) date) 131/58 L unknown) (unknown) (no (unknown) (unknown) Blood Pressure (units (unknown) date) 133/63 129/62 unknown) (unknown) (no (unknown) (unknown) Blood Pressure (units (unknown) date) 155/93 H 11/24/21 unknown) 20:03 (unknown) (no (unknown) (unknown) Blood Pressure 137/63 (un its (unknown) date) 161/72 H unknown) (unknown) (no (unknown) (unknown) Blood Pressure 141/61 (un its (unknown) date) H 129/60 141/63 H unknown) (unknown) (no (unknown) (unknown) Blood Pressure 155/93 (un its (unknown) date) H 156/70 H unknown) (unknown) (no (unknown) (unknown) Blood Pressure 162/70 (un its (unknown) date) H 164/76 H unknown) (unknown) (no (unknown) (unknown) CARDIOVASCULAR: (units (unknown) date) Denies chest pain, unknown) palpitations, orthopnea, edema, (unknown) (no (unknown) (unknown) CARDIOVASCULAR: (units (unknown) date) Regular rate and unknown) rhythm without murmurs, gallops, or rubs. (unknown) (no (unknown) (unknown) CK-MB (CK-2) (units (u nknown) date) unknown) (unknown) (no (unknown) (unknown) CK-MB (CK-2) TNP (units (unknown) date) unknown) (unknown) (no (unknown) (unknown) CK-MB (CK-2) Rel (units (unknown) date) Index unknown) (unknown) (no (unknown) (unknown) CK-MB (CK-2) Rel (units (unknown) date) Index TNP unknown) (unknown) (no (unknown) (unknown) COMPARISON:? None. (units (unknown) date) unknown) (unknown) (no (unknown) (unknown) COVID19 -Nasal (units (unknown) date) RAPID/Pre-Proc Stat unknown) (unknown) (no (unknown) (unknown) Calcium 10.7 H (units (unknown) date) (8.4-10.2) mg/dL unknown) (unknown) (no (unknown) (unknown) Calcium 10.9 H (units (unknown) date) (8.4-10.2) mg/dL unknown) (unknown) (no (unknown) (unknown) Calcium Gluconate 9.3 (un its (unknown) date) meq/ (Sodium Chloride) unknown ) 70 mls @ 140 mls/hr IV NOW ONE (unknown) (no (unknown) (unknown) Carbon Dioxide 13 L (un its (unknown) date) (22-32) mmol/L unknown) (unknown) (no (unknown) (unknown) Carbon Dioxide 14 L (un its (unknown) date) (22-32) mmol/L unknown) (unknown) (no (unknown) (unknown) Chief complaint: (units (unknown) date) Weakness unknown) (unknown) (no (unknown) (unknown) Chloride 111 H (units (unknown) date) (98-107) mmol/L unknown) (unknown) (no (unknown) (unknown) Chloride 112 H (units (unknown) date) (98-107) mmol/L unknown) (unknown) (no (unknown) (unknown) Complete Blood Count (uni ts (unknown) date) AUTO DIFF Stat unknown) (unknown) (no (unknown) (unknown) Comprehensive (units ( unknown) date) Metabolic Panel Stat unknown) (unknown) (no (unknown) (unknown) Consultation #1: (units (unknown) date) unknown) (unknown) (no (unknown) (unknown) Consultation #2: (units (unknown) date) unknown) (unknown) (no (unknown) (unknown) Consultations (units ( unknown) date) unknown) (unknown) (no (unknown) (unknown) Course (units (unkno wn) date) unknown) (unknown) (no (unknown) (unknown) Course Narrative: (units (unknown) date) unknown) (unknown) (no (unknown) (unknown) Creatinine 2.40 H (unit s (unknown) date) (0.66-1.25) mg/dL unknown) (unknown) (no (unknown) (unknown) Creatinine 2.53 H (unit s (unknown) date) (0.66-1.25) mg/dL unknown) (unknown) (no (unknown) (unknown) Creatinine Urine (units (unknown) date) Random Stat unknown) (unknown) (no (unknown) (unknown) D3) (units (unkno wn) date) unknown) (unknown) (no (unknown) (unknown) : 1940 (units (unknown) date) Acct:[id number] unknown) (unknown) (no (unknown) (unknown) : 1940 (units (unknown) date) unknown) (unknown) (no (unknown) (unknown) Date of Service: (units (unknown) date) 11/24/21 unknown) (unknown) (no (unknown) (unknown) Departure (units (unkn own) date) unknown) (unknown) (no (unknown) (unknown) Dextrose (D10w) 250 (uni ts (unknown) date) mls @ 999 mls/hr IV unknown) PRN PRN (unknown) (no (unknown) (unknown) Dictated by: Gunnar (unit s (unknown) date) Abrahan Houser M.D. on unknown) 11/25/2021 at 0:10 ? ? (unknown) (no (unknown) (unknown) Discharge Plan (units (unknown) date) unknown) (unknown) (no (unknown) (unknown) Discontinued (units (u nknown) date) Medications unknown) (unknown) (no (unknown) (unknown) Doppler (units (unkno wn) date) unknown) (unknown) (no (unknown) (unknown) ECG Data (units (unkno wn) date) unknown) (unknown) (no (unknown) (unknown) EKG 1 (2121): EKG is (un its (unknown) date) normal sinus rhythm unknown) rate [70 ] and free of any signs of (unknown) (no (unknown) (unknown) EKG 2 (2): EKG is (un its (unknown) date) normal sinus rhythm unknown) rate [103 ] and free of any signs of (unknown) (no (unknown) (unknown) EKG-12 Lead Stat (units (unknown) date) unknown) (unknown) (no (unknown) (unknown) ENT: Nose without (units (unknown) date) bleeding, purulent unknown) drainage. Throat without erythema, (unknown) (no (unknown) (unknown) ER Physician: (units ( unknown) date) Aroldo Bazan D.O. unknown) (unknown) (no (unknown) (unknown) EXTREMITIES: No edema (un its (unknown) date) or joint tenderness. unknown) (unknown) (no (unknown) (unknown) EYES: Pupils equal (units (unknown) date) round and reactive. unknown) Extraocular motions intact. No scleral (unknown) (no (unknown) (unknown) Eos % (Auto) (units (u nknown) date) unknown) (unknown) (no (unknown) (unknown) Eos % (Auto) Not (units (unknown) date) Reportable unknown) (unknown) (no (unknown) (unknown) Estimated GFR 25 L (uni ts (unknown) date) (>60) mL/min unknown) (unknown) (no (unknown) (unknown) Estimated GFR 26 L (uni ts (unknown) date) (>60) mL/min unknown) (unknown) (no (unknown) (unknown) Exam (units (unkno wn) date) unknown) (unknown) (no (unknown) (unknown) Exam Narrative: (units (unknown) date) unknown) (unknown) (no (unknown) (unknown) FENa (units (unkno wn) date) unknown) (unknown) (no (unknown) (unknown) FINDINGS:? (units (unk nown) date) unknown) (unknown) (no (unknown) (unknown) FeNa of 1.8% (units (u nknown) date) recommends transfer to unknown ) facility with nephrology (unknown) (no (unknown) (unknown) Fractional Excretion (uni ts (unknown) date) of Sodium (FENa) from unknown) [facility] on 11/25/2021 (unknown) (no (unknown) (unknown) Furosemide (units (unk nown) date) (Furosemide 40 Mg/4 Ml unknown ) Vial) 40 mg IV NOW ONE (unknown) (no (unknown) (unknown) GASTROINTESTINAL: (units (unknown) date) Abdomen soft, unknown) non-tender, nondistended. (unknown) (no (unknown) (unknown) GASTROINTESTINAL: (units (unknown) date) Denies nausea, unknown) vomiting, abdominal pain, diarrhea, (unknown) (no (unknown) (unknown) GENERAL: Denies (units (unknown) date) chills, fatigue, unknown) malaise, fever, sweats. (unknown) (no (unknown) (unknown) GENERAL: [81 year old (un its (unknown) date) patient appears stated unknown ) age. Well-developed patient, in (unknown) (no (unknown) (unknown) : Denies dysuria, (unit s (unknown) date) frequency, unknown) incontinence, hematuria, urinary retention. (unknown) (no (unknown) (unknown) General (units (unkno wn) date) unknown) (unknown) (no (unknown) (unknown) GenericComposite[Plt (uni ts (unknown) date) Count (150-400) unknown) X10^3/uL ] (unknown) (no (unknown) (unknown) GenericComposite[Plt (uni ts (unknown) date) Count 229 unknown) (150-400) X10^3/uL ] (unknown) (no (unknown) (unknown) GenericComposite[RBC (uni ts (unknown) date) (4.5-5.9) X10^6/uL unknown) ] (unknown) (no (unknown) (unknown) GenericComposite[RBC (uni ts (unknown) date) 4.45 L (4.5-5.9) unknown) X10^6/uL ] (unknown) (no (unknown) (unknown) GenericComposite[WBC (uni ts (unknown) date) (4.5-11.0) X10^3/uL unknown ) ] (unknown) (no (unknown) (unknown) GenericComposite[WBC (uni ts (unknown) date) 35.4 H* (4.5-11.0) unknown) X10^3/uL ] (unknown) (no (unknown) (unknown) Globulin (1.7-4.1) (un its (unknown) date) g/dL unknown) (unknown) (no (unknown) (unknown) Globulin 3.7 (units (unknown) date) (1.7-4.1) g/dL unknown) (unknown) (no (unknown) (unknown) Glucose 115 H (units (unknown) date) (80-110) mg/dL unknown) (unknown) (no (unknown) (unknown) Glucose 117 H (units (unknown) date) (80-110) mg/dL unknown) (unknown) (no (unknown) (unknown) Glucose POC 119 (units (unknown) date) unknown) (unknown) (no (unknown) (unknown) HEAD: Atraumatic. (units (unknown) date) Normocephalic. unknown) (unknown) (no (unknown) (unknown) HEENT: Denies sinus (unit s (unknown) date) pain, ear pain, sore unknown) throat, difficulty swallowing, (unknown) (no (unknown) (unknown) HPI - Weakness (units (unknown) date) unknown) (unknown) (no (unknown) (unknown) HPI Narrative: (units (unknown) date) unknown) (unknown) (no (unknown) (unknown) Hct (41-53) % (units (unknown) date) unknown) (unknown) (no (unknown) (unknown) Hct 40.7 L (units (un known) date) (41-53) % unknown) (unknown) (no (unknown) (unknown) Hgb (13.5-17.5) (units (unknown) date) g/dL unknown) (unknown) (no (unknown) (unknown) Hgb 13.0 L (units (un known) date) (13.5-17.5) g/dL unknown) (unknown) (no (unknown) (unknown) History of Present (units (unknown) date) Illness unknown) (unknown) (no (unknown) (unknown) IMPRESSION:? (units (u nknown) date) unknown) (unknown) (no (unknown) (unknown) INDICATIONS:? ACUTE (unit s (unknown) date) RENAL FAILURE unknown) (unknown) (no (unknown) (unknown) INPUTS: (units (unkno wn) date) unknown) (unknown) (no (unknown) (unknown) Imaging Data (units (u nknown) date) unknown) (unknown) (no (unknown) (unknown) Initial Vital Signs (unit s (unknown) date) unknown) (unknown) (no (unknown) (unknown) Initial Vital Signs: (uni ts (unknown) date) unknown) (unknown) (no (unknown) (unknown) Insulin Human Regular (uni ts (unknown) date) (Insulin Regular 100 unknown) Unit/Ml 3 Ml Vial) 5 unit IV NOW ONE (unknown) (no (unknown) (unknown) Interpretation: (units (unknown) date) unknown) (unknown) (no (unknown) (unknown) Intrinsic (units (unkn own) date) unknown) (unknown) (no (unknown) (unknown) Kidneys:? Right (units (unknown) date) kidney measures 11.8 unknown) cm long; left kidney measures 11.6 cm (unknown) (no (unknown) (unknown) Lab Data (units (unkno wn) date) unknown) (unknown) (no (unknown) (unknown) Labs: (units (unkno wn) date) unknown) (unknown) (no (unknown) (unknown) Lipase (23-300) (units (unknown) date) U/L unknown) (unknown) (no (unknown) (unknown) Lipase 319 H (units (unknown) date) (23-300) U/L unknown) (unknown) (no (unknown) (unknown) Lipase Stat (units (un known) date) unknown) (unknown) (no (unknown) (unknown) Loc: ED (units (unkno wn) date) unknown) (unknown) (no (unknown) (unknown) Lymph # (Auto) (units (unknown) date) unknown) (unknown) (no (unknown) (unknown) Lymph # (Auto) Not (unit s (unknown) date) Reportable unknown) (unknown) (no (unknown) (unknown) Lymph % (Auto) (units (unknown) date) unknown) (unknown) (no (unknown) (unknown) Lymph % (Auto) Not (unit s (unknown) date) Reportable unknown) (unknown) (no (unknown) (unknown) Lymphocytes % (units ( unknown) date) (Manual) (25-45) % unknown ) (unknown) (no (unknown) (unknown) Lymphocytes % (units ( unknown) date) (Manual) 76.0 H unknown) (25-45) % (unknown) (no (unknown) (unknown) MCH (26-34) PG (units (unknown) date) unknown) (unknown) (no (unknown) (unknown) MCH 29.2 (26-34) (uni ts (unknown) date) PG unknown) (unknown) (no (unknown) (unknown) MCHC (30-36) % (units (unknown) date) unknown) (unknown) (no (unknown) (unknown) MCHC 31.9 (30-36) (un its (unknown) date) % unknown) (unknown) (no (unknown) (unknown) MCV (80-100) fL (unit s (unknown) date) unknown) (unknown) (no (unknown) (unknown) MCV 91.5 (80-100) (un its (unknown) date) fL unknown) (unknown) (no (unknown) (unknown) MDM - Weakness (units (unknown) date) unknown) (unknown) (no (unknown) (unknown) MR#: [id number] (units (unknown) date) unknown) (unknown) (no (unknown) (unknown) MUSCULOSKELETAL: See (un its (unknown) date) HPI unknown) (unknown) (no (unknown) (unknown) [address] MD (units (unknown) date) [Primary Care unknown) Provider] - (unknown) (no (unknown) (unknown) Miscellaneous:? No (units (unknown) date) free pelvic fluid.? unknown) (unknown) (no (unknown) (unknown) Mode of arrival: (units (unknown) date) Wheelchair unknown) (unknown) (no (unknown) (unknown) [place] # (Auto) (units ( unknown) date) unknown) (unknown) (no (unknown) (unknown) [place] # (Auto) Not (units (unknown) date) Reportable unknown) (unknown) (no (unknown) (unknown) [place] % (Auto) (units ( unknown) date) unknown) (unknown) (no (unknown) (unknown) [place] % (Auto) Not (units (unknown) date) Reportable unknown) (unknown) (no (unknown) (unknown) Monocytes % (Manual) (uni ts (unknown) date) (2-11) % unknown) (unknown) (no (unknown) (unknown) Monocytes % (Manual) (uni ts (unknown) date) 3.0 (2-11) % unknown) (unknown) (no (unknown) (unknown) NECK: Trachea (units ( unknown) date) midline. Non tender unknown) (unknown) (no (unknown) (unknown) NEURO: AOx3. (units (u nknown) date) unknown) (unknown) (no (unknown) (unknown) NEUROLOGIC: Denies (units (unknown) date) weakness, headache, unknown) numbness, change in speech, confusion, (unknown) (no (unknown) (unknown) Narrative (units (unkn own) date) unknown) (unknown) (no (unknown) (unknown) Narrative: (units (unk nown) date) unknown) (unknown) (no (unknown) (unknown) Neut % (Auto) (units ( unknown) date) unknown) (unknown) (no (unknown) (unknown) Neut % (Auto) Not (units (unknown) date) Reportable unknown) (unknown) (no (unknown) (unknown) Neutrophils # (units ( unknown) date) (Manual) unknown) ([phone]) /uL (unknown) (no (unknown) (unknown) Neutrophils # (units ( unknown) date) (Manual) 7434 H unknown) ([id number]) /uL (unknown) (no (unknown) (unknown) No Action (units (unkn own) date) unknown) (unknown) (no (unknown) (unknown) Ordered: (units (unkno wn) date) unknown) (unknown) (no (unknown) (unknown) Ordering Provider: (units (unknown) date) Aroldo Bazan D.O. unknown) (unknown) (no (unknown) (unknown) Orders (units (unkno wn) date) unknown) (unknown) (no (unknown) (unknown) PROCEDURE:? US RENAL (uni ts (unknown) date) COMPLETE unknown) (unknown) (no (unknown) (unknown) PSYCHIATRIC: No (units (unknown) date) concerning unknown) psychosocial issues. (unknown) (no (unknown) (unknown) Patient History (units (unknown) date) unknown) (unknown) (no (unknown) (unknown) Patient: (units (unkno wn) date) Raven Sutherland unknown) MR#: M (unknown) (no (unknown) (unknown) Patient: (units (unkno wn) date) Raven Sutherland unknown) (unknown) (no (unknown) (unknown) Potassium 7.7 H* (units (unknown) date) (3.4-5.1) mmol/L unknown) (unknown) (no (unknown) (unknown) Potassium 8.6 H* (units (unknown) date) (3.4-5.1) mmol/L unknown) (unknown) (no (unknown) (unknown) Prescriptions: (units (unknown) date) unknown) (unknown) (no (unknown) (unknown) Prevagen 20 mg PO (units (unknown) date) DAILY 11/25/21 unknown) (unknown) (no (unknown) (unknown) Procedure: US renal (unit s (unknown) date) complete unknown) (unknown) (no (unknown) (unknown) Pulse Oximetry 100 (unit s (unknown) date) 97 unknown) (unknown) (no (unknown) (unknown) Pulse Oximetry 94 (units (unknown) date) 11/24/21 20:03 unknown) (unknown) (no (unknown) (unknown) Pulse Oximetry 97 97 (un its (unknown) date) unknown) (unknown) (no (unknown) (unknown) Pulse Oximetry 94 89 (uni ts (unknown) date) L 96 unknown) (unknown) (no (unknown) (unknown) Pulse Oximetry 95 96 (uni ts (unknown) date) unknown) (unknown) (no (unknown) (unknown) Pulse Oximetry 96 96 (un its (unknown) date) unknown) (unknown) (no (unknown) (unknown) Pulse Oximetry 96 97 (uni ts (unknown) date) 97 unknown) (unknown) (no (unknown) (unknown) Pulse Rate 87 (units (unknown) date) 11/24/21 20:03 unknown) (unknown) (no (unknown) (unknown) Pulse Rate 102 H 99 H (un its (unknown) date) 97 H unknown) (unknown) (no (unknown) (unknown) Pulse Rate 72 78 79 (unit s (unknown) date) unknown) (unknown) (no (unknown) (unknown) Pulse Rate 72 80 81 (unit s (unknown) date) unknown) (unknown) (no (unknown) (unknown) Pulse Rate 79 91 H (units (unknown) date) 104 H unknown) (unknown) (no (unknown) (unknown) Pulse Rate 87 76 77 (unit s (unknown) date) unknown) (unknown) (no (unknown) (unknown) Pulse Rate 99 H 100 H (un its (unknown) date) unknown) (unknown) (no (unknown) (unknown) RBC Morphology (units (unknown) date) unknown) (unknown) (no (unknown) (unknown) RBC Morphology (units (unknown) date) Normal morphology unknown) (unknown) (no (unknown) (unknown) RDW (11.6-14.8) % (un its (unknown) date) unknown) (unknown) (no (unknown) (unknown) RDW 14.1 (units (unkn own) date) (11.6-14.8) % unknown) (unknown) (no (unknown) (unknown) RESPIRATORY: Clear to (uni ts (unknown) date) auscultation. Breath unknown) sounds equal bilaterally. No wheezes, (unknown) (no (unknown) (unknown) RESPIRATORY: Denies (unit s (unknown) date) dyspnea, cough, unknown) wheezing, hemoptysis, sputum. (unknown) (no (unknown) (unknown) RESULT SUMMARY: (units (unknown) date) unknown) (unknown) (no (unknown) (unknown) Real-time scanning (units (unknown) date) was performed of the unknown) kidneys and bladder, with image (unknown) (no (unknown) (unknown) Referrals: (units (unk nown) date) unknown) (unknown) (no (unknown) (unknown) Related Data (units (u nknown) date) unknown) (unknown) (no (unknown) (unknown) Renal (units (unkno wn) date) unknown) (unknown) (no (unknown) (unknown) Renal US: (units (unk nown) date) unknown) (unknown) (no (unknown) (unknown) Respiratory Rate (units (unknown) date) unknown) (unknown) (no (unknown) (unknown) Respiratory Rate 15 (uni ts (unknown) date) 11/24/21 20:03 unknown) (unknown) (no (unknown) (unknown) Respiratory Rate 23 (uni ts (unknown) date) 25 H unknown) (unknown) (no (unknown) (unknown) Respiratory Rate 12 (unit s (unknown) date) 16 unknown) (unknown) (no (unknown) (unknown) Respiratory Rate 15 (unit s (unknown) date) 25 H 18 unknown) (unknown) (no (unknown) (unknown) Respiratory Rate 18 (unit s (unknown) date) 21 19 unknown) (unknown) (no (unknown) (unknown) Respiratory Rate 25 H (un its (unknown) date) 11 L 22 unknown) (unknown) (no (unknown) (unknown) Result diagrams: (units (unknown) date) unknown) (unknown) (no (unknown) (unknown) Review of Systems (units (unknown) date) unknown) (unknown) (no (unknown) (unknown) SARS-CoV-2 (PCR) (units (unknown) date) (Negative) unknown) (unknown) (no (unknown) (unknown) SARS-CoV-2 (PCR) (units (unknown) date) Negative (Negative) unknown) (unknown) (no (unknown) (unknown) SKIN: Denies rash, (units (unknown) date) skin lesions, or other unknown ) (unknown) (no (unknown) (unknown) SKIN: No rash or (units (unknown) date) erythema of visible unknown) areas (unknown) (no (unknown) (unknown) Seg Neutrophils % (units (unknown) date) (38-70) % unknown) (unknown) (no (unknown) (unknown) Seg Neutrophils % (units (unknown) date) 21.0 L (38-70) % unknown) (unknown) (no (unknown) (unknown) Serum creatinine ?> (unit s (unknown) date) 2.53 mg/dL unknown) (unknown) (no (unknown) (unknown) Serum sodium ?> 134 (unit s (unknown) date) mEq/L unknown) (unknown) (no (unknown) (unknown) Signed By: (units (unk nown) date) unknown) (unknown) (no (unknown) (unknown) Smoking Status: (units (unknown) date) Never smoker unknown) (unknown) (no (unknown) (unknown) Smoking Status: Never (un its (unknown) date) smoker unknown) (unknown) (no (unknown) (unknown) Smudge Cells (units (u nknown) date) unknown) (unknown) (no (unknown) (unknown) Smudge Cells 1+ H (units (unknown) date) unknown) (unknown) (no (unknown) (unknown) Social History (units (unknown) date) (Reviewed 11/25/21 @ unknown) 01:28 by Aroldo Bazan DO) (unknown) (no (unknown) (unknown) Sodium 134 L (units (unknown) date) (137-145) mmol/L unknown) (unknown) (no (unknown) (unknown) Sodium 136 L (units (unknown) date) (137-145) mmol/L unknown) (unknown) (no (unknown) (unknown) Sodium Chloride (units (unknown) date) (Normal Saline 0.9%) unknown) 1,000 mls @ 1,000 mls/hr IV BOLUS ONE (unknown) (no (unknown) (unknown) Sodium Chloride (units (unknown) date) (Normal Saline 0.9%) unknown) 1,000 mls @ 150 mls/hr IV CONT DEE (unknown) (no (unknown) (unknown) Sodium Urine Random (unit s (unknown) date) Stat unknown) (unknown) (no (unknown) (unknown) Source: patient (units (unknown) date) unknown) (unknown) (no (unknown) (unknown) Stated complaint: (units (unknown) date) Worsening Weakness x3 unknown) days (unknown) (no (unknown) (unknown) Substance Use Type: (unit s (unknown) date) does not use unknown) (unknown) (no (unknown) (unknown) TECHNIQUE:? (units (un known) date) unknown) (unknown) (no (unknown) (unknown) Temperature (units (un known) date) unknown) (unknown) (no (unknown) (unknown) Temperature (units (un known) date) unknown) (unknown) (no (unknown) (unknown) Temperature 98.4 F (unit s (unknown) date) 11/24/21 20:03 unknown) (unknown) (no (unknown) (unknown) Temperature 98.4 F (units (unknown) date) unknown) (unknown) (no (unknown) (unknown) Time Seen by (units (u nknown) date) Provider: 11/24/21 unknown) 21:14 (unknown) (no (unknown) (unknown) Total Bilirubin (units (unknown) date) (0.2-1.3) mg/dL unknown) (unknown) (no (unknown) (unknown) Total Bilirubin 0.6 (un its (unknown) date) (0.2-1.3) mg/dL unknown) (unknown) (no (unknown) (unknown) Total Counted (units ( unknown) date) unknown) (unknown) (no (unknown) (unknown) Total Counted 100 (units (unknown) date) unknown) (unknown) (no (unknown) (unknown) Total Creatine Kinase (un its (unknown) date) (55-170) U/L unknown) (unknown) (no (unknown) (unknown) Total Creatine Kinase (un its (unknown) date) 53 L (55-170) U/L unknown ) (unknown) (no (unknown) (unknown) Total Protein (units ( unknown) date) (6.3-8.2) g/dL unknown) (unknown) (no (unknown) (unknown) Total Protein 8.3 H (un its (unknown) date) (6.3-8.2) g/dL unknown) (unknown) (no (unknown) (unknown) Troponin + CK Cardiac (un its (unknown) date) Panel Stat unknown) (unknown) (no (unknown) (unknown) Troponin I (units (unk nown) date) (0.01-0.034) ng/mL unknown) (unknown) (no (unknown) (unknown) Troponin I 0.016 (units (unknown) date) (0.01-0.034) ng/mL unknown) (unknown) (no (unknown) (unknown) US renal complete (units (unknown) date) Stat unknown) (unknown) (no (unknown) (unknown) Ur Random Sodium (units (unknown) date) (30-90) mmol/L unknown) (unknown) (no (unknown) (unknown) Ur Random Sodium 104 (un its (unknown) date) H (30-90) mmol/L unknown) (unknown) (no (unknown) (unknown) Urine Creatinine (units (unknown) date) mg/dL unknown) (unknown) (no (unknown) (unknown) Urine Creatinine (units (unknown) date) 108.6 mg/dL unknown) (unknown) (no (unknown) (unknown) Urine creatinine ?> (unit s (unknown) date) 108.6 mg/dL unknown) (unknown) (no (unknown) (unknown) Urine sodium ?> 104 (unit s (unknown) date) mEq/L unknown) (unknown) (no (unknown) (unknown) Vital Signs (units (un known) date) unknown) (unknown) (no (unknown) (unknown) Vital signs: (units (u nknown) date) unknown) (unknown) (no (unknown) (unknown) XR chest 1V Stat (units (unknown) date) unknown) (unknown) (no (unknown) (unknown) [Embedded Image Not (unit s (unknown) date) Available] unknown) (unknown) (no (unknown) (unknown) ago and failed 2 (units (unknown) date) months ago. He does unknown) not suffer urinary retention but instead (unknown) (no (unknown) (unknown) alcohol intake (units (unknown) date) frequency: unknown) holidays/special occasions only (unknown) (no (unknown) (unknown) amlodipine 10 mg (units (unknown) date) tablet 10 mg PO DAILY unknown) 11/25/21 11/25/21 (unknown) (no (unknown) (unknown) aspirin 81 mg capsule (un its (unknown) date) 81 mg PO DAILY unknown) 11/25/21 11/25/21 (unknown) (no (unknown) (unknown) been managed by (units (unknown) date) urology at [place]. unknown) It was placed originally about 5 years (unknown) (no (unknown) (unknown) call to Dr. Newberry (units (unknown) date) (Nephrology at unknown) [place]) (unknown) (no (unknown) (unknown) call to hospitalist (unit s (unknown) date) upon receipt of repeat unknown ) labs, given minimal improvement and (unknown) (no (unknown) (unknown) cases due (units (unkn own) date) unknown) (unknown) (no (unknown) (unknown) cholecalciferol (units (unknown) date) (vitamin D3) 50 50 mcg unknown ) PO DAILY 11/25/21 11/25/21 (unknown) (no (unknown) (unknown) constantly leaks (units (unknown) date) urine. He was scoped unknown) by his urologist about 10 days ago and (unknown) (no (unknown) (unknown) constipation, melena. (un its (unknown) date) unknown) (unknown) (no (unknown) (unknown) cortical echotexture (uni ts (unknown) date) appears grossly within unknown ) normal limits.? No hydronephrosis.? (unknown) (no (unknown) (unknown) dizziness. (units (unk nown) date) unknown) (unknown) (no (unknown) (unknown) documentation.? (units (unknown) date) unknown) (unknown) (no (unknown) (unknown) docusate sodium 100 (unit s (unknown) date) mg capsule 100 mg PO unknown) BID 11/25/21 11/25/21 (unknown) (no (unknown) (unknown) e.g. ATN, AIN, (units (unknown) date) glomerulonephritides unknown) (unknown) (no (unknown) (unknown) generalized weakness (uni ts (unknown) date) gradually worsening unknown) over the past few months. He states (unknown) (no (unknown) (unknown) generally, and on the (un its (unknown) date) whole, and very unknown) nonspecifically he feels weak. Patient (unknown) (no (unknown) (unknown) ibuprofen 800 mg (units (unknown) date) tablet 800 mg PO Q8H unknown) PRN 11/25/21 11/25/21 (unknown) (no (unknown) (unknown) icterus. No injection (un its (unknown) date) or drainage. unknown) (unknown) (no (unknown) (unknown) interrogation.? (Of (unit s (unknown) date) note, ureteral jets unknown) may not be detectable in up to 25% of (unknown) (no (unknown) (unknown) intraluminal masses (unit s (unknown) date) unknown) (unknown) (no (unknown) (unknown) inversions. OK 126. (unit s (unknown) date) QRS 140. T waves unknown) improved. (unknown) (no (unknown) (unknown) inversions. OK 152. (unit s (unknown) date) QRS 164. T waves unknown) peaked (unknown) (no (unknown) (unknown) ischemia or ectopy. (unit s (unknown) date) No ST segmental unknown) elevation or depression. No T wave (unknown) (no (unknown) (unknown) latanoprost 0.005 % (unit s (unknown) date) eye drops 1 drp unknown) OPHTHALMIC (EYE) DAILY 11/25/21 11/25/21 (unknown) (no (unknown) (unknown) lisinopril 40 mg (units (unknown) date) tablet 40 mg PO DAILY unknown) 11/25/21 11/25/21 (unknown) (no (unknown) (unknown) long.? Right (units (u nknown) date) unknown) (unknown) (no (unknown) (unknown) mcg (2,000 unit) (units (unknown) date) capsule (Vitamin unknown) (unknown) (no (unknown) (unknown) medications or diet. (uni ts (unknown) date) He denies any unknown) headache, blurred vision or trouble with (unknown) (no (unknown) (unknown) metoprolol tartrate (unit s (unknown) date) 25 mg tablet 25 mg PO unknown) BID 11/25/21 11/25/21 (unknown) (no (unknown) (unknown) mg-hydrochlorothiazid (un its (unknown) date) e 50 mg tablet unknown) (unknown) (no (unknown) (unknown) mg-lycopene 300 (units (unknown) date) mcg-lutein 250 mcg unknown) (unknown) (no (unknown) (unknown) mild distress. (units (unknown) date) unknown) (unknown) (no (unknown) (unknown) ooeoxpfr-ejc-aglhm (units (unknown) date) acid 0.4 1 tab PO unknown) DAILY 11/25/21 11/25/21 (unknown) (no (unknown) (unknown) myacin family Allergy (un its (unknown) date) Blister Uncoded unknown) 11/24/21 20:03 (unknown) (no (unknown) (unknown) nystatin 100,000 (units (unknown) date) unit/gram topical 1 unknown) applic TOPICAL BID 11/25/21 11/25/21 (unknown) (no (unknown) (unknown) omega-3 fatty acids (unit s (unknown) date) 1,000 mg PO DAILY unknown) 11/25/21 11/25/21 (unknown) (no (unknown) (unknown) or stones.? On (units (unknown) date) pre-void images, unknown) neither ureteral jets are noted with color (unknown) (no (unknown) (unknown) potassium chloride 20 (un its (unknown) date) mEq 20 meq PO BID unknown) 11/25/21 11/25/21 (unknown) (no (unknown) (unknown) powder (units (unkno wn) date) unknown) (unknown) (no (unknown) (unknown) primary care provider (un its (unknown) date) early in the week. He unknown ) denies any change in his (unknown) (no (unknown) (unknown) problems such as (units (unknown) date) unilateral numbness, unknown) tingling or weakness. He states that (unknown) (no (unknown) (unknown) renal cortical (units (unknown) date) thickness is 1.5 cm; unknown) left renal cortical thickness is 1.5 cm.? (unknown) (no (unknown) (unknown) revision in December (units (unknown) date) unknown) (unknown) (no (unknown) (unknown) rosuvastatin 40 mg (units (unknown) date) tablet 40 mg PO DAILY unknown) 11/25/21 11/25/21 (unknown) (no (unknown) (unknown) seizures, (units (unkn own) date) incoordination. unknown) (unknown) (no (unknown) (unknown) some time, and he met (uni ts (unknown) date) with his orthopedist unknown) today and has an appointment with his (unknown) (no (unknown) (unknown) speech. He denies (units (unknown) date) any chest pain or unknown) shortness of breath. 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 He is scheduled for a (unknown) (no (unknown) (unknown) timolol 0.5 % eye (units (unknown) date) drops 1 drp OPHTHALMIC unknown ) (EYE) DAILY 11/25/21 11/25/21 (unknown) (no (unknown) (unknown) to insufficient (units (unknown) date) differences in unknown) specific gravity between ureteral and bladder (unknown) (no (unknown) (unknown) tonsillar hypertrophy (un its (unknown) date) or exudate. Airway unknown) patent. (unknown) (no (unknown) (unknown) triamterene 75 1 tab (uni ts (unknown) date) PO QAM 11/25/21 unknown) 11/25/21 (unknown) (no (unknown) (unknown) urine).? (units (unkno wn) date) unknown) Result panel 18 (unknown) (no (unknown) (unknown) (no value) (units (unk nown) date) unknown) (unknown) (no (unknown) (unknown) Radiologist (units (un known) date) Impression: unknown) (unknown) (no (unknown) (unknown) (no value) (units (unk nown) date) unknown) (unknown) (no (unknown) (unknown) Date of Service: (units (unknown) date) 11/24/21 unknown) (unknown) (no (unknown) (unknown) (no value) (units (unk nown) date) unknown) (unknown) (no (unknown) (unknown) 11/24/21 21:40 (units (unknown) date) unknown) (unknown) (no (unknown) (unknown) 11/25/21 01:44 (units (unknown) date) unknown) (unknown) (no (unknown) (unknown) 1 applic TOPICAL BID (uni ts (unknown) date) 0RF unknown) (unknown) (no (unknown) (unknown) 1 drp OPHTHALMIC (units (unknown) date) (EYE) DAILY 0RF unknown) (unknown) (no (unknown) (unknown) 1 tab PO DAILY 0RF (units (unknown) date) unknown) (unknown) (no (unknown) (unknown) 1 tab PO QAM 0RF (units (unknown) date) unknown) (unknown) (no (unknown) (unknown) 1,000 mg PO DAILY 0RF (un its (unknown) date) unknown) (unknown) (no (unknown) (unknown) 10 mg PO DAILY 0RF (units (unknown) date) unknown) (unknown) (no (unknown) (unknown) 10 mg PO DAILY PRN (units (unknown) date) (Reason: intercourse) unknown) 0RF (unknown) (no (unknown) (unknown) 100 mg PO BID 0RF (units (unknown) date) unknown) (unknown) (no (unknown) (unknown) [address] [place] [address] (units (unknown) date) unknown) (unknown) (no (unknown) (unknown) 20 meq PO BID 0RF (units (unknown) date) unknown) (unknown) (no (unknown) (unknown) 20 mg PO DAILY 0RF (units (unknown) date) unknown) (unknown) (no (unknown) (unknown) 25 mg PO BID 0RF (units (unknown) date) unknown) (unknown) (no (unknown) (unknown) 40 mg PO DAILY 0RF (units (unknown) date) unknown) (unknown) (no (unknown) (unknown) 50 mcg PO DAILY 0RF (unit s (unknown) date) unknown) (unknown) (no (unknown) (unknown) 800 mg PO Q8H PRN (units (unknown) date) (Reason: Pain, unknown) Moderate) 0RF (unknown) (no (unknown) (unknown) 81 mg PO DAILY 0RF (units (unknown) date) unknown) (unknown) (no (unknown) (unknown) Admin: 11/24/21 22:08 (un its (unknown) date) Dose: 150 mls/hr unknown) (unknown) (no (unknown) (unknown) Admin: 11/24/21 22:52 (un its (unknown) date) Dose: 250 mls/hr unknown) (unknown) (no (unknown) (unknown) Admin: 11/24/21 23:01 (un its (unknown) date) Dose: 1,000 mls/hr unknown) (unknown) (no (unknown) (unknown) Admin: 11/24/21 23:16 (un its (unknown) date) Dose: 140 mls/hr unknown) (unknown) (no (unknown) (unknown) Allergies (units (unkn own) date) unknown) (unknown) (no (unknown) (unknown) [place], [place] [id number] (unit s (unknown) date) unknown) (unknown) (no (unknown) (unknown) Documented by: (units (unknown) date) ATAYLOR Cosigned by: unknown ) FREDIS (unknown) (no (unknown) (unknown) Documented by: (units (unknown) date) ATAYLOR unknown) (unknown) (no (unknown) (unknown) Documented by: (units (unknown) date) SBTIFFANY unknown) (unknown) (no (unknown) (unknown) ED Orders (units (unkn own) date) unknown) (unknown) (no (unknown) (unknown) Emergency Report (units (unknown) date) unknown) (unknown) (no (unknown) (unknown) Home Medications (units (unknown) date) unknown) (unknown) (no (unknown) (unknown) Infusion: 11/24/21 (units (unknown) date) 23:01 Dose: 0 mls/hr unknown) (unknown) (no (unknown) (unknown) Formerly [facility] (units (unknown) date) unknown) (unknown) (no (unknown) (unknown) Formerly [facility] [address] (uni ts (unknown) date) [address] [place] [address] [place], unknown ) [place] [id number] (unknown) (no (unknown) (unknown) Lab Results (units (un known) date) unknown) (unknown) (no (unknown) (unknown) Label Comments: (units (unknown) date) unknown) (unknown) (no (unknown) (unknown) Last Admin: 11/24/21 (uni ts (unknown) date) 22:56 Dose: 40 mg unknown) (unknown) (no (unknown) (unknown) Last Admin: 11/24/21 (uni ts (unknown) date) 23:09 Dose: 5 unit unknown) (unknown) (no (unknown) (unknown) Last Admin: 11/24/21 (uni ts (unknown) date) 23:15 Dose: 20 mg unknown) (unknown) (no (unknown) (unknown) Last Infusion: (units (unknown) date) 11/24/21 23:11 Dose: unknown) 0 mls/hr (unknown) (no (unknown) (unknown) Last Infusion: (units (unknown) date) 11/24/21 23:54 Dose: unknown) 0 mls/hr (unknown) (no (unknown) (unknown) Last Infusion: (units (unknown) date) 11/25/21 00:10 Dose: unknown) 0 mls/hr (unknown) (no (unknown) (unknown) Last Infusion: (units (unknown) date) 11/25/21 00:17 Dose: unknown) 150 mls/hr (unknown) (no (unknown) (unknown) PRN Reason: (units (un known) date) Hypoglycemia unknown) (unknown) (no (unknown) (unknown) Point of Care Testing (un its (unknown) date) unknown) (unknown) (no (unknown) (unknown) Rx Instructions: (units (unknown) date) unknown) (unknown) (no (unknown) (unknown) Signed (units (unkno wn) date) unknown) (unknown) (no (unknown) (unknown) Stop: 11/24/21 22:22 (uni ts (unknown) date) unknown) (unknown) (no (unknown) (unknown) Stop: 11/24/21 22:50 (uni ts (unknown) date) unknown) (unknown) (no (unknown) (unknown) Stop: 11/24/21 23:20 (uni ts (unknown) date) unknown) (unknown) (no (unknown) (unknown) Take 1 tablet by (units (unknown) date) mouth once a day unknown) (unknown) (no (unknown) (unknown) Ultrasound Report (units (unknown) date) unknown) (unknown) (no (unknown) (unknown) Vital Signs - 8 hr (units (unknown) date) unknown) (unknown) (no (unknown) (unknown) administer (units (unk nown) date) approximately 30min unknown) before sexual activity; do not use more than 1 (unknown) (no (unknown) (unknown) (no value) (units (unk nown) date) unknown) (unknown) (no (unknown) (unknown) 11/24/21 11/24/21 (units (unknown) date) 11/24/21 Range/Units unknown) (unknown) (no (unknown) (unknown) 11/24/21 11/25/21 (units (unknown) date) Range/Units unknown) (unknown) (no (unknown) (unknown) 21:40 21:40 22:32 (units (unknown) date) unknown) (unknown) (no (unknown) (unknown) 23:30 01:44 (units (un known) date) unknown) (unknown) (no (unknown) (unknown) Centrum Silver (units (unknown) date) 0.4-300-250 mg-mcg-mcg unknown ) Tablet (unknown) (no (unknown) (unknown) Fish Oil Capsule (units (unknown) date) unknown) (unknown) (no (unknown) (unknown) Prevagen 20 mg (units (unknown) date) unknown) (unknown) (no (unknown) (unknown) amlodipine 10 mg (units (unknown) date) Tablet unknown) (unknown) (no (unknown) (unknown) aspirin 81 mg Capsule (un its (unknown) date) unknown) (unknown) (no (unknown) (unknown) cholecalciferol (units (unknown) date) (vitamin D3) [Vitamin unknown) D3] 50 mcg (2,000 unit) Capsule (unknown) (no (unknown) (unknown) docusate sodium (units (unknown) date) [Colace] 100 mg unknown) Capsule (unknown) (no (unknown) (unknown) ibuprofen 800 mg (units (unknown) date) Tablet unknown) (unknown) (no (unknown) (unknown) latanoprost 0.005 % (unit s (unknown) date) Drops unknown) (unknown) (no (unknown) (unknown) lisinopril 40 mg (units (unknown) date) tablet unknown) (unknown) (no (unknown) (unknown) metoprolol tartrate (unit s (unknown) date) 25 mg Tablet unknown) (unknown) (no (unknown) (unknown) nystatin 100,000 (units (unknown) date) unit/gram Powder unknown) (unknown) (no (unknown) (unknown) potassium chloride 20 (un its (unknown) date) mEq Tablet Extended unknown) Release (unknown) (no (unknown) (unknown) rosuvastatin 40 mg (units (unknown) date) Tablet unknown) (unknown) (no (unknown) (unknown) tadalafil 10 mg (units (unknown) date) Tablet unknown) (unknown) (no (unknown) (unknown) timolol 0.5 % Drops (unit s (unknown) date) unknown) (unknown) (no (unknown) (unknown) triamterene-hydrochlo (un its (unknown) date) rothiazid 75-50 mg unknown) Tablet (unknown) (no (unknown) (unknown) 11/24/21 (units (unkno wn) date) unknown) (unknown) (no (unknown) (unknown) 11/25/21 (units (unkno wn) date) unknown) (unknown) (no (unknown) (unknown) Medication (units (unk nown) date) Instructions Recorded unknown ) Confirmed (unknown) (no (unknown) (unknown) dose per 24hrs (units (unknown) date) unknown) (unknown) (no (unknown) (unknown) rales, or rhonchi. (units (unknown) date) unknown) (unknown) (no (unknown) (unknown) (Colace) (units (unkno wn) date) unknown) (unknown) (no (unknown) (unknown) All calculations (unit s (unknown) date) should be rechecked by unknown ) clinician prior to use (unknown) (no (unknown) (unknown) [phone] (units (unkn own) date) unknown) (unknown) (no (unknown) (unknown) 00:00 (units (unkno wn) date) unknown) (unknown) (no (unknown) (unknown) 00:30 11/25/21 (units (unknown) date) unknown) (unknown) (no (unknown) (unknown) 01:00 11/25/21 (units (unknown) date) unknown) (unknown) (no (unknown) (unknown) 01:30 (units (unkno wn) date) unknown) (unknown) (no (unknown) (unknown) 02:00 11/25/21 (units (unknown) date) unknown) (unknown) (no (unknown) (unknown) 02:30 (units (unkno wn) date) unknown) (unknown) (no (unknown) (unknown) 11/24/21 21:14 (units (unknown) date) unknown) (unknown) (no (unknown) (unknown) 11/24/21 21:40 (units (unknown) date) unknown) (unknown) (no (unknown) (unknown) 11/24/21 22:21 (units (unknown) date) unknown) (unknown) (no (unknown) (unknown) 11/24/21 22:32 (units (unknown) date) unknown) (unknown) (no (unknown) (unknown) 11/24/21 23:30 (units (unknown) date) unknown) (unknown) (no (unknown) (unknown) 11/25/21 00:56 (units (unknown) date) unknown) (unknown) (no (unknown) (unknown) 11/25/21 01:44 (units (unknown) date) unknown) (unknown) (no (unknown) (unknown) 1. No evidence of (units (unknown) date) hydronephrosis. unknown) (unknown) (no (unknown) (unknown) 1.8 % (units (unkno wn) date) unknown) (unknown) (no (unknown) (unknown) 12 point review of (units (unknown) date) systems is negative unknown) except for those stated above (unknown) (no (unknown) (unknown) 2. Bilateral mild (units (unknown) date) renal cortical unknown) thinning.? (unknown) (no (unknown) (unknown) 20:03 11/24/21 (units (unknown) date) unknown) (unknown) (no (unknown) (unknown) 21:19 11/24/21 (units (unknown) date) unknown) (unknown) (no (unknown) (unknown) 21:20 (units (unkno wn) date) unknown) (unknown) (no (unknown) (unknown) 21:30 11/24/21 (units (unknown) date) unknown) (unknown) (no (unknown) (unknown) 22:00 11/24/21 (units (unknown) date) unknown) (unknown) (no (unknown) (unknown) 22:01 (units (unkno wn) date) unknown) (unknown) (no (unknown) (unknown) 22:30 11/24/21 (units (unknown) date) unknown) (unknown) (no (unknown) (unknown) 23:00 11/24/21 (units (unknown) date) unknown) (unknown) (no (unknown) (unknown) 23:04 (units (unkno wn) date) unknown) (unknown) (no (unknown) (unknown) 23:20 11/24/21 (units (unknown) date) unknown) (unknown) (no (unknown) (unknown) 23:30 11/25/21 (units (unknown) date) unknown) (unknown) (no (unknown) (unknown) 81-year-old male (units (unknown) date) Nonsmoker with history unknown ) of HTN, hyperlipidemia presents with (unknown) (no (unknown) (unknown) ? (units (unkno wn) date) unknown) (unknown) (no (unknown) (unknown) ALT (<50) IU/L (units (unknown) date) unknown) (unknown) (no (unknown) (unknown) ALT 17 (<50) (units (unknown) date) IU/L unknown) (unknown) (no (unknown) (unknown) AST (17-59) IU/L (uni ts (unknown) date) unknown) (unknown) (no (unknown) (unknown) AST 26 (17-59) (units (unknown) date) IU/L unknown) (unknown) (no (unknown) (unknown) Accession Number: (units (unknown) date) [id number] ?? unknown) (unknown) (no (unknown) (unknown) Acct:[id number] (units (unknown) date) unknown) (unknown) (no (unknown) (unknown) Age/Sex: 81 / M (units (unknown) date) unknown) (unknown) (no (unknown) (unknown) Age/Sex: 81 / M (units (unknown) date) unknown) (unknown) (no (unknown) (unknown) Albumin (3.5-5.0) (uni ts (unknown) date) g/dL unknown) (unknown) (no (unknown) (unknown) Albumin 4.6 (units ( unknown) date) (3.5-5.0) g/dL unknown) (unknown) (no (unknown) (unknown) Albumin/Globulin (units (unknown) date) Ratio (1.0-2.8) unknown) (unknown) (no (unknown) (unknown) Albumin/Globulin (units (unknown) date) Ratio 1.2 unknown) (1.0-2.8) (unknown) (no (unknown) (unknown) Albuterol (Albuterol (uni ts (unknown) date) 2.5 Mg/3 Ml Neb unknown) (Adult)) 20 mg INH NOW ONE (unknown) (no (unknown) (unknown) Alkaline Phosphatase (uni ts (unknown) date) (38-126) U/L unknown) (unknown) (no (unknown) (unknown) Alkaline Phosphatase (uni ts (unknown) date) 192 H (38-126) U/L unknown ) (unknown) (no (unknown) (unknown) Allergy/AdvReac Type (uni ts (unknown) date) Severity Reaction unknown) Status Date / Time (unknown) (no (unknown) (unknown) Approved by: Gunnar (unit s (unknown) date) Abrahan Houser M.D. on unknown) 11/25/2021 at 0:16 ? (unknown) (no (unknown) (unknown) BACK: Nontender (units (unknown) date) without deformity or unknown) crepitance. No flank tenderness. (unknown) (no (unknown) (unknown) BMP [Basic Metabolic (uni ts (unknown) date) Panel] Stat unknown) (unknown) (no (unknown) (unknown) BUN 66 H (9-20) (units (unknown) date) mg/dL unknown) (unknown) (no (unknown) (unknown) BUN 70 H (9-20) (unit s (unknown) date) mg/dL unknown) (unknown) (no (unknown) (unknown) BUN/Creatinine Ratio (uni ts (unknown) date) 27.5 H (6-22) unknown) (unknown) (no (unknown) (unknown) BUN/Creatinine Ratio (uni ts (unknown) date) 27.7 H (6-22) unknown) (unknown) (no (unknown) (unknown) Baso # (Auto) (units ( unknown) date) unknown) (unknown) (no (unknown) (unknown) Baso # (Auto) Not (units (unknown) date) Reportable unknown) (unknown) (no (unknown) (unknown) Baso % (Auto) (units ( unknown) date) unknown) (unknown) (no (unknown) (unknown) Baso % (Auto) Not (units (unknown) date) Reportable unknown) (unknown) (no (unknown) (unknown) Bladder:? Pre-void (units (unknown) date) bladder was unknown) nondistended.? Limited evaluation for (unknown) (no (unknown) (unknown) Blood Pressure (units (unknown) date) 131/58 L unknown) (unknown) (no (unknown) (unknown) Blood Pressure (units (unknown) date) 133/63 129/62 unknown) (unknown) (no (unknown) (unknown) Blood Pressure (units (unknown) date) 155/93 H 11/24/21 unknown) 20:03 (unknown) (no (unknown) (unknown) Blood Pressure 137/63 (un its (unknown) date) 161/72 H unknown) (unknown) (no (unknown) (unknown) Blood Pressure 141/61 (un its (unknown) date) H 129/60 141/63 H unknown) (unknown) (no (unknown) (unknown) Blood Pressure 155/93 (un its (unknown) date) H 156/70 H unknown) (unknown) (no (unknown) (unknown) Blood Pressure 162/70 (un its (unknown) date) H 164/76 H unknown) (unknown) (no (unknown) (unknown) CARDIOVASCULAR: (units (unknown) date) Denies chest pain, unknown) palpitations, orthopnea, edema, (unknown) (no (unknown) (unknown) CARDIOVASCULAR: (units (unknown) date) Regular rate and unknown) rhythm without murmurs, gallops, or rubs. (unknown) (no (unknown) (unknown) CK-MB (CK-2) (units (u nknown) date) unknown) (unknown) (no (unknown) (unknown) CK-MB (CK-2) TNP (units (unknown) date) unknown) (unknown) (no (unknown) (unknown) CK-MB (CK-2) Rel (units (unknown) date) Index unknown) (unknown) (no (unknown) (unknown) CK-MB (CK-2) Rel (units (unknown) date) Index TNP unknown) (unknown) (no (unknown) (unknown) COMPARISON:? None. (units (unknown) date) unknown) (unknown) (no (unknown) (unknown) COVID19 -Nasal (units (unknown) date) RAPID/Pre-Proc Stat unknown) (unknown) (no (unknown) (unknown) Calcium 10.7 H (units (unknown) date) (8.4-10.2) mg/dL unknown) (unknown) (no (unknown) (unknown) Calcium 10.9 H (units (unknown) date) (8.4-10.2) mg/dL unknown) (unknown) (no (unknown) (unknown) Calcium Gluconate 9.3 (un its (unknown) date) meq/ (Sodium Chloride) unknown ) 70 mls @ 140 mls/hr IV NOW ONE (unknown) (no (unknown) (unknown) Carbon Dioxide 13 L (un its (unknown) date) (22-32) mmol/L unknown) (unknown) (no (unknown) (unknown) Carbon Dioxide 14 L (un its (unknown) date) (22-32) mmol/L unknown) (unknown) (no (unknown) (unknown) Chief complaint: (units (unknown) date) Weakness unknown) (unknown) (no (unknown) (unknown) Chloride 111 H (units (unknown) date) (98-107) mmol/L unknown) (unknown) (no (unknown) (unknown) Chloride 112 H (units (unknown) date) (98-107) mmol/L unknown) (unknown) (no (unknown) (unknown) Complete Blood Count (uni ts (unknown) date) AUTO DIFF Stat unknown) (unknown) (no (unknown) (unknown) Comprehensive (units ( unknown) date) Metabolic Panel Stat unknown) (unknown) (no (unknown) (unknown) Consultation #1: (units (unknown) date) unknown) (unknown) (no (unknown) (unknown) Consultation #2: (units (unknown) date) unknown) (unknown) (no (unknown) (unknown) Consultations (units ( unknown) date) unknown) (unknown) (no (unknown) (unknown) Course (units (unkno wn) date) unknown) (unknown) (no (unknown) (unknown) Course Narrative: (units (unknown) date) unknown) (unknown) (no (unknown) (unknown) Creatinine 2.40 H (unit s (unknown) date) (0.66-1.25) mg/dL unknown) (unknown) (no (unknown) (unknown) Creatinine 2.53 H (unit s (unknown) date) (0.66-1.25) mg/dL unknown) (unknown) (no (unknown) (unknown) Creatinine Urine (units (unknown) date) Random Stat unknown) (unknown) (no (unknown) (unknown) D3) (units (unkno wn) date) unknown) (unknown) (no (unknown) (unknown) : 1940 (units (unknown) date) Acct:[id number] unknown) (unknown) (no (unknown) (unknown) : 1940 (units (unknown) date) unknown) (unknown) (no (unknown) (unknown) Date of Service: (units (unknown) date) 11/24/21 unknown) (unknown) (no (unknown) (unknown) Departure (units (unkn own) date) unknown) (unknown) (no (unknown) (unknown) Dextrose (D10w) 250 (uni ts (unknown) date) mls @ 999 mls/hr IV unknown) PRN PRN (unknown) (no (unknown) (unknown) Dictated by: Gunnar (unit s (unknown) date) Abrahan Houser M.D. on unknown) 11/25/2021 at 0:10 ? ? (unknown) (no (unknown) (unknown) Discharge Plan (units (unknown) date) unknown) (unknown) (no (unknown) (unknown) Discontinued (units (u nknown) date) Medications unknown) (unknown) (no (unknown) (unknown) Doppler (units (unkno wn) date) unknown) (unknown) (no (unknown) (unknown) ECG Data (units (unkno wn) date) unknown) (unknown) (no (unknown) (unknown) EKG 1 (2121): EKG is (un its (unknown) date) normal sinus rhythm unknown) rate [70 ] and free of any signs of (unknown) (no (unknown) (unknown) EKG 2 (2): EKG is (un its (unknown) date) normal sinus rhythm unknown) rate [103 ] and free of any signs of (unknown) (no (unknown) (unknown) EKG-12 Lead Stat (units (unknown) date) unknown) (unknown) (no (unknown) (unknown) ENT: Nose without (units (unknown) date) bleeding, purulent unknown) drainage. Throat without erythema, (unknown) (no (unknown) (unknown) ER Physician: (units ( unknown) date) Aroldo Bazan D.O. unknown) (unknown) (no (unknown) (unknown) EXTREMITIES: No edema (un its (unknown) date) or joint tenderness. unknown) (unknown) (no (unknown) (unknown) EYES: Pupils equal (units (unknown) date) round and reactive. unknown) Extraocular motions intact. No scleral (unknown) (no (unknown) (unknown) Eos % (Auto) (units (u nknown) date) unknown) (unknown) (no (unknown) (unknown) Eos % (Auto) Not (units (unknown) date) Reportable unknown) (unknown) (no (unknown) (unknown) Estimated GFR 25 L (uni ts (unknown) date) (>60) mL/min unknown) (unknown) (no (unknown) (unknown) Estimated GFR 26 L (uni ts (unknown) date) (>60) mL/min unknown) (unknown) (no (unknown) (unknown) Exam (units (unkno wn) date) unknown) (unknown) (no (unknown) (unknown) Exam Narrative: (units (unknown) date) unknown) (unknown) (no (unknown) (unknown) FENa (units (unkno wn) date) unknown) (unknown) (no (unknown) (unknown) FINDINGS:? (units (unk nown) date) unknown) (unknown) (no (unknown) (unknown) FeNa of 1.8% (units (u nknown) date) recommends transfer to unknown ) facility with nephrology (unknown) (no (unknown) (unknown) Fractional Excretion (uni ts (unknown) date) of Sodium (FENa) from unknown) [facility] on 11/25/2021 (unknown) (no (unknown) (unknown) Furosemide (units (unk n) date) (Furosemide 40 Mg/4 Ml unknown ) Vial) 40 mg IV NOW ONE (unknown) (no (unknown) (unknown) GASTROINTESTINAL: (units (unknown) date) Abdomen soft, unknown) non-tender, nondistended. (unknown) (no (unknown) (unknown) GASTROINTESTINAL: (units (unknown) date) Denies nausea, unknown) vomiting, abdominal pain, diarrhea, (unknown) (no (unknown) (unknown) GENERAL: Denies (units (unknown) date) chills, fatigue, unknown) malaise, fever, sweats. (unknown) (no (unknown) (unknown) GENERAL: [81 year old (un its (unknown) date) patient appears stated unknown ) age. Well-developed patient, in (unknown) (no (unknown) (unknown) : Denies dysuria, (unit s (unknown) date) frequency, unknown) incontinence, hematuria, urinary retention. (unknown) (no (unknown) (unknown) General (units (unkno wn) date) unknown) (unknown) (no (unknown) (unknown) GenericComposite[Plt (uni ts (unknown) date) Count (150-400) unknown) X10^3/uL ] (unknown) (no (unknown) (unknown) GenericComposite[Plt (uni ts (unknown) date) Count 229 unknown) (150-400) X10^3/uL ] (unknown) (no (unknown) (unknown) GenericComposite[RBC (uni ts (unknown) date) (4.5-5.9) X10^6/uL unknown) ] (unknown) (no (unknown) (unknown) GenericComposite[RBC (uni ts (unknown) date) 4.45 L (4.5-5.9) unknown) X10^6/uL ] (unknown) (no (unknown) (unknown) GenericComposite[WBC (uni ts (unknown) date) (4.5-11.0) X10^3/uL unknown ) ] (unknown) (no (unknown) (unknown) GenericComposite[WBC (uni ts (unknown) date) 35.4 H* (4.5-11.0) unknown) X10^3/uL ] (unknown) (no (unknown) (unknown) Globulin (1.7-4.1) (un its (unknown) date) g/dL unknown) (unknown) (no (unknown) (unknown) Globulin 3.7 (units (unknown) date) (1.7-4.1) g/dL unknown) (unknown) (no (unknown) (unknown) Glucose 115 H (units (unknown) date) (80-110) mg/dL unknown) (unknown) (no (unknown) (unknown) Glucose 117 H (units (unknown) date) (80-110) mg/dL unknown) (unknown) (no (unknown) (unknown) Glucose POC 119 (units (unknown) date) unknown) (unknown) (no (unknown) (unknown) HEAD: Atraumatic. (units (unknown) date) Normocephalic. unknown) (unknown) (no (unknown) (unknown) HEENT: Denies sinus (unit s (unknown) date) pain, ear pain, sore unknown) throat, difficulty swallowing, (unknown) (no (unknown) (unknown) HPI - Weakness (units (unknown) date) unknown) (unknown) (no (unknown) (unknown) HPI Narrative: (units (unknown) date) unknown) (unknown) (no (unknown) (unknown) Hct (41-53) % (units (unknown) date) unknown) (unknown) (no (unknown) (unknown) Hct 40.7 L (units (un known) date) (41-53) % unknown) (unknown) (no (unknown) (unknown) Hgb (13.5-17.5) (units (unknown) date) g/dL unknown) (unknown) (no (unknown) (unknown) Hgb 13.0 L (units (un known) date) (13.5-17.5) g/dL unknown) (unknown) (no (unknown) (unknown) History of Present (units (unknown) date) Illness unknown) (unknown) (no (unknown) (unknown) IMPRESSION:? (units (u nknown) date) unknown) (unknown) (no (unknown) (unknown) INDICATIONS:? ACUTE (unit s (unknown) date) RENAL FAILURE unknown) (unknown) (no (unknown) (unknown) INPUTS: (units (unkno wn) date) unknown) (unknown) (no (unknown) (unknown) Imaging Data (units (u nknown) date) unknown) (unknown) (no (unknown) (unknown) Initial Vital Signs (unit s (unknown) date) unknown) (unknown) (no (unknown) (unknown) Initial Vital Signs: (uni ts (unknown) date) unknown) (unknown) (no (unknown) (unknown) Insulin Human Regular (uni ts (unknown) date) (Insulin Regular 100 unknown) Unit/Ml 3 Ml Vial) 5 unit IV NOW ONE (unknown) (no (unknown) (unknown) Interpretation: (units (unknown) date) unknown) (unknown) (no (unknown) (unknown) Intrinsic (units (unkn own) date) unknown) (unknown) (no (unknown) (unknown) Kidneys:? Right (units (unknown) date) kidney measures 11.8 unknown) cm long; left kidney measures 11.6 cm (unknown) (no (unknown) (unknown) Lab Data (units (unkno wn) date) unknown) (unknown) (no (unknown) (unknown) Labs: (units (unkno wn) date) unknown) (unknown) (no (unknown) (unknown) Lipase (23-300) (units (unknown) date) U/L unknown) (unknown) (no (unknown) (unknown) Lipase 319 H (units (unknown) date) (23-300) U/L unknown) (unknown) (no (unknown) (unknown) Lipase Stat (units (un known) date) unknown) (unknown) (no (unknown) (unknown) Loc: ED (units (unkno wn) date) unknown) (unknown) (no (unknown) (unknown) Lymph # (Auto) (units (unknown) date) unknown) (unknown) (no (unknown) (unknown) Lymph # (Auto) Not (unit s (unknown) date) Reportable unknown) (unknown) (no (unknown) (unknown) Lymph % (Auto) (units (unknown) date) unknown) (unknown) (no (unknown) (unknown) Lymph % (Auto) Not (unit s (unknown) date) Reportable unknown) (unknown) (no (unknown) (unknown) Lymphocytes % (units ( unknown) date) (Manual) (25-45) % unknown ) (unknown) (no (unknown) (unknown) Lymphocytes % (units ( unknown) date) (Manual) 76.0 H unknown) (25-45) % (unknown) (no (unknown) (unknown) MCH (26-34) PG (units (unknown) date) unknown) (unknown) (no (unknown) (unknown) MCH 29.2 (26-34) (uni ts (unknown) date) PG unknown) (unknown) (no (unknown) (unknown) MCHC (30-36) % (units (unknown) date) unknown) (unknown) (no (unknown) (unknown) MCHC 31.9 (30-36) (un its (unknown) date) % unknown) (unknown) (no (unknown) (unknown) MCV (80-100) fL (unit s (unknown) date) unknown) (unknown) (no (unknown) (unknown) MCV 91.5 (80-100) (un its (unknown) date) fL unknown) (unknown) (no (unknown) (unknown) MDM - Weakness (units (unknown) date) unknown) (unknown) (no (unknown) (unknown) MR#: [id number] (units (unknown) date) unknown) (unknown) (no (unknown) (unknown) MUSCULOSKELETAL: See (un its (unknown) date) HPI unknown) (unknown) (no (unknown) (unknown) [address] MD (units (unknown) date) [Primary Care unknown) Provider] - (unknown) (no (unknown) (unknown) Miscellaneous:? No (units (unknown) date) free pelvic fluid.? unknown) (unknown) (no (unknown) (unknown) Mode of arrival: (units (unknown) date) Wheelchair unknown) (unknown) (no (unknown) (unknown) [place] # (Auto) (units ( unknown) date) unknown) (unknown) (no (unknown) (unknown) [place] # (Auto) Not (units (unknown) date) Reportable unknown) (unknown) (no (unknown) (unknown) [place] % (Auto) (units ( unknown) date) unknown) (unknown) (no (unknown) (unknown) [place] % (Auto) Not (units (unknown) date) Reportable unknown) (unknown) (no (unknown) (unknown) Monocytes % (Manual) (uni ts (unknown) date) (2-11) % unknown) (unknown) (no (unknown) (unknown) Monocytes % (Manual) (uni ts (unknown) date) 3.0 (2-11) % unknown) (unknown) (no (unknown) (unknown) NECK: Trachea (units ( unknown) date) midline. Non tender unknown) (unknown) (no (unknown) (unknown) NEURO: AOx3. (units (u nknown) date) unknown) (unknown) (no (unknown) (unknown) NEUROLOGIC: Denies (units (unknown) date) weakness, headache, unknown) numbness, change in speech, confusion, (unknown) (no (unknown) (unknown) Narrative (units (unkn own) date) unknown) (unknown) (no (unknown) (unknown) Narrative: (units (unk nown) date) unknown) (unknown) (no (unknown) (unknown) Neut % (Auto) (units ( unknown) date) unknown) (unknown) (no (unknown) (unknown) Neut % (Auto) Not (units (unknown) date) Reportable unknown) (unknown) (no (unknown) (unknown) Neutrophils # (units ( unknown) date) (Manual) unknown) ([phone]) /uL (unknown) (no (unknown) (unknown) Neutrophils # (units ( unknown) date) (Manual) 7434 H unknown) ([phone]) /uL (unknown) (no (unknown) (unknown) No Action (units (unkn own) date) unknown) (unknown) (no (unknown) (unknown) Ordered: (units (unkno wn) date) unknown) (unknown) (no (unknown) (unknown) Ordering Provider: (units (unknown) date) Aroldo Bazan D.O. unknown) (unknown) (no (unknown) (unknown) Orders (units (unkno wn) date) unknown) (unknown) (no (unknown) (unknown) PROCEDURE:? US RENAL (uni ts (unknown) date) COMPLETE unknown) (unknown) (no (unknown) (unknown) PSYCHIATRIC: No (units (unknown) date) concerning unknown) psychosocial issues. (unknown) (no (unknown) (unknown) Patient History (units (unknown) date) unknown) (unknown) (no (unknown) (unknown) Patient: (units (unkno wn) date) Raven Sutherland unknown) MR#: M (unknown) (no (unknown) (unknown) Patient: (units (unkno wn) date) Raven Sutherland unknown) (unknown) (no (unknown) (unknown) Potassium 7.7 H* (units (unknown) date) (3.4-5.1) mmol/L unknown) (unknown) (no (unknown) (unknown) Potassium 8.6 H* (units (unknown) date) (3.4-5.1) mmol/L unknown) (unknown) (no (unknown) (unknown) Prescriptions: (units (unknown) date) unknown) (unknown) (no (unknown) (unknown) Prevagen 20 mg PO (units (unknown) date) DAILY 11/25/21 unknown) (unknown) (no (unknown) (unknown) Procedure: US renal (unit s (unknown) date) complete unknown) (unknown) (no (unknown) (unknown) Pulse Oximetry 100 (unit s (unknown) date) 97 unknown) (unknown) (no (unknown) (unknown) Pulse Oximetry 94 (units (unknown) date) 11/24/21 20:03 unknown) (unknown) (no (unknown) (unknown) Pulse Oximetry 97 97 (un its (unknown) date) unknown) (unknown) (no (unknown) (unknown) Pulse Oximetry 94 89 (uni ts (unknown) date) L 96 unknown) (unknown) (no (unknown) (unknown) Pulse Oximetry 95 96 (uni ts (unknown) date) unknown) (unknown) (no (unknown) (unknown) Pulse Oximetry 96 96 (un its (unknown) date) unknown) (unknown) (no (unknown) (unknown) Pulse Oximetry 96 97 (uni ts (unknown) date) 97 unknown) (unknown) (no (unknown) (unknown) Pulse Rate 87 (units (unknown) date) 11/24/21 20:03 unknown) (unknown) (no (unknown) (unknown) Pulse Rate 102 H 99 H (un its (unknown) date) 97 H unknown) (unknown) (no (unknown) (unknown) Pulse Rate 72 78 79 (unit s (unknown) date) unknown) (unknown) (no (unknown) (unknown) Pulse Rate 72 80 81 (unit s (unknown) date) unknown) (unknown) (no (unknown) (unknown) Pulse Rate 79 91 H (units (unknown) date) 104 H unknown) (unknown) (no (unknown) (unknown) Pulse Rate 87 76 77 (unit s (unknown) date) unknown) (unknown) (no (unknown) (unknown) Pulse Rate 99 H 100 H (un its (unknown) date) unknown) (unknown) (no (unknown) (unknown) RBC Morphology (units (unknown) date) unknown) (unknown) (no (unknown) (unknown) RBC Morphology (units (unknown) date) Normal morphology unknown) (unknown) (no (unknown) (unknown) RDW (11.6-14.8) % (un its (unknown) date) unknown) (unknown) (no (unknown) (unknown) RDW 14.1 (units (unkn own) date) (11.6-14.8) % unknown) (unknown) (no (unknown) (unknown) RESPIRATORY: Clear to (uni ts (unknown) date) auscultation. Breath unknown) sounds equal bilaterally. No wheezes, (unknown) (no (unknown) (unknown) RESPIRATORY: Denies (unit s (unknown) date) dyspnea, cough, unknown) wheezing, hemoptysis, sputum. (unknown) (no (unknown) (unknown) RESULT SUMMARY: (units (unknown) date) unknown) (unknown) (no (unknown) (unknown) Real-time scanning (units (unknown) date) was performed of the unknown) kidneys and bladder, with image (unknown) (no (unknown) (unknown) Referrals: (units (unk nown) date) unknown) (unknown) (no (unknown) (unknown) Related Data (units (u nknown) date) unknown) (unknown) (no (unknown) (unknown) Renal (units (unkno wn) date) unknown) (unknown) (no (unknown) (unknown) Renal US: (units (unk nown) date) unknown) (unknown) (no (unknown) (unknown) Respiratory Rate (units (unknown) date) unknown) (unknown) (no (unknown) (unknown) Respiratory Rate 15 (uni ts (unknown) date) 11/24/21 20:03 unknown) (unknown) (no (unknown) (unknown) Respiratory Rate 23 (uni ts (unknown) date) 25 H unknown) (unknown) (no (unknown) (unknown) Respiratory Rate 12 (unit s (unknown) date) 16 unknown) (unknown) (no (unknown) (unknown) Respiratory Rate 15 (unit s (unknown) date) 25 H 18 unknown) (unknown) (no (unknown) (unknown) Respiratory Rate 18 (unit s (unknown) date) 21 19 unknown) (unknown) (no (unknown) (unknown) Respiratory Rate 25 H (un its (unknown) date) 11 L 22 unknown) (unknown) (no (unknown) (unknown) Result diagrams: (units (unknown) date) unknown) (unknown) (no (unknown) (unknown) Review of Systems (units (unknown) date) unknown) (unknown) (no (unknown) (unknown) SARS-CoV-2 (PCR) (units (unknown) date) (Negative) unknown) (unknown) (no (unknown) (unknown) SARS-CoV-2 (PCR) (units (unknown) date) Negative (Negative) unknown) (unknown) (no (unknown) (unknown) SKIN: Denies rash, (units (unknown) date) skin lesions, or other unknown ) (unknown) (no (unknown) (unknown) SKIN: No rash or (units (unknown) date) erythema of visible unknown) areas (unknown) (no (unknown) (unknown) Seg Neutrophils % (units (unknown) date) (38-70) % unknown) (unknown) (no (unknown) (unknown) Seg Neutrophils % (units (unknown) date) 21.0 L (38-70) % unknown) (unknown) (no (unknown) (unknown) Serum creatinine ?> (unit s (unknown) date) 2.53 mg/dL unknown) (unknown) (no (unknown) (unknown) Serum sodium ?> 134 (unit s (unknown) date) mEq/L unknown) (unknown) (no (unknown) (unknown) Signed By: (units (unk nown) date) unknown) (unknown) (no (unknown) (unknown) Smoking Status: (units (unknown) date) Never smoker unknown) (unknown) (no (unknown) (unknown) Smoking Status: Never (un its (unknown) date) smoker unknown) (unknown) (no (unknown) (unknown) Smudge Cells (units (u nknown) date) unknown) (unknown) (no (unknown) (unknown) Smudge Cells 1+ H (units (unknown) date) unknown) (unknown) (no (unknown) (unknown) Social History (units (unknown) date) (Reviewed 11/25/21 @ unknown) 01:28 by Aroldo Bazan DO) (unknown) (no (unknown) (unknown) Sodium 134 L (units (unknown) date) (137-145) mmol/L unknown) (unknown) (no (unknown) (unknown) Sodium 136 L (units (unknown) date) (137-145) mmol/L unknown) (unknown) (no (unknown) (unknown) Sodium Chloride (units (unknown) date) (Normal Saline 0.9%) unknown) 1,000 mls @ 1,000 mls/hr IV BOLUS ONE (unknown) (no (unknown) (unknown) Sodium Chloride (units (unknown) date) (Normal Saline 0.9%) unknown) 1,000 mls @ 150 mls/hr IV CONT DEE (unknown) (no (unknown) (unknown) Sodium Urine Random (unit s (unknown) date) Stat unknown) (unknown) (no (unknown) (unknown) Source: patient (units (unknown) date) unknown) (unknown) (no (unknown) (unknown) Stated complaint: (units (unknown) date) Worsening Weakness x3 unknown) days (unknown) (no (unknown) (unknown) Substance Use Type: (unit s (unknown) date) does not use unknown) (unknown) (no (unknown) (unknown) TECHNIQUE:? (units (un known) date) unknown) (unknown) (no (unknown) (unknown) Temperature (units (un known) date) unknown) (unknown) (no (unknown) (unknown) Temperature (units (un known) date) unknown) (unknown) (no (unknown) (unknown) Temperature 98.4 F (unit s (unknown) date) 11/24/21 20:03 unknown) (unknown) (no (unknown) (unknown) Temperature 98.4 F (units (unknown) date) unknown) (unknown) (no (unknown) (unknown) Time Seen by (units (u nknown) date) Provider: 11/24/21 unknown) 21:14 (unknown) (no (unknown) (unknown) Total Bilirubin (units (unknown) date) (0.2-1.3) mg/dL unknown) (unknown) (no (unknown) (unknown) Total Bilirubin 0.6 (un its (unknown) date) (0.2-1.3) mg/dL unknown) (unknown) (no (unknown) (unknown) Total Counted (units ( unknown) date) unknown) (unknown) (no (unknown) (unknown) Total Counted 100 (units (unknown) date) unknown) (unknown) (no (unknown) (unknown) Total Creatine Kinase (un its (unknown) date) (55-170) U/L unknown) (unknown) (no (unknown) (unknown) Total Creatine Kinase (un its (unknown) date) 53 L (55-170) U/L unknown ) (unknown) (no (unknown) (unknown) Total Protein (units ( unknown) date) (6.3-8.2) g/dL unknown) (unknown) (no (unknown) (unknown) Total Protein 8.3 H (un its (unknown) date) (6.3-8.2) g/dL unknown) (unknown) (no (unknown) (unknown) Troponin + CK Cardiac (un its (unknown) date) Panel Stat unknown) (unknown) (no (unknown) (unknown) Troponin I (units (unk nown) date) (0.01-0.034) ng/mL unknown) (unknown) (no (unknown) (unknown) Troponin I 0.016 (units (unknown) date) (0.01-0.034) ng/mL unknown) (unknown) (no (unknown) (unknown) US renal complete (units (unknown) date) Stat unknown) (unknown) (no (unknown) (unknown) Ur Random Sodium (units (unknown) date) (30-90) mmol/L unknown) (unknown) (no (unknown) (unknown) Ur Random Sodium 104 (un its (unknown) date) H (30-90) mmol/L unknown) (unknown) (no (unknown) (unknown) Urine Creatinine (units (unknown) date) mg/dL unknown) (unknown) (no (unknown) (unknown) Urine Creatinine (units (unknown) date) 108.6 mg/dL unknown) (unknown) (no (unknown) (unknown) Urine creatinine ?> (unit s (unknown) date) 108.6 mg/dL unknown) (unknown) (no (unknown) (unknown) Urine sodium ?> 104 (unit s (unknown) date) mEq/L unknown) (unknown) (no (unknown) (unknown) Vital Signs (units (un known) date) unknown) (unknown) (no (unknown) (unknown) Vital signs: (units (u nknown) date) unknown) (unknown) (no (unknown) (unknown) XR chest 1V Stat (units (unknown) date) unknown) (unknown) (no (unknown) (unknown) [Embedded Image Not (unit s (unknown) date) Available] unknown) (unknown) (no (unknown) (unknown) ago and failed 2 (units (unknown) date) months ago. He does unknown) not suffer urinary retention but instead (unknown) (no (unknown) (unknown) alcohol intake (units (unknown) date) frequency: unknown) holidays/special occasions only (unknown) (no (unknown) (unknown) amlodipine 10 mg (units (unknown) date) tablet 10 mg PO DAILY unknown) 11/25/21 11/25/21 (unknown) (no (unknown) (unknown) aspirin 81 mg capsule (un its (unknown) date) 81 mg PO DAILY unknown) 11/25/21 11/25/21 (unknown) (no (unknown) (unknown) been managed by (units (unknown) date) urology at [place]. unknown) It was placed originally about 5 years (unknown) (no (unknown) (unknown) call to Dr. Newberry (units (unknown) date) (Nephrology at unknown) [place]) (unknown) (no (unknown) (unknown) call to hospitalist (unit s (unknown) date) upon receipt of repeat unknown ) labs, given minimal improvement and (unknown) (no (unknown) (unknown) cases due (units (unkn own) date) unknown) (unknown) (no (unknown) (unknown) cholecalciferol (units (unknown) date) (vitamin D3) 50 50 mcg unknown ) PO DAILY 11/25/21 11/25/21 (unknown) (no (unknown) (unknown) constantly leaks (units (unknown) date) urine. He was scoped unknown) by his urologist about 10 days ago and (unknown) (no (unknown) (unknown) constipation, melena. (un its (unknown) date) unknown) (unknown) (no (unknown) (unknown) cortical echotexture (uni ts (unknown) date) appears grossly within unknown ) normal limits.? No hydronephrosis.? (unknown) (no (unknown) (unknown) dizziness. (units (unk nown) date) unknown) (unknown) (no (unknown) (unknown) documentation.? (units (unknown) date) unknown) (unknown) (no (unknown) (unknown) docusate sodium 100 (unit s (unknown) date) mg capsule 100 mg PO unknown) BID 11/25/21 11/25/21 (unknown) (no (unknown) (unknown) e.g. ATN, AIN, (units (unknown) date) glomerulonephritides unknown) (unknown) (no (unknown) (unknown) generalized weakness (uni ts (unknown) date) gradually worsening unknown) over the past few months. He states (unknown) (no (unknown) (unknown) generally, and on the (un its (unknown) date) whole, and very unknown) nonspecifically he feels weak. Patient (unknown) (no (unknown) (unknown) ibuprofen 800 mg (units (unknown) date) tablet 800 mg PO Q8H unknown) PRN 11/25/21 11/25/21 (unknown) (no (unknown) (unknown) icterus. No injection (un its (unknown) date) or drainage. unknown) (unknown) (no (unknown) (unknown) interrogation.? (Of (unit s (unknown) date) note, ureteral jets unknown) may not be detectable in up to 25% of (unknown) (no (unknown) (unknown) intraluminal masses (unit s (unknown) date) unknown) (unknown) (no (unknown) (unknown) inversions. OK 126. (unit s (unknown) date) QRS 140. T waves unknown) improved. (unknown) (no (unknown) (unknown) inversions. OK 152. (unit s (unknown) date) QRS 164. T waves unknown) peaked (unknown) (no (unknown) (unknown) ischemia or ectopy. (unit s (unknown) date) No ST segmental unknown) elevation or depression. No T wave (unknown) (no (unknown) (unknown) latanoprost 0.005 % (unit s (unknown) date) eye drops 1 drp unknown) OPHTHALMIC (EYE) DAILY 11/25/21 11/25/21 (unknown) (no (unknown) (unknown) lisinopril 40 mg (units (unknown) date) tablet 40 mg PO DAILY unknown) 11/25/21 11/25/21 (unknown) (no (unknown) (unknown) long.? Right (units (u nknown) date) unknown) (unknown) (no (unknown) (unknown) mcg (2,000 unit) (units (unknown) date) capsule (Vitamin unknown) (unknown) (no (unknown) (unknown) medications or diet. (uni ts (unknown) date) He denies any unknown) headache, blurred vision or trouble with (unknown) (no (unknown) (unknown) metoprolol tartrate (unit s (unknown) date) 25 mg tablet 25 mg PO unknown) BID 11/25/21 11/25/21 (unknown) (no (unknown) (unknown) mg-hydrochlorothiazid (un its (unknown) date) e 50 mg tablet unknown) (unknown) (no (unknown) (unknown) mg-lycopene 300 (units (unknown) date) mcg-lutein 250 mcg unknown) (unknown) (no (unknown) (unknown) mild distress. (units (unknown) date) unknown) (unknown) (no (unknown) (unknown) usznngnh-upf-ibife (units (unknown) date) acid 0.4 1 tab PO unknown) DAILY 11/25/21 11/25/21 (unknown) (no (unknown) (unknown) myacin family Allergy (un its (unknown) date) Blister Uncoded unknown) 11/24/21 20:03 (unknown) (no (unknown) (unknown) nystatin 100,000 (units (unknown) date) unit/gram topical 1 unknown) applic TOPICAL BID 11/25/21 11/25/21 (unknown) (no (unknown) (unknown) omega-3 fatty acids (unit s (unknown) date) 1,000 mg PO DAILY unknown) 11/25/21 11/25/21 (unknown) (no (unknown) (unknown) or stones.? On (units (unknown) date) pre-void images, unknown) neither ureteral jets are noted with color (unknown) (no (unknown) (unknown) potassium chloride 20 (un its (unknown) date) mEq 20 meq PO BID unknown) 11/25/21 11/25/21 (unknown) (no (unknown) (unknown) powder (units (unkno wn) date) unknown) (unknown) (no (unknown) (unknown) primary care provider (un its (unknown) date) early in the week. He unknown ) denies any change in his (unknown) (no (unknown) (unknown) problems such as (units (unknown) date) unilateral numbness, unknown) tingling or weakness. He states that (unknown) (no (unknown) (unknown) renal cortical (units (unknown) date) thickness is 1.5 cm; unknown) left renal cortical thickness is 1.5 cm.? (unknown) (no (unknown) (unknown) revision in December (units (unknown) date) unknown) (unknown) (no (unknown) (unknown) rosuvastatin 40 mg (units (unknown) date) tablet 40 mg PO DAILY unknown) 11/25/21 11/25/21 (unknown) (no (unknown) (unknown) seizures, (units (unkn own) date) incoordination. unknown) (unknown) (no (unknown) (unknown) some time, and he met (uni ts (unknown) date) with his orthopedist unknown) today and has an appointment with his (unknown) (no (unknown) (unknown) speech. He denies (units (unknown) date) any chest pain or unknown) shortness of breath. 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 He is scheduled for a (unknown) (no (unknown) (unknown) timolol 0.5 % eye (units (unknown) date) drops 1 drp OPHTHALMIC unknown ) (EYE) DAILY 11/25/21 11/25/21 (unknown) (no (unknown) (unknown) to insufficient (units (unknown) date) differences in unknown) specific gravity between ureteral and bladder (unknown) (no (unknown) (unknown) tonsillar hypertrophy (un its (unknown) date) or exudate. Airway unknown) patent. (unknown) (no (unknown) (unknown) triamterene 75 1 tab (uni ts (unknown) date) PO QAM 11/25/21 unknown) 11/25/21 (unknown) (no (unknown) (unknown) urine).? (units (unkno wn) date) unknown) Result panel 19 (unknown) (no (unknown) (unknown) (no value) (units (unk nown) date) unknown) (unknown) (no (unknown) (unknown) Radiologist (units (un known) date) Impression: unknown) (unknown) (no (unknown) (unknown) (no value) (units (unk nown) date) unknown) (unknown) (no (unknown) (unknown) Date of Service: (units (unknown) date) 11/24/21 unknown) (unknown) (no (unknown) (unknown) (no value) (units (unk nown) date) unknown) (unknown) (no (unknown) (unknown) 11/24/21 21:40 (units (unknown) date) unknown) (unknown) (no (unknown) (unknown) 11/25/21 01:44 (units (unknown) date) unknown) (unknown) (no (unknown) (unknown) 1 applic TOPICAL BID (uni ts (unknown) date) 0RF unknown) (unknown) (no (unknown) (unknown) 1 drp OPHTHALMIC (units (unknown) date) (EYE) DAILY 0RF unknown) (unknown) (no (unknown) (unknown) 1 tab PO DAILY 0RF (units (unknown) date) unknown) (unknown) (no (unknown) (unknown) 1 tab PO QAM 0RF (units (unknown) date) unknown) (unknown) (no (unknown) (unknown) 1,000 mg PO DAILY 0RF (un its (unknown) date) unknown) (unknown) (no (unknown) (unknown) 10 mg PO DAILY 0RF (units (unknown) date) unknown) (unknown) (no (unknown) (unknown) 10 mg PO DAILY PRN (units (unknown) date) (Reason: intercourse) unknown) 0RF (unknown) (no (unknown) (unknown) 100 mg PO BID 0RF (units (unknown) date) unknown) (unknown) (no (unknown) (unknown) [address] (units (unknown) date) unknown) (unknown) (no (unknown) (unknown) 20 meq PO BID 0RF (units (unknown) date) unknown) (unknown) (no (unknown) (unknown) 20 mg PO DAILY 0RF (units (unknown) date) unknown) (unknown) (no (unknown) (unknown) 25 mg PO BID 0RF (units (unknown) date) unknown) (unknown) (no (unknown) (unknown) 40 mg PO DAILY 0RF (units (unknown) date) unknown) (unknown) (no (unknown) (unknown) 50 mcg PO DAILY 0RF (unit s (unknown) date) unknown) (unknown) (no (unknown) (unknown) 800 mg PO Q8H PRN (units (unknown) date) (Reason: Pain, unknown) Moderate) 0RF (unknown) (no (unknown) (unknown) 81 mg PO DAILY 0RF (units (unknown) date) unknown) (unknown) (no (unknown) (unknown) Admin: 11/24/21 22:08 (un its (unknown) date) Dose: 150 mls/hr unknown) (unknown) (no (unknown) (unknown) Admin: 11/24/21 22:52 (un its (unknown) date) Dose: 250 mls/hr unknown) (unknown) (no (unknown) (unknown) Admin: 11/24/21 23:01 (un its (unknown) date) Dose: 1,000 mls/hr unknown) (unknown) (no (unknown) (unknown) Admin: 11/24/21 23:16 (un its (unknown) date) Dose: 140 mls/hr unknown) (unknown) (no (unknown) (unknown) Allergies (units (unkn own) date) unknown) (unknown) (no (unknown) (unknown) CAMILLA Ortiz [id number] (unit s (unknown) date) unknown) (unknown) (no (unknown) (unknown) Documented by: (units (unknown) date) NAMITAOR Cosigned by: unknown ) FREDIS (unknown) (no (unknown) (unknown) Documented by: (units (unknown) date) ATAYLOR unknown) (unknown) (no (unknown) (unknown) Documented by: (units (unknown) date) DONNAALDJOVANI unknown) (unknown) (no (unknown) (unknown) ED Orders (units (unkn own) date) unknown) (unknown) (no (unknown) (unknown) Emergency Report (units (unknown) date) unknown) (unknown) (no (unknown) (unknown) Home Medications (units (unknown) date) unknown) (unknown) (no (unknown) (unknown) Infusion: 11/24/21 (units (unknown) date) 23:01 Dose: 0 mls/hr unknown) (unknown) (no (unknown) (unknown) [facility] (units (unknown) date) unknown) (unknown) (no (unknown) (unknown) [facility] [address] (uni ts (unknown) date) [address] [place] [address] [place], unknown ) [place] [id number] (unknown) (no (unknown) (unknown) Lab Results (units (un known) date) unknown) (unknown) (no (unknown) (unknown) Label Comments: (units (unknown) date) unknown) (unknown) (no (unknown) (unknown) Last Admin: 11/24/21 (uni ts (unknown) date) 22:56 Dose: 40 mg unknown) (unknown) (no (unknown) (unknown) Last Admin: 11/24/21 (uni ts (unknown) date) 23:09 Dose: 5 unit unknown) (unknown) (no (unknown) (unknown) Last Admin: 11/24/21 (uni ts (unknown) date) 23:15 Dose: 20 mg unknown) (unknown) (no (unknown) (unknown) Last Infusion: (units (unknown) date) 11/24/21 23:11 Dose: unknown) 0 mls/hr (unknown) (no (unknown) (unknown) Last Infusion: (units (unknown) date) 11/24/21 23:54 Dose: unknown) 0 mls/hr (unknown) (no (unknown) (unknown) Last Infusion: (units (unknown) date) 11/25/21 00:10 Dose: unknown) 0 mls/hr (unknown) (no (unknown) (unknown) Last Infusion: (units (unknown) date) 11/25/21 00:17 Dose: unknown) 150 mls/hr (unknown) (no (unknown) (unknown) PRN Reason: (units (un known) date) Hypoglycemia unknown) (unknown) (no (unknown) (unknown) Point of Care Testing (un its (unknown) date) unknown) (unknown) (no (unknown) (unknown) Rx Instructions: (units (unknown) date) unknown) (unknown) (no (unknown) (unknown) Signed (units (unkno wn) date) unknown) (unknown) (no (unknown) (unknown) Stop: 11/24/21 22:22 (uni ts (unknown) date) unknown) (unknown) (no (unknown) (unknown) Stop: 11/24/21 22:50 (uni ts (unknown) date) unknown) (unknown) (no (unknown) (unknown) Stop: 11/24/21 23:20 (uni ts (unknown) date) unknown) (unknown) (no (unknown) (unknown) Stop: 11/25/21 03:18 (uni ts (unknown) date) unknown) (unknown) (no (unknown) (unknown) Take 1 tablet by (units (unknown) date) mouth once a day unknown) (unknown) (no (unknown) (unknown) Ultrasound Report (units (unknown) date) unknown) (unknown) (no (unknown) (unknown) Vital Signs - 8 hr (units (unknown) date) unknown) (unknown) (no (unknown) (unknown) administer (units (unk nown) date) approximately 30min unknown) before sexual activity; do not use more than 1 (unknown) (no (unknown) (unknown) (no value) (units (unk nown) date) unknown) (unknown) (no (unknown) (unknown) 11/24/21 11/24/21 (units (unknown) date) 11/24/21 Range/Units unknown) (unknown) (no (unknown) (unknown) 11/24/21 11/25/21 (units (unknown) date) Range/Units unknown) (unknown) (no (unknown) (unknown) 21:40 21:40 22:32 (units (unknown) date) unknown) (unknown) (no (unknown) (unknown) 23:30 01:44 (units (un known) date) unknown) (unknown) (no (unknown) (unknown) Centrum Silver (units (unknown) date) 0.4-300-250 mg-mcg-mcg unknown ) Tablet (unknown) (no (unknown) (unknown) Fish Oil Capsule (units (unknown) date) unknown) (unknown) (no (unknown) (unknown) Prevagen 20 mg (units (unknown) date) unknown) (unknown) (no (unknown) (unknown) amlodipine 10 mg (units (unknown) date) Tablet unknown) (unknown) (no (unknown) (unknown) aspirin 81 mg Capsule (un its (unknown) date) unknown) (unknown) (no (unknown) (unknown) cholecalciferol (units (unknown) date) (vitamin D3) [Vitamin unknown) D3] 50 mcg (2,000 unit) Capsule (unknown) (no (unknown) (unknown) docusate sodium (units (unknown) date) [Colace] 100 mg unknown) Capsule (unknown) (no (unknown) (unknown) ibuprofen 800 mg (units (unknown) date) Tablet unknown) (unknown) (no (unknown) (unknown) latanoprost 0.005 % (unit s (unknown) date) Drops unknown) (unknown) (no (unknown) (unknown) lisinopril 40 mg (units (unknown) date) tablet unknown) (unknown) (no (unknown) (unknown) metoprolol tartrate (unit s (unknown) date) 25 mg Tablet unknown) (unknown) (no (unknown) (unknown) nystatin 100,000 (units (unknown) date) unit/gram Powder unknown) (unknown) (no (unknown) (unknown) potassium chloride 20 (un its (unknown) date) mEq Tablet Extended unknown) Release (unknown) (no (unknown) (unknown) rosuvastatin 40 mg (units (unknown) date) Tablet unknown) (unknown) (no (unknown) (unknown) tadalafil 10 mg (units (unknown) date) Tablet unknown) (unknown) (no (unknown) (unknown) timolol 0.5 % Drops (unit s (unknown) date) unknown) (unknown) (no (unknown) (unknown) triamterene-hydrochlo (un its (unknown) date) rothiazid 75-50 mg unknown) Tablet (unknown) (no (unknown) (unknown) 11/24/21 (units (unkno wn) date) unknown) (unknown) (no (unknown) (unknown) 11/25/21 (units (unkno wn) date) unknown) (unknown) (no (unknown) (unknown) Medication (units (unk nown) date) Instructions Recorded unknown ) Confirmed (unknown) (no (unknown) (unknown) dose per 24hrs (units (unknown) date) unknown) (unknown) (no (unknown) (unknown) rales, or rhonchi. (units (unknown) date) unknown) (unknown) (no (unknown) (unknown) (Colace) (units (unkno wn) date) unknown) (unknown) (no (unknown) (unknown) All calculations (unit s (unknown) date) should be rechecked by unknown ) clinician prior to use (unknown) (no (unknown) (unknown) [id number] (units (unkn own) date) unknown) (unknown) (no (unknown) (unknown) 00:00 (units (unkno wn) date) unknown) (unknown) (no (unknown) (unknown) 00:30 11/25/21 (units (unknown) date) unknown) (unknown) (no (unknown) (unknown) 01:00 11/25/21 (units (unknown) date) unknown) (unknown) (no (unknown) (unknown) 01:30 (units (unkno wn) date) unknown) (unknown) (no (unknown) (unknown) 02:00 11/25/21 (units (unknown) date) unknown) (unknown) (no (unknown) (unknown) 02:30 (units (unkno wn) date) unknown) (unknown) (no (unknown) (unknown) 11/24/21 21:14 (units (unknown) date) unknown) (unknown) (no (unknown) (unknown) 11/24/21 21:40 (units (unknown) date) unknown) (unknown) (no (unknown) (unknown) 11/24/21 22:21 (units (unknown) date) unknown) (unknown) (no (unknown) (unknown) 11/24/21 22:32 (units (unknown) date) unknown) (unknown) (no (unknown) (unknown) 11/24/21 23:30 (units (unknown) date) unknown) (unknown) (no (unknown) (unknown) 11/25/21 00:56 (units (unknown) date) unknown) (unknown) (no (unknown) (unknown) 11/25/21 01:44 (units (unknown) date) unknown) (unknown) (no (unknown) (unknown) 11/25/21 03:30 (units (unknown) date) unknown) (unknown) (no (unknown) (unknown) 1. No evidence of (units (unknown) date) hydronephrosis. unknown) (unknown) (no (unknown) (unknown) 1.8 % (units (unkno wn) date) unknown) (unknown) (no (unknown) (unknown) 12 point review of (units (unknown) date) systems is negative unknown) except for those stated above (unknown) (no (unknown) (unknown) 2. Bilateral mild (units (unknown) date) renal cortical unknown) thinning.? (unknown) (no (unknown) (unknown) 20:03 11/24/21 (units (unknown) date) unknown) (unknown) (no (unknown) (unknown) 21:19 11/24/21 (units (unknown) date) unknown) (unknown) (no (unknown) (unknown) 21:20 (units (unkno wn) date) unknown) (unknown) (no (unknown) (unknown) 21:30 11/24/21 (units (unknown) date) unknown) (unknown) (no (unknown) (unknown) 22:00 11/24/21 (units (unknown) date) unknown) (unknown) (no (unknown) (unknown) 22:01 (units (unkno wn) date) unknown) (unknown) (no (unknown) (unknown) 22:30 11/24/21 (units (unknown) date) unknown) (unknown) (no (unknown) (unknown) 23:00 11/24/21 (units (unknown) date) unknown) (unknown) (no (unknown) (unknown) 23:04 (units (unkno wn) date) unknown) (unknown) (no (unknown) (unknown) 23:20 11/24/21 (units (unknown) date) unknown) (unknown) (no (unknown) (unknown) 23:30 11/25/21 (units (unknown) date) unknown) (unknown) (no (unknown) (unknown) 81-year-old male (units (unknown) date) Nonsmoker with history unknown ) of HTN, hyperlipidemia presents with (unknown) (no (unknown) (unknown) ? (units (unkno wn) date) unknown) (unknown) (no (unknown) (unknown) ALT (<50) IU/L (units (unknown) date) unknown) (unknown) (no (unknown) (unknown) ALT 17 (<50) (units (unknown) date) IU/L unknown) (unknown) (no (unknown) (unknown) AST (17-59) IU/L (uni ts (unknown) date) unknown) (unknown) (no (unknown) (unknown) AST 26 (17-59) (units (unknown) date) IU/L unknown) (unknown) (no (unknown) (unknown) Accession Number: (units (unknown) date) [id number] ?? unknown) (unknown) (no (unknown) (unknown) Acct:[id number] (units (unknown) date) unknown) (unknown) (no (unknown) (unknown) Age/Sex: 81 / M (units (unknown) date) unknown) (unknown) (no (unknown) (unknown) Age/Sex: 81 / M (units (unknown) date) unknown) (unknown) (no (unknown) (unknown) Albumin (3.5-5.0) (uni ts (unknown) date) g/dL unknown) (unknown) (no (unknown) (unknown) Albumin 4.6 (units ( unknown) date) (3.5-5.0) g/dL unknown) (unknown) (no (unknown) (unknown) Albumin/Globulin (units (unknown) date) Ratio (1.0-2.8) unknown) (unknown) (no (unknown) (unknown) Albumin/Globulin (units (unknown) date) Ratio 1.2 unknown) (1.0-2.8) (unknown) (no (unknown) (unknown) Albuterol (Albuterol (uni ts (unknown) date) 2.5 Mg/3 Ml Neb unknown) (Adult)) 20 mg INH NOW ONE (unknown) (no (unknown) (unknown) Alkaline Phosphatase (uni ts (unknown) date) (38-126) U/L unknown) (unknown) (no (unknown) (unknown) Alkaline Phosphatase (uni ts (unknown) date) 192 H (38-126) U/L unknown ) (unknown) (no (unknown) (unknown) Allergy/AdvReac Type (uni ts (unknown) date) Severity Reaction unknown) Status Date / Time (unknown) (no (unknown) (unknown) Approved by: Gunnar (unit s (unknown) date) Abrahan Houser M.D. on unknown) 11/25/2021 at 0:16 ? (unknown) (no (unknown) (unknown) BACK: Nontender (units (unknown) date) without deformity or unknown) crepitance. No flank tenderness. (unknown) (no (unknown) (unknown) BMP [Basic Metabolic (uni ts (unknown) date) Panel] Stat unknown) (unknown) (no (unknown) (unknown) BUN 66 H (9-20) (units (unknown) date) mg/dL unknown) (unknown) (no (unknown) (unknown) BUN 70 H (9-20) (unit s (unknown) date) mg/dL unknown) (unknown) (no (unknown) (unknown) BUN/Creatinine Ratio (uni ts (unknown) date) 27.5 H (6-22) unknown) (unknown) (no (unknown) (unknown) BUN/Creatinine Ratio (uni ts (unknown) date) 27.7 H (6-22) unknown) (unknown) (no (unknown) (unknown) Baso # (Auto) (units ( unknown) date) unknown) (unknown) (no (unknown) (unknown) Baso # (Auto) Not (units (unknown) date) Reportable unknown) (unknown) (no (unknown) (unknown) Baso % (Auto) (units ( unknown) date) unknown) (unknown) (no (unknown) (unknown) Baso % (Auto) Not (units (unknown) date) Reportable unknown) (unknown) (no (unknown) (unknown) Bladder:? Pre-void (units (unknown) date) bladder was unknown) nondistended.? Limited evaluation for (unknown) (no (unknown) (unknown) Blood Pressure (units (unknown) date) 131/58 L unknown) (unknown) (no (unknown) (unknown) Blood Pressure (units (unknown) date) 133/63 129/62 unknown) (unknown) (no (unknown) (unknown) Blood Pressure (units (unknown) date) 155/93 H 11/24/21 unknown) 20:03 (unknown) (no (unknown) (unknown) Blood Pressure 137/63 (un its (unknown) date) 161/72 H unknown) (unknown) (no (unknown) (unknown) Blood Pressure 141/61 (un its (unknown) date) H 129/60 141/63 H unknown) (unknown) (no (unknown) (unknown) Blood Pressure 155/93 (un its (unknown) date) H 156/70 H unknown) (unknown) (no (unknown) (unknown) Blood Pressure 162/70 (un its (unknown) date) H 164/76 H unknown) (unknown) (no (unknown) (unknown) CARDIOVASCULAR: (units (unknown) date) Denies chest pain, unknown) palpitations, orthopnea, edema, (unknown) (no (unknown) (unknown) CARDIOVASCULAR: (units (unknown) date) Regular rate and unknown) rhythm without murmurs, gallops, or rubs. (unknown) (no (unknown) (unknown) CK-MB (CK-2) (units (u nknown) date) unknown) (unknown) (no (unknown) (unknown) CK-MB (CK-2) TNP (units (unknown) date) unknown) (unknown) (no (unknown) (unknown) CK-MB (CK-2) Rel (units (unknown) date) Index unknown) (unknown) (no (unknown) (unknown) CK-MB (CK-2) Rel (units (unknown) date) Index TNP unknown) (unknown) (no (unknown) (unknown) COMPARISON:? None. (units (unknown) date) unknown) (unknown) (no (unknown) (unknown) COVID19 -Nasal (units (unknown) date) RAPID/Pre-Proc Stat unknown) (unknown) (no (unknown) (unknown) Calcium 10.7 H (units (unknown) date) (8.4-10.2) mg/dL unknown) (unknown) (no (unknown) (unknown) Calcium 10.9 H (units (unknown) date) (8.4-10.2) mg/dL unknown) (unknown) (no (unknown) (unknown) Calcium Gluconate 9.3 (un its (unknown) date) meq/ (Sodium Chloride) unknown ) 70 mls @ 140 mls/hr IV NOW ONE (unknown) (no (unknown) (unknown) Carbon Dioxide 13 L (un its (unknown) date) (22-32) mmol/L unknown) (unknown) (no (unknown) (unknown) Carbon Dioxide 14 L (un its (unknown) date) (22-32) mmol/L unknown) (unknown) (no (unknown) (unknown) Chief complaint: (units (unknown) date) Weakness unknown) (unknown) (no (unknown) (unknown) Chloride 111 H (units (unknown) date) (98-107) mmol/L unknown) (unknown) (no (unknown) (unknown) Chloride 112 H (units (unknown) date) (98-107) mmol/L unknown) (unknown) (no (unknown) (unknown) Complete Blood Count (uni ts (unknown) date) AUTO DIFF Stat unknown) (unknown) (no (unknown) (unknown) Comprehensive (units ( unknown) date) Metabolic Panel Stat unknown) (unknown) (no (unknown) (unknown) Consultation #1: (units (unknown) date) unknown) (unknown) (no (unknown) (unknown) Consultation #2: (units (unknown) date) unknown) (unknown) (no (unknown) (unknown) Consultations (units ( unknown) date) unknown) (unknown) (no (unknown) (unknown) Course (units (unkno wn) date) unknown) (unknown) (no (unknown) (unknown) Course Narrative: (units (unknown) date) unknown) (unknown) (no (unknown) (unknown) Creatinine 2.40 H (unit s (unknown) date) (0.66-1.25) mg/dL unknown) (unknown) (no (unknown) (unknown) Creatinine 2.53 H (unit s (unknown) date) (0.66-1.25) mg/dL unknown) (unknown) (no (unknown) (unknown) Creatinine Urine (units (unknown) date) Random Stat unknown) (unknown) (no (unknown) (unknown) D3) (units (unkno wn) date) unknown) (unknown) (no (unknown) (unknown) : 1940 (units (unknown) date) Acct:[id number] unknown) (unknown) (no (unknown) (unknown) : 1940 (units (unknown) date) unknown) (unknown) (no (unknown) (unknown) Date of Service: (units (unknown) date) 11/24/21 unknown) (unknown) (no (unknown) (unknown) Departure (units (unkn own) date) unknown) (unknown) (no (unknown) (unknown) Dextrose (D10w) 250 (uni ts (unknown) date) mls @ 999 mls/hr IV unknown) PRN PRN (unknown) (no (unknown) (unknown) Dictated by: Gunnar (unit s (unknown) date) Abrahan Houser M.D. on unknown) 11/25/2021 at 0:10 ? ? (unknown) (no (unknown) (unknown) Discharge Plan (units (unknown) date) unknown) (unknown) (no (unknown) (unknown) Discontinued (units (u nknown) date) Medications unknown) (unknown) (no (unknown) (unknown) Doppler (units (unkno wn) date) unknown) (unknown) (no (unknown) (unknown) ECG Data (units (unkno wn) date) unknown) (unknown) (no (unknown) (unknown) EKG 1 (2121): EKG is (un its (unknown) date) normal sinus rhythm unknown) rate [70 ] and free of any signs of (unknown) (no (unknown) (unknown) EKG 2 (2): EKG is (un its (unknown) date) normal sinus rhythm unknown) rate [103 ] and free of any signs of (unknown) (no (unknown) (unknown) EKG-12 Lead Stat (units (unknown) date) unknown) (unknown) (no (unknown) (unknown) ENT: Nose without (units (unknown) date) bleeding, purulent unknown) drainage. Throat without erythema, (unknown) (no (unknown) (unknown) ER Physician: (units ( unknown) date) Aroldo Bazan D.O. unknown) (unknown) (no (unknown) (unknown) EXTREMITIES: No edema (un its (unknown) date) or joint tenderness. unknown) (unknown) (no (unknown) (unknown) EYES: Pupils equal (units (unknown) date) round and reactive. unknown) Extraocular motions intact. No scleral (unknown) (no (unknown) (unknown) Eos % (Auto) (units (u nknown) date) unknown) (unknown) (no (unknown) (unknown) Eos % (Auto) Not (units (unknown) date) Reportable unknown) (unknown) (no (unknown) (unknown) Estimated GFR 25 L (uni ts (unknown) date) (>60) mL/min unknown) (unknown) (no (unknown) (unknown) Estimated GFR 26 L (uni ts (unknown) date) (>60) mL/min unknown) (unknown) (no (unknown) (unknown) Exam (units (unkno wn) date) unknown) (unknown) (no (unknown) (unknown) Exam Narrative: (units (unknown) date) unknown) (unknown) (no (unknown) (unknown) FENa (units (unkno wn) date) unknown) (unknown) (no (unknown) (unknown) FINDINGS:? (units (unk nown) date) unknown) (unknown) (no (unknown) (unknown) FeNa of 1.8% (units (u nknown) date) recommends transfer to unknown ) facility with nephrology (unknown) (no (unknown) (unknown) Fractional Excretion (uni ts (unknown) date) of Sodium (FENa) from unknown) [facility] on 11/25/2021 (unknown) (no (unknown) (unknown) Furosemide (units (unk nown) date) (Furosemide 40 Mg/4 Ml unknown ) Vial) 40 mg IV NOW ONE (unknown) (no (unknown) (unknown) GASTROINTESTINAL: (units (unknown) date) Abdomen soft, unknown) non-tender, nondistended. (unknown) (no (unknown) (unknown) GASTROINTESTINAL: (units (unknown) date) Denies nausea, unknown) vomiting, abdominal pain, diarrhea, (unknown) (no (unknown) (unknown) GENERAL: Denies (units (unknown) date) chills, fatigue, unknown) malaise, fever, sweats. (unknown) (no (unknown) (unknown) GENERAL: [81 year old (un its (unknown) date) patient appears stated unknown ) age. Well-developed patient, in (unknown) (no (unknown) (unknown) : Denies dysuria, (unit s (unknown) date) frequency, unknown) incontinence, hematuria, urinary retention. (unknown) (no (unknown) (unknown) General (units (unkno wn) date) unknown) (unknown) (no (unknown) (unknown) GenericComposite[Plt (uni ts (unknown) date) Count (150-400) unknown) X10^3/uL ] (unknown) (no (unknown) (unknown) GenericComposite[Plt (uni ts (unknown) date) Count 229 unknown) (150-400) X10^3/uL ] (unknown) (no (unknown) (unknown) GenericComposite[RBC (uni ts (unknown) date) (4.5-5.9) X10^6/uL unknown) ] (unknown) (no (unknown) (unknown) GenericComposite[RBC (uni ts (unknown) date) 4.45 L (4.5-5.9) unknown) X10^6/uL ] (unknown) (no (unknown) (unknown) GenericComposite[WBC (uni ts (unknown) date) (4.5-11.0) X10^3/uL unknown ) ] (unknown) (no (unknown) (unknown) GenericComposite[WBC (uni ts (unknown) date) 35.4 H* (4.5-11.0) unknown) X10^3/uL ] (unknown) (no (unknown) (unknown) Globulin (1.7-4.1) (un its (unknown) date) g/dL unknown) (unknown) (no (unknown) (unknown) Globulin 3.7 (units (unknown) date) (1.7-4.1) g/dL unknown) (unknown) (no (unknown) (unknown) Glucose 115 H (units (unknown) date) (80-110) mg/dL unknown) (unknown) (no (unknown) (unknown) Glucose 117 H (units (unknown) date) (80-110) mg/dL unknown) (unknown) (no (unknown) (unknown) Glucose POC 119 (units (unknown) date) unknown) (unknown) (no (unknown) (unknown) HEAD: Atraumatic. (units (unknown) date) Normocephalic. unknown) (unknown) (no (unknown) (unknown) HEENT: Denies sinus (unit s (unknown) date) pain, ear pain, sore unknown) throat, difficulty swallowing, (unknown) (no (unknown) (unknown) HPI - Weakness (units (unknown) date) unknown) (unknown) (no (unknown) (unknown) HPI Narrative: (units (unknown) date) unknown) (unknown) (no (unknown) (unknown) Hct (41-53) % (units (unknown) date) unknown) (unknown) (no (unknown) (unknown) Hct 40.7 L (units (un known) date) (41-53) % unknown) (unknown) (no (unknown) (unknown) Hgb (13.5-17.5) (units (unknown) date) g/dL unknown) (unknown) (no (unknown) (unknown) Hgb 13.0 L (units (un known) date) (13.5-17.5) g/dL unknown) (unknown) (no (unknown) (unknown) History of Present (units (unknown) date) Illness unknown) (unknown) (no (unknown) (unknown) IMPRESSION:? (units (u nknown) date) unknown) (unknown) (no (unknown) (unknown) INDICATIONS:? ACUTE (unit s (unknown) date) RENAL FAILURE unknown) (unknown) (no (unknown) (unknown) INPUTS: (units (unkno wn) date) unknown) (unknown) (no (unknown) (unknown) Imaging Data (units (u nknown) date) unknown) (unknown) (no (unknown) (unknown) Initial Vital Signs (unit s (unknown) date) unknown) (unknown) (no (unknown) (unknown) Initial Vital Signs: (uni ts (unknown) date) unknown) (unknown) (no (unknown) (unknown) Insulin Human Regular (uni ts (unknown) date) (Insulin Regular 100 unknown) Unit/Ml 3 Ml Vial) 5 unit IV NOW ONE (unknown) (no (unknown) (unknown) Interpretation: (units (unknown) date) unknown) (unknown) (no (unknown) (unknown) Intrinsic (units (unkn own) date) unknown) (unknown) (no (unknown) (unknown) Kidneys:? Right (units (unknown) date) kidney measures 11.8 unknown) cm long; left kidney measures 11.6 cm (unknown) (no (unknown) (unknown) Lab Data (units (unkno wn) date) unknown) (unknown) (no (unknown) (unknown) Labs: (units (unkno wn) date) unknown) (unknown) (no (unknown) (unknown) Lipase (23-300) (units (unknown) date) U/L unknown) (unknown) (no (unknown) (unknown) Lipase 319 H (units (unknown) date) (23-300) U/L unknown) (unknown) (no (unknown) (unknown) Lipase Stat (units (un known) date) unknown) (unknown) (no (unknown) (unknown) Loc: ED (units (unkno wn) date) unknown) (unknown) (no (unknown) (unknown) Lymph # (Auto) (units (unknown) date) unknown) (unknown) (no (unknown) (unknown) Lymph # (Auto) Not (unit s (unknown) date) Reportable unknown) (unknown) (no (unknown) (unknown) Lymph % (Auto) (units (unknown) date) unknown) (unknown) (no (unknown) (unknown) Lymph % (Auto) Not (unit s (unknown) date) Reportable unknown) (unknown) (no (unknown) (unknown) Lymphocytes % (units ( unknown) date) (Manual) (25-45) % unknown ) (unknown) (no (unknown) (unknown) Lymphocytes % (units ( unknown) date) (Manual) 76.0 H unknown) (25-45) % (unknown) (no (unknown) (unknown) MCH (26-34) PG (units (unknown) date) unknown) (unknown) (no (unknown) (unknown) MCH 29.2 (26-34) (uni ts (unknown) date) PG unknown) (unknown) (no (unknown) (unknown) MCHC (30-36) % (units (unknown) date) unknown) (unknown) (no (unknown) (unknown) MCHC 31.9 (30-36) (un its (unknown) date) % unknown) (unknown) (no (unknown) (unknown) MCV (80-100) fL (unit s (unknown) date) unknown) (unknown) (no (unknown) (unknown) MCV 91.5 (80-100) (un its (unknown) date) fL unknown) (unknown) (no (unknown) (unknown) MDM - Weakness (units (unknown) date) unknown) (unknown) (no (unknown) (unknown) MR#: [id number] (units (unknown) date) unknown) (unknown) (no (unknown) (unknown) MUSCULOSKELETAL: See (un its (unknown) date) HPI unknown) (unknown) (no (unknown) (unknown) [address] MD (units (unknown) date) [Primary Care unknown) Provider] - (unknown) (no (unknown) (unknown) Miscellaneous:? No (units (unknown) date) free pelvic fluid.? unknown) (unknown) (no (unknown) (unknown) Mode of arrival: (units (unknown) date) Wheelchair unknown) (unknown) (no (unknown) (unknown) [place] # (Auto) (units ( unknown) date) unknown) (unknown) (no (unknown) (unknown) [place] # (Auto) Not (units (unknown) date) Reportable unknown) (unknown) (no (unknown) (unknown) [place] % (Auto) (units ( unknown) date) unknown) (unknown) (no (unknown) (unknown) [place] % (Auto) Not (units (unknown) date) Reportable unknown) (unknown) (no (unknown) (unknown) Monocytes % (Manual) (uni ts (unknown) date) (2-11) % unknown) (unknown) (no (unknown) (unknown) Monocytes % (Manual) (uni ts (unknown) date) 3.0 (2-11) % unknown) (unknown) (no (unknown) (unknown) NECK: Trachea (units ( unknown) date) midline. Non tender unknown) (unknown) (no (unknown) (unknown) NEURO: AOx3. (units (u nknown) date) unknown) (unknown) (no (unknown) (unknown) NEUROLOGIC: Denies (units (unknown) date) weakness, headache, unknown) numbness, change in speech, confusion, (unknown) (no (unknown) (unknown) Narrative (units (unkn own) date) unknown) (unknown) (no (unknown) (unknown) Narrative: (units (unk nown) date) unknown) (unknown) (no (unknown) (unknown) Neut % (Auto) (units ( unknown) date) unknown) (unknown) (no (unknown) (unknown) Neut % (Auto) Not (units (unknown) date) Reportable unknown) (unknown) (no (unknown) (unknown) Neutrophils # (units ( unknown) date) (Manual) unknown) ([id number]) /uL (unknown) (no (unknown) (unknown) Neutrophils # (units ( unknown) date) (Manual) 7434 H unknown) ([phone]) /uL (unknown) (no (unknown) (unknown) No Action (units (unkn own) date) unknown) (unknown) (no (unknown) (unknown) Ordered: (units (unkno wn) date) unknown) (unknown) (no (unknown) (unknown) Ordering Provider: (units (unknown) date) Aroldo Bazan D.O. unknown) (unknown) (no (unknown) (unknown) Orders (units (unkno wn) date) unknown) (unknown) (no (unknown) (unknown) PROCEDURE:? US RENAL (uni ts (unknown) date) COMPLETE unknown) (unknown) (no (unknown) (unknown) PSYCHIATRIC: No (units (unknown) date) concerning unknown) psychosocial issues. (unknown) (no (unknown) (unknown) Patient History (units (unknown) date) unknown) (unknown) (no (unknown) (unknown) Patient: (units (unkno wn) date) Raven Sutherland unknown) MR#: M (unknown) (no (unknown) (unknown) Patient: (units (unkno wn) date) JaRaven Tia unknown) (unknown) (no (unknown) (unknown) Potassium 7.7 H* (units (unknown) date) (3.4-5.1) mmol/L unknown) (unknown) (no (unknown) (unknown) Potassium 8.6 H* (units (unknown) date) (3.4-5.1) mmol/L unknown) (unknown) (no (unknown) (unknown) Prescriptions: (units (unknown) date) unknown) (unknown) (no (unknown) (unknown) Prevagen 20 mg PO (units (unknown) date) DAILY 11/25/21 unknown) (unknown) (no (unknown) (unknown) Procedure: US renal (unit s (unknown) date) complete unknown) (unknown) (no (unknown) (unknown) Pulse Oximetry 100 (unit s (unknown) date) 97 unknown) (unknown) (no (unknown) (unknown) Pulse Oximetry 94 (units (unknown) date) 11/24/21 20:03 unknown) (unknown) (no (unknown) (unknown) Pulse Oximetry 97 97 (un its (unknown) date) unknown) (unknown) (no (unknown) (unknown) Pulse Oximetry 94 89 (uni ts (unknown) date) L 96 unknown) (unknown) (no (unknown) (unknown) Pulse Oximetry 95 96 (uni ts (unknown) date) unknown) (unknown) (no (unknown) (unknown) Pulse Oximetry 96 96 (un its (unknown) date) unknown) (unknown) (no (unknown) (unknown) Pulse Oximetry 96 97 (uni ts (unknown) date) 97 unknown) (unknown) (no (unknown) (unknown) Pulse Rate 87 (units (unknown) date) 11/24/21 20:03 unknown) (unknown) (no (unknown) (unknown) Pulse Rate 102 H 99 H (un its (unknown) date) 97 H unknown) (unknown) (no (unknown) (unknown) Pulse Rate 72 78 79 (unit s (unknown) date) unknown) (unknown) (no (unknown) (unknown) Pulse Rate 72 80 81 (unit s (unknown) date) unknown) (unknown) (no (unknown) (unknown) Pulse Rate 79 91 H (units (unknown) date) 104 H unknown) (unknown) (no (unknown) (unknown) Pulse Rate 87 76 77 (unit s (unknown) date) unknown) (unknown) (no (unknown) (unknown) Pulse Rate 99 H 100 H (un its (unknown) date) unknown) (unknown) (no (unknown) (unknown) RBC Morphology (units (unknown) date) unknown) (unknown) (no (unknown) (unknown) RBC Morphology (units (unknown) date) Normal morphology unknown) (unknown) (no (unknown) (unknown) RDW (11.6-14.8) % (un its (unknown) date) unknown) (unknown) (no (unknown) (unknown) RDW 14.1 (units (unkn own) date) (11.6-14.8) % unknown) (unknown) (no (unknown) (unknown) RESPIRATORY: Clear to (uni ts (unknown) date) auscultation. Breath unknown) sounds equal bilaterally. No wheezes, (unknown) (no (unknown) (unknown) RESPIRATORY: Denies (unit s (unknown) date) dyspnea, cough, unknown) wheezing, hemoptysis, sputum. (unknown) (no (unknown) (unknown) RESULT SUMMARY: (units (unknown) date) unknown) (unknown) (no (unknown) (unknown) Real-time scanning (units (unknown) date) was performed of the unknown) kidneys and bladder, with image (unknown) (no (unknown) (unknown) Referrals: (units (unk nown) date) unknown) (unknown) (no (unknown) (unknown) Related Data (units (u nknown) date) unknown) (unknown) (no (unknown) (unknown) Renal (units (unkno wn) date) unknown) (unknown) (no (unknown) (unknown) Renal US: (units (unk nown) date) unknown) (unknown) (no (unknown) (unknown) Respiratory Rate (units (unknown) date) unknown) (unknown) (no (unknown) (unknown) Respiratory Rate 15 (uni ts (unknown) date) 11/24/21 20:03 unknown) (unknown) (no (unknown) (unknown) Respiratory Rate 23 (uni ts (unknown) date) 25 H unknown) (unknown) (no (unknown) (unknown) Respiratory Rate 12 (unit s (unknown) date) 16 unknown) (unknown) (no (unknown) (unknown) Respiratory Rate 15 (unit s (unknown) date) 25 H 18 unknown) (unknown) (no (unknown) (unknown) Respiratory Rate 18 (unit s (unknown) date) 21 19 unknown) (unknown) (no (unknown) (unknown) Respiratory Rate 25 H (un its (unknown) date) 11 L 22 unknown) (unknown) (no (unknown) (unknown) Result diagrams: (units (unknown) date) unknown) (unknown) (no (unknown) (unknown) Review of Systems (units (unknown) date) unknown) (unknown) (no (unknown) (unknown) SARS-CoV-2 (PCR) (units (unknown) date) (Negative) unknown) (unknown) (no (unknown) (unknown) SARS-CoV-2 (PCR) (units (unknown) date) Negative (Negative) unknown) (unknown) (no (unknown) (unknown) SKIN: Denies rash, (units (unknown) date) skin lesions, or other unknown ) (unknown) (no (unknown) (unknown) SKIN: No rash or (units (unknown) date) erythema of visible unknown) areas (unknown) (no (unknown) (unknown) Seg Neutrophils % (units (unknown) date) (38-70) % unknown) (unknown) (no (unknown) (unknown) Seg Neutrophils % (units (unknown) date) 21.0 L (38-70) % unknown) (unknown) (no (unknown) (unknown) Serum creatinine ?> (unit s (unknown) date) 2.53 mg/dL unknown) (unknown) (no (unknown) (unknown) Serum sodium ?> 134 (unit s (unknown) date) mEq/L unknown) (unknown) (no (unknown) (unknown) Signed By: (units (unk nown) date) unknown) (unknown) (no (unknown) (unknown) Smoking Status: (units (unknown) date) Never smoker unknown) (unknown) (no (unknown) (unknown) Smoking Status: Never (un its (unknown) date) smoker unknown) (unknown) (no (unknown) (unknown) Smudge Cells (units (u nknown) date) unknown) (unknown) (no (unknown) (unknown) Smudge Cells 1+ H (units (unknown) date) unknown) (unknown) (no (unknown) (unknown) Social History (units (unknown) date) (Reviewed 11/25/21 @ unknown) 01:28 by Aroldo Bazan DO) (unknown) (no (unknown) (unknown) Sodium 134 L (units (unknown) date) (137-145) mmol/L unknown) (unknown) (no (unknown) (unknown) Sodium 136 L (units (unknown) date) (137-145) mmol/L unknown) (unknown) (no (unknown) (unknown) Sodium Bicarbonate (units (unknown) date) (Sodium Bicarb 8.4% unknown) Syringe) 150 meq IV NOW ONE (unknown) (no (unknown) (unknown) Sodium Bicarbonate (units (unknown) date) 100 meq/ (Dextrose) unknown) 1,100 mls @ 150 mls/hr IV CONT DEE (unknown) (no (unknown) (unknown) Sodium Chloride (units (unknown) date) (Normal Saline 0.9%) unknown) 1,000 mls @ 1,000 mls/hr IV BOLUS ONE (unknown) (no (unknown) (unknown) Sodium Chloride (units (unknown) date) (Normal Saline 0.9%) unknown) 1,000 mls @ 150 mls/hr IV CONT DEE (unknown) (no (unknown) (unknown) Sodium Urine Random (unit s (unknown) date) Stat unknown) (unknown) (no (unknown) (unknown) Source: patient (units (unknown) date) unknown) (unknown) (no (unknown) (unknown) Stated complaint: (units (unknown) date) Worsening Weakness x3 unknown) days (unknown) (no (unknown) (unknown) Substance Use Type: (unit s (unknown) date) does not use unknown) (unknown) (no (unknown) (unknown) TECHNIQUE:? (units (un known) date) unknown) (unknown) (no (unknown) (unknown) Temperature (units (un known) date) unknown) (unknown) (no (unknown) (unknown) Temperature (units (un known) date) unknown) (unknown) (no (unknown) (unknown) Temperature 98.4 F (unit s (unknown) date) 11/24/21 20:03 unknown) (unknown) (no (unknown) (unknown) Temperature 98.4 F (units (unknown) date) unknown) (unknown) (no (unknown) (unknown) Time Seen by (units (u nknown) date) Provider: 11/24/21 unknown) 21:14 (unknown) (no (unknown) (unknown) Total Bilirubin (units (unknown) date) (0.2-1.3) mg/dL unknown) (unknown) (no (unknown) (unknown) Total Bilirubin 0.6 (un its (unknown) date) (0.2-1.3) mg/dL unknown) (unknown) (no (unknown) (unknown) Total Counted (units ( unknown) date) unknown) (unknown) (no (unknown) (unknown) Total Counted 100 (units (unknown) date) unknown) (unknown) (no (unknown) (unknown) Total Creatine Kinase (un its (unknown) date) (55-170) U/L unknown) (unknown) (no (unknown) (unknown) Total Creatine Kinase (un its (unknown) date) 53 L (55-170) U/L unknown ) (unknown) (no (unknown) (unknown) Total Protein (units ( unknown) date) (6.3-8.2) g/dL unknown) (unknown) (no (unknown) (unknown) Total Protein 8.3 H (un its (unknown) date) (6.3-8.2) g/dL unknown) (unknown) (no (unknown) (unknown) Troponin + CK Cardiac (un its (unknown) date) Panel Stat unknown) (unknown) (no (unknown) (unknown) Troponin I (units (unk nown) date) (0.01-0.034) ng/mL unknown) (unknown) (no (unknown) (unknown) Troponin I 0.016 (units (unknown) date) (0.01-0.034) ng/mL unknown) (unknown) (no (unknown) (unknown) US renal complete (units (unknown) date) Stat unknown) (unknown) (no (unknown) (unknown) Ur Random Sodium (units (unknown) date) (30-90) mmol/L unknown) (unknown) (no (unknown) (unknown) Ur Random Sodium 104 (un its (unknown) date) H (30-90) mmol/L unknown) (unknown) (no (unknown) (unknown) Urine Creatinine (units (unknown) date) mg/dL unknown) (unknown) (no (unknown) (unknown) Urine Creatinine (units (unknown) date) 108.6 mg/dL unknown) (unknown) (no (unknown) (unknown) Urine creatinine ?> (unit s (unknown) date) 108.6 mg/dL unknown) (unknown) (no (unknown) (unknown) Urine sodium ?> 104 (unit s (unknown) date) mEq/L unknown) (unknown) (no (unknown) (unknown) VBG [Venous Blood (units (unknown) date) Gas] Stat unknown) (unknown) (no (unknown) (unknown) Vital Signs (units (un known) date) unknown) (unknown) (no (unknown) (unknown) Vital signs: (units (u nknown) date) unknown) (unknown) (no (unknown) (unknown) XR chest 1V Stat (units (unknown) date) unknown) (unknown) (no (unknown) (unknown) [Embedded Image Not (unit s (unknown) date) Available] unknown) (unknown) (no (unknown) (unknown) ago and failed 2 (units (unknown) date) months ago. He does unknown) not suffer urinary retention but instead (unknown) (no (unknown) (unknown) alcohol intake (units (unknown) date) frequency: unknown) holidays/special occasions only (unknown) (no (unknown) (unknown) amlodipine 10 mg (units (unknown) date) tablet 10 mg PO DAILY unknown) 11/25/21 11/25/21 (unknown) (no (unknown) (unknown) aspirin 81 mg capsule (un its (unknown) date) 81 mg PO DAILY unknown) 11/25/21 11/25/21 (unknown) (no (unknown) (unknown) been managed by (units (unknown) date) urology at [place]. unknown) It was placed originally about 5 years (unknown) (no (unknown) (unknown) call to Dr. Newberry (units (unknown) date) (Nephrology at unknown) [place]) (unknown) (no (unknown) (unknown) call to hospitalist (unit s (unknown) date) upon receipt of repeat unknown ) labs, given minimal improvement and (unknown) (no (unknown) (unknown) cases due (units (unkn own) date) unknown) (unknown) (no (unknown) (unknown) cholecalciferol (units (unknown) date) (vitamin D3) 50 50 mcg unknown ) PO DAILY 11/25/21 11/25/21 (unknown) (no (unknown) (unknown) constantly leaks (units (unknown) date) urine. He was scoped unknown) by his urologist about 10 days ago and (unknown) (no (unknown) (unknown) constipation, melena. (un its (unknown) date) unknown) (unknown) (no (unknown) (unknown) cortical echotexture (uni ts (unknown) date) appears grossly within unknown ) normal limits.? No hydronephrosis.? (unknown) (no (unknown) (unknown) dizziness. (units (unk nown) date) unknown) (unknown) (no (unknown) (unknown) documentation.? (units (unknown) date) unknown) (unknown) (no (unknown) (unknown) docusate sodium 100 (unit s (unknown) date) mg capsule 100 mg PO unknown) BID 11/25/21 11/25/21 (unknown) (no (unknown) (unknown) e.g. ATN, AIN, (units (unknown) date) glomerulonephritides unknown) (unknown) (no (unknown) (unknown) generalized weakness (uni ts (unknown) date) gradually worsening unknown) over the past few months. He states (unknown) (no (unknown) (unknown) generally, and on the (un its (unknown) date) whole, and very unknown) nonspecifically he feels weak. Patient (unknown) (no (unknown) (unknown) ibuprofen 800 mg (units (unknown) date) tablet 800 mg PO Q8H unknown) PRN 11/25/21 11/25/21 (unknown) (no (unknown) (unknown) icterus. No injection (un its (unknown) date) or drainage. unknown) (unknown) (no (unknown) (unknown) interrogation.? (Of (unit s (unknown) date) note, ureteral jets unknown) may not be detectable in up to 25% of (unknown) (no (unknown) (unknown) intraluminal masses (unit s (unknown) date) unknown) (unknown) (no (unknown) (unknown) inversions. OK 152. (unit s (unknown) date) QRS 164. T waves unknown) peaked (unknown) (no (unknown) (unknown) ischemia or ectopy. (unit s (unknown) date) No ST segmental unknown) elevation or depression. No T wave (unknown) (no (unknown) (unknown) ischemia or ectopy. (unit s (unknown) date) No ST segmental unknown) elevation or depression. No T wave inve (unknown) (no (unknown) (unknown) latanoprost 0.005 % (unit s (unknown) date) eye drops 1 drp unknown) OPHTHALMIC (EYE) DAILY 11/25/21 11/25/21 (unknown) (no (unknown) (unknown) lisinopril 40 mg (units (unknown) date) tablet 40 mg PO DAILY unknown) 11/25/21 11/25/21 (unknown) (no (unknown) (unknown) long.? Right (units (u nknown) date) unknown) (unknown) (no (unknown) (unknown) mcg (2,000 unit) (units (unknown) date) capsule (Vitamin unknown) (unknown) (no (unknown) (unknown) medications or diet. (uni ts (unknown) date) He denies any unknown) headache, blurred vision or trouble with (unknown) (no (unknown) (unknown) metoprolol tartrate (unit s (unknown) date) 25 mg tablet 25 mg PO unknown) BID 11/25/21 11/25/21 (unknown) (no (unknown) (unknown) mg-hydrochlorothiazid (un its (unknown) date) e 50 mg tablet unknown) (unknown) (no (unknown) (unknown) mg-lycopene 300 (units (unknown) date) mcg-lutein 250 mcg unknown) (unknown) (no (unknown) (unknown) mild distress. (units (unknown) date) unknown) (unknown) (no (unknown) (unknown) ucohjdld-gxe-ulbgs (units (unknown) date) acid 0.4 1 tab PO unknown) DAILY 11/25/21 11/25/21 (unknown) (no (unknown) (unknown) myacin family Allergy (un its (unknown) date) Blister Uncoded unknown) 11/24/21 20:03 (unknown) (no (unknown) (unknown) nystatin 100,000 (units (unknown) date) unit/gram topical 1 unknown) applic TOPICAL BID 11/25/21 11/25/21 (unknown) (no (unknown) (unknown) omega-3 fatty acids (unit s (unknown) date) 1,000 mg PO DAILY unknown) 11/25/21 11/25/21 (unknown) (no (unknown) (unknown) or stones.? On (units (unknown) date) pre-void images, unknown) neither ureteral jets are noted with color (unknown) (no (unknown) (unknown) potassium chloride 20 (un its (unknown) date) mEq 20 meq PO BID unknown) 11/25/21 11/25/21 (unknown) (no (unknown) (unknown) powder (units (unkno wn) date) unknown) (unknown) (no (unknown) (unknown) primary care provider (un its (unknown) date) early in the week. He unknown ) denies any change in his (unknown) (no (unknown) (unknown) problems such as (units (unknown) date) unilateral numbness, unknown) tingling or weakness. He states that (unknown) (no (unknown) (unknown) renal cortical (units (unknown) date) thickness is 1.5 cm; unknown) left renal cortical thickness is 1.5 cm.? (unknown) (no (unknown) (unknown) revision in December (units (unknown) date) unknown) (unknown) (no (unknown) (unknown) rosuvastatin 40 mg (units (unknown) date) tablet 40 mg PO DAILY unknown) 11/25/21 11/25/21 (unknown) (no (unknown) (unknown) rsions. OK 126. QRS (unit s (unknown) date) 140. T waves improved. unknown ) (unknown) (no (unknown) (unknown) seizures, (units (unkn own) date) incoordination. unknown) (unknown) (no (unknown) (unknown) some time, and he met (uni ts (unknown) date) with his orthopedist unknown) today and has an appointment with his (unknown) (no (unknown) (unknown) speech. He denies (units (unknown) date) any chest pain or unknown) shortness of breath. 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 He is scheduled for a (unknown) (no (unknown) (unknown) timolol 0.5 % eye (units (unknown) date) drops 1 drp OPHTHALMIC unknown ) (EYE) DAILY 11/25/21 11/25/21 (unknown) (no (unknown) (unknown) to insufficient (units (unknown) date) differences in unknown) specific gravity between ureteral and bladder (unknown) (no (unknown) (unknown) tonsillar hypertrophy (un its (unknown) date) or exudate. Airway unknown) patent. (unknown) (no (unknown) (unknown) triamterene 75 1 tab (uni ts (unknown) date) PO QAM 11/25/21 unknown) 11/25/21 (unknown) (no (unknown) (unknown) urine).? (units (unkno wn) date) unknown) Result panel 20 (unknown) (no (unknown) (unknown) (no value) (units (unk nown) date) unknown) (unknown) (no (unknown) (unknown) Radiologist (units (un known) date) Impression: unknown) (unknown) (no (unknown) (unknown) (no value) (units (unk nown) date) unknown) (unknown) (no (unknown) (unknown) Date of Service: (units (unknown) date) 11/24/21 unknown) (unknown) (no (unknown) (unknown) (no value) (units (unk nown) date) unknown) (unknown) (no (unknown) (unknown) 11/24/21 21:40 (units (unknown) date) unknown) (unknown) (no (unknown) (unknown) 11/25/21 01:44 (units (unknown) date) unknown) (unknown) (no (unknown) (unknown) 1 applic TOPICAL BID (uni ts (unknown) date) 0RF unknown) (unknown) (no (unknown) (unknown) 1 drp OPHTHALMIC (units (unknown) date) (EYE) DAILY 0RF unknown) (unknown) (no (unknown) (unknown) 1 tab PO DAILY 0RF (units (unknown) date) unknown) (unknown) (no (unknown) (unknown) 1 tab PO QAM 0RF (units (unknown) date) unknown) (unknown) (no (unknown) (unknown) 1,000 mg PO DAILY 0RF (un its (unknown) date) unknown) (unknown) (no (unknown) (unknown) 10 mg PO DAILY 0RF (units (unknown) date) unknown) (unknown) (no (unknown) (unknown) 10 mg PO DAILY PRN (units (unknown) date) (Reason: intercourse) unknown) 0RF (unknown) (no (unknown) (unknown) 100 mg PO BID 0RF (units (unknown) date) unknown) (unknown) (no (unknown) (unknown) [address] (units (unknown) date) unknown) (unknown) (no (unknown) (unknown) 20 meq PO BID 0RF (units (unknown) date) unknown) (unknown) (no (unknown) (unknown) 20 mg PO DAILY 0RF (units (unknown) date) unknown) (unknown) (no (unknown) (unknown) 25 mg PO BID 0RF (units (unknown) date) unknown) (unknown) (no (unknown) (unknown) 40 mg PO DAILY 0RF (units (unknown) date) unknown) (unknown) (no (unknown) (unknown) 50 mcg PO DAILY 0RF (unit s (unknown) date) unknown) (unknown) (no (unknown) (unknown) 800 mg PO Q8H PRN (units (unknown) date) (Reason: Pain, unknown) Moderate) 0RF (unknown) (no (unknown) (unknown) 81 mg PO DAILY 0RF (units (unknown) date) unknown) (unknown) (no (unknown) (unknown) Admin: 11/24/21 22:08 (un its (unknown) date) Dose: 150 mls/hr unknown) (unknown) (no (unknown) (unknown) Admin: 11/24/21 22:52 (un its (unknown) date) Dose: 250 mls/hr unknown) (unknown) (no (unknown) (unknown) Admin: 11/24/21 23:01 (un its (unknown) date) Dose: 1,000 mls/hr unknown) (unknown) (no (unknown) (unknown) Admin: 11/24/21 23:16 (un its (unknown) date) Dose: 140 mls/hr unknown) (unknown) (no (unknown) (unknown) Allergies (units (unkn own) date) unknown) (unknown) (no (unknown) (unknown) CAMILLA [place] [id number] (unit s (unknown) date) unknown) (unknown) (no (unknown) (unknown) Documented by: (units (unknown) date) ATAYLOR Cosigned by: unknown ) FREDIS (unknown) (no (unknown) (unknown) Documented by: (units (unknown) date) ATAYLOR unknown) (unknown) (no (unknown) (unknown) Documented by: (units (unknown) date) SBALDWIN unknown) (unknown) (no (unknown) (unknown) ED Orders (units (unkn own) date) unknown) (unknown) (no (unknown) (unknown) Emergency Report (units (unknown) date) unknown) (unknown) (no (unknown) (unknown) Home Medications (units (unknown) date) unknown) (unknown) (no (unknown) (unknown) Infusion: 11/24/21 (units (unknown) date) 23:01 Dose: 0 mls/hr unknown) (unknown) (no (unknown) (unknown) [facility] (units (unknown) date) unknown) (unknown) (no (unknown) (unknown) [facility] [address] (uni ts (unknown) date) [address] [place] [address] [place], unknown ) [place] [id number] (unknown) (no (unknown) (unknown) Lab Results (units (un known) date) unknown) (unknown) (no (unknown) (unknown) Label Comments: (units (unknown) date) unknown) (unknown) (no (unknown) (unknown) Last Admin: 11/24/21 (uni ts (unknown) date) 22:56 Dose: 40 mg unknown) (unknown) (no (unknown) (unknown) Last Admin: 11/24/21 (uni ts (unknown) date) 23:09 Dose: 5 unit unknown) (unknown) (no (unknown) (unknown) Last Admin: 11/24/21 (uni ts (unknown) date) 23:15 Dose: 20 mg unknown) (unknown) (no (unknown) (unknown) Last Infusion: (units (unknown) date) 11/24/21 23:11 Dose: unknown) 0 mls/hr (unknown) (no (unknown) (unknown) Last Infusion: (units (unknown) date) 11/24/21 23:54 Dose: unknown) 0 mls/hr (unknown) (no (unknown) (unknown) Last Infusion: (units (unknown) date) 11/25/21 00:10 Dose: unknown) 0 mls/hr (unknown) (no (unknown) (unknown) Last Infusion: (units (unknown) date) 11/25/21 00:17 Dose: unknown) 150 mls/hr (unknown) (no (unknown) (unknown) PRN Reason: (units (un known) date) Hypoglycemia unknown) (unknown) (no (unknown) (unknown) Point of Care Testing (un its (unknown) date) unknown) (unknown) (no (unknown) (unknown) Rx Instructions: (units (unknown) date) unknown) (unknown) (no (unknown) (unknown) Signed (units (unkno wn) date) unknown) (unknown) (no (unknown) (unknown) Stop: 11/24/21 22:22 (uni ts (unknown) date) unknown) (unknown) (no (unknown) (unknown) Stop: 11/24/21 22:50 (uni ts (unknown) date) unknown) (unknown) (no (unknown) (unknown) Stop: 11/24/21 23:20 (uni ts (unknown) date) unknown) (unknown) (no (unknown) (unknown) Stop: 11/25/21 03:18 (uni ts (unknown) date) unknown) (unknown) (no (unknown) (unknown) Take 1 tablet by (units (unknown) date) mouth once a day unknown) (unknown) (no (unknown) (unknown) Ultrasound Report (units (unknown) date) unknown) (unknown) (no (unknown) (unknown) Vital Signs - 8 hr (units (unknown) date) unknown) (unknown) (no (unknown) (unknown) administer (units (unk nown) date) approximately 30min unknown) before sexual activity; do not use more than 1 (unknown) (no (unknown) (unknown) (no value) (units (unk nown) date) unknown) (unknown) (no (unknown) (unknown) 11/24/21 11/24/21 (units (unknown) date) 11/24/21 Range/Units unknown) (unknown) (no (unknown) (unknown) 11/24/21 11/25/21 (units (unknown) date) Range/Units unknown) (unknown) (no (unknown) (unknown) 21:40 21:40 22:32 (units (unknown) date) unknown) (unknown) (no (unknown) (unknown) 23:30 01:44 (units (un known) date) unknown) (unknown) (no (unknown) (unknown) Centrum Silver (units (unknown) date) 0.4-300-250 mg-mcg-mcg unknown ) Tablet (unknown) (no (unknown) (unknown) Fish Oil Capsule (units (unknown) date) unknown) (unknown) (no (unknown) (unknown) Prevagen 20 mg (units (unknown) date) unknown) (unknown) (no (unknown) (unknown) amlodipine 10 mg (units (unknown) date) Tablet unknown) (unknown) (no (unknown) (unknown) aspirin 81 mg Capsule (un its (unknown) date) unknown) (unknown) (no (unknown) (unknown) cholecalciferol (units (unknown) date) (vitamin D3) [Vitamin unknown) D3] 50 mcg (2,000 unit) Capsule (unknown) (no (unknown) (unknown) docusate sodium (units (unknown) date) [Colace] 100 mg unknown) Capsule (unknown) (no (unknown) (unknown) ibuprofen 800 mg (units (unknown) date) Tablet unknown) (unknown) (no (unknown) (unknown) latanoprost 0.005 % (unit s (unknown) date) Drops unknown) (unknown) (no (unknown) (unknown) lisinopril 40 mg (units (unknown) date) tablet unknown) (unknown) (no (unknown) (unknown) metoprolol tartrate (unit s (unknown) date) 25 mg Tablet unknown) (unknown) (no (unknown) (unknown) nystatin 100,000 (units (unknown) date) unit/gram Powder unknown) (unknown) (no (unknown) (unknown) potassium chloride 20 (un its (unknown) date) mEq Tablet Extended unknown) Release (unknown) (no (unknown) (unknown) rosuvastatin 40 mg (units (unknown) date) Tablet unknown) (unknown) (no (unknown) (unknown) tadalafil 10 mg (units (unknown) date) Tablet unknown) (unknown) (no (unknown) (unknown) timolol 0.5 % Drops (unit s (unknown) date) unknown) (unknown) (no (unknown) (unknown) triamterene-hydrochlo (un its (unknown) date) rothiazid 75-50 mg unknown) Tablet (unknown) (no (unknown) (unknown) 11/24/21 (units (unkno wn) date) unknown) (unknown) (no (unknown) (unknown) 11/25/21 (units (unkno wn) date) unknown) (unknown) (no (unknown) (unknown) Medication (units (unk nown) date) Instructions Recorded unknown ) Confirmed (unknown) (no (unknown) (unknown) dose per 24hrs (units (unknown) date) unknown) (unknown) (no (unknown) (unknown) rales, or rhonchi. (units (unknown) date) unknown) (unknown) (no (unknown) (unknown) (Colace) (units (unkno wn) date) unknown) (unknown) (no (unknown) (unknown) All calculations (unit s (unknown) date) should be rechecked by unknown ) clinician prior to use (unknown) (no (unknown) (unknown) [id number] (units (unkn own) date) unknown) (unknown) (no (unknown) (unknown) 00:00 (units (unkno wn) date) unknown) (unknown) (no (unknown) (unknown) 00:30 11/25/21 (units (unknown) date) unknown) (unknown) (no (unknown) (unknown) 01:00 11/25/21 (units (unknown) date) unknown) (unknown) (no (unknown) (unknown) 01:30 (units (unkno wn) date) unknown) (unknown) (no (unknown) (unknown) 02:00 11/25/21 (units (unknown) date) unknown) (unknown) (no (unknown) (unknown) 02:30 (units (unkno wn) date) unknown) (unknown) (no (unknown) (unknown) 11/24/21 21:14 (units (unknown) date) unknown) (unknown) (no (unknown) (unknown) 11/24/21 21:40 (units (unknown) date) unknown) (unknown) (no (unknown) (unknown) 11/24/21 22:21 (units (unknown) date) unknown) (unknown) (no (unknown) (unknown) 11/24/21 22:32 (units (unknown) date) unknown) (unknown) (no (unknown) (unknown) 11/24/21 23:30 (units (unknown) date) unknown) (unknown) (no (unknown) (unknown) 11/25/21 00:56 (units (unknown) date) unknown) (unknown) (no (unknown) (unknown) 11/25/21 01:44 (units (unknown) date) unknown) (unknown) (no (unknown) (unknown) 11/25/21 03:30 (units (unknown) date) unknown) (unknown) (no (unknown) (unknown) 1. No evidence of (units (unknown) date) hydronephrosis. unknown) (unknown) (no (unknown) (unknown) 1.8 % (units (unkno wn) date) unknown) (unknown) (no (unknown) (unknown) 12 point review of (units (unknown) date) systems is negative unknown) except for those stated above (unknown) (no (unknown) (unknown) 2. Bilateral mild (units (unknown) date) renal cortical unknown) thinning.? (unknown) (no (unknown) (unknown) 20:03 11/24/21 (units (unknown) date) unknown) (unknown) (no (unknown) (unknown) 21:19 11/24/21 (units (unknown) date) unknown) (unknown) (no (unknown) (unknown) 21:20 (units (unkno wn) date) unknown) (unknown) (no (unknown) (unknown) 21:30 11/24/21 (units (unknown) date) unknown) (unknown) (no (unknown) (unknown) 22:00 11/24/21 (units (unknown) date) unknown) (unknown) (no (unknown) (unknown) 22:01 (units (unkno wn) date) unknown) (unknown) (no (unknown) (unknown) 22:30 11/24/21 (units (unknown) date) unknown) (unknown) (no (unknown) (unknown) 23:00 11/24/21 (units (unknown) date) unknown) (unknown) (no (unknown) (unknown) 23:04 (units (unkno wn) date) unknown) (unknown) (no (unknown) (unknown) 23:20 11/24/21 (units (unknown) date) unknown) (unknown) (no (unknown) (unknown) 23:30 11/25/21 (units (unknown) date) unknown) (unknown) (no (unknown) (unknown) 81-year-old male (units (unknown) date) Nonsmoker with history unknown ) of HTN, hyperlipidemia presents with (unknown) (no (unknown) (unknown) ? (units (unkno wn) date) unknown) (unknown) (no (unknown) (unknown) ALT (<50) IU/L (units (unknown) date) unknown) (unknown) (no (unknown) (unknown) ALT 17 (<50) (units (unknown) date) IU/L unknown) (unknown) (no (unknown) (unknown) AST (17-59) IU/L (uni ts (unknown) date) unknown) (unknown) (no (unknown) (unknown) AST 26 (17-59) (units (unknown) date) IU/L unknown) (unknown) (no (unknown) (unknown) Accession Number: (units (unknown) date) [id number] ?? unknown) (unknown) (no (unknown) (unknown) Acct:[id number] (units (unknown) date) unknown) (unknown) (no (unknown) (unknown) Age/Sex: 81 / M (units (unknown) date) unknown) (unknown) (no (unknown) (unknown) Age/Sex: 81 / M (units (unknown) date) unknown) (unknown) (no (unknown) (unknown) Albumin (3.5-5.0) (uni ts (unknown) date) g/dL unknown) (unknown) (no (unknown) (unknown) Albumin 4.6 (units ( unknown) date) (3.5-5.0) g/dL unknown) (unknown) (no (unknown) (unknown) Albumin/Globulin (units (unknown) date) Ratio (1.0-2.8) unknown) (unknown) (no (unknown) (unknown) Albumin/Globulin (units (unknown) date) Ratio 1.2 unknown) (1.0-2.8) (unknown) (no (unknown) (unknown) Albuterol (Albuterol (uni ts (unknown) date) 2.5 Mg/3 Ml Neb unknown) (Adult)) 20 mg INH NOW ONE (unknown) (no (unknown) (unknown) Alkaline Phosphatase (uni ts (unknown) date) (38-126) U/L unknown) (unknown) (no (unknown) (unknown) Alkaline Phosphatase (uni ts (unknown) date) 192 H (38-126) U/L unknown ) (unknown) (no (unknown) (unknown) Allergy/AdvReac Type (uni ts (unknown) date) Severity Reaction unknown) Status Date / Time (unknown) (no (unknown) (unknown) Approved by: Gunnar (unit s (unknown) date) Abrahan Houser M.D. on unknown) 11/25/2021 at 0:16 ? (unknown) (no (unknown) (unknown) BACK: Nontender (units (unknown) date) without deformity or unknown) crepitance. No flank tenderness. (unknown) (no (unknown) (unknown) BMP [Basic Metabolic (uni ts (unknown) date) Panel] Stat unknown) (unknown) (no (unknown) (unknown) BUN 66 H (9-20) (units (unknown) date) mg/dL unknown) (unknown) (no (unknown) (unknown) BUN 70 H (9-20) (unit s (unknown) date) mg/dL unknown) (unknown) (no (unknown) (unknown) BUN/Creatinine Ratio (uni ts (unknown) date) 27.5 H (6-22) unknown) (unknown) (no (unknown) (unknown) BUN/Creatinine Ratio (uni ts (unknown) date) 27.7 H (6-22) unknown) (unknown) (no (unknown) (unknown) Baso # (Auto) (units ( unknown) date) unknown) (unknown) (no (unknown) (unknown) Baso # (Auto) Not (units (unknown) date) Reportable unknown) (unknown) (no (unknown) (unknown) Baso % (Auto) (units ( unknown) date) unknown) (unknown) (no (unknown) (unknown) Baso % (Auto) Not (units (unknown) date) Reportable unknown) (unknown) (no (unknown) (unknown) Bladder:? Pre-void (units (unknown) date) bladder was unknown) nondistended.? Limited evaluation for (unknown) (no (unknown) (unknown) Blood Pressure (units (unknown) date) 131/58 L unknown) (unknown) (no (unknown) (unknown) Blood Pressure (units (unknown) date) 133/63 129/62 unknown) (unknown) (no (unknown) (unknown) Blood Pressure (units (unknown) date) 155/93 H 11/24/21 unknown) 20:03 (unknown) (no (unknown) (unknown) Blood Pressure 137/63 (un its (unknown) date) 161/72 H unknown) (unknown) (no (unknown) (unknown) Blood Pressure 141/61 (un its (unknown) date) H 129/60 141/63 H unknown) (unknown) (no (unknown) (unknown) Blood Pressure 155/93 (un its (unknown) date) H 156/70 H unknown) (unknown) (no (unknown) (unknown) Blood Pressure 162/70 (un its (unknown) date) H 164/76 H unknown) (unknown) (no (unknown) (unknown) CARDIOVASCULAR: (units (unknown) date) Denies chest pain, unknown) palpitations, orthopnea, edema, (unknown) (no (unknown) (unknown) CARDIOVASCULAR: (units (unknown) date) Regular rate and unknown) rhythm without murmurs, gallops, or rubs. (unknown) (no (unknown) (unknown) CK-MB (CK-2) (units (u nknown) date) unknown) (unknown) (no (unknown) (unknown) CK-MB (CK-2) TNP (units (unknown) date) unknown) (unknown) (no (unknown) (unknown) CK-MB (CK-2) Rel (units (unknown) date) Index unknown) (unknown) (no (unknown) (unknown) CK-MB (CK-2) Rel (units (unknown) date) Index TNP unknown) (unknown) (no (unknown) (unknown) COMPARISON:? None. (units (unknown) date) unknown) (unknown) (no (unknown) (unknown) COVID19 -Nasal (units (unknown) date) RAPID/Pre-Proc Stat unknown) (unknown) (no (unknown) (unknown) Calcium 10.7 H (units (unknown) date) (8.4-10.2) mg/dL unknown) (unknown) (no (unknown) (unknown) Calcium 10.9 H (units (unknown) date) (8.4-10.2) mg/dL unknown) (unknown) (no (unknown) (unknown) Calcium Gluconate 9.3 (un its (unknown) date) meq/ (Sodium Chloride) unknown ) 70 mls @ 140 mls/hr IV NOW ONE (unknown) (no (unknown) (unknown) Carbon Dioxide 13 L (un its (unknown) date) (22-32) mmol/L unknown) (unknown) (no (unknown) (unknown) Carbon Dioxide 14 L (un its (unknown) date) (22-32) mmol/L unknown) (unknown) (no (unknown) (unknown) Chief complaint: (units (unknown) date) Weakness unknown) (unknown) (no (unknown) (unknown) Chloride 111 H (units (unknown) date) (98-107) mmol/L unknown) (unknown) (no (unknown) (unknown) Chloride 112 H (units (unknown) date) (98-107) mmol/L unknown) (unknown) (no (unknown) (unknown) Complete Blood Count (uni ts (unknown) date) AUTO DIFF Stat unknown) (unknown) (no (unknown) (unknown) Comprehensive (units ( unknown) date) Metabolic Panel Stat unknown) (unknown) (no (unknown) (unknown) Consultation #1: (units (unknown) date) unknown) (unknown) (no (unknown) (unknown) Consultation #2: (units (unknown) date) unknown) (unknown) (no (unknown) (unknown) Consultation #3: (units (unknown) date) unknown) (unknown) (no (unknown) (unknown) Consultations (units ( unknown) date) unknown) (unknown) (no (unknown) (unknown) Course (units (unkno wn) date) unknown) (unknown) (no (unknown) (unknown) Course Narrative: (units (unknown) date) unknown) (unknown) (no (unknown) (unknown) Creatinine 2.40 H (unit s (unknown) date) (0.66-1.25) mg/dL unknown) (unknown) (no (unknown) (unknown) Creatinine 2.53 H (unit s (unknown) date) (0.66-1.25) mg/dL unknown) (unknown) (no (unknown) (unknown) Creatinine Urine (units (unknown) date) Random Stat unknown) (unknown) (no (unknown) (unknown) D3) (units (unkno wn) date) unknown) (unknown) (no (unknown) (unknown) : 1940 (units (unknown) date) Acct:[id number] unknown) (unknown) (no (unknown) (unknown) : 1940 (units (unknown) date) unknown) (unknown) (no (unknown) (unknown) Date of Service: (units (unknown) date) 11/24/21 unknown) (unknown) (no (unknown) (unknown) Departure (units (unkn own) date) unknown) (unknown) (no (unknown) (unknown) Dextrose (D10w) 250 (uni ts (unknown) date) mls @ 999 mls/hr IV unknown) PRN PRN (unknown) (no (unknown) (unknown) Dictated by: Gunnar (unit s (unknown) date) Abrahan Houser M.D. on unknown) 11/25/2021 at 0:10 ? ? (unknown) (no (unknown) (unknown) Discharge Plan (units (unknown) date) unknown) (unknown) (no (unknown) (unknown) Discontinued (units (u nknown) date) Medications unknown) (unknown) (no (unknown) (unknown) Doppler (units (unkno wn) date) unknown) (unknown) (no (unknown) (unknown) ECG Data (units (unkno wn) date) unknown) (unknown) (no (unknown) (unknown) EKG 1 (2): EKG is (un its (unknown) date) normal sinus rhythm unknown) rate [70 ] and free of any signs of (unknown) (no (unknown) (unknown) EKG 2 (2): EKG is (un its (unknown) date) normal sinus rhythm unknown) rate [103 ] and free of any signs of (unknown) (no (unknown) (unknown) EKG 3 (0333): EKG is (un its (unknown) date) normal sinus rhythm unknown) rate [ 100] and free of any signs of (unknown) (no (unknown) (unknown) EKG-12 Lead Stat (units (unknown) date) unknown) (unknown) (no (unknown) (unknown) ENT: Nose without (units (unknown) date) bleeding, purulent unknown) drainage. Throat without erythema, (unknown) (no (unknown) (unknown) ER Physician: (units ( unknown) date) Aroldo Bazan D.O. unknown) (unknown) (no (unknown) (unknown) EXTREMITIES: No edema (un its (unknown) date) or joint tenderness. unknown) (unknown) (no (unknown) (unknown) EYES: Pupils equal (units (unknown) date) round and reactive. unknown) Extraocular motions intact. No scleral (unknown) (no (unknown) (unknown) Eos % (Auto) (units (u nknown) date) unknown) (unknown) (no (unknown) (unknown) Eos % (Auto) Not (units (unknown) date) Reportable unknown) (unknown) (no (unknown) (unknown) Estimated GFR 25 L (uni ts (unknown) date) (>60) mL/min unknown) (unknown) (no (unknown) (unknown) Estimated GFR 26 L (uni ts (unknown) date) (>60) mL/min unknown) (unknown) (no (unknown) (unknown) Exam (units (unkno wn) date) unknown) (unknown) (no (unknown) (unknown) Exam Narrative: (units (unknown) date) unknown) (unknown) (no (unknown) (unknown) FENa (units (unkno wn) date) unknown) (unknown) (no (unknown) (unknown) FINDINGS:? (units (unk nown) date) unknown) (unknown) (no (unknown) (unknown) FeNa of 1.8% (units (u nknown) date) recommends transfer to unknown ) facility with nephrology (unknown) (no (unknown) (unknown) Fractional Excretion (uni ts (unknown) date) of Sodium (FENa) from unknown) [facility] on 11/25/2021 (unknown) (no (unknown) (unknown) Furosemide (units (unk nown) date) (Furosemide 40 Mg/4 Ml unknown ) Vial) 40 mg IV NOW ONE (unknown) (no (unknown) (unknown) GASTROINTESTINAL: (units (unknown) date) Abdomen soft, unknown) non-tender, nondistended. (unknown) (no (unknown) (unknown) GASTROINTESTINAL: (units (unknown) date) Denies nausea, unknown) vomiting, abdominal pain, diarrhea, (unknown) (no (unknown) (unknown) GENERAL: Denies (units (unknown) date) chills, fatigue, unknown) malaise, fever, sweats. (unknown) (no (unknown) (unknown) GENERAL: [81 year old (un its (unknown) date) patient appears stated unknown ) age. Well-developed patient, in (unknown) (no (unknown) (unknown) : Denies dysuria, (unit s (unknown) date) frequency, unknown) incontinence, hematuria, urinary retention. (unknown) (no (unknown) (unknown) General (units (unkno wn) date) unknown) (unknown) (no (unknown) (unknown) GenericComposite[Plt (uni ts (unknown) date) Count (150-400) unknown) X10^3/uL ] (unknown) (no (unknown) (unknown) GenericComposite[Plt (uni ts (unknown) date) Count 229 unknown) (150-400) X10^3/uL ] (unknown) (no (unknown) (unknown) GenericComposite[RBC (uni ts (unknown) date) (4.5-5.9) X10^6/uL unknown) ] (unknown) (no (unknown) (unknown) GenericComposite[RBC (uni ts (unknown) date) 4.45 L (4.5-5.9) unknown) X10^6/uL ] (unknown) (no (unknown) (unknown) GenericComposite[WBC (uni ts (unknown) date) (4.5-11.0) X10^3/uL unknown ) ] (unknown) (no (unknown) (unknown) GenericComposite[WBC (uni ts (unknown) date) 35.4 H* (4.5-11.0) unknown) X10^3/uL ] (unknown) (no (unknown) (unknown) Globulin (1.7-4.1) (un its (unknown) date) g/dL unknown) (unknown) (no (unknown) (unknown) Globulin 3.7 (units (unknown) date) (1.7-4.1) g/dL unknown) (unknown) (no (unknown) (unknown) Glucose 115 H (units (unknown) date) (80-110) mg/dL unknown) (unknown) (no (unknown) (unknown) Glucose 117 H (units (unknown) date) (80-110) mg/dL unknown) (unknown) (no (unknown) (unknown) Glucose POC 119 (units (unknown) date) unknown) (unknown) (no (unknown) (unknown) HEAD: Atraumatic. (units (unknown) date) Normocephalic. unknown) (unknown) (no (unknown) (unknown) HEENT: Denies sinus (unit s (unknown) date) pain, ear pain, sore unknown) throat, difficulty swallowing, (unknown) (no (unknown) (unknown) HPI - Weakness (units (unknown) date) unknown) (unknown) (no (unknown) (unknown) HPI Narrative: (units (unknown) date) unknown) (unknown) (no (unknown) (unknown) Hct (41-53) % (units (unknown) date) unknown) (unknown) (no (unknown) (unknown) Hct 40.7 L (units (un known) date) (41-53) % unknown) (unknown) (no (unknown) (unknown) Hgb (13.5-17.5) (units (unknown) date) g/dL unknown) (unknown) (no (unknown) (unknown) Hgb 13.0 L (units (un known) date) (13.5-17.5) g/dL unknown) (unknown) (no (unknown) (unknown) History of Present (units (unknown) date) Illness unknown) (unknown) (no (unknown) (unknown) IMPRESSION:? (units (u nknown) date) unknown) (unknown) (no (unknown) (unknown) INDICATIONS:? ACUTE (unit s (unknown) date) RENAL FAILURE unknown) (unknown) (no (unknown) (unknown) INPUTS: (units (unkno wn) date) unknown) (unknown) (no (unknown) (unknown) Imaging Data (units (u nknown) date) unknown) (unknown) (no (unknown) (unknown) Initial Vital Signs (unit s (unknown) date) unknown) (unknown) (no (unknown) (unknown) Initial Vital Signs: (uni ts (unknown) date) unknown) (unknown) (no (unknown) (unknown) Insulin Human Regular (uni ts (unknown) date) (Insulin Regular 100 unknown) Unit/Ml 3 Ml Vial) 5 unit IV NOW ONE (unknown) (no (unknown) (unknown) Interpretation: (units (unknown) date) unknown) (unknown) (no (unknown) (unknown) Intrinsic (units (unkn own) date) unknown) (unknown) (no (unknown) (unknown) Kidneys:? Right (units (unknown) date) kidney measures 11.8 unknown) cm long; left kidney measures 11.6 cm (unknown) (no (unknown) (unknown) Lab Data (units (unkno wn) date) unknown) (unknown) (no (unknown) (unknown) Labs: (units (unkno wn) date) unknown) (unknown) (no (unknown) (unknown) Lipase (23-300) (units (unknown) date) U/L unknown) (unknown) (no (unknown) (unknown) Lipase 319 H (units (unknown) date) (23-300) U/L unknown) (unknown) (no (unknown) (unknown) Lipase Stat (units (un known) date) unknown) (unknown) (no (unknown) (unknown) Loc: ED (units (unkno wn) date) unknown) (unknown) (no (unknown) (unknown) Lymph # (Auto) (units (unknown) date) unknown) (unknown) (no (unknown) (unknown) Lymph # (Auto) Not (unit s (unknown) date) Reportable unknown) (unknown) (no (unknown) (unknown) Lymph % (Auto) (units (unknown) date) unknown) (unknown) (no (unknown) (unknown) Lymph % (Auto) Not (unit s (unknown) date) Reportable unknown) (unknown) (no (unknown) (unknown) Lymphocytes % (units ( unknown) date) (Manual) (25-45) % unknown ) (unknown) (no (unknown) (unknown) Lymphocytes % (units ( unknown) date) (Manual) 76.0 H unknown) (25-45) % (unknown) (no (unknown) (unknown) MCH (26-34) PG (units (unknown) date) unknown) (unknown) (no (unknown) (unknown) MCH 29.2 (26-34) (uni ts (unknown) date) PG unknown) (unknown) (no (unknown) (unknown) MCHC (30-36) % (units (unknown) date) unknown) (unknown) (no (unknown) (unknown) MCHC 31.9 (30-36) (un its (unknown) date) % unknown) (unknown) (no (unknown) (unknown) MCV (80-100) fL (unit s (unknown) date) unknown) (unknown) (no (unknown) (unknown) MCV 91.5 (80-100) (un its (unknown) date) fL unknown) (unknown) (no (unknown) (unknown) MDM - Weakness (units (unknown) date) unknown) (unknown) (no (unknown) (unknown) MR#: [id number] (units (unknown) date) unknown) (unknown) (no (unknown) (unknown) MUSCULOSKELETAL: See (un its (unknown) date) HPI unknown) (unknown) (no (unknown) (unknown) [address] MD (units (unknown) date) [Primary Care unknown) Provider] - (unknown) (no (unknown) (unknown) Miscellaneous:? No (units (unknown) date) free pelvic fluid.? unknown) (unknown) (no (unknown) (unknown) Mode of arrival: (units (unknown) date) Wheelchair unknown) (unknown) (no (unknown) (unknown) [place] # (Auto) (units ( unknown) date) unknown) (unknown) (no (unknown) (unknown) [place] # (Auto) Not (units (unknown) date) Reportable unknown) (unknown) (no (unknown) (unknown) [place] % (Auto) (units ( unknown) date) unknown) (unknown) (no (unknown) (unknown) [place] % (Auto) Not (units (unknown) date) Reportable unknown) (unknown) (no (unknown) (unknown) Monocytes % (Manual) (uni ts (unknown) date) (2-11) % unknown) (unknown) (no (unknown) (unknown) Monocytes % (Manual) (uni ts (unknown) date) 3.0 (2-11) % unknown) (unknown) (no (unknown) (unknown) NECK: Trachea (units ( unknown) date) midline. Non tender unknown) (unknown) (no (unknown) (unknown) NEURO: AOx3. (units (u nknown) date) unknown) (unknown) (no (unknown) (unknown) NEUROLOGIC: Denies (units (unknown) date) weakness, headache, unknown) numbness, change in speech, confusion, (unknown) (no (unknown) (unknown) Narrative (units (unkn own) date) unknown) (unknown) (no (unknown) (unknown) Narrative: (units (unk nown) date) unknown) (unknown) (no (unknown) (unknown) Neut % (Auto) (units ( unknown) date) unknown) (unknown) (no (unknown) (unknown) Neut % (Auto) Not (units (unknown) date) Reportable unknown) (unknown) (no (unknown) (unknown) Neutrophils # (units ( unknown) date) (Manual) unknown) (9615-8552) /uL (unknown) (no (unknown) (unknown) Neutrophils # (units ( unknown) date) (Manual) 7434 H unknown) (1027-1798) /uL (unknown) (no (unknown) (unknown) No Action (units (unkn own) date) unknown) (unknown) (no (unknown) (unknown) Ordered: (units (unkno wn) date) unknown) (unknown) (no (unknown) (unknown) Ordering Provider: (units (unknown) date) Aroldo Bazan D.O. unknown) (unknown) (no (unknown) (unknown) Orders (units (unkno wn) date) unknown) (unknown) (no (unknown) (unknown) PROCEDURE:? US RENAL (uni ts (unknown) date) COMPLETE unknown) (unknown) (no (unknown) (unknown) PSYCHIATRIC: No (units (unknown) date) concerning unknown) psychosocial issues. (unknown) (no (unknown) (unknown) Patient History (units (unknown) date) unknown) (unknown) (no (unknown) (unknown) Patient: (units (unkno wn) date) Raven Sutherland unknown) MR#: M (unknown) (no (unknown) (unknown) Patient: (units (unkno wn) date) Raven Sutherland unknown) (unknown) (no (unknown) (unknown) Potassium 7.7 H* (units (unknown) date) (3.4-5.1) mmol/L unknown) (unknown) (no (unknown) (unknown) Potassium 8.6 H* (units (unknown) date) (3.4-5.1) mmol/L unknown) (unknown) (no (unknown) (unknown) Prescriptions: (units (unknown) date) unknown) (unknown) (no (unknown) (unknown) Prevagen 20 mg PO (units (unknown) date) DAILY 11/25/21 unknown) (unknown) (no (unknown) (unknown) Procedure: US renal (unit s (unknown) date) complete unknown) (unknown) (no (unknown) (unknown) Pulse Oximetry 100 (unit s (unknown) date) 97 unknown) (unknown) (no (unknown) (unknown) Pulse Oximetry 94 (units (unknown) date) 11/24/21 20:03 unknown) (unknown) (no (unknown) (unknown) Pulse Oximetry 97 97 (un its (unknown) date) unknown) (unknown) (no (unknown) (unknown) Pulse Oximetry 94 89 (uni ts (unknown) date) L 96 unknown) (unknown) (no (unknown) (unknown) Pulse Oximetry 95 96 (uni ts (unknown) date) unknown) (unknown) (no (unknown) (unknown) Pulse Oximetry 96 96 (un its (unknown) date) unknown) (unknown) (no (unknown) (unknown) Pulse Oximetry 96 97 (uni ts (unknown) date) 97 unknown) (unknown) (no (unknown) (unknown) Pulse Rate 87 (units (unknown) date) 11/24/21 20:03 unknown) (unknown) (no (unknown) (unknown) Pulse Rate 102 H 99 H (un its (unknown) date) 97 H unknown) (unknown) (no (unknown) (unknown) Pulse Rate 72 78 79 (unit s (unknown) date) unknown) (unknown) (no (unknown) (unknown) Pulse Rate 72 80 81 (unit s (unknown) date) unknown) (unknown) (no (unknown) (unknown) Pulse Rate 79 91 H (units (unknown) date) 104 H unknown) (unknown) (no (unknown) (unknown) Pulse Rate 87 76 77 (unit s (unknown) date) unknown) (unknown) (no (unknown) (unknown) Pulse Rate 99 H 100 H (un its (unknown) date) unknown) (unknown) (no (unknown) (unknown) RBC Morphology (units (unknown) date) unknown) (unknown) (no (unknown) (unknown) RBC Morphology (units (unknown) date) Normal morphology unknown) (unknown) (no (unknown) (unknown) RDW (11.6-14.8) % (un its (unknown) date) unknown) (unknown) (no (unknown) (unknown) RDW 14.1 (units (unkn own) date) (11.6-14.8) % unknown) (unknown) (no (unknown) (unknown) RESPIRATORY: Clear to (uni ts (unknown) date) auscultation. Breath unknown) sounds equal bilaterally. No wheezes, (unknown) (no (unknown) (unknown) RESPIRATORY: Denies (unit s (unknown) date) dyspnea, cough, unknown) wheezing, hemoptysis, sputum. (unknown) (no (unknown) (unknown) RESULT SUMMARY: (units (unknown) date) unknown) (unknown) (no (unknown) (unknown) Real-time scanning (units (unknown) date) was performed of the unknown) kidneys and bladder, with image (unknown) (no (unknown) (unknown) Referrals: (units (unk nown) date) unknown) (unknown) (no (unknown) (unknown) Related Data (units (u nknown) date) unknown) (unknown) (no (unknown) (unknown) Renal (units (unkno wn) date) unknown) (unknown) (no (unknown) (unknown) Renal US: (units (unk nown) date) unknown) (unknown) (no (unknown) (unknown) Respiratory Rate (units (unknown) date) unknown) (unknown) (no (unknown) (unknown) Respiratory Rate 15 (uni ts (unknown) date) 11/24/21 20:03 unknown) (unknown) (no (unknown) (unknown) Respiratory Rate 23 (uni ts (unknown) date) 25 H unknown) (unknown) (no (unknown) (unknown) Respiratory Rate 12 (unit s (unknown) date) 16 unknown) (unknown) (no (unknown) (unknown) Respiratory Rate 15 (unit s (unknown) date) 25 H 18 unknown) (unknown) (no (unknown) (unknown) Respiratory Rate 18 (unit s (unknown) date) 21 19 unknown) (unknown) (no (unknown) (unknown) Respiratory Rate 25 H (un its (unknown) date) 11 L 22 unknown) (unknown) (no (unknown) (unknown) Result diagrams: (units (unknown) date) unknown) (unknown) (no (unknown) (unknown) Review of Systems (units (unknown) date) unknown) (unknown) (no (unknown) (unknown) SARS-CoV-2 (PCR) (units (unknown) date) (Negative) unknown) (unknown) (no (unknown) (unknown) SARS-CoV-2 (PCR) (units (unknown) date) Negative (Negative) unknown) (unknown) (no (unknown) (unknown) SKIN: Denies rash, (units (unknown) date) skin lesions, or other unknown ) (unknown) (no (unknown) (unknown) SKIN: No rash or (units (unknown) date) erythema of visible unknown) areas (unknown) (no (unknown) (unknown) Seg Neutrophils % (units (unknown) date) (38-70) % unknown) (unknown) (no (unknown) (unknown) Seg Neutrophils % (units (unknown) date) 21.0 L (38-70) % unknown) (unknown) (no (unknown) (unknown) Serum creatinine ?> (unit s (unknown) date) 2.53 mg/dL unknown) (unknown) (no (unknown) (unknown) Serum sodium ?> 134 (unit s (unknown) date) mEq/L unknown) (unknown) (no (unknown) (unknown) Signed By: (units (unk nown) date) unknown) (unknown) (no (unknown) (unknown) Smoking Status: (units (unknown) date) Never smoker unknown) (unknown) (no (unknown) (unknown) Smoking Status: Never (un its (unknown) date) smoker unknown) (unknown) (no (unknown) (unknown) Smudge Cells (units (u nknown) date) unknown) (unknown) (no (unknown) (unknown) Smudge Cells 1+ H (units (unknown) date) unknown) (unknown) (no (unknown) (unknown) Social History (units (unknown) date) (Reviewed 11/25/21 @ unknown) 01:28 by Aroldo Bazan DO) (unknown) (no (unknown) (unknown) Sodium 134 L (units (unknown) date) (137-145) mmol/L unknown) (unknown) (no (unknown) (unknown) Sodium 136 L (units (unknown) date) (137-145) mmol/L unknown) (unknown) (no (unknown) (unknown) Sodium Bicarbonate (units (unknown) date) (Sodium Bicarb 8.4% unknown) Syringe) 150 meq IV NOW ONE (unknown) (no (unknown) (unknown) Sodium Bicarbonate (units (unknown) date) 100 meq/ (Dextrose) unknown) 1,100 mls @ 150 mls/hr IV CONT DEE (unknown) (no (unknown) (unknown) Sodium Chloride (units (unknown) date) (Normal Saline 0.9%) unknown) 1,000 mls @ 1,000 mls/hr IV BOLUS ONE (unknown) (no (unknown) (unknown) Sodium Chloride (units (unknown) date) (Normal Saline 0.9%) unknown) 1,000 mls @ 150 mls/hr IV CONT DEE (unknown) (no (unknown) (unknown) Sodium Urine Random (unit s (unknown) date) Stat unknown) (unknown) (no (unknown) (unknown) Source: patient (units (unknown) date) unknown) (unknown) (no (unknown) (unknown) Stated complaint: (units (unknown) date) Worsening Weakness x3 unknown) days (unknown) (no (unknown) (unknown) Substance Use Type: (unit s (unknown) date) does not use unknown) (unknown) (no (unknown) (unknown) TECHNIQUE:? (units (un known) date) unknown) (unknown) (no (unknown) (unknown) Temperature (units (un known) date) unknown) (unknown) (no (unknown) (unknown) Temperature (units (un known) date) unknown) (unknown) (no (unknown) (unknown) Temperature 98.4 F (unit s (unknown) date) 11/24/21 20:03 unknown) (unknown) (no (unknown) (unknown) Temperature 98.4 F (units (unknown) date) unknown) (unknown) (no (unknown) (unknown) Time Seen by (units (u nknown) date) Provider: 11/24/21 unknown) 21:14 (unknown) (no (unknown) (unknown) Total Bilirubin (units (unknown) date) (0.2-1.3) mg/dL unknown) (unknown) (no (unknown) (unknown) Total Bilirubin 0.6 (un its (unknown) date) (0.2-1.3) mg/dL unknown) (unknown) (no (unknown) (unknown) Total Counted (units ( unknown) date) unknown) (unknown) (no (unknown) (unknown) Total Counted 100 (units (unknown) date) unknown) (unknown) (no (unknown) (unknown) Total Creatine Kinase (un its (unknown) date) (55-170) U/L unknown) (unknown) (no (unknown) (unknown) Total Creatine Kinase (un its (unknown) date) 53 L (55-170) U/L unknown ) (unknown) (no (unknown) (unknown) Total Protein (units ( unknown) date) (6.3-8.2) g/dL unknown) (unknown) (no (unknown) (unknown) Total Protein 8.3 H (un its (unknown) date) (6.3-8.2) g/dL unknown) (unknown) (no (unknown) (unknown) Troponin + CK Cardiac (un its (unknown) date) Panel Stat unknown) (unknown) (no (unknown) (unknown) Troponin I (units (unk nown) date) (0.01-0.034) ng/mL unknown) (unknown) (no (unknown) (unknown) Troponin I 0.016 (units (unknown) date) (0.01-0.034) ng/mL unknown) (unknown) (no (unknown) (unknown) US renal complete (units (unknown) date) Stat unknown) (unknown) (no (unknown) (unknown) Ur Random Sodium (units (unknown) date) (30-90) mmol/L unknown) (unknown) (no (unknown) (unknown) Ur Random Sodium 104 (un its (unknown) date) H (30-90) mmol/L unknown) (unknown) (no (unknown) (unknown) Urine Creatinine (units (unknown) date) mg/dL unknown) (unknown) (no (unknown) (unknown) Urine Creatinine (units (unknown) date) 108.6 mg/dL unknown) (unknown) (no (unknown) (unknown) Urine creatinine ?> (unit s (unknown) date) 108.6 mg/dL unknown) (unknown) (no (unknown) (unknown) Urine sodium ?> 104 (unit s (unknown) date) mEq/L unknown) (unknown) (no (unknown) (unknown) VBG [Venous Blood (units (unknown) date) Gas] Stat unknown) (unknown) (no (unknown) (unknown) Vital Signs (units (un known) date) unknown) (unknown) (no (unknown) (unknown) Vital signs: (units (u nknown) date) unknown) (unknown) (no (unknown) (unknown) XR chest 1V Stat (units (unknown) date) unknown) (unknown) (no (unknown) (unknown) [Embedded Image Not (unit s (unknown) date) Available] unknown) (unknown) (no (unknown) (unknown) ago and failed 2 (units (unknown) date) months ago. He does unknown) not suffer urinary retention but instead (unknown) (no (unknown) (unknown) alcohol intake (units (unknown) date) frequency: unknown) holidays/special occasions only (unknown) (no (unknown) (unknown) amlodipine 10 mg (units (unknown) date) tablet 10 mg PO DAILY unknown) 11/25/21 11/25/21 (unknown) (no (unknown) (unknown) aspirin 81 mg capsule (un its (unknown) date) 81 mg PO DAILY unknown) 11/25/21 11/25/21 (unknown) (no (unknown) (unknown) at 150, repeat labs, (uni ts (unknown) date) improved K/acidemia unknown) before transfer possible. Currently no (unknown) (no (unknown) (unknown) been managed by (units (unknown) date) urology at [facility]. unknown) It was placed originally about 5 years (unknown) (no (unknown) (unknown) call to Dr. Newberry (units (unknown) date) (Hospitalist at unknown) [place]). Requests Bicarb (3 amps) with drip (unknown) (no (unknown) (unknown) call to hospitalist (unit s (unknown) date) upon receipt of repeat unknown ) labs, given minimal improvement and (unknown) (no (unknown) (unknown) calls to (units (unkno wn) date) unknown) (unknown) (no (unknown) (unknown) cases due (units (unkn own) date) unknown) (unknown) (no (unknown) (unknown) cholecalciferol (units (unknown) date) (vitamin D3) 50 50 mcg unknown ) PO DAILY 11/25/21 11/25/21 (unknown) (no (unknown) (unknown) constantly leaks (units (unknown) date) urine. He was scoped unknown) by his urologist about 10 days ago and (unknown) (no (unknown) (unknown) constipation, melena. (un its (unknown) date) unknown) (unknown) (no (unknown) (unknown) cortical echotexture (uni ts (unknown) date) appears grossly within unknown ) normal limits.? No hydronephrosis.? (unknown) (no (unknown) (unknown) dizziness. (units (unk nown) date) unknown) (unknown) (no (unknown) (unknown) documentation.? (units (unknown) date) unknown) (unknown) (no (unknown) (unknown) docusate sodium 100 (unit s (unknown) date) mg capsule 100 mg PO unknown) BID 11/25/21 11/25/21 (unknown) (no (unknown) (unknown) e.g. ATN, AIN, (units (unknown) date) glomerulonephritides unknown) (unknown) (no (unknown) (unknown) generalized weakness (uni ts (unknown) date) gradually worsening unknown) over the past few months. He states (unknown) (no (unknown) (unknown) generally, and on the (un its (unknown) date) whole, and very unknown) nonspecifically he feels weak. Patient (unknown) (no (unknown) (unknown) ibuprofen 800 mg (units (unknown) date) tablet 800 mg PO Q8H unknown) PRN 11/25/21 11/25/21 (unknown) (no (unknown) (unknown) icterus. No injection (un its (unknown) date) or drainage. unknown) (unknown) (no (unknown) (unknown) interrogation.? (Of (unit s (unknown) date) note, ureteral jets unknown) may not be detectable in up to 25% of (unknown) (no (unknown) (unknown) intraluminal masses (unit s (unknown) date) unknown) (unknown) (no (unknown) (unknown) inversions. OK 126. (unit s (unknown) date) QRS 140. T waves unknown) improved. (unknown) (no (unknown) (unknown) inversions. OK 152. (unit s (unknown) date) QRS 164. T waves unknown) peaked (unknown) (no (unknown) (unknown) inversions. T waves (unit s (unknown) date) improved. OK 112. QRS unknown) 132 (unknown) (no (unknown) (unknown) ischemia or ectopy. (unit s (unknown) date) No ST segmental unknown) elevation or depression. No T wave (unknown) (no (unknown) (unknown) latanoprost 0.005 % (unit s (unknown) date) eye drops 1 drp unknown) OPHTHALMIC (EYE) DAILY 11/25/21 11/25/21 (unknown) (no (unknown) (unknown) lisinopril 40 mg (units (unknown) date) tablet 40 mg PO DAILY unknown) 11/25/21 11/25/21 (unknown) (no (unknown) (unknown) long.? Right (units (u nknown) date) unknown) (unknown) (no (unknown) (unknown) mcg (2,000 unit) (units (unknown) date) capsule (Vitamin unknown) (unknown) (no (unknown) (unknown) medications or diet. (uni ts (unknown) date) He denies any unknown) headache, blurred vision or trouble with (unknown) (no (unknown) (unknown) metoprolol tartrate (unit s (unknown) date) 25 mg tablet 25 mg PO unknown) BID 11/25/21 11/25/21 (unknown) (no (unknown) (unknown) mg-hydrochlorothiazid (un its (unknown) date) e 50 mg tablet unknown) (unknown) (no (unknown) (unknown) mg-lycopene 300 (units (unknown) date) mcg-lutein 250 mcg unknown) (unknown) (no (unknown) (unknown) mild distress. (units (unknown) date) unknown) (unknown) (no (unknown) (unknown) nktzexha-cxd-pogad (units (unknown) date) acid 0.4 1 tab PO unknown) DAILY 11/25/21 11/25/21 (unknown) (no (unknown) (unknown) myacin family Allergy (un its (unknown) date) Blister Uncoded unknown) 11/24/21 20:03 (unknown) (no (unknown) (unknown) nystatin 100,000 (units (unknown) date) unit/gram topical 1 unknown) applic TOPICAL BID 11/25/21 11/25/21 (unknown) (no (unknown) (unknown) omega-3 fatty acids (unit s (unknown) date) 1,000 mg PO DAILY unknown) 11/25/21 11/25/21 (unknown) (no (unknown) (unknown) opportunities for (units (unknown) date) dialysis given backed unknown) up service (unknown) (no (unknown) (unknown) or stones.? On (units (unknown) date) pre-void images, unknown) neither ureteral jets are noted with color (unknown) (no (unknown) (unknown) potassium chloride 20 (un its (unknown) date) mEq 20 meq PO BID unknown) 11/25/21 11/25/21 (unknown) (no (unknown) (unknown) powder (units (unkno wn) date) unknown) (unknown) (no (unknown) (unknown) primary care provider (un its (unknown) date) early in the week. He unknown ) denies any change in his (unknown) (no (unknown) (unknown) problems such as (units (unknown) date) unilateral numbness, unknown) tingling or weakness. He states that (unknown) (no (unknown) (unknown) renal cortical (units (unknown) date) thickness is 1.5 cm; unknown) left renal cortical thickness is 1.5 cm.? (unknown) (no (unknown) (unknown) revision in December (units (unknown) date) unknown) (unknown) (no (unknown) (unknown) rosuvastatin 40 mg (units (unknown) date) tablet 40 mg PO DAILY unknown) 11/25/21 11/25/21 (unknown) (no (unknown) (unknown) seizures, (units (unkn own) date) incoordination. unknown) (unknown) (no (unknown) (unknown) some time, and he met (uni ts (unknown) date) with his orthopedist unknown) today and has an appointment with his (unknown) (no (unknown) (unknown) speech. He denies (units (unknown) date) any chest pain or unknown) shortness of breath. 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 He is scheduled for a (unknown) (no (unknown) (unknown) timolol 0.5 % eye (units (unknown) date) drops 1 drp OPHTHALMIC unknown ) (EYE) DAILY 11/25/21 11/25/21 (unknown) (no (unknown) (unknown) to insufficient (units (unknown) date) differences in unknown) specific gravity between ureteral and bladder (unknown) (no (unknown) (unknown) tonsillar hypertrophy (un its (unknown) date) or exudate. Airway unknown) patent. (unknown) (no (unknown) (unknown) triamterene 75 1 tab (uni ts (unknown) date) PO QAM 11/25/21 unknown) 11/25/21 (unknown) (no (unknown) (unknown) urine).? (units (unkno wn) date) unknown) Result panel 21 (unknown) (no date) (unknown) (unknown) -13.0 mmol/L (unkn own) (unknown) (no date) (unknown) (unknown) 14 mmol/L (unkn own) (unknown) (no date) (unknown) (unknown) 15 mmol/L (unkn own) (unknown) (no date) (unknown) (unknown) 28 mmHg (unkn own) (unknown) (no date) (unknown) (unknown) 35.6 mmHg (unkn own) (unknown) (no date) (unknown) (unknown) 42 % (unkn own) (unknown) (no date) (unknown) (unknown) 7.21 (units unknown) (unknown) Result panel 22 (unknown) (no (unknown) (unknown) (no value) (units (unk nown) date) unknown) (unknown) (no (unknown) (unknown) Radiologist (units (un known) date) Impression: unknown) (unknown) (no (unknown) (unknown) (no value) (units (unk nown) date) unknown) (unknown) (no (unknown) (unknown) Date of Service: (units (unknown) date) 11/24/21 unknown) (unknown) (no (unknown) (unknown) (no value) (units (unk nown) date) unknown) (unknown) (no (unknown) (unknown) 11/24/21 21:40 (units (unknown) date) unknown) (unknown) (no (unknown) (unknown) 11/25/21 01:44 (units (unknown) date) unknown) (unknown) (no (unknown) (unknown) 1 applic TOPICAL BID (uni ts (unknown) date) 0RF unknown) (unknown) (no (unknown) (unknown) 1 drp OPHTHALMIC (units (unknown) date) (EYE) DAILY 0RF unknown) (unknown) (no (unknown) (unknown) 1 tab PO DAILY 0RF (units (unknown) date) unknown) (unknown) (no (unknown) (unknown) 1 tab PO QAM 0RF (units (unknown) date) unknown) (unknown) (no (unknown) (unknown) 1,000 mg PO DAILY 0RF (un its (unknown) date) unknown) (unknown) (no (unknown) (unknown) 10 mg PO DAILY 0RF (units (unknown) date) unknown) (unknown) (no (unknown) (unknown) 10 mg PO DAILY PRN (units (unknown) date) (Reason: intercourse) unknown) 0RF (unknown) (no (unknown) (unknown) 100 mg PO BID 0RF (units (unknown) date) unknown) (unknown) (no (unknown) (unknown) [address] (units (unknown) date) unknown) (unknown) (no (unknown) (unknown) 20 meq PO BID 0RF (units (unknown) date) unknown) (unknown) (no (unknown) (unknown) 20 mg PO DAILY 0RF (units (unknown) date) unknown) (unknown) (no (unknown) (unknown) 25 mg PO BID 0RF (units (unknown) date) unknown) (unknown) (no (unknown) (unknown) 40 mg PO DAILY 0RF (units (unknown) date) unknown) (unknown) (no (unknown) (unknown) 50 mcg PO DAILY 0RF (unit s (unknown) date) unknown) (unknown) (no (unknown) (unknown) 800 mg PO Q8H PRN (units (unknown) date) (Reason: Pain, unknown) Moderate) 0RF (unknown) (no (unknown) (unknown) 81 mg PO DAILY 0RF (units (unknown) date) unknown) (unknown) (no (unknown) (unknown) Admin: 11/24/21 22:08 (un its (unknown) date) Dose: 150 mls/hr unknown) (unknown) (no (unknown) (unknown) Admin: 11/24/21 22:52 (un its (unknown) date) Dose: 250 mls/hr unknown) (unknown) (no (unknown) (unknown) Admin: 11/24/21 23:01 (un its (unknown) date) Dose: 1,000 mls/hr unknown) (unknown) (no (unknown) (unknown) Admin: 11/24/21 23:16 (un its (unknown) date) Dose: 140 mls/hr unknown) (unknown) (no (unknown) (unknown) Allergies (units (unkn own) date) unknown) (unknown) (no (unknown) (unknown) [place] [id number] (unit s (unknown) date) unknown) (unknown) (no (unknown) (unknown) Documented by: (units (unknown) date) APAFFIE unknown) (unknown) (no (unknown) (unknown) Documented by: (units (unknown) date) ATAYLOR Cosigned by: unknown ) FREDIS (unknown) (no (unknown) (unknown) Documented by: (units (unknown) date) ATAYLOR unknown) (unknown) (no (unknown) (unknown) Documented by: (units (unknown) date) FREDIS unknown) (unknown) (no (unknown) (unknown) ED Orders (units (unkn own) date) unknown) (unknown) (no (unknown) (unknown) Emergency Report (units (unknown) date) unknown) (unknown) (no (unknown) (unknown) Home Medications (units (unknown) date) unknown) (unknown) (no (unknown) (unknown) Infusion: 11/24/21 (units (unknown) date) 23:01 Dose: 0 mls/hr unknown) (unknown) (no (unknown) (unknown) [facility] (units (unknown) date) unknown) (unknown) (no (unknown) (unknown) [facility] [address] (uni ts (unknown) date) [address] [place] [address] [place], unknown ) [place] [id number] (unknown) (no (unknown) (unknown) Lab Results (units (un known) date) unknown) (unknown) (no (unknown) (unknown) Label Comments: (units (unknown) date) unknown) (unknown) (no (unknown) (unknown) Last Admin: 11/24/21 (uni ts (unknown) date) 22:56 Dose: 40 mg unknown) (unknown) (no (unknown) (unknown) Last Admin: 11/24/21 (uni ts (unknown) date) 23:09 Dose: 5 unit unknown) (unknown) (no (unknown) (unknown) Last Admin: 11/24/21 (uni ts (unknown) date) 23:15 Dose: 20 mg unknown) (unknown) (no (unknown) (unknown) Last Admin: 11/25/21 (uni ts (unknown) date) 03:58 Dose: 150 meq unknown) (unknown) (no (unknown) (unknown) Last Admin: 11/25/21 (uni ts (unknown) date) 03:58 Dose: 150 unknown) mls/hr (unknown) (no (unknown) (unknown) Last Infusion: (units (unknown) date) 11/24/21 23:11 Dose: unknown) 0 mls/hr (unknown) (no (unknown) (unknown) Last Infusion: (units (unknown) date) 11/24/21 23:54 Dose: unknown) 0 mls/hr (unknown) (no (unknown) (unknown) Last Infusion: (units (unknown) date) 11/25/21 00:10 Dose: unknown) 0 mls/hr (unknown) (no (unknown) (unknown) Last Infusion: (units (unknown) date) 11/25/21 00:17 Dose: unknown) 150 mls/hr (unknown) (no (unknown) (unknown) PRN Reason: (units (un known) date) Hypoglycemia unknown) (unknown) (no (unknown) (unknown) Point of Care Testing (un its (unknown) date) unknown) (unknown) (no (unknown) (unknown) Rx Instructions: (units (unknown) date) unknown) (unknown) (no (unknown) (unknown) Signed (units (unkno wn) date) unknown) (unknown) (no (unknown) (unknown) Stop: 11/24/21 22:22 (uni ts (unknown) date) unknown) (unknown) (no (unknown) (unknown) Stop: 11/24/21 22:50 (uni ts (unknown) date) unknown) (unknown) (no (unknown) (unknown) Stop: 11/24/21 23:20 (uni ts (unknown) date) unknown) (unknown) (no (unknown) (unknown) Stop: 11/25/21 03:18 (uni ts (unknown) date) unknown) (unknown) (no (unknown) (unknown) Take 1 tablet by (units (unknown) date) mouth once a day unknown) (unknown) (no (unknown) (unknown) Ultrasound Report (units (unknown) date) unknown) (unknown) (no (unknown) (unknown) Vital Signs - 8 hr (units (unknown) date) unknown) (unknown) (no (unknown) (unknown) administer (units (unk nown) date) approximately 30min unknown) before sexual activity; do not use more than 1 (unknown) (no (unknown) (unknown) (no value) (units (unk nown) date) unknown) (unknown) (no (unknown) (unknown) 11/24/21 11/24/21 (units (unknown) date) 11/24/21 Range/Units unknown) (unknown) (no (unknown) (unknown) 11/24/21 11/25/21 (units (unknown) date) 11/25/21 Range/Units unknown) (unknown) (no (unknown) (unknown) 21:40 21:40 22:32 (units (unknown) date) unknown) (unknown) (no (unknown) (unknown) 23:30 01:44 03:43 (units (unknown) date) unknown) (unknown) (no (unknown) (unknown) Centrum Silver (units (unknown) date) 0.4-300-250 mg-mcg-mcg unknown ) Tablet (unknown) (no (unknown) (unknown) Fish Oil Capsule (units (unknown) date) unknown) (unknown) (no (unknown) (unknown) Prevagen 20 mg (units (unknown) date) unknown) (unknown) (no (unknown) (unknown) amlodipine 10 mg (units (unknown) date) Tablet unknown) (unknown) (no (unknown) (unknown) aspirin 81 mg Capsule (un its (unknown) date) unknown) (unknown) (no (unknown) (unknown) cholecalciferol (units (unknown) date) (vitamin D3) [Vitamin unknown) D3] 50 mcg (2,000 unit) Capsule (unknown) (no (unknown) (unknown) docusate sodium (units (unknown) date) [Colace] 100 mg unknown) Capsule (unknown) (no (unknown) (unknown) ibuprofen 800 mg (units (unknown) date) Tablet unknown) (unknown) (no (unknown) (unknown) latanoprost 0.005 % (unit s (unknown) date) Drops unknown) (unknown) (no (unknown) (unknown) lisinopril 40 mg (units (unknown) date) tablet unknown) (unknown) (no (unknown) (unknown) metoprolol tartrate (unit s (unknown) date) 25 mg Tablet unknown) (unknown) (no (unknown) (unknown) nystatin 100,000 (units (unknown) date) unit/gram Powder unknown) (unknown) (no (unknown) (unknown) potassium chloride 20 (un its (unknown) date) mEq Tablet Extended unknown) Release (unknown) (no (unknown) (unknown) rosuvastatin 40 mg (units (unknown) date) Tablet unknown) (unknown) (no (unknown) (unknown) tadalafil 10 mg (units (unknown) date) Tablet unknown) (unknown) (no (unknown) (unknown) timolol 0.5 % Drops (unit s (unknown) date) unknown) (unknown) (no (unknown) (unknown) triamterene-hydrochlo (un its (unknown) date) rothiazid 75-50 mg unknown) Tablet (unknown) (no (unknown) (unknown) 11/24/21 (units (unkno wn) date) unknown) (unknown) (no (unknown) (unknown) 11/25/21 (units (unkno wn) date) unknown) (unknown) (no (unknown) (unknown) Medication (units (unk nown) date) Instructions Recorded unknown ) Confirmed (unknown) (no (unknown) (unknown) dose per 24hrs (units (unknown) date) unknown) (unknown) (no (unknown) (unknown) rales, or rhonchi. (units (unknown) date) unknown) (unknown) (no (unknown) (unknown) (Colace) (units (unkno wn) date) unknown) (unknown) (no (unknown) (unknown) All calculations (unit s (unknown) date) should be rechecked by unknown ) clinician prior to use (unknown) (no (unknown) (unknown) [id number] (units (unkn own) date) unknown) (unknown) (no (unknown) (unknown) 00:00 11/25/21 (units (unknown) date) unknown) (unknown) (no (unknown) (unknown) 00:30 (units (unkno wn) date) unknown) (unknown) (no (unknown) (unknown) 01:00 11/25/21 (units (unknown) date) unknown) (unknown) (no (unknown) (unknown) 01:30 11/25/21 (units (unknown) date) unknown) (unknown) (no (unknown) (unknown) 02:00 (units (unkno wn) date) unknown) (unknown) (no (unknown) (unknown) 02:30 11/25/21 (units (unknown) date) unknown) (unknown) (no (unknown) (unknown) 03:00 11/25/21 (units (unknown) date) unknown) (unknown) (no (unknown) (unknown) 03:30 (units (unkno wn) date) unknown) (unknown) (no (unknown) (unknown) 11/24/21 21:14 (units (unknown) date) unknown) (unknown) (no (unknown) (unknown) 11/24/21 21:40 (units (unknown) date) unknown) (unknown) (no (unknown) (unknown) 11/24/21 22:21 (units (unknown) date) unknown) (unknown) (no (unknown) (unknown) 11/24/21 22:32 (units (unknown) date) unknown) (unknown) (no (unknown) (unknown) 11/24/21 23:30 (units (unknown) date) unknown) (unknown) (no (unknown) (unknown) 11/25/21 00:56 (units (unknown) date) unknown) (unknown) (no (unknown) (unknown) 11/25/21 01:44 (units (unknown) date) unknown) (unknown) (no (unknown) (unknown) 11/25/21 03:30 (units (unknown) date) unknown) (unknown) (no (unknown) (unknown) 11/25/21 03:43 (units (unknown) date) unknown) (unknown) (no (unknown) (unknown) 11/25/21 04:16 (units (unknown) date) unknown) (unknown) (no (unknown) (unknown) 11/25/21 04:30 (units (unknown) date) unknown) (unknown) (no (unknown) (unknown) 1. No evidence of (units (unknown) date) hydronephrosis. unknown) (unknown) (no (unknown) (unknown) 1.8 % (units (unkno wn) date) unknown) (unknown) (no (unknown) (unknown) 12 point review of (units (unknown) date) systems is negative unknown) except for those stated above (unknown) (no (unknown) (unknown) 2. Bilateral mild (units (unknown) date) renal cortical unknown) thinning.? (unknown) (no (unknown) (unknown) 21:19 11/24/21 (units (unknown) date) unknown) (unknown) (no (unknown) (unknown) 21:20 11/24/21 (units (unknown) date) unknown) (unknown) (no (unknown) (unknown) 21:30 (units (unkno wn) date) unknown) (unknown) (no (unknown) (unknown) 22:00 11/24/21 (units (unknown) date) unknown) (unknown) (no (unknown) (unknown) 22:01 11/24/21 (units (unknown) date) unknown) (unknown) (no (unknown) (unknown) 22:30 (units (unkno wn) date) unknown) (unknown) (no (unknown) (unknown) 23:00 11/24/21 (units (unknown) date) unknown) (unknown) (no (unknown) (unknown) 23:04 11/24/21 (units (unknown) date) unknown) (unknown) (no (unknown) (unknown) 23:20 (units (unkno wn) date) unknown) (unknown) (no (unknown) (unknown) 23:30 11/25/21 (units (unknown) date) unknown) (unknown) (no (unknown) (unknown) 81-year-old male (units (unknown) date) Nonsmoker with history unknown ) of HTN, hyperlipidemia presents with (unknown) (no (unknown) (unknown) ? (units (unkno wn) date) unknown) (unknown) (no (unknown) (unknown) ALT (<50) IU/L (unit s (unknown) date) unknown) (unknown) (no (unknown) (unknown) ALT 17 (<50) (units (unknown) date) IU/L unknown) (unknown) (no (unknown) (unknown) AST (17-59) IU/L (un its (unknown) date) unknown) (unknown) (no (unknown) (unknown) AST 26 (17-59) (units (unknown) date) IU/L unknown) (unknown) (no (unknown) (unknown) Accession Number: (units (unknown) date) [id number] ?? unknown) (unknown) (no (unknown) (unknown) Acct:[id number] (units (unknown) date) unknown) (unknown) (no (unknown) (unknown) Age/Sex: 81 / M (units (unknown) date) unknown) (unknown) (no (unknown) (unknown) Age/Sex: 81 / M (units (unknown) date) unknown) (unknown) (no (unknown) (unknown) Albumin (3.5-5.0) (un its (unknown) date) g/dL unknown) (unknown) (no (unknown) (unknown) Albumin 4.6 (units ( unknown) date) (3.5-5.0) g/dL unknown) (unknown) (no (unknown) (unknown) Albumin/Globulin (units (unknown) date) Ratio (1.0-2.8) unknown) (unknown) (no (unknown) (unknown) Albumin/Globulin (units (unknown) date) Ratio 1.2 unknown) (1.0-2.8) (unknown) (no (unknown) (unknown) Albuterol (Albuterol (uni ts (unknown) date) 2.5 Mg/3 Ml Neb unknown) (Adult)) 20 mg INH NOW ONE (unknown) (no (unknown) (unknown) Alkaline Phosphatase (uni ts (unknown) date) (38-126) U/L unknown) (unknown) (no (unknown) (unknown) Alkaline Phosphatase (uni ts (unknown) date) 192 H (38-126) U/L unknown ) (unknown) (no (unknown) (unknown) Allergy/AdvReac Type (uni ts (unknown) date) Severity Reaction unknown) Status Date / Time (unknown) (no (unknown) (unknown) Approved by: Gunnar (unit s (unknown) date) Abrahan Houser M.D. on unknown) 11/25/2021 at 0:16 ? (unknown) (no (unknown) (unknown) BACK: Nontender (units (unknown) date) without deformity or unknown) crepitance. No flank tenderness. (unknown) (no (unknown) (unknown) BMP [Basic Metabolic (uni ts (unknown) date) Panel] Stat unknown) (unknown) (no (unknown) (unknown) BUN 66 H (9-20) (unit s (unknown) date) mg/dL unknown) (unknown) (no (unknown) (unknown) BUN 70 H (9-20) (unit s (unknown) date) mg/dL unknown) (unknown) (no (unknown) (unknown) BUN/Creatinine Ratio (uni ts (unknown) date) 27.5 H (6-22) unknown) (unknown) (no (unknown) (unknown) BUN/Creatinine Ratio (uni ts (unknown) date) 27.7 H (6-22) unknown) (unknown) (no (unknown) (unknown) Baso # (Auto) (units ( unknown) date) unknown) (unknown) (no (unknown) (unknown) Baso # (Auto) Not (units (unknown) date) Reportable unknown) (unknown) (no (unknown) (unknown) Baso % (Auto) (units ( unknown) date) unknown) (unknown) (no (unknown) (unknown) Baso % (Auto) Not (units (unknown) date) Reportable unknown) (unknown) (no (unknown) (unknown) Bladder:? Pre-void (units (unknown) date) bladder was unknown) nondistended.? Limited evaluation for (unknown) (no (unknown) (unknown) Blood Pressure (units (unknown) date) 131/58 L unknown) (unknown) (no (unknown) (unknown) Blood Pressure (units (unknown) date) 155/93 H 11/24/21 unknown) 20:03 (unknown) (no (unknown) (unknown) Blood Pressure (units (unknown) date) 156/70 H 162/70 H unknown) (unknown) (no (unknown) (unknown) Blood Pressure (units (unknown) date) 164/76 H unknown) (unknown) (no (unknown) (unknown) Blood Pressure 129/60 (un its (unknown) date) 141/63 H 137/63 unknown) (unknown) (no (unknown) (unknown) Blood Pressure 133/63 (un its (unknown) date) 129/62 141/61 H unknown) (unknown) (no (unknown) (unknown) Blood Pressure 161/72 (un its (unknown) date) H 151/65 H 123/58 L unknown) (unknown) (no (unknown) (unknown) CARDIOVASCULAR: (units (unknown) date) Denies chest pain, unknown) palpitations, orthopnea, edema, (unknown) (no (unknown) (unknown) CARDIOVASCULAR: (units (unknown) date) Regular rate and unknown) rhythm without murmurs, gallops, or rubs. (unknown) (no (unknown) (unknown) CK-MB (CK-2) (units (u nknown) date) unknown) (unknown) (no (unknown) (unknown) CK-MB (CK-2) TNP (units (unknown) date) unknown) (unknown) (no (unknown) (unknown) CK-MB (CK-2) Rel (units (unknown) date) Index unknown) (unknown) (no (unknown) (unknown) CK-MB (CK-2) Rel (units (unknown) date) Index TNP unknown) (unknown) (no (unknown) (unknown) COMPARISON:? None. (units (unknown) date) unknown) (unknown) (no (unknown) (unknown) COVID19 -Nasal (units (unknown) date) RAPID/Pre-Proc Stat unknown) (unknown) (no (unknown) (unknown) Calcium 10.7 H (units (unknown) date) (8.4-10.2) mg/dL unknown) (unknown) (no (unknown) (unknown) Calcium 10.9 H (units (unknown) date) (8.4-10.2) mg/dL unknown) (unknown) (no (unknown) (unknown) Calcium Gluconate 9.3 (un its (unknown) date) meq/ (Sodium Chloride) unknown ) 70 mls @ 140 mls/hr IV NOW ONE (unknown) (no (unknown) (unknown) Carbon Dioxide 13 L (un its (unknown) date) (22-32) mmol/L unknown) (unknown) (no (unknown) (unknown) Carbon Dioxide 14 L (un its (unknown) date) (22-32) mmol/L unknown) (unknown) (no (unknown) (unknown) Chief complaint: (units (unknown) date) Weakness unknown) (unknown) (no (unknown) (unknown) Chloride 111 H (units (unknown) date) (98-107) mmol/L unknown) (unknown) (no (unknown) (unknown) Chloride 112 H (units (unknown) date) (98-107) mmol/L unknown) (unknown) (no (unknown) (unknown) Complete Blood Count (uni ts (unknown) date) AUTO DIFF Stat unknown) (unknown) (no (unknown) (unknown) Comprehensive (units ( unknown) date) Metabolic Panel Stat unknown) (unknown) (no (unknown) (unknown) Consultation #1: (units (unknown) date) unknown) (unknown) (no (unknown) (unknown) Consultation #2: (units (unknown) date) unknown) (unknown) (no (unknown) (unknown) Consultation #3: (units (unknown) date) unknown) (unknown) (no (unknown) (unknown) Consultations (units ( unknown) date) unknown) (unknown) (no (unknown) (unknown) Course (units (unkno wn) date) unknown) (unknown) (no (unknown) (unknown) Course Narrative: (units (unknown) date) unknown) (unknown) (no (unknown) (unknown) Creatinine 2.40 H (unit s (unknown) date) (0.66-1.25) mg/dL unknown) (unknown) (no (unknown) (unknown) Creatinine 2.53 H (unit s (unknown) date) (0.66-1.25) mg/dL unknown) (unknown) (no (unknown) (unknown) Creatinine Urine (units (unknown) date) Random Stat unknown) (unknown) (no (unknown) (unknown) D3) (units (unkno wn) date) unknown) (unknown) (no (unknown) (unknown) : 1940 (units (unknown) date) Acct:[id number] unknown) (unknown) (no (unknown) (unknown) : 1940 (units (unknown) date) unknown) (unknown) (no (unknown) (unknown) Date of Service: (units (unknown) date) 11/24/21 unknown) (unknown) (no (unknown) (unknown) Departure (units (unkn own) date) unknown) (unknown) (no (unknown) (unknown) Dextrose (D10w) 250 (uni ts (unknown) date) mls @ 999 mls/hr IV unknown) PRN PRN (unknown) (no (unknown) (unknown) Dictated by: [place] (unit s (unknown) date) Abrahan Houser M.D. on unknown) 11/25/2021 at 0:10 ? ? (unknown) (no (unknown) (unknown) Discharge Plan (units (unknown) date) unknown) (unknown) (no (unknown) (unknown) Discontinued (units (u nknown) date) Medications unknown) (unknown) (no (unknown) (unknown) Doppler (units (unkno wn) date) unknown) (unknown) (no (unknown) (unknown) ECG Data (units (unkno wn) date) unknown) (unknown) (no (unknown) (unknown) EKG 1 (2121): EKG is (un its (unknown) date) normal sinus rhythm unknown) rate [70 ] and free of any signs of (unknown) (no (unknown) (unknown) EKG 2 (0112): EKG is (un its (unknown) date) normal sinus rhythm unknown) rate [103 ] and free of any signs of (unknown) (no (unknown) (unknown) EKG 3 (0333): EKG is (un its (unknown) date) normal sinus rhythm unknown) rate [ 100] and free of any signs of (unknown) (no (unknown) (unknown) EKG-12 Lead Stat (units (unknown) date) unknown) (unknown) (no (unknown) (unknown) ENT: Nose without (units (unknown) date) bleeding, purulent unknown) drainage. Throat without erythema, (unknown) (no (unknown) (unknown) ER Physician: (units ( unknown) date) Aroldo Bazan D.O. unknown) (unknown) (no (unknown) (unknown) EXTREMITIES: No edema (un its (unknown) date) or joint tenderness. unknown) (unknown) (no (unknown) (unknown) EYES: Pupils equal (units (unknown) date) round and reactive. unknown) Extraocular motions intact. No scleral (unknown) (no (unknown) (unknown) Eos % (Auto) (units (u nknown) date) unknown) (unknown) (no (unknown) (unknown) Eos % (Auto) Not (units (unknown) date) Reportable unknown) (unknown) (no (unknown) (unknown) Estimated GFR 25 L (uni ts (unknown) date) (>60) mL/min unknown) (unknown) (no (unknown) (unknown) Estimated GFR 26 L (uni ts (unknown) date) (>60) mL/min unknown) (unknown) (no (unknown) (unknown) Exam (units (unkno wn) date) unknown) (unknown) (no (unknown) (unknown) Exam Narrative: (units (unknown) date) unknown) (unknown) (no (unknown) (unknown) FENa (units (unkno wn) date) unknown) (unknown) (no (unknown) (unknown) FINDINGS:? (units (unk nown) date) unknown) (unknown) (no (unknown) (unknown) FeNa of 1.8% (units (u nknown) date) recommends transfer to unknown ) facility with nephrology (unknown) (no (unknown) (unknown) Fractional Excretion (uni ts (unknown) date) of Sodium (FENa) from unknown) [facility] on 11/25/2021 (unknown) (no (unknown) (unknown) Furosemide (units (unk nown) date) (Furosemide 40 Mg/4 Ml unknown ) Vial) 40 mg IV NOW ONE (unknown) (no (unknown) (unknown) GASTROINTESTINAL: (units (unknown) date) Abdomen soft, unknown) non-tender, nondistended. (unknown) (no (unknown) (unknown) GASTROINTESTINAL: (units (unknown) date) Denies nausea, unknown) vomiting, abdominal pain, diarrhea, (unknown) (no (unknown) (unknown) GENERAL: Denies (units (unknown) date) chills, fatigue, unknown) malaise, fever, sweats. (unknown) (no (unknown) (unknown) GENERAL: [81 year old (un its (unknown) date) patient appears stated unknown ) age. Well-developed patient, in (unknown) (no (unknown) (unknown) : Denies dysuria, (unit s (unknown) date) frequency, unknown) incontinence, hematuria, urinary retention. (unknown) (no (unknown) (unknown) General (units (unkno wn) date) unknown) (unknown) (no (unknown) (unknown) GenericComposite[Plt (uni ts (unknown) date) Count (150-400) unknown) X10^3/uL ] (unknown) (no (unknown) (unknown) GenericComposite[Plt (uni ts (unknown) date) Count 229 unknown) (150-400) X10^3/uL ] (unknown) (no (unknown) (unknown) GenericComposite[RBC (uni ts (unknown) date) (4.5-5.9) X10^6/uL unknown ) ] (unknown) (no (unknown) (unknown) GenericComposite[RBC (uni ts (unknown) date) 4.45 L (4.5-5.9) unknown) X10^6/uL ] (unknown) (no (unknown) (unknown) GenericComposite[WBC (uni ts (unknown) date) (4.5-11.0) unknown) X10^3/uL ] (unknown) (no (unknown) (unknown) GenericComposite[WBC (uni ts (unknown) date) 35.4 H* (4.5-11.0) unknown) X10^3/uL ] (unknown) (no (unknown) (unknown) Globulin (units (unkno wn) date) (1.7-4.1) g/dL unknown) (unknown) (no (unknown) (unknown) Globulin 3.7 (units (unknown) date) (1.7-4.1) g/dL unknown) (unknown) (no (unknown) (unknown) Glucose 115 H (units (unknown) date) (80-110) mg/dL unknown) (unknown) (no (unknown) (unknown) Glucose 117 H (units (unknown) date) (80-110) mg/dL unknown) (unknown) (no (unknown) (unknown) Glucose POC 119 (units (unknown) date) unknown) (unknown) (no (unknown) (unknown) HEAD: Atraumatic. (units (unknown) date) Normocephalic. unknown) (unknown) (no (unknown) (unknown) HEENT: Denies sinus (unit s (unknown) date) pain, ear pain, sore unknown) throat, difficulty swallowing, (unknown) (no (unknown) (unknown) HPI - Weakness (units (unknown) date) unknown) (unknown) (no (unknown) (unknown) HPI Narrative: (units (unknown) date) unknown) (unknown) (no (unknown) (unknown) Hct (41-53) % (units (unknown) date) unknown) (unknown) (no (unknown) (unknown) Hct 40.7 L (units (un known) date) (41-53) % unknown) (unknown) (no (unknown) (unknown) Hgb (13.5-17.5) (unit s (unknown) date) g/dL unknown) (unknown) (no (unknown) (unknown) Hgb 13.0 L (units (un known) date) (13.5-17.5) g/dL unknown) (unknown) (no (unknown) (unknown) History of Present (units (unknown) date) Illness unknown) (unknown) (no (unknown) (unknown) IMPRESSION:? (units (u nknown) date) unknown) (unknown) (no (unknown) (unknown) INDICATIONS:? ACUTE (unit s (unknown) date) RENAL FAILURE unknown) (unknown) (no (unknown) (unknown) INPUTS: (units (unkno wn) date) unknown) (unknown) (no (unknown) (unknown) Imaging Data (units (u nknown) date) unknown) (unknown) (no (unknown) (unknown) Initial Vital Signs (unit s (unknown) date) unknown) (unknown) (no (unknown) (unknown) Initial Vital Signs: (uni ts (unknown) date) unknown) (unknown) (no (unknown) (unknown) Insulin Human Regular (uni ts (unknown) date) (Insulin Regular 100 unknown) Unit/Ml 3 Ml Vial) 5 unit IV NOW ONE (unknown) (no (unknown) (unknown) Interpretation: (units (unknown) date) unknown) (unknown) (no (unknown) (unknown) Intrinsic (units (unkn own) date) unknown) (unknown) (no (unknown) (unknown) Kidneys:? Right (units (unknown) date) kidney measures 11.8 unknown) cm long; left kidney measures 11.6 cm (unknown) (no (unknown) (unknown) Lab Data (units (unkno wn) date) unknown) (unknown) (no (unknown) (unknown) Labs: (units (unkno wn) date) unknown) (unknown) (no (unknown) (unknown) Lipase (23-300) (unit s (unknown) date) U/L unknown) (unknown) (no (unknown) (unknown) Lipase 319 H (units (unknown) date) (23-300) U/L unknown) (unknown) (no (unknown) (unknown) Lipase Stat (units (un known) date) unknown) (unknown) (no (unknown) (unknown) Loc: ED (units (unkno wn) date) unknown) (unknown) (no (unknown) (unknown) Lymph # (Auto) (units (unknown) date) unknown) (unknown) (no (unknown) (unknown) Lymph # (Auto) Not (unit s (unknown) date) Reportable unknown) (unknown) (no (unknown) (unknown) Lymph % (Auto) (units (unknown) date) unknown) (unknown) (no (unknown) (unknown) Lymph % (Auto) Not (unit s (unknown) date) Reportable unknown) (unknown) (no (unknown) (unknown) Lymphocytes % (units ( unknown) date) (Manual) (25-45) unknown) % (unknown) (no (unknown) (unknown) Lymphocytes % (units ( unknown) date) (Manual) 76.0 H unknown) (25-45) % (unknown) (no (unknown) (unknown) MCH (26-34) PG (unit s (unknown) date) unknown) (unknown) (no (unknown) (unknown) MCH 29.2 (26-34) (uni ts (unknown) date) PG unknown) (unknown) (no (unknown) (unknown) MCHC (30-36) % (unit s (unknown) date) unknown) (unknown) (no (unknown) (unknown) MCHC 31.9 (30-36) (un its (unknown) date) % unknown) (unknown) (no (unknown) (unknown) MCV (80-100) fL (uni ts (unknown) date) unknown) (unknown) (no (unknown) (unknown) MCV 91.5 (80-100) (un its (unknown) date) fL unknown) (unknown) (no (unknown) (unknown) MDM - Weakness (units (unknown) date) unknown) (unknown) (no (unknown) (unknown) MR#: [id number] (units (unknown) date) unknown) (unknown) (no (unknown) (unknown) MUSCULOSKELETAL: See (un its (unknown) date) HPI unknown) (unknown) (no (unknown) (unknown) [address] MD (units (unknown) date) [Primary Care unknown) Provider] - (unknown) (no (unknown) (unknown) Miscellaneous:? No (units (unknown) date) free pelvic fluid.? unknown) (unknown) (no (unknown) (unknown) Mode of arrival: (units (unknown) date) Wheelchair unknown) (unknown) (no (unknown) (unknown) [place] # (Auto) (units ( unknown) date) unknown) (unknown) (no (unknown) (unknown) [place] # (Auto) Not (units (unknown) date) Reportable unknown) (unknown) (no (unknown) (unknown) [place] % (Auto) (units ( unknown) date) unknown) (unknown) (no (unknown) (unknown) [place] % (Auto) Not (units (unknown) date) Reportable unknown) (unknown) (no (unknown) (unknown) Monocytes % (Manual) (uni ts (unknown) date) (2-11) % unknown) (unknown) (no (unknown) (unknown) Monocytes % (Manual) (uni ts (unknown) date) 3.0 (2-11) % unknown) (unknown) (no (unknown) (unknown) NECK: Trachea (units ( unknown) date) midline. Non tender unknown) (unknown) (no (unknown) (unknown) NEURO: AOx3. (units (u nknown) date) unknown) (unknown) (no (unknown) (unknown) NEUROLOGIC: Denies (units (unknown) date) weakness, headache, unknown) numbness, change in speech, confusion, (unknown) (no (unknown) (unknown) Narrative (units (unkn own) date) unknown) (unknown) (no (unknown) (unknown) Narrative: (units (unk nown) date) unknown) (unknown) (no (unknown) (unknown) Neut % (Auto) (units ( unknown) date) unknown) (unknown) (no (unknown) (unknown) Neut % (Auto) Not (units (unknown) date) Reportable unknown) (unknown) (no (unknown) (unknown) Neutrophils # (units ( unknown) date) (Manual) unknown) ([id number]) /uL (unknown) (no (unknown) (unknown) Neutrophils # (units ( unknown) date) (Manual) 7434 H unknown) ([id number]) /uL (unknown) (no (unknown) (unknown) No Action (units (unkn own) date) unknown) (unknown) (no (unknown) (unknown) Ordered: (units (unkno wn) date) unknown) (unknown) (no (unknown) (unknown) Ordering Provider: (units (unknown) date) Aroldo Bazan D.O. unknown) (unknown) (no (unknown) (unknown) Orders (units (unkno wn) date) unknown) (unknown) (no (unknown) (unknown) PROCEDURE:? US RENAL (uni ts (unknown) date) COMPLETE unknown) (unknown) (no (unknown) (unknown) PSYCHIATRIC: No (units (unknown) date) concerning unknown) psychosocial issues. (unknown) (no (unknown) (unknown) Patient History (units (unknown) date) unknown) (unknown) (no (unknown) (unknown) Patient: (units (unkno wn) date) Raven Sutherland unknown) MR#: M (unknown) (no (unknown) (unknown) Patient: (units (unkno wn) date) Raven Sutherland unknown) (unknown) (no (unknown) (unknown) Potassium 7.7 H* (units (unknown) date) (3.4-5.1) mmol/L unknown) (unknown) (no (unknown) (unknown) Potassium 8.6 H* (units (unknown) date) (3.4-5.1) mmol/L unknown) (unknown) (no (unknown) (unknown) Prescriptions: (units (unknown) date) unknown) (unknown) (no (unknown) (unknown) Prevagen 20 mg PO (units (unknown) date) DAILY 11/25/21 unknown) (unknown) (no (unknown) (unknown) Procedure: US renal (unit s (unknown) date) complete unknown) (unknown) (no (unknown) (unknown) Pulse Oximetry 94 (units (unknown) date) 11/24/21 20:03 unknown) (unknown) (no (unknown) (unknown) Pulse Oximetry 96 (units (unknown) date) unknown) (unknown) (no (unknown) (unknown) Pulse Oximetry 100 97 (un its (unknown) date) 96 unknown) (unknown) (no (unknown) (unknown) Pulse Oximetry 89 L (unit s (unknown) date) 96 unknown) (unknown) (no (unknown) (unknown) Pulse Oximetry 96 96 (uni ts (unknown) date) 98 unknown) (unknown) (no (unknown) (unknown) Pulse Oximetry 97 97 (uni ts (unknown) date) 95 unknown) (unknown) (no (unknown) (unknown) Pulse Oximetry 97 97 (uni ts (unknown) date) 96 unknown) (unknown) (no (unknown) (unknown) Pulse Rate 87 (units (unknown) date) 11/24/21 20:03 unknown) (unknown) (no (unknown) (unknown) Pulse Rate 100 H 104 (uni ts (unknown) date) H 101 H unknown) (unknown) (no (unknown) (unknown) Pulse Rate 76 77 72 (unit s (unknown) date) unknown) (unknown) (no (unknown) (unknown) Pulse Rate 78 79 79 (unit s (unknown) date) unknown) (unknown) (no (unknown) (unknown) Pulse Rate 80 81 72 (unit s (unknown) date) unknown) (unknown) (no (unknown) (unknown) Pulse Rate 91 H 104 H (un its (unknown) date) 102 H unknown) (unknown) (no (unknown) (unknown) Pulse Rate 99 H 97 H (uni ts (unknown) date) 99 H unknown) (unknown) (no (unknown) (unknown) RBC Morphology (units (unknown) date) unknown) (unknown) (no (unknown) (unknown) RBC Morphology (units (unknown) date) Normal morphology unknown) (unknown) (no (unknown) (unknown) RDW (11.6-14.8) (unit s (unknown) date) % unknown) (unknown) (no (unknown) (unknown) RDW 14.1 (units (unkn own) date) (11.6-14.8) % unknown) (unknown) (no (unknown) (unknown) RESPIRATORY: Clear to (uni ts (unknown) date) auscultation. Breath unknown) sounds equal bilaterally. No wheezes, (unknown) (no (unknown) (unknown) RESPIRATORY: Denies (unit s (unknown) date) dyspnea, cough, unknown) wheezing, hemoptysis, sputum. (unknown) (no (unknown) (unknown) RESULT SUMMARY: (units (unknown) date) unknown) (unknown) (no (unknown) (unknown) Real-time scanning (units (unknown) date) was performed of the unknown) kidneys and bladder, with image (unknown) (no (unknown) (unknown) Referrals: (units (unk nown) date) unknown) (unknown) (no (unknown) (unknown) Related Data (units (u nknown) date) unknown) (unknown) (no (unknown) (unknown) Renal (units (unkno wn) date) unknown) (unknown) (no (unknown) (unknown) Renal US: (units (unk nown) date) unknown) (unknown) (no (unknown) (unknown) Respiratory Rate (units (unknown) date) unknown) (unknown) (no (unknown) (unknown) Respiratory Rate 15 (uni ts (unknown) date) 11/24/21 20:03 unknown) (unknown) (no (unknown) (unknown) Respiratory Rate 11 L (un its (unknown) date) 22 18 unknown) (unknown) (no (unknown) (unknown) Respiratory Rate 16 (unit s (unknown) date) 25 H 13 unknown) (unknown) (no (unknown) (unknown) Respiratory Rate 21 (unit s (unknown) date) 19 12 unknown) (unknown) (no (unknown) (unknown) Respiratory Rate 23 (unit s (unknown) date) 25 H 25 H unknown) (unknown) (no (unknown) (unknown) Respiratory Rate 25 H (un its (unknown) date) 18 unknown) (unknown) (no (unknown) (unknown) Result diagrams: (units (unknown) date) unknown) (unknown) (no (unknown) (unknown) Review of Systems (units (unknown) date) unknown) (unknown) (no (unknown) (unknown) SARS-CoV-2 (PCR) (units (unknown) date) (Negative) unknown) (unknown) (no (unknown) (unknown) SARS-CoV-2 (PCR) (units (unknown) date) Negative (Negative) unknown) (unknown) (no (unknown) (unknown) SKIN: Denies rash, (units (unknown) date) skin lesions, or other unknown ) (unknown) (no (unknown) (unknown) SKIN: No rash or (units (unknown) date) erythema of visible unknown) areas (unknown) (no (unknown) (unknown) Seg Neutrophils % (units (unknown) date) (38-70) % unknown) (unknown) (no (unknown) (unknown) Seg Neutrophils % (units (unknown) date) 21.0 L (38-70) % unknown) (unknown) (no (unknown) (unknown) Serum creatinine ?> (unit s (unknown) date) 2.53 mg/dL unknown) (unknown) (no (unknown) (unknown) Serum sodium ?> 134 (unit s (unknown) date) mEq/L unknown) (unknown) (no (unknown) (unknown) Signed By: (units (unk nown) date) unknown) (unknown) (no (unknown) (unknown) Smoking Status: (units (unknown) date) Never smoker unknown) (unknown) (no (unknown) (unknown) Smoking Status: Never (un its (unknown) date) smoker unknown) (unknown) (no (unknown) (unknown) Smudge Cells (units (u nknown) date) unknown) (unknown) (no (unknown) (unknown) Smudge Cells 1+ H (units (unknown) date) unknown) (unknown) (no (unknown) (unknown) Social History (units (unknown) date) (Reviewed 11/25/21 @ unknown) 01:28 by Aroldo Bazan DO) (unknown) (no (unknown) (unknown) Sodium 134 L (units (unknown) date) (137-145) mmol/L unknown) (unknown) (no (unknown) (unknown) Sodium 136 L (units (unknown) date) (137-145) mmol/L unknown) (unknown) (no (unknown) (unknown) Sodium Bicarbonate (units (unknown) date) (Sodium Bicarb 8.4% unknown) Syringe) 150 meq IV NOW ONE (unknown) (no (unknown) (unknown) Sodium Bicarbonate (units (unknown) date) 100 meq/ (Dextrose) unknown) 1,100 mls @ 150 mls/hr IV CONT DEE (unknown) (no (unknown) (unknown) Sodium Chloride (units (unknown) date) (Normal Saline 0.9%) unknown) 1,000 mls @ 1,000 mls/hr IV BOLUS ONE (unknown) (no (unknown) (unknown) Sodium Chloride (units (unknown) date) (Normal Saline 0.9%) unknown) 1,000 mls @ 150 mls/hr IV CONT DEE (unknown) (no (unknown) (unknown) Sodium Urine Random (unit s (unknown) date) Stat unknown) (unknown) (no (unknown) (unknown) Source: patient (units (unknown) date) unknown) (unknown) (no (unknown) (unknown) Stated complaint: (units (unknown) date) Worsening Weakness x3 unknown) days (unknown) (no (unknown) (unknown) Substance Use Type: (unit s (unknown) date) does not use unknown) (unknown) (no (unknown) (unknown) TECHNIQUE:? (units (un known) date) unknown) (unknown) (no (unknown) (unknown) Temperature 98.4 F (unit s (unknown) date) 11/24/21 20:03 unknown) (unknown) (no (unknown) (unknown) Time Seen by (units (u nknown) date) Provider: 11/24/21 unknown) 21:14 (unknown) (no (unknown) (unknown) Total Bilirubin (units (unknown) date) (0.2-1.3) mg/dL unknown) (unknown) (no (unknown) (unknown) Total Bilirubin 0.6 (un its (unknown) date) (0.2-1.3) mg/dL unknown) (unknown) (no (unknown) (unknown) Total Counted (units ( unknown) date) unknown) (unknown) (no (unknown) (unknown) Total Counted 100 (units (unknown) date) unknown) (unknown) (no (unknown) (unknown) Total Creatine Kinase (un its (unknown) date) (55-170) U/L unknown) (unknown) (no (unknown) (unknown) Total Creatine Kinase (un its (unknown) date) 53 L (55-170) U/L unknown ) (unknown) (no (unknown) (unknown) Total Protein (units ( unknown) date) (6.3-8.2) g/dL unknown) (unknown) (no (unknown) (unknown) Total Protein 8.3 H (un its (unknown) date) (6.3-8.2) g/dL unknown) (unknown) (no (unknown) (unknown) Troponin + CK Cardiac (un its (unknown) date) Panel Stat unknown) (unknown) (no (unknown) (unknown) Troponin I (units (unk nown) date) (0.01-0.034) ng/mL unknown) (unknown) (no (unknown) (unknown) Troponin I 0.016 (units (unknown) date) (0.01-0.034) ng/mL unknown) (unknown) (no (unknown) (unknown) US renal complete (units (unknown) date) Stat unknown) (unknown) (no (unknown) (unknown) Ur Random Sodium (units (unknown) date) (30-90) mmol/L unknown) (unknown) (no (unknown) (unknown) Ur Random Sodium 104 (un its (unknown) date) H (30-90) mmol/L unknown) (unknown) (no (unknown) (unknown) Urine Creatinine (units (unknown) date) mg/dL unknown) (unknown) (no (unknown) (unknown) Urine Creatinine (units (unknown) date) 108.6 mg/dL unknown) (unknown) (no (unknown) (unknown) Urine creatinine ?> (unit s (unknown) date) 108.6 mg/dL unknown) (unknown) (no (unknown) (unknown) Urine sodium ?> 104 (unit s (unknown) date) mEq/L unknown) (unknown) (no (unknown) (unknown) VBG Base Excess (units (unknown) date) (0-4) mmol/L unknown) (unknown) (no (unknown) (unknown) VBG Base Excess (units (unknown) date) -13.0 L (0-4) mmol/L unknown ) (unknown) (no (unknown) (unknown) VBG HCO3 (23-28) (uni ts (unknown) date) mmol/L unknown) (unknown) (no (unknown) (unknown) VBG HCO3 14 L (units (unknown) date) (23-28) mmol/L unknown) (unknown) (no (unknown) (unknown) VBG O2 Saturation (units (unknown) date) (70-75) % unknown) (unknown) (no (unknown) (unknown) VBG O2 Saturation (units (unknown) date) 42 L (70-75) % unknown) (unknown) (no (unknown) (unknown) VBG Total CO2 (units ( unknown) date) (24-29) mmol/L unknown) (unknown) (no (unknown) (unknown) VBG Total CO2 15 L (un its (unknown) date) (24-29) mmol/L unknown) (unknown) (no (unknown) (unknown) VBG [Venous Blood (units (unknown) date) Gas] Stat unknown) (unknown) (no (unknown) (unknown) VBG pCO2 (45-50) (uni ts (unknown) date) mmHg unknown) (unknown) (no (unknown) (unknown) VBG pCO2 35.6 L (units (unknown) date) (45-50) mmHg unknown) (unknown) (no (unknown) (unknown) VBG pH (units (unkno wn) date) (7.33-7.43) unknown) (unknown) (no (unknown) (unknown) VBG pH 7.21 L (units (unknown) date) (7.33-7.43) unknown) (unknown) (no (unknown) (unknown) VBG pO2 (35-45) (unit s (unknown) date) mmHg unknown) (unknown) (no (unknown) (unknown) VBG pO2 28 L (units (unknown) date) (35-45) mmHg unknown) (unknown) (no (unknown) (unknown) Vital Signs (units (un known) date) unknown) (unknown) (no (unknown) (unknown) Vital signs: (units (u nknown) date) unknown) (unknown) (no (unknown) (unknown) XR chest 1V Stat (units (unknown) date) unknown) (unknown) (no (unknown) (unknown) [Embedded Image Not (unit s (unknown) date) Available] unknown) (unknown) (no (unknown) (unknown) ago and failed 2 (units (unknown) date) months ago. He does unknown) not suffer urinary retention but instead (unknown) (no (unknown) (unknown) alcohol intake (units (unknown) date) frequency: unknown) holidays/special occasions only (unknown) (no (unknown) (unknown) amlodipine 10 mg (units (unknown) date) tablet 10 mg PO DAILY unknown) 11/25/21 11/25/21 (unknown) (no (unknown) (unknown) aspirin 81 mg capsule (un its (unknown) date) 81 mg PO DAILY unknown) 11/25/21 11/25/21 (unknown) (no (unknown) (unknown) at 150, repeat labs, (uni ts (unknown) date) improved K/acidemia unknown) before transfer possible. Currently no (unknown) (no (unknown) (unknown) been managed by (units (unknown) date) urology at [facility]. unknown) It was placed originally about 5 years (unknown) (no (unknown) (unknown) call to Dr. Newberry (units (unknown) date) (Hospitalist at unknown) [place]). Requests Bicarb (3 amps) with drip (unknown) (no (unknown) (unknown) call to hospitalist (unit s (unknown) date) upon receipt of repeat unknown ) labs, given minimal improvement and (unknown) (no (unknown) (unknown) calls to (units (unkno wn) date) unknown) (unknown) (no (unknown) (unknown) cases due (units (unkn own) date) unknown) (unknown) (no (unknown) (unknown) cholecalciferol (units (unknown) date) (vitamin D3) 50 50 mcg unknown ) PO DAILY 11/25/21 11/25/21 (unknown) (no (unknown) (unknown) constantly leaks (units (unknown) date) urine. He was scoped unknown) by his urologist about 10 days ago and (unknown) (no (unknown) (unknown) constipation, melena. (un its (unknown) date) unknown) (unknown) (no (unknown) (unknown) cortical echotexture (uni ts (unknown) date) appears grossly within unknown ) normal limits.? No hydronephrosis.? (unknown) (no (unknown) (unknown) dizziness. (units (unk nown) date) unknown) (unknown) (no (unknown) (unknown) documentation.? (units (unknown) date) unknown) (unknown) (no (unknown) (unknown) docusate sodium 100 (unit s (unknown) date) mg capsule 100 mg PO unknown) BID 11/25/21 11/25/21 (unknown) (no (unknown) (unknown) e.g. ATN, AIN, (units (unknown) date) glomerulonephritides unknown) (unknown) (no (unknown) (unknown) generalized weakness (uni ts (unknown) date) gradually worsening unknown) over the past few months. He states (unknown) (no (unknown) (unknown) generally, and on the (un its (unknown) date) whole, and very unknown) nonspecifically he feels weak. Patient (unknown) (no (unknown) (unknown) ibuprofen 800 mg (units (unknown) date) tablet 800 mg PO Q8H unknown) PRN 11/25/21 11/25/21 (unknown) (no (unknown) (unknown) icterus. No injection (un its (unknown) date) or drainage. unknown) (unknown) (no (unknown) (unknown) interrogation.? (Of (unit s (unknown) date) note, ureteral jets unknown) may not be detectable in up to 25% of (unknown) (no (unknown) (unknown) intraluminal masses (unit s (unknown) date) unknown) (unknown) (no (unknown) (unknown) inversions. OK 126. (unit s (unknown) date) QRS 140. T waves unknown) improved. (unknown) (no (unknown) (unknown) inversions. OK 152. (unit s (unknown) date) QRS 164. T waves unknown) peaked (unknown) (no (unknown) (unknown) inversions. T waves (unit s (unknown) date) improved. OK 112. QRS unknown) 132 (unknown) (no (unknown) (unknown) ischemia or ectopy. (unit s (unknown) date) No ST segmental unknown) elevation or depression. No T wave (unknown) (no (unknown) (unknown) latanoprost 0.005 % (unit s (unknown) date) eye drops 1 drp unknown) OPHTHALMIC (EYE) DAILY 11/25/21 11/25/21 (unknown) (no (unknown) (unknown) lisinopril 40 mg (units (unknown) date) tablet 40 mg PO DAILY unknown) 11/25/21 11/25/21 (unknown) (no (unknown) (unknown) long.? Right (units (u nknown) date) unknown) (unknown) (no (unknown) (unknown) mcg (2,000 unit) (units (unknown) date) capsule (Vitamin unknown) (unknown) (no (unknown) (unknown) medications or diet. (uni ts (unknown) date) He denies any unknown) headache, blurred vision or trouble with (unknown) (no (unknown) (unknown) metoprolol tartrate (unit s (unknown) date) 25 mg tablet 25 mg PO unknown) BID 11/25/21 11/25/21 (unknown) (no (unknown) (unknown) mg-hydrochlorothiazid (un its (unknown) date) e 50 mg tablet unknown) (unknown) (no (unknown) (unknown) mg-lycopene 300 (units (unknown) date) mcg-lutein 250 mcg unknown) (unknown) (no (unknown) (unknown) mild distress. (units (unknown) date) unknown) (unknown) (no (unknown) (unknown) gywaqbof-ark-ijhge (units (unknown) date) acid 0.4 1 tab PO unknown) DAILY 11/25/21 11/25/21 (unknown) (no (unknown) (unknown) myacin family Allergy (un its (unknown) date) Blister Uncoded unknown) 11/24/21 20:03 (unknown) (no (unknown) (unknown) nystatin 100,000 (units (unknown) date) unit/gram topical 1 unknown) applic TOPICAL BID 11/25/21 11/25/21 (unknown) (no (unknown) (unknown) omega-3 fatty acids (unit s (unknown) date) 1,000 mg PO DAILY unknown) 11/25/21 11/25/21 (unknown) (no (unknown) (unknown) opportunities for (units (unknown) date) dialysis given backed unknown) up service (unknown) (no (unknown) (unknown) or stones.? On (units (unknown) date) pre-void images, unknown) neither ureteral jets are noted with color (unknown) (no (unknown) (unknown) potassium chloride 20 (un its (unknown) date) mEq 20 meq PO BID unknown) 11/25/21 11/25/21 (unknown) (no (unknown) (unknown) powder (units (unkno wn) date) unknown) (unknown) (no (unknown) (unknown) primary care provider (un its (unknown) date) early in the week. He unknown ) denies any change in his (unknown) (no (unknown) (unknown) problems such as (units (unknown) date) unilateral numbness, unknown) tingling or weakness. He states that (unknown) (no (unknown) (unknown) renal cortical (units (unknown) date) thickness is 1.5 cm; unknown) left renal cortical thickness is 1.5 cm.? (unknown) (no (unknown) (unknown) revision in December. He (uni ts (unknown) date) had been taking Motrin unknown ) 800mg TID for quite some time but (unknown) (no (unknown) (unknown) rosuvastatin 40 mg (units (unknown) date) tablet 40 mg PO DAILY unknown) 11/25/21 11/25/21 (unknown) (no (unknown) (unknown) seizures, (units (unkn own) date) incoordination. unknown) (unknown) (no (unknown) (unknown) some time, and he met (uni ts (unknown) date) with his orthopedist unknown) today and has an appointment with his (unknown) (no (unknown) (unknown) speech. He denies (units (unknown) date) any chest pain or unknown) shortness of breath. 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 He had been unknown) taking KCL 20meq BID until this morning. (unknown) (no (unknown) (unknown) tablet (Centrum (units (unknown) date) Silver) unknown) (unknown) (no (unknown) (unknown) tablet,extended (units (unknown) date) release unknown) (unknown) (no (unknown) (unknown) tadalafil 10 mg (units (unknown) date) tablet 10 mg PO DAILY unknown) PRN 11/25/21 11/25/21 (unknown) (no (unknown) (unknown) that he feels like (units (unknown) date) his joints are tired unknown) and this has been going on for quite (unknown) (no (unknown) (unknown) there were no (units ( unknown) date) abnormalities noted in unknown ) his urethra. He is scheduled for a (unknown) (no (unknown) (unknown) timolol 0.5 % eye (units (unknown) date) drops 1 drp OPHTHALMIC unknown ) (EYE) DAILY 11/25/21 11/25/21 (unknown) (no (unknown) (unknown) to insufficient (units (unknown) date) differences in unknown) specific gravity between ureteral and bladder (unknown) (no (unknown) (unknown) tonsillar hypertrophy (un its (unknown) date) or exudate. Airway unknown) patent. (unknown) (no (unknown) (unknown) triamterene 75 1 tab (uni ts (unknown) date) PO QAM 11/25/21 unknown) 11/25/21 (unknown) (no (unknown) (unknown) urine).? (units (unkno wn) date) unknown) Result panel 23 (unknown) (no (unknown) (unknown) (no value) (units (unk nown) date) unknown) (unknown) (no (unknown) (unknown) Radiologist (units (un known) date) Impression: unknown) (unknown) (no (unknown) (unknown) (no value) (units (unk nown) date) unknown) (unknown) (no (unknown) (unknown) Date of Service: (units (unknown) date) 11/24/21 unknown) (unknown) (no (unknown) (unknown) (no value) (units (unk nown) date) unknown) (unknown) (no (unknown) (unknown) 11/24/21 21:40 (units (unknown) date) unknown) (unknown) (no (unknown) (unknown) 11/25/21 01:44 (units (unknown) date) unknown) (unknown) (no (unknown) (unknown) 1 applic TOPICAL BID (uni ts (unknown) date) 0RF unknown) (unknown) (no (unknown) (unknown) 1 drp OPHTHALMIC (units (unknown) date) (EYE) DAILY 0RF unknown) (unknown) (no (unknown) (unknown) 1 tab PO DAILY 0RF (units (unknown) date) unknown) (unknown) (no (unknown) (unknown) 1 tab PO QAM 0RF (units (unknown) date) unknown) (unknown) (no (unknown) (unknown) 1,000 mg PO DAILY 0RF (un its (unknown) date) unknown) (unknown) (no (unknown) (unknown) 10 mg PO DAILY 0RF (units (unknown) date) unknown) (unknown) (no (unknown) (unknown) 10 mg PO DAILY PRN (units (unknown) date) (Reason: intercourse) unknown) 0RF (unknown) (no (unknown) (unknown) 100 mg PO BID 0RF (units (unknown) date) unknown) (unknown) (no (unknown) (unknown) [facility] ([facility] unknown) (unknown) (no (unknown) (unknown) 20 meq PO BID 0RF (units (unknown) date) unknown) (unknown) (no (unknown) (unknown) 20 mg PO DAILY 0RF (units (unknown) date) unknown) (unknown) (no (unknown) (unknown) 25 mg PO BID 0RF (units (unknown) date) unknown) (unknown) (no (unknown) (unknown) 40 mg PO DAILY 0RF (units (unknown) date) unknown) (unknown) (no (unknown) (unknown) 50 mcg PO DAILY 0RF (unit s (unknown) date) unknown) (unknown) (no (unknown) (unknown) 800 mg PO Q8H PRN (units (unknown) date) (Reason: Pain, unknown) Moderate) 0RF (unknown) (no (unknown) (unknown) 81 mg PO DAILY 0RF (units (unknown) date) unknown) (unknown) (no (unknown) (unknown) Admin: 11/24/21 22:08 (un its (unknown) date) Dose: 150 mls/hr unknown) (unknown) (no (unknown) (unknown) Admin: 11/24/21 22:52 (un its (unknown) date) Dose: 250 mls/hr unknown) (unknown) (no (unknown) (unknown) Admin: 11/24/21 23:01 (un its (unknown) date) Dose: 1,000 mls/hr unknown) (unknown) (no (unknown) (unknown) Admin: 11/24/21 23:16 (un its (unknown) date) Dose: 140 mls/hr unknown) (unknown) (no (unknown) (unknown) Allergies (units (unkn own) date) unknown) (unknown) (no (unknown) (unknown) [place] [id number] (unit s (unknown) date) unknown) (unknown) (no (unknown) (unknown) Documented by: (units (unknown) date) APAADRIANIE unknown) (unknown) (no (unknown) (unknown) Documented by: (units (unknown) date) ATAYLOR Cosigned by: unknown ) FREDIS (unknown) (no (unknown) (unknown) Documented by: (units (unknown) date) ATAYLOR unknown) (unknown) (no (unknown) (unknown) Documented by: (units (unknown) date) SBVUWIN unknown) (unknown) (no (unknown) (unknown) ED Orders (units (unkn own) date) unknown) (unknown) (no (unknown) (unknown) Emergency Report (units (unknown) date) unknown) (unknown) (no (unknown) (unknown) Home Medications (units (unknown) date) unknown) (unknown) (no (unknown) (unknown) Infusion: 11/24/21 (units (unknown) date) 23:01 Dose: 0 mls/hr unknown) (unknown) (no (unknown) (unknown) [facility] (units (unknown) date) unknown) (unknown) (no (unknown) (unknown) [facility] [address] (uni ts (unknown) date) [address] [place] [address] [place], unknown ) [place] [id number] (unknown) (no (unknown) (unknown) Lab Results (units (un known) date) unknown) (unknown) (no (unknown) (unknown) Label Comments: (units (unknown) date) unknown) (unknown) (no (unknown) (unknown) Last Admin: 11/24/21 (uni ts (unknown) date) 22:56 Dose: 40 mg unknown) (unknown) (no (unknown) (unknown) Last Admin: 11/24/21 (uni ts (unknown) date) 23:09 Dose: 5 unit unknown) (unknown) (no (unknown) (unknown) Last Admin: 11/24/21 (uni ts (unknown) date) 23:15 Dose: 20 mg unknown) (unknown) (no (unknown) (unknown) Last Admin: 11/25/21 (uni ts (unknown) date) 03:58 Dose: 150 meq unknown) (unknown) (no (unknown) (unknown) Last Admin: 11/25/21 (uni ts (unknown) date) 03:58 Dose: 150 unknown) mls/hr (unknown) (no (unknown) (unknown) Last Infusion: (units (unknown) date) 11/24/21 23:11 Dose: unknown) 0 mls/hr (unknown) (no (unknown) (unknown) Last Infusion: (units (unknown) date) 11/24/21 23:54 Dose: unknown) 0 mls/hr (unknown) (no (unknown) (unknown) Last Infusion: (units (unknown) date) 11/25/21 00:10 Dose: unknown) 0 mls/hr (unknown) (no (unknown) (unknown) Last Infusion: (units (unknown) date) 11/25/21 00:17 Dose: unknown) 150 mls/hr (unknown) (no (unknown) (unknown) PRN Reason: (units (un known) date) Hypoglycemia unknown) (unknown) (no (unknown) (unknown) Point of Care Testing (un its (unknown) date) unknown) (unknown) (no (unknown) (unknown) Rx Instructions: (units (unknown) date) unknown) (unknown) (no (unknown) (unknown) Signed (units (unkno wn) date) unknown) (unknown) (no (unknown) (unknown) Stop: 11/24/21 22:22 (uni ts (unknown) date) unknown) (unknown) (no (unknown) (unknown) Stop: 11/24/21 22:50 (uni ts (unknown) date) unknown) (unknown) (no (unknown) (unknown) Stop: 11/24/21 23:20 (uni ts (unknown) date) unknown) (unknown) (no (unknown) (unknown) Stop: 11/25/21 03:18 (uni ts (unknown) date) unknown) (unknown) (no (unknown) (unknown) Take 1 tablet by (units (unknown) date) mouth once a day unknown) (unknown) (no (unknown) (unknown) Ultrasound Report (units (unknown) date) unknown) (unknown) (no (unknown) (unknown) Vital Signs - 8 hr (units (unknown) date) unknown) (unknown) (no (unknown) (unknown) administer (units (unk nown) date) approximately 30min unknown) before sexual activity; do not use more than 1 (unknown) (no (unknown) (unknown) (no value) (units (unk nown) date) unknown) (unknown) (no (unknown) (unknown) 11/24/21 11/24/21 (units (unknown) date) 11/24/21 Range/Units unknown) (unknown) (no (unknown) (unknown) 11/24/21 11/25/21 (units (unknown) date) 11/25/21 Range/Units unknown) (unknown) (no (unknown) (unknown) 21:40 21:40 22:32 (units (unknown) date) unknown) (unknown) (no (unknown) (unknown) 23:30 01:44 03:43 (units (unknown) date) unknown) (unknown) (no (unknown) (unknown) Centrum Silver (units (unknown) date) 0.4-300-250 mg-mcg-mcg unknown ) Tablet (unknown) (no (unknown) (unknown) Fish Oil Capsule (units (unknown) date) unknown) (unknown) (no (unknown) (unknown) Prevagen 20 mg (units (unknown) date) unknown) (unknown) (no (unknown) (unknown) amlodipine 10 mg (units (unknown) date) Tablet unknown) (unknown) (no (unknown) (unknown) aspirin 81 mg Capsule (un its (unknown) date) unknown) (unknown) (no (unknown) (unknown) cholecalciferol (units (unknown) date) (vitamin D3) [Vitamin unknown) D3] 50 mcg (2,000 unit) Capsule (unknown) (no (unknown) (unknown) docusate sodium (units (unknown) date) [Colace] 100 mg unknown) Capsule (unknown) (no (unknown) (unknown) ibuprofen 800 mg (units (unknown) date) Tablet unknown) (unknown) (no (unknown) (unknown) latanoprost 0.005 % (unit s (unknown) date) Drops unknown) (unknown) (no (unknown) (unknown) lisinopril 40 mg (units (unknown) date) tablet unknown) (unknown) (no (unknown) (unknown) metoprolol tartrate (unit s (unknown) date) 25 mg Tablet unknown) (unknown) (no (unknown) (unknown) nystatin 100,000 (units (unknown) date) unit/gram Powder unknown) (unknown) (no (unknown) (unknown) potassium chloride 20 (un its (unknown) date) mEq Tablet Extended unknown) Release (unknown) (no (unknown) (unknown) rosuvastatin 40 mg (units (unknown) date) Tablet unknown) (unknown) (no (unknown) (unknown) tadalafil 10 mg (units (unknown) date) Tablet unknown) (unknown) (no (unknown) (unknown) timolol 0.5 % Drops (unit s (unknown) date) unknown) (unknown) (no (unknown) (unknown) triamterene-hydrochlo (un its (unknown) date) rothiazid 75-50 mg unknown) Tablet (unknown) (no (unknown) (unknown) 11/24/21 (units (unkno wn) date) unknown) (unknown) (no (unknown) (unknown) 11/25/21 (units (unkno wn) date) unknown) (unknown) (no (unknown) (unknown) Medication (units (unk nown) date) Instructions Recorded unknown ) Confirmed (unknown) (no (unknown) (unknown) dose per 24hrs (units (unknown) date) unknown) (unknown) (no (unknown) (unknown) rales, or rhonchi. (units (unknown) date) unknown) (unknown) (no (unknown) (unknown) (Colace) (units (unkno wn) date) unknown) (unknown) (no (unknown) (unknown) All calculations (unit s (unknown) date) should be rechecked by unknown ) clinician prior to use (unknown) (no (unknown) (unknown) [id number] (units (unkn own) date) unknown) (unknown) (no (unknown) (unknown) 00:00 11/25/21 (units (unknown) date) unknown) (unknown) (no (unknown) (unknown) 00:30 (units (unkno wn) date) unknown) (unknown) (no (unknown) (unknown) 01:00 11/25/21 (units (unknown) date) unknown) (unknown) (no (unknown) (unknown) 01:30 11/25/21 (units (unknown) date) unknown) (unknown) (no (unknown) (unknown) 02:00 (units (unkno wn) date) unknown) (unknown) (no (unknown) (unknown) 02:30 11/25/21 (units (unknown) date) unknown) (unknown) (no (unknown) (unknown) 03:00 11/25/21 (units (unknown) date) unknown) (unknown) (no (unknown) (unknown) 03:30 (units (unkno wn) date) unknown) (unknown) (no (unknown) (unknown) 11/24/21 21:14 (units (unknown) date) unknown) (unknown) (no (unknown) (unknown) 11/24/21 21:40 (units (unknown) date) unknown) (unknown) (no (unknown) (unknown) 11/24/21 22:21 (units (unknown) date) unknown) (unknown) (no (unknown) (unknown) 11/24/21 22:32 (units (unknown) date) unknown) (unknown) (no (unknown) (unknown) 11/24/21 23:30 (units (unknown) date) unknown) (unknown) (no (unknown) (unknown) 11/25/21 00:56 (units (unknown) date) unknown) (unknown) (no (unknown) (unknown) 11/25/21 01:44 (units (unknown) date) unknown) (unknown) (no (unknown) (unknown) 11/25/21 03:30 (units (unknown) date) unknown) (unknown) (no (unknown) (unknown) 11/25/21 03:43 (units (unknown) date) unknown) (unknown) (no (unknown) (unknown) 11/25/21 04:16 (units (unknown) date) unknown) (unknown) (no (unknown) (unknown) 11/25/21 04:30 (units (unknown) date) unknown) (unknown) (no (unknown) (unknown) 1. No evidence of (units (unknown) date) hydronephrosis. unknown) (unknown) (no (unknown) (unknown) 1.8 % (units (unkno wn) date) unknown) (unknown) (no (unknown) (unknown) 12 point review of (units (unknown) date) systems is negative unknown) except for those stated above (unknown) (no (unknown) (unknown) 2. Bilateral mild (units (unknown) date) renal cortical unknown) thinning.? (unknown) (no (unknown) (unknown) 21:19 11/24/21 (units (unknown) date) unknown) (unknown) (no (unknown) (unknown) 21:20 11/24/21 (units (unknown) date) unknown) (unknown) (no (unknown) (unknown) 21:30 (units (unkno wn) date) unknown) (unknown) (no (unknown) (unknown) 22:00 11/24/21 (units (unknown) date) unknown) (unknown) (no (unknown) (unknown) 22:01 11/24/21 (units (unknown) date) unknown) (unknown) (no (unknown) (unknown) 22:30 (units (unkno wn) date) unknown) (unknown) (no (unknown) (unknown) 23:00 11/24/21 (units (unknown) date) unknown) (unknown) (no (unknown) (unknown) 23:04 11/24/21 (units (unknown) date) unknown) (unknown) (no (unknown) (unknown) 23:20 (units (unkno wn) date) unknown) (unknown) (no (unknown) (unknown) 23:30 11/25/21 (units (unknown) date) unknown) (unknown) (no (unknown) (unknown) 81-year-old male (units (unknown) date) Nonsmoker with history unknown ) of HTN, hyperlipidemia presents with (unknown) (no (unknown) (unknown) ? (units (unkno wn) date) unknown) (unknown) (no (unknown) (unknown) ALT (<50) IU/L (unit s (unknown) date) unknown) (unknown) (no (unknown) (unknown) ALT 17 (<50) (units (unknown) date) IU/L unknown) (unknown) (no (unknown) (unknown) AST (17-59) IU/L (un its (unknown) date) unknown) (unknown) (no (unknown) (unknown) AST 26 (17-59) (units (unknown) date) IU/L unknown) (unknown) (no (unknown) (unknown) Accession Number: (units (unknown) date) [id number] ?? unknown) (unknown) (no (unknown) (unknown) Acct:[id number] (units (unknown) date) unknown) (unknown) (no (unknown) (unknown) Age/Sex: 81 / M (units (unknown) date) unknown) (unknown) (no (unknown) (unknown) Age/Sex: 81 / M (units (unknown) date) unknown) (unknown) (no (unknown) (unknown) Albumin (3.5-5.0) (un its (unknown) date) g/dL unknown) (unknown) (no (unknown) (unknown) Albumin 4.6 (units ( unknown) date) (3.5-5.0) g/dL unknown) (unknown) (no (unknown) (unknown) Albumin/Globulin (units (unknown) date) Ratio (1.0-2.8) unknown) (unknown) (no (unknown) (unknown) Albumin/Globulin (units (unknown) date) Ratio 1.2 unknown) (1.0-2.8) (unknown) (no (unknown) (unknown) Albuterol (Albuterol (uni ts (unknown) date) 2.5 Mg/3 Ml Neb unknown) (Adult)) 20 mg INH NOW ONE (unknown) (no (unknown) (unknown) Alkaline Phosphatase (uni ts (unknown) date) (38-126) U/L unknown) (unknown) (no (unknown) (unknown) Alkaline Phosphatase (uni ts (unknown) date) 192 H (38-126) U/L unknown ) (unknown) (no (unknown) (unknown) Allergy/AdvReac Type (uni ts (unknown) date) Severity Reaction unknown) Status Date / Time (unknown) (no (unknown) (unknown) Approved by: [place]ar (unit s (unknown) date) Abrahan Houser M.D. on unknown) 11/25/2021 at 0:16 ? (unknown) (no (unknown) (unknown) BACK: Nontender (units (unknown) date) without deformity or unknown) crepitance. No flank tenderness. (unknown) (no (unknown) (unknown) BMP [Basic Metabolic (uni ts (unknown) date) Panel] Stat unknown) (unknown) (no (unknown) (unknown) BUN 66 H (9-20) (unit s (unknown) date) mg/dL unknown) (unknown) (no (unknown) (unknown) BUN 70 H (9-20) (unit s (unknown) date) mg/dL unknown) (unknown) (no (unknown) (unknown) BUN/Creatinine Ratio (uni ts (unknown) date) 27.5 H (6-22) unknown) (unknown) (no (unknown) (unknown) BUN/Creatinine Ratio (uni ts (unknown) date) 27.7 H (6-22) unknown) (unknown) (no (unknown) (unknown) Baso # (Auto) (units ( unknown) date) unknown) (unknown) (no (unknown) (unknown) Baso # (Auto) Not (units (unknown) date) Reportable unknown) (unknown) (no (unknown) (unknown) Baso % (Auto) (units ( unknown) date) unknown) (unknown) (no (unknown) (unknown) Baso % (Auto) Not (units (unknown) date) Reportable unknown) (unknown) (no (unknown) (unknown) Bladder:? Pre-void (units (unknown) date) bladder was unknown) nondistended.? Limited evaluation for (unknown) (no (unknown) (unknown) Blood Pressure (units (unknown) date) 131/58 L unknown) (unknown) (no (unknown) (unknown) Blood Pressure (units (unknown) date) 155/93 H 11/24/21 unknown) 20:03 (unknown) (no (unknown) (unknown) Blood Pressure (units (unknown) date) 156/70 H 162/70 H unknown) (unknown) (no (unknown) (unknown) Blood Pressure (units (unknown) date) 164/76 H unknown) (unknown) (no (unknown) (unknown) Blood Pressure 129/60 (un its (unknown) date) 141/63 H 137/63 unknown) (unknown) (no (unknown) (unknown) Blood Pressure 133/63 (un its (unknown) date) 129/62 141/61 H unknown) (unknown) (no (unknown) (unknown) Blood Pressure 161/72 (un its (unknown) date) H 151/65 H 123/58 L unknown) (unknown) (no (unknown) (unknown) CARDIOVASCULAR: (units (unknown) date) Denies chest pain, unknown) palpitations, orthopnea, edema, (unknown) (no (unknown) (unknown) CARDIOVASCULAR: (units (unknown) date) Regular rate and unknown) rhythm without murmurs, gallops, or rubs. (unknown) (no (unknown) (unknown) CK-MB (CK-2) (units (u nknown) date) unknown) (unknown) (no (unknown) (unknown) CK-MB (CK-2) TNP (units (unknown) date) unknown) (unknown) (no (unknown) (unknown) CK-MB (CK-2) Rel (units (unknown) date) Index unknown) (unknown) (no (unknown) (unknown) CK-MB (CK-2) Rel (units (unknown) date) Index TNP unknown) (unknown) (no (unknown) (unknown) COMPARISON:? None. (units (unknown) date) unknown) (unknown) (no (unknown) (unknown) COVID19 -Nasal (units (unknown) date) RAPID/Pre-Proc Stat unknown) (unknown) (no (unknown) (unknown) Calcium 10.7 H (units (unknown) date) (8.4-10.2) mg/dL unknown) (unknown) (no (unknown) (unknown) Calcium 10.9 H (units (unknown) date) (8.4-10.2) mg/dL unknown) (unknown) (no (unknown) (unknown) Calcium Gluconate 9.3 (un its (unknown) date) meq/ (Sodium Chloride) unknown ) 70 mls @ 140 mls/hr IV NOW ONE (unknown) (no (unknown) (unknown) Carbon Dioxide 13 L (un its (unknown) date) (22-32) mmol/L unknown) (unknown) (no (unknown) (unknown) Carbon Dioxide 14 L (un its (unknown) date) (22-32) mmol/L unknown) (unknown) (no (unknown) (unknown) Chief complaint: (units (unknown) date) Weakness unknown) (unknown) (no (unknown) (unknown) Chloride 111 H (units (unknown) date) (98-107) mmol/L unknown) (unknown) (no (unknown) (unknown) Chloride 112 H (units (unknown) date) (98-107) mmol/L unknown) (unknown) (no (unknown) (unknown) Complete Blood Count (uni ts (unknown) date) AUTO DIFF Stat unknown) (unknown) (no (unknown) (unknown) Comprehensive (units ( unknown) date) Metabolic Panel Stat unknown) (unknown) (no (unknown) (unknown) Consultation #1: (units (unknown) date) unknown) (unknown) (no (unknown) (unknown) Consultation #2: (units (unknown) date) unknown) (unknown) (no (unknown) (unknown) Consultation #3: (units (unknown) date) unknown) (unknown) (no (unknown) (unknown) Consultations (units ( unknown) date) unknown) (unknown) (no (unknown) (unknown) Course (units (unkno wn) date) unknown) (unknown) (no (unknown) (unknown) Course Narrative: (units (unknown) date) unknown) (unknown) (no (unknown) (unknown) Creatinine 2.40 H (unit s (unknown) date) (0.66-1.25) mg/dL unknown) (unknown) (no (unknown) (unknown) Creatinine 2.53 H (unit s (unknown) date) (0.66-1.25) mg/dL unknown) (unknown) (no (unknown) (unknown) Creatinine Urine (units (unknown) date) Random Stat unknown) (unknown) (no (unknown) (unknown) D3) (units (unkno wn) date) unknown) (unknown) (no (unknown) (unknown) : 1940 (units (unknown) date) Acct:[id number] unknown) (unknown) (no (unknown) (unknown) : 1940 (units (unknown) date) unknown) (unknown) (no (unknown) (unknown) Date of Service: (units (unknown) date) 11/24/21 unknown) (unknown) (no (unknown) (unknown) Departure (units (unkn own) date) unknown) (unknown) (no (unknown) (unknown) Dextrose (D10w) 250 (uni ts (unknown) date) mls @ 999 mls/hr IV unknown) PRN PRN (unknown) (no (unknown) (unknown) Dictated by: [place] (unit s (unknown) date) Abrahan Houser M.D. on unknown) 11/25/2021 at 0:10 ? ? (unknown) (no (unknown) (unknown) Discharge Plan (units (unknown) date) unknown) (unknown) (no (unknown) (unknown) Discontinued (units (u nknown) date) Medications unknown) (unknown) (no (unknown) (unknown) Doppler (units (unkno wn) date) unknown) (unknown) (no (unknown) (unknown) ECG Data (units (unkno wn) date) unknown) (unknown) (no (unknown) (unknown) EKG 1 (2121): EKG is (un its (unknown) date) normal sinus rhythm unknown) rate [70 ] and free of any signs of (unknown) (no (unknown) (unknown) EKG 2 (111): EKG is (un its (unknown) date) normal sinus rhythm unknown) rate [103 ] and free of any signs of (unknown) (no (unknown) (unknown) EKG 3 (0333): EKG is (un its (unknown) date) normal sinus rhythm unknown) rate [ 100] and free of any signs of (unknown) (no (unknown) (unknown) EKG-12 Lead Stat (units (unknown) date) unknown) (unknown) (no (unknown) (unknown) ENT: Nose without (units (unknown) date) bleeding, purulent unknown) drainage. Throat without erythema, (unknown) (no (unknown) (unknown) ER Physician: (units ( unknown) date) Aroldo aBzan D.O. unknown) (unknown) (no (unknown) (unknown) EXTREMITIES: No edema (un its (unknown) date) or joint tenderness. unknown) (unknown) (no (unknown) (unknown) EYES: Pupils equal (units (unknown) date) round and reactive. unknown) Extraocular motions intact. No scleral (unknown) (no (unknown) (unknown) Eos % (Auto) (units (u nknown) date) unknown) (unknown) (no (unknown) (unknown) Eos % (Auto) Not (units (unknown) date) Reportable unknown) (unknown) (no (unknown) (unknown) Estimated GFR 25 L (uni ts (unknown) date) (>60) mL/min unknown) (unknown) (no (unknown) (unknown) Estimated GFR 26 L (uni ts (unknown) date) (>60) mL/min unknown) (unknown) (no (unknown) (unknown) Exam (units (unkno wn) date) unknown) (unknown) (no (unknown) (unknown) Exam Narrative: (units (unknown) date) unknown) (unknown) (no (unknown) (unknown) FENa (units (unkno wn) date) unknown) (unknown) (no (unknown) (unknown) FINDINGS:? (units (unk nown) date) unknown) (unknown) (no (unknown) (unknown) FeNa of 1.8% (units (u nknown) date) recommends transfer to unknown ) facility with nephrology (unknown) (no (unknown) (unknown) Fractional Excretion (uni ts (unknown) date) of Sodium (FENa) from unknown) [facility] on 11/25/2021 (unknown) (no (unknown) (unknown) Furosemide (units (unk nown) date) (Furosemide 40 Mg/4 Ml unknown ) Vial) 40 mg IV NOW ONE (unknown) (no (unknown) (unknown) GASTROINTESTINAL: (units (unknown) date) Abdomen soft, unknown) non-tender, nondistended. (unknown) (no (unknown) (unknown) GASTROINTESTINAL: (units (unknown) date) Denies nausea, unknown) vomiting, abdominal pain, diarrhea, (unknown) (no (unknown) (unknown) GENERAL: Denies (units (unknown) date) chills, fatigue, unknown) malaise, fever, sweats. (unknown) (no (unknown) (unknown) GENERAL: [81 year old (un its (unknown) date) patient appears stated unknown ) age. Well-developed patient, in (unknown) (no (unknown) (unknown) : Denies dysuria, (unit s (unknown) date) frequency, unknown) incontinence, hematuria, urinary retention. (unknown) (no (unknown) (unknown) General (units (unkno wn) date) unknown) (unknown) (no (unknown) (unknown) GenericComposite[Plt (uni ts (unknown) date) Count (150-400) unknown) X10^3/uL ] (unknown) (no (unknown) (unknown) GenericComposite[Plt (uni ts (unknown) date) Count 229 unknown) (150-400) X10^3/uL ] (unknown) (no (unknown) (unknown) GenericComposite[RBC (uni ts (unknown) date) (4.5-5.9) X10^6/uL unknown ) ] (unknown) (no (unknown) (unknown) GenericComposite[RBC (uni ts (unknown) date) 4.45 L (4.5-5.9) unknown) X10^6/uL ] (unknown) (no (unknown) (unknown) GenericComposite[WBC (uni ts (unknown) date) (4.5-11.0) unknown) X10^3/uL ] (unknown) (no (unknown) (unknown) GenericComposite[WBC (uni ts (unknown) date) 35.4 H* (4.5-11.0) unknown) X10^3/uL ] (unknown) (no (unknown) (unknown) Globulin (units (unkno wn) date) (1.7-4.1) g/dL unknown) (unknown) (no (unknown) (unknown) Globulin 3.7 (units (unknown) date) (1.7-4.1) g/dL unknown) (unknown) (no (unknown) (unknown) Glucose 115 H (units (unknown) date) (80-110) mg/dL unknown) (unknown) (no (unknown) (unknown) Glucose 117 H (units (unknown) date) (80-110) mg/dL unknown) (unknown) (no (unknown) (unknown) Glucose POC 119 (units (unknown) date) unknown) (unknown) (no (unknown) (unknown) HEAD: Atraumatic. (units (unknown) date) Normocephalic. unknown) (unknown) (no (unknown) (unknown) HEENT: Denies sinus (unit s (unknown) date) pain, ear pain, sore unknown) throat, difficulty swallowing, (unknown) (no (unknown) (unknown) HPI - Weakness (units (unknown) date) unknown) (unknown) (no (unknown) (unknown) HPI Narrative: (units (unknown) date) unknown) (unknown) (no (unknown) (unknown) Hct (41-53) % (units (unknown) date) unknown) (unknown) (no (unknown) (unknown) Hct 40.7 L (units (un known) date) (41-53) % unknown) (unknown) (no (unknown) (unknown) Hgb (13.5-17.5) (unit s (unknown) date) g/dL unknown) (unknown) (no (unknown) (unknown) Hgb 13.0 L (units (un known) date) (13.5-17.5) g/dL unknown) (unknown) (no (unknown) (unknown) History of Present (units (unknown) date) Illness unknown) (unknown) (no (unknown) (unknown) IMPRESSION:? (units (u nknown) date) unknown) (unknown) (no (unknown) (unknown) INDICATIONS:? ACUTE (unit s (unknown) date) RENAL FAILURE unknown) (unknown) (no (unknown) (unknown) INPUTS: (units (unkno wn) date) unknown) (unknown) (no (unknown) (unknown) Imaging Data (units (u nknown) date) unknown) (unknown) (no (unknown) (unknown) Initial Vital Signs (unit s (unknown) date) unknown) (unknown) (no (unknown) (unknown) Initial Vital Signs: (uni ts (unknown) date) unknown) (unknown) (no (unknown) (unknown) Insulin Human Regular (uni ts (unknown) date) (Insulin Regular 100 unknown) Unit/Ml 3 Ml Vial) 5 unit IV NOW ONE (unknown) (no (unknown) (unknown) Interpretation: (units (unknown) date) unknown) (unknown) (no (unknown) (unknown) Intrinsic (units (unkn own) date) unknown) (unknown) (no (unknown) (unknown) Kidneys:? Right (units (unknown) date) kidney measures 11.8 unknown) cm long; left kidney measures 11.6 cm (unknown) (no (unknown) (unknown) Lab Data (units (unkno wn) date) unknown) (unknown) (no (unknown) (unknown) Labs: (units (unkno wn) date) unknown) (unknown) (no (unknown) (unknown) Lipase (23-300) (unit s (unknown) date) U/L unknown) (unknown) (no (unknown) (unknown) Lipase 319 H (units (unknown) date) (23-300) U/L unknown) (unknown) (no (unknown) (unknown) Lipase Stat (units (un known) date) unknown) (unknown) (no (unknown) (unknown) Loc: ED (units (unkno wn) date) unknown) (unknown) (no (unknown) (unknown) Lymph # (Auto) (units (unknown) date) unknown) (unknown) (no (unknown) (unknown) Lymph # (Auto) Not (unit s (unknown) date) Reportable unknown) (unknown) (no (unknown) (unknown) Lymph % (Auto) (units (unknown) date) unknown) (unknown) (no (unknown) (unknown) Lymph % (Auto) Not (unit s (unknown) date) Reportable unknown) (unknown) (no (unknown) (unknown) Lymphocytes % (units ( unknown) date) (Manual) (25-45) unknown) % (unknown) (no (unknown) (unknown) Lymphocytes % (units ( unknown) date) (Manual) 76.0 H unknown) (25-45) % (unknown) (no (unknown) (unknown) MCH (26-34) PG (unit s (unknown) date) unknown) (unknown) (no (unknown) (unknown) MCH 29.2 (26-34) (uni ts (unknown) date) PG unknown) (unknown) (no (unknown) (unknown) MCHC (30-36) % (unit s (unknown) date) unknown) (unknown) (no (unknown) (unknown) MCHC 31.9 (30-36) (un its (unknown) date) % unknown) (unknown) (no (unknown) (unknown) MCV (80-100) fL (uni ts (unknown) date) unknown) (unknown) (no (unknown) (unknown) MCV 91.5 (80-100) (un its (unknown) date) fL unknown) (unknown) (no (unknown) (unknown) MDM - Weakness (units (unknown) date) unknown) (unknown) (no (unknown) (unknown) MR#: [id number] (units (unknown) date) unknown) (unknown) (no (unknown) (unknown) MUSCULOSKELETAL: See (un its (unknown) date) HPI unknown) (unknown) (no (unknown) (unknown) [address] MD (units (unknown) date) [Primary Care unknown) Provider] - (unknown) (no (unknown) (unknown) Miscellaneous:? No (units (unknown) date) free pelvic fluid.? unknown) (unknown) (no (unknown) (unknown) Mode of arrival: (units (unknown) date) Wheelchair unknown) (unknown) (no (unknown) (unknown) [place] # (Auto) (units ( unknown) date) unknown) (unknown) (no (unknown) (unknown) [place] # (Auto) Not (units (unknown) date) Reportable unknown) (unknown) (no (unknown) (unknown) [place] % (Auto) (units ( unknown) date) unknown) (unknown) (no (unknown) (unknown) [place] % (Auto) Not (units (unknown) date) Reportable unknown) (unknown) (no (unknown) (unknown) Monocytes % (Manual) (uni ts (unknown) date) (2-11) % unknown) (unknown) (no (unknown) (unknown) Monocytes % (Manual) (uni ts (unknown) date) 3.0 (2-11) % unknown) (unknown) (no (unknown) (unknown) NECK: Trachea (units ( unknown) date) midline. Non tender unknown) (unknown) (no (unknown) (unknown) NEURO: AOx3. (units (u nknown) date) unknown) (unknown) (no (unknown) (unknown) NEUROLOGIC: Denies (units (unknown) date) weakness, headache, unknown) numbness, change in speech, confusion, (unknown) (no (unknown) (unknown) Narrative (units (unkn own) date) unknown) (unknown) (no (unknown) (unknown) Narrative: (units (unk nown) date) unknown) (unknown) (no (unknown) (unknown) Neut % (Auto) (units ( unknown) date) unknown) (unknown) (no (unknown) (unknown) Neut % (Auto) Not (units (unknown) date) Reportable unknown) (unknown) (no (unknown) (unknown) Neutrophils # (units ( unknown) date) (Manual) unknown) ([id number]) /uL (unknown) (no (unknown) (unknown) Neutrophils # (units ( unknown) date) (Manual) 7434 H unknown) ([phone]) /uL (unknown) (no (unknown) (unknown) No Action (units (unkn own) date) unknown) (unknown) (no (unknown) (unknown) Ordered: (units (unkno wn) date) unknown) (unknown) (no (unknown) (unknown) Ordering Provider: (units (unknown) date) Aroldo Bazan D.O. unknown) (unknown) (no (unknown) (unknown) Orders (units (unkno wn) date) unknown) (unknown) (no (unknown) (unknown) PROCEDURE:? US RENAL (uni ts (unknown) date) COMPLETE unknown) (unknown) (no (unknown) (unknown) PSYCHIATRIC: No (units (unknown) date) concerning unknown) psychosocial issues. (unknown) (no (unknown) (unknown) Patient History (units (unknown) date) unknown) (unknown) (no (unknown) (unknown) Patient: (units (unkno wn) date) Raven Sutherland unknown) MR#: M (unknown) (no (unknown) (unknown) Patient: (units (unkno wn) date) Raven Sutherland unknown) (unknown) (no (unknown) (unknown) Potassium 7.7 H* (units (unknown) date) (3.4-5.1) mmol/L unknown) (unknown) (no (unknown) (unknown) Potassium 8.6 H* (units (unknown) date) (3.4-5.1) mmol/L unknown) (unknown) (no (unknown) (unknown) Prescriptions: (units (unknown) date) unknown) (unknown) (no (unknown) (unknown) Prevagen 20 mg PO (units (unknown) date) DAILY 11/25/21 unknown) (unknown) (no (unknown) (unknown) Procedure: US renal (unit s (unknown) date) complete unknown) (unknown) (no (unknown) (unknown) Pulse Oximetry 94 (units (unknown) date) 11/24/21 20:03 unknown) (unknown) (no (unknown) (unknown) Pulse Oximetry 96 (units (unknown) date) unknown) (unknown) (no (unknown) (unknown) Pulse Oximetry 100 97 (un its (unknown) date) 96 unknown) (unknown) (no (unknown) (unknown) Pulse Oximetry 89 L (unit s (unknown) date) 96 unknown) (unknown) (no (unknown) (unknown) Pulse Oximetry 96 96 (uni ts (unknown) date) 98 unknown) (unknown) (no (unknown) (unknown) Pulse Oximetry 97 97 (uni ts (unknown) date) 95 unknown) (unknown) (no (unknown) (unknown) Pulse Oximetry 97 97 (uni ts (unknown) date) 96 unknown) (unknown) (no (unknown) (unknown) Pulse Rate 87 (units (unknown) date) 11/24/21 20:03 unknown) (unknown) (no (unknown) (unknown) Pulse Rate 100 H 104 (uni ts (unknown) date) H 101 H unknown) (unknown) (no (unknown) (unknown) Pulse Rate 76 77 72 (unit s (unknown) date) unknown) (unknown) (no (unknown) (unknown) Pulse Rate 78 79 79 (unit s (unknown) date) unknown) (unknown) (no (unknown) (unknown) Pulse Rate 80 81 72 (unit s (unknown) date) unknown) (unknown) (no (unknown) (unknown) Pulse Rate 91 H 104 H (un its (unknown) date) 102 H unknown) (unknown) (no (unknown) (unknown) Pulse Rate 99 H 97 H (uni ts (unknown) date) 99 H unknown) (unknown) (no (unknown) (unknown) RBC Morphology (units (unknown) date) unknown) (unknown) (no (unknown) (unknown) RBC Morphology (units (unknown) date) Normal morphology unknown) (unknown) (no (unknown) (unknown) RDW (11.6-14.8) (unit s (unknown) date) % unknown) (unknown) (no (unknown) (unknown) RDW 14.1 (units (unkn own) date) (11.6-14.8) % unknown) (unknown) (no (unknown) (unknown) RESPIRATORY: Clear to (uni ts (unknown) date) auscultation. Breath unknown) sounds equal bilaterally. No wheezes, (unknown) (no (unknown) (unknown) RESPIRATORY: Denies (unit s (unknown) date) dyspnea, cough, unknown) wheezing, hemoptysis, sputum. (unknown) (no (unknown) (unknown) RESULT SUMMARY: (units (unknown) date) unknown) (unknown) (no (unknown) (unknown) Real-time scanning (units (unknown) date) was performed of the unknown) kidneys and bladder, with image (unknown) (no (unknown) (unknown) Referrals: (units (unk nown) date) unknown) (unknown) (no (unknown) (unknown) Related Data (units (u nknown) date) unknown) (unknown) (no (unknown) (unknown) Renal (units (unkno wn) date) unknown) (unknown) (no (unknown) (unknown) Renal US: (units (unk nown) date) unknown) (unknown) (no (unknown) (unknown) Respiratory Rate (units (unknown) date) unknown) (unknown) (no (unknown) (unknown) Respiratory Rate 15 (uni ts (unknown) date) 11/24/21 20:03 unknown) (unknown) (no (unknown) (unknown) Respiratory Rate 11 L (un its (unknown) date) 22 18 unknown) (unknown) (no (unknown) (unknown) Respiratory Rate 16 (unit s (unknown) date) 25 H 13 unknown) (unknown) (no (unknown) (unknown) Respiratory Rate 21 (unit s (unknown) date) 19 12 unknown) (unknown) (no (unknown) (unknown) Respiratory Rate 23 (unit s (unknown) date) 25 H 25 H unknown) (unknown) (no (unknown) (unknown) Respiratory Rate 25 H (un its (unknown) date) 18 unknown) (unknown) (no (unknown) (unknown) Result diagrams: (units (unknown) date) unknown) (unknown) (no (unknown) (unknown) Review of Systems (units (unknown) date) unknown) (unknown) (no (unknown) (unknown) SARS-CoV-2 (PCR) (units (unknown) date) (Negative) unknown) (unknown) (no (unknown) (unknown) SARS-CoV-2 (PCR) (units (unknown) date) Negative (Negative) unknown) (unknown) (no (unknown) (unknown) SKIN: Denies rash, (units (unknown) date) skin lesions, or other unknown ) (unknown) (no (unknown) (unknown) SKIN: No rash or (units (unknown) date) erythema of visible unknown) areas (unknown) (no (unknown) (unknown) Seg Neutrophils % (units (unknown) date) (38-70) % unknown) (unknown) (no (unknown) (unknown) Seg Neutrophils % (units (unknown) date) 21.0 L (38-70) % unknown) (unknown) (no (unknown) (unknown) Serum creatinine ?> (unit s (unknown) date) 2.53 mg/dL unknown) (unknown) (no (unknown) (unknown) Serum sodium ?> 134 (unit s (unknown) date) mEq/L unknown) (unknown) (no (unknown) (unknown) Signed By: (units (unk nown) date) unknown) (unknown) (no (unknown) (unknown) Smoking Status: (units (unknown) date) Never smoker unknown) (unknown) (no (unknown) (unknown) Smoking Status: Never (un its (unknown) date) smoker unknown) (unknown) (no (unknown) (unknown) Smudge Cells (units (u nknown) date) unknown) (unknown) (no (unknown) (unknown) Smudge Cells 1+ H (units (unknown) date) unknown) (unknown) (no (unknown) (unknown) Social History (units (unknown) date) (Reviewed 11/25/21 @ unknown) 01:28 by Aroldo Bazan DO) (unknown) (no (unknown) (unknown) Sodium 134 L (units (unknown) date) (137-145) mmol/L unknown) (unknown) (no (unknown) (unknown) Sodium 136 L (units (unknown) date) (137-145) mmol/L unknown) (unknown) (no (unknown) (unknown) Sodium Bicarbonate (units (unknown) date) (Sodium Bicarb 8.4% unknown) Syringe) 150 meq IV NOW ONE (unknown) (no (unknown) (unknown) Sodium Bicarbonate (units (unknown) date) 100 meq/ (Dextrose) unknown) 1,100 mls @ 150 mls/hr IV CONT DEE (unknown) (no (unknown) (unknown) Sodium Chloride (units (unknown) date) (Normal Saline 0.9%) unknown) 1,000 mls @ 1,000 mls/hr IV BOLUS ONE (unknown) (no (unknown) (unknown) Sodium Chloride (units (unknown) date) (Normal Saline 0.9%) unknown) 1,000 mls @ 150 mls/hr IV CONT DEE (unknown) (no (unknown) (unknown) Sodium Urine Random (unit s (unknown) date) Stat unknown) (unknown) (no (unknown) (unknown) Source: patient (units (unknown) date) unknown) (unknown) (no (unknown) (unknown) Stated complaint: (units (unknown) date) Worsening Weakness x3 unknown) days (unknown) (no (unknown) (unknown) Substance Use Type: (unit s (unknown) date) does not use unknown) (unknown) (no (unknown) (unknown) TECHNIQUE:? (units (un known) date) unknown) (unknown) (no (unknown) (unknown) Temperature 98.4 F (unit s (unknown) date) 11/24/21 20:03 unknown) (unknown) (no (unknown) (unknown) Time Seen by (units (u nknown) date) Provider: 11/24/21 unknown) 21:14 (unknown) (no (unknown) (unknown) Total Bilirubin (units (unknown) date) (0.2-1.3) mg/dL unknown) (unknown) (no (unknown) (unknown) Total Bilirubin 0.6 (un its (unknown) date) (0.2-1.3) mg/dL unknown) (unknown) (no (unknown) (unknown) Total Counted (units ( unknown) date) unknown) (unknown) (no (unknown) (unknown) Total Counted 100 (units (unknown) date) unknown) (unknown) (no (unknown) (unknown) Total Creatine Kinase (un its (unknown) date) (55-170) U/L unknown) (unknown) (no (unknown) (unknown) Total Creatine Kinase (un its (unknown) date) 53 L (55-170) U/L unknown ) (unknown) (no (unknown) (unknown) Total Protein (units ( unknown) date) (6.3-8.2) g/dL unknown) (unknown) (no (unknown) (unknown) Total Protein 8.3 H (un its (unknown) date) (6.3-8.2) g/dL unknown) (unknown) (no (unknown) (unknown) Troponin + CK Cardiac (un its (unknown) date) Panel Stat unknown) (unknown) (no (unknown) (unknown) Troponin I (units (unk nown) date) (0.01-0.034) ng/mL unknown) (unknown) (no (unknown) (unknown) Troponin I 0.016 (units (unknown) date) (0.01-0.034) ng/mL unknown) (unknown) (no (unknown) (unknown) US renal complete (units (unknown) date) Stat unknown) (unknown) (no (unknown) (unknown) Ur Random Sodium (units (unknown) date) (30-90) mmol/L unknown) (unknown) (no (unknown) (unknown) Ur Random Sodium 104 (un its (unknown) date) H (30-90) mmol/L unknown) (unknown) (no (unknown) (unknown) Urine Creatinine (units (unknown) date) mg/dL unknown) (unknown) (no (unknown) (unknown) Urine Creatinine (units (unknown) date) 108.6 mg/dL unknown) (unknown) (no (unknown) (unknown) Urine creatinine ?> (unit s (unknown) date) 108.6 mg/dL unknown) (unknown) (no (unknown) (unknown) Urine sodium ?> 104 (unit s (unknown) date) mEq/L unknown) (unknown) (no (unknown) (unknown) VBG Base Excess (units (unknown) date) (0-4) mmol/L unknown) (unknown) (no (unknown) (unknown) VBG Base Excess (units (unknown) date) -13.0 L (0-4) mmol/L unknown ) (unknown) (no (unknown) (unknown) VBG HCO3 (23-28) (uni ts (unknown) date) mmol/L unknown) (unknown) (no (unknown) (unknown) VBG HCO3 14 L (units (unknown) date) (23-28) mmol/L unknown) (unknown) (no (unknown) (unknown) VBG O2 Saturation (units (unknown) date) (70-75) % unknown) (unknown) (no (unknown) (unknown) VBG O2 Saturation (units (unknown) date) 42 L (70-75) % unknown) (unknown) (no (unknown) (unknown) VBG Total CO2 (units ( unknown) date) (24-29) mmol/L unknown) (unknown) (no (unknown) (unknown) VBG Total CO2 15 L (un its (unknown) date) (24-29) mmol/L unknown) (unknown) (no (unknown) (unknown) VBG [Venous Blood (units (unknown) date) Gas] Stat unknown) (unknown) (no (unknown) (unknown) VBG pCO2 (45-50) (uni ts (unknown) date) mmHg unknown) (unknown) (no (unknown) (unknown) VBG pCO2 35.6 L (units (unknown) date) (45-50) mmHg unknown) (unknown) (no (unknown) (unknown) VBG pH (units (unkno wn) date) (7.33-7.43) unknown) (unknown) (no (unknown) (unknown) VBG pH 7.21 L (units (unknown) date) (7.33-7.43) unknown) (unknown) (no (unknown) (unknown) VBG pO2 (35-45) (unit s (unknown) date) mmHg unknown) (unknown) (no (unknown) (unknown) VBG pO2 28 L (units (unknown) date) (35-45) mmHg unknown) (unknown) (no (unknown) (unknown) Vital Signs (units (un known) date) unknown) (unknown) (no (unknown) (unknown) Vital signs: (units (u nknown) date) unknown) (unknown) (no (unknown) (unknown) XR chest 1V Stat (units (unknown) date) unknown) (unknown) (no (unknown) (unknown) [Embedded Image Not (unit s (unknown) date) Available] unknown) (unknown) (no (unknown) (unknown) ago and failed 2 (units (unknown) date) months ago. He does unknown) not suffer urinary retention but instead (unknown) (no (unknown) (unknown) alcohol intake (units (unknown) date) frequency: unknown) holidays/special occasions only (unknown) (no (unknown) (unknown) amlodipine 10 mg (units (unknown) date) tablet 10 mg PO DAILY unknown) 11/25/21 11/25/21 (unknown) (no (unknown) (unknown) aspirin 81 mg capsule (un its (unknown) date) 81 mg PO DAILY unknown) 11/25/21 11/25/21 (unknown) (no (unknown) (unknown) at 150, repeat labs, (uni ts (unknown) date) improved K/acidemia unknown) before transfer possible. Currently no (unknown) (no (unknown) (unknown) been managed by (units (unknown) date) urology at [facility]. unknown) It was placed originally about 5 years (unknown) (no (unknown) (unknown) call to Dr. Newberry (units (unknown) date) (Hospitalist at unknown) [place]). Requests Bicarb (3 amps) with drip (unknown) (no (unknown) (unknown) call to hospitalist (unit s (unknown) date) upon receipt of repeat unknown ) labs, given minimal improvement and (unknown) (no (unknown) (unknown) calls to (units (unkno wn) date) unknown) (unknown) (no (unknown) (unknown) cases due (units (unkn own) date) unknown) (unknown) (no (unknown) (unknown) cholecalciferol (units (unknown) date) (vitamin D3) 50 50 mcg unknown ) PO DAILY 11/25/21 11/25/21 (unknown) (no (unknown) (unknown) constantly leaks (units (unknown) date) urine. He was scoped unknown) by his urologist about 10 days ago and (unknown) (no (unknown) (unknown) constipation, melena. (un its (unknown) date) unknown) (unknown) (no (unknown) (unknown) cortical echotexture (uni ts (unknown) date) appears grossly within unknown ) normal limits.? No hydronephrosis.? (unknown) (no (unknown) (unknown) dizziness. (units (unk nown) date) unknown) (unknown) (no (unknown) (unknown) documentation.? (units (unknown) date) unknown) (unknown) (no (unknown) (unknown) docusate sodium 100 (unit s (unknown) date) mg capsule 100 mg PO unknown) BID 11/25/21 11/25/21 (unknown) (no (unknown) (unknown) e.g. ATN, AIN, (units (unknown) date) glomerulonephritides unknown) (unknown) (no (unknown) (unknown) generalized weakness (uni ts (unknown) date) gradually worsening unknown) over the past few months. He states (unknown) (no (unknown) (unknown) generally, and on the (un its (unknown) date) whole, and very unknown) nonspecifically he feels weak. Patient (unknown) (no (unknown) (unknown) ibuprofen 800 mg (units (unknown) date) tablet 800 mg PO Q8H unknown) PRN 11/25/21 11/25/21 (unknown) (no (unknown) (unknown) icterus. No injection (un its (unknown) date) or drainage. unknown) (unknown) (no (unknown) (unknown) interrogation.? (Of (unit s (unknown) date) note, ureteral jets unknown) may not be detectable in up to 25% of (unknown) (no (unknown) (unknown) intraluminal masses (unit s (unknown) date) unknown) (unknown) (no (unknown) (unknown) inversions. OK 126. (unit s (unknown) date) QRS 140. T waves unknown) improved. (unknown) (no (unknown) (unknown) inversions. OK 152. (unit s (unknown) date) QRS 164. T waves unknown) peaked (unknown) (no (unknown) (unknown) inversions. T waves (unit s (unknown) date) improved. OK 112. QRS unknown) 132 (unknown) (no (unknown) (unknown) ischemia or ectopy. (unit s (unknown) date) No ST segmental unknown) elevation or depression. No T wave (unknown) (no (unknown) (unknown) latanoprost 0.005 % (unit s (unknown) date) eye drops 1 drp unknown) OPHTHALMIC (EYE) DAILY 11/25/21 11/25/21 (unknown) (no (unknown) (unknown) lisinopril 40 mg (units (unknown) date) tablet 40 mg PO DAILY unknown) 11/25/21 11/25/21 (unknown) (no (unknown) (unknown) long.? Right (units (u nknown) date) unknown) (unknown) (no (unknown) (unknown) mcg (2,000 unit) (units (unknown) date) capsule (Vitamin unknown) (unknown) (no (unknown) (unknown) medications or diet. (uni ts (unknown) date) He denies any unknown) headache, blurred vision or trouble with (unknown) (no (unknown) (unknown) metoprolol tartrate (unit s (unknown) date) 25 mg tablet 25 mg PO unknown) BID 11/25/21 11/25/21 (unknown) (no (unknown) (unknown) mg-hydrochlorothiazid (un its (unknown) date) e 50 mg tablet unknown) (unknown) (no (unknown) (unknown) mg-lycopene 300 (units (unknown) date) mcg-lutein 250 mcg unknown) (unknown) (no (unknown) (unknown) mild distress. (units (unknown) date) unknown) (unknown) (no (unknown) (unknown) rxxocdkw-dmu-cadbs (units (unknown) date) acid 0.4 1 tab PO unknown) DAILY 11/25/21 11/25/21 (unknown) (no (unknown) (unknown) myacin family Allergy (un its (unknown) date) Blister Uncoded unknown) 11/24/21 20:03 (unknown) (no (unknown) (unknown) nystatin 100,000 (units (unknown) date) unit/gram topical 1 unknown) applic TOPICAL BID 11/25/21 11/25/21 (unknown) (no (unknown) (unknown) omega-3 fatty acids (unit s (unknown) date) 1,000 mg PO DAILY unknown) 11/25/21 11/25/21 (unknown) (no (unknown) (unknown) opportunities for (units (unknown) date) dialysis given backed unknown) up service (unknown) (no (unknown) (unknown) or stones.? On (units (unknown) date) pre-void images, unknown) neither ureteral jets are noted with color (unknown) (no (unknown) (unknown) potassium chloride 20 (un its (unknown) date) mEq 20 meq PO BID unknown) 11/25/21 11/25/21 (unknown) (no (unknown) (unknown) powder (units (unkno wn) date) unknown) (unknown) (no (unknown) (unknown) primary care provider (un its (unknown) date) early in the week. He unknown ) denies any change in his (unknown) (no (unknown) (unknown) problems such as (units (unknown) date) unilateral numbness, unknown) tingling or weakness. He states that (unknown) (no (unknown) (unknown) renal cortical (units (unknown) date) thickness is 1.5 cm; unknown) left renal cortical thickness is 1.5 cm.? (unknown) (no (unknown) (unknown) revision in December. He (uni ts (unknown) date) had been taking Motrin unknown ) 800mg TID for quite some time but (unknown) (no (unknown) (unknown) rosuvastatin 40 mg (units (unknown) date) tablet 40 mg PO DAILY unknown) 11/25/21 11/25/21 (unknown) (no (unknown) (unknown) seizures, (units (unkn own) date) incoordination. unknown) (unknown) (no (unknown) (unknown) some time, and he met (uni ts (unknown) date) with his orthopedist unknown) today and has an appointment with his (unknown) (no (unknown) (unknown) speech. He denies (units (unknown) date) any chest pain or unknown) shortness of breath. 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 He had been unknown) taking KCL 20meq BID until this morning. (unknown) (no (unknown) (unknown) tablet (Centrum (units (unknown) date) Silver) unknown) (unknown) (no (unknown) (unknown) tablet,extended (units (unknown) date) release unknown) (unknown) (no (unknown) (unknown) tadalafil 10 mg (units (unknown) date) tablet 10 mg PO DAILY unknown) PRN 11/25/21 11/25/21 (unknown) (no (unknown) (unknown) that he feels like (units (unknown) date) his joints are tired unknown) and this has been going on for quite (unknown) (no (unknown) (unknown) there were no (units ( unknown) date) abnormalities noted in unknown ) his urethra. He is scheduled for a (unknown) (no (unknown) (unknown) timolol 0.5 % eye (units (unknown) date) drops 1 drp OPHTHALMIC unknown ) (EYE) DAILY 11/25/21 11/25/21 (unknown) (no (unknown) (unknown) to insufficient (units (unknown) date) differences in unknown) specific gravity between ureteral and bladder (unknown) (no (unknown) (unknown) tonsillar hypertrophy (un its (unknown) date) or exudate. Airway unknown) patent. (unknown) (no (unknown) (unknown) triamterene 75 1 tab (uni ts (unknown) date) PO QAM 11/25/21 unknown) 11/25/21 (unknown) (no (unknown) (unknown) urine).? (units (unkno wn) date) unknown) Result panel 24 (unknown) (no date) (unknown) (unknown) -6.0 mmol/L (unkn own) (unknown) (no date) (unknown) (unknown) 21 mmol/L (unkn own) (unknown) (no date) (unknown) (unknown) 22 mmol/L (unkn own) (unknown) (no date) (unknown) (unknown) 27 mmHg (unkn own) (unknown) (no date) (unknown) (unknown) 42 % (unkn own) (unknown) (no date) (unknown) (unknown) 45.9 mmHg (unkn own) (unknown) (no date) (unknown) (unknown) 7.27 (units unknown) (unknown) Result panel 25 (unknown) (no date) (unknown) (unknown) 10.1 mg/dL (unkn own) (unknown) (no date) (unknown) (unknown) 108 mmol/L (unkn own) (unknown) (no date) (unknown) (unknown) 126 mg/dL (unkn own) (unknown) (no date) (unknown) (unknown) 138 mmol/L (unkn own) (unknown) (no date) (unknown) (unknown) 2.18 mg/dL (unkn own) (unknown) (no date) (unknown) (unknown) 21 mmol/L (unkn own) (unknown) (no date) (unknown) (unknown) 29 mL/min (unkn own) (unknown) (no date) (unknown) (unknown) 30.3 (units unknown) (unknown) (unknown) (no date) (unknown) (unknown) 5.9 mmol/L (unkn own) (unknown) (no date) (unknown) (unknown) 66 mg/dL (unkn own) Result panel 26 (unknown) (no (unknown) (unknown) (no value) (units (unk nown) date) unknown) (unknown) (no (unknown) (unknown) Radiologist (units (un known) date) Impression: unknown) (unknown) (no (unknown) (unknown) (no value) (units (unk nown) date) unknown) (unknown) (no (unknown) (unknown) Date of Service: (units (unknown) date) 11/24/21 unknown) (unknown) (no (unknown) (unknown) (no value) (units (unk nown) date) unknown) (unknown) (no (unknown) (unknown) <Electronically (units (unknown) date) signed by Aroldo unknown) Milton Bazan> (unknown) (no (unknown) (unknown) 11/24/21 21:40 (units (unknown) date) unknown) (unknown) (no (unknown) (unknown) 11/25/21 04:25 (units (unknown) date) unknown) (unknown) (no (unknown) (unknown) 11/25/21 0525 (units ( unknown) date) unknown) (unknown) (no (unknown) (unknown) 1 applic TOPICAL BID (uni ts (unknown) date) 0RF unknown) (unknown) (no (unknown) (unknown) 1 drp OPHTHALMIC (units (unknown) date) (EYE) DAILY 0RF unknown) (unknown) (no (unknown) (unknown) 1 tab PO DAILY 0RF (units (unknown) date) unknown) (unknown) (no (unknown) (unknown) 1 tab PO QAM 0RF (units (unknown) date) unknown) (unknown) (no (unknown) (unknown) 1,000 mg PO DAILY 0RF (un its (unknown) date) unknown) (unknown) (no (unknown) (unknown) 10 mg PO DAILY 0RF (units (unknown) date) unknown) (unknown) (no (unknown) (unknown) 10 mg PO DAILY PRN (units (unknown) date) (Reason: intercourse) unknown) 0RF (unknown) (no (unknown) (unknown) 100 mg PO BID 0RF (units (unknown) date) unknown) (unknown) (no (unknown) (unknown) [address] [place] [address] (units (unknown) date) unknown) (unknown) (no (unknown) (unknown) 20 meq PO BID 0RF (units (unknown) date) unknown) (unknown) (no (unknown) (unknown) 20 mg PO DAILY 0RF (units (unknown) date) unknown) (unknown) (no (unknown) (unknown) 25 mg PO BID 0RF (units (unknown) date) unknown) (unknown) (no (unknown) (unknown) 40 mg PO DAILY 0RF (units (unknown) date) unknown) (unknown) (no (unknown) (unknown) 50 mcg PO DAILY 0RF (unit s (unknown) date) unknown) (unknown) (no (unknown) (unknown) 800 mg PO Q8H PRN (units (unknown) date) (Reason: Pain, unknown) Moderate) 0RF (unknown) (no (unknown) (unknown) 81 mg PO DAILY 0RF (units (unknown) date) unknown) (unknown) (no (unknown) (unknown) Admin: 11/24/21 22:08 (un its (unknown) date) Dose: 150 mls/hr unknown) (unknown) (no (unknown) (unknown) Admin: 11/24/21 22:52 (un its (unknown) date) Dose: 250 mls/hr unknown) (unknown) (no (unknown) (unknown) Admin: 11/24/21 23:01 (un its (unknown) date) Dose: 1,000 mls/hr unknown) (unknown) (no (unknown) (unknown) Admin: 11/24/21 23:16 (un its (unknown) date) Dose: 140 mls/hr unknown) (unknown) (no (unknown) (unknown) Allergies (units (unkn own) date) unknown) (unknown) (no (unknown) (unknown) [place] [id number] (unit s (unknown) date) unknown) (unknown) (no (unknown) (unknown) Documented by: (units (unknown) date) APAADRIANIE unknown) (unknown) (no (unknown) (unknown) Documented by: (units (unknown) date) ATANICOLEOR Cosigned by: unknown ) FREDIS (unknown) (no (unknown) (unknown) Documented by: (units (unknown) date) ATAYLOR unknown) (unknown) (no (unknown) (unknown) Documented by: (units (unknown) date) HGUBERN unknown) (unknown) (no (unknown) (unknown) Documented by: (units (unknown) date) FREDIS unknown) (unknown) (no (unknown) (unknown) ED Orders (units (unkn own) date) unknown) (unknown) (no (unknown) (unknown) Emergency Report (units (unknown) date) unknown) (unknown) (no (unknown) (unknown) Home Medications (units (unknown) date) unknown) (unknown) (no (unknown) (unknown) Infusion: 11/24/21 (units (unknown) date) 23:01 Dose: 0 mls/hr unknown) (unknown) (no (unknown) (unknown) Infusion: 11/25/21 (units (unknown) date) 00:17 Dose: 150 unknown) mls/hr (unknown) (no (unknown) (unknown) [facility] (units (unknown) date) unknown) (unknown) (no (unknown) (unknown) [facility] [address] (uni ts (unknown) date) [address] [place] [address] [place], unknown ) [place] [id number] (unknown) (no (unknown) (unknown) Lab Results (units (un known) date) unknown) (unknown) (no (unknown) (unknown) Label Comments: (units (unknown) date) unknown) (unknown) (no (unknown) (unknown) Last Admin: 11/24/21 (uni ts (unknown) date) 22:56 Dose: 40 mg unknown) (unknown) (no (unknown) (unknown) Last Admin: 11/24/21 (uni ts (unknown) date) 23:09 Dose: 5 unit unknown) (unknown) (no (unknown) (unknown) Last Admin: 11/24/21 (uni ts (unknown) date) 23:15 Dose: 20 mg unknown) (unknown) (no (unknown) (unknown) Last Admin: 11/25/21 (uni ts (unknown) date) 03:58 Dose: 150 meq unknown) (unknown) (no (unknown) (unknown) Last Admin: 11/25/21 (uni ts (unknown) date) 03:58 Dose: 150 unknown) mls/hr (unknown) (no (unknown) (unknown) Last Infusion: (units (unknown) date) 11/24/21 23:11 Dose: unknown) 0 mls/hr (unknown) (no (unknown) (unknown) Last Infusion: (units (unknown) date) 11/24/21 23:54 Dose: unknown) 0 mls/hr (unknown) (no (unknown) (unknown) Last Infusion: (units (unknown) date) 11/25/21 00:10 Dose: unknown) 0 mls/hr (unknown) (no (unknown) (unknown) Last Infusion: (units (unknown) date) 11/25/21 05:08 Dose: unknown) 0 mls/hr (unknown) (no (unknown) (unknown) PRN Reason: (units (un known) date) Hypoglycemia unknown) (unknown) (no (unknown) (unknown) Point of Care Testing (un its (unknown) date) unknown) (unknown) (no (unknown) (unknown) Rx Instructions: (units (unknown) date) unknown) (unknown) (no (unknown) (unknown) Signed (units (unkno wn) date) unknown) (unknown) (no (unknown) (unknown) Stop: 11/24/21 22:22 (uni ts (unknown) date) unknown) (unknown) (no (unknown) (unknown) Stop: 11/24/21 22:50 (uni ts (unknown) date) unknown) (unknown) (no (unknown) (unknown) Stop: 11/24/21 23:20 (uni ts (unknown) date) unknown) (unknown) (no (unknown) (unknown) Stop: 11/25/21 03:18 (uni ts (unknown) date) unknown) (unknown) (no (unknown) (unknown) Take 1 tablet by (units (unknown) date) mouth once a day unknown) (unknown) (no (unknown) (unknown) Ultrasound Report (units (unknown) date) unknown) (unknown) (no (unknown) (unknown) Vital Signs - 8 hr (units (unknown) date) unknown) (unknown) (no (unknown) (unknown) administer (units (unk nown) date) approximately 30min unknown) before sexual activity; do not use more than 1 (unknown) (no (unknown) (unknown) (no value) (units (unk nown) date) unknown) (unknown) (no (unknown) (unknown) 04:25 04:30 (units (un known) date) unknown) (unknown) (no (unknown) (unknown) 11/24/21 11/24/21 (units (unknown) date) 11/24/21 Range/Units unknown) (unknown) (no (unknown) (unknown) 11/24/21 11/25/21 (units (unknown) date) 11/25/21 Range/Units unknown) (unknown) (no (unknown) (unknown) 11/25/21 11/25/21 (units (unknown) date) Range/Units unknown) (unknown) (no (unknown) (unknown) 21:40 21:40 22:32 (units (unknown) date) unknown) (unknown) (no (unknown) (unknown) 23:30 01:44 03:43 (units (unknown) date) unknown) (unknown) (no (unknown) (unknown) Centrum Silver (units (unknown) date) 0.4-300-250 mg-mcg-mcg unknown ) Tablet (unknown) (no (unknown) (unknown) Fish Oil Capsule (units (unknown) date) unknown) (unknown) (no (unknown) (unknown) Prevagen 20 mg (units (unknown) date) unknown) (unknown) (no (unknown) (unknown) amlodipine 10 mg (units (unknown) date) Tablet unknown) (unknown) (no (unknown) (unknown) aspirin 81 mg Capsule (un its (unknown) date) unknown) (unknown) (no (unknown) (unknown) cholecalciferol (units (unknown) date) (vitamin D3) [Vitamin unknown) D3] 50 mcg (2,000 unit) Capsule (unknown) (no (unknown) (unknown) docusate sodium (units (unknown) date) [Colace] 100 mg unknown) Capsule (unknown) (no (unknown) (unknown) ibuprofen 800 mg (units (unknown) date) Tablet unknown) (unknown) (no (unknown) (unknown) latanoprost 0.005 % (unit s (unknown) date) Drops unknown) (unknown) (no (unknown) (unknown) lisinopril 40 mg (units (unknown) date) tablet unknown) (unknown) (no (unknown) (unknown) metoprolol tartrate (unit s (unknown) date) 25 mg Tablet unknown) (unknown) (no (unknown) (unknown) nystatin 100,000 (units (unknown) date) unit/gram Powder unknown) (unknown) (no (unknown) (unknown) potassium chloride 20 (un its (unknown) date) mEq Tablet Extended unknown) Release (unknown) (no (unknown) (unknown) rosuvastatin 40 mg (units (unknown) date) Tablet unknown) (unknown) (no (unknown) (unknown) tadalafil 10 mg (units (unknown) date) Tablet unknown) (unknown) (no (unknown) (unknown) timolol 0.5 % Drops (unit s (unknown) date) unknown) (unknown) (no (unknown) (unknown) triamterene-hydrochlo (un its (unknown) date) rothiazid 75-50 mg unknown) Tablet (unknown) (no (unknown) (unknown) 11/24/21 (units (unkno wn) date) unknown) (unknown) (no (unknown) (unknown) 11/25/21 (units (unkno wn) date) unknown) (unknown) (no (unknown) (unknown) Acute hyperkalemia, (unit s (unknown) date) Metabolic acidosis, unknown) Acute kidney injury (unknown) (no (unknown) (unknown) Medication (units (unk nown) date) Instructions Recorded unknown ) Confirmed (unknown) (no (unknown) (unknown) The high probability (uni ts (unknown) date) of a clinically unknown) significant, sudden or life threatening (unknown) (no (unknown) (unknown) dose per 24hrs (units (unknown) date) unknown) (unknown) (no (unknown) (unknown) rales, or rhonchi. (units (unknown) date) unknown) (unknown) (no (unknown) (unknown) (Colace) (units (unkno wn) date) unknown) (unknown) (no (unknown) (unknown) (chemistries still (units (unknown) date) pending). She is happy unknown ) to accept patient in transfer (unknown) (no (unknown) (unknown) All calculations (unit s (unknown) date) should be rechecked by unknown ) clinician prior to use (unknown) (no (unknown) (unknown) [phone] (units (unkn own) date) unknown) (unknown) (no (unknown) (unknown) 00:00 (units (unkno wn) date) unknown) (unknown) (no (unknown) (unknown) 00:30 11/25/21 (units (unknown) date) unknown) (unknown) (no (unknown) (unknown) 01:00 11/25/21 (units (unknown) date) unknown) (unknown) (no (unknown) (unknown) 01:30 (units (unkno wn) date) unknown) (unknown) (no (unknown) (unknown) 02:00 11/25/21 (units (unknown) date) unknown) (unknown) (no (unknown) (unknown) 02:30 11/25/21 (units (unknown) date) unknown) (unknown) (no (unknown) (unknown) 03:00 (units (unkno wn) date) unknown) (unknown) (no (unknown) (unknown) 03:30 (units (unkno wn) date) unknown) (unknown) (no (unknown) (unknown) 11/24/21 21:14 (units (unknown) date) unknown) (unknown) (no (unknown) (unknown) 11/24/21 21:40 (units (unknown) date) unknown) (unknown) (no (unknown) (unknown) 11/24/21 22:21 (units (unknown) date) unknown) (unknown) (no (unknown) (unknown) 11/24/21 22:32 (units (unknown) date) unknown) (unknown) (no (unknown) (unknown) 11/24/21 23:30 (units (unknown) date) unknown) (unknown) (no (unknown) (unknown) 11/25/21 00:56 (units (unknown) date) unknown) (unknown) (no (unknown) (unknown) 11/25/21 01:44 (units (unknown) date) unknown) (unknown) (no (unknown) (unknown) 11/25/21 03:30 (units (unknown) date) unknown) (unknown) (no (unknown) (unknown) 11/25/21 03:43 (units (unknown) date) unknown) (unknown) (no (unknown) (unknown) 11/25/21 04:25 (units (unknown) date) unknown) (unknown) (no (unknown) (unknown) 11/25/21 04:30 (units (unknown) date) unknown) (unknown) (no (unknown) (unknown) 1. No evidence of (units (unknown) date) hydronephrosis. unknown) (unknown) (no (unknown) (unknown) 1.8 % (units (unkno wn) date) unknown) (unknown) (no (unknown) (unknown) 12 point review of (units (unknown) date) systems is negative unknown) except for those stated above (unknown) (no (unknown) (unknown) 2. Bilateral mild (units (unknown) date) renal cortical unknown) thinning.? (unknown) (no (unknown) (unknown) 21:30 11/24/21 (units (unknown) date) unknown) (unknown) (no (unknown) (unknown) 22:00 11/24/21 (units (unknown) date) unknown) (unknown) (no (unknown) (unknown) 22:01 (units (unkno wn) date) unknown) (unknown) (no (unknown) (unknown) 22:30 11/24/21 (units (unknown) date) unknown) (unknown) (no (unknown) (unknown) 23:00 11/24/21 (units (unknown) date) unknown) (unknown) (no (unknown) (unknown) 23:04 (units (unkno wn) date) unknown) (unknown) (no (unknown) (unknown) 23:20 11/24/21 (units (unknown) date) unknown) (unknown) (no (unknown) (unknown) 23:30 11/25/21 (units (unknown) date) unknown) (unknown) (no (unknown) (unknown) 81-year-old male (units (unknown) date) Nonsmoker with history unknown ) of HTN, hyperlipidemia presents with (unknown) (no (unknown) (unknown) ? (units (unkno wn) date) unknown) (unknown) (no (unknown) (unknown) ALT (<50) IU/L (unit s (unknown) date) unknown) (unknown) (no (unknown) (unknown) ALT (<50) IU/L (units (unknown) date) unknown) (unknown) (no (unknown) (unknown) ALT 17 (<50) (units (unknown) date) IU/L unknown) (unknown) (no (unknown) (unknown) AST (17-59) IU/L (un its (unknown) date) unknown) (unknown) (no (unknown) (unknown) AST (17-59) IU/L (uni ts (unknown) date) unknown) (unknown) (no (unknown) (unknown) AST 26 (17-59) (units (unknown) date) IU/L unknown) (unknown) (no (unknown) (unknown) Accession Number: (units (unknown) date) [id number] ?? unknown) (unknown) (no (unknown) (unknown) Acct:[id number] (units (unknown) date) unknown) (unknown) (no (unknown) (unknown) Age/Sex: 81 / M (units (unknown) date) unknown) (unknown) (no (unknown) (unknown) Age/Sex: 81 / M (units (unknown) date) unknown) (unknown) (no (unknown) (unknown) Albumin (3.5-5.0) (un its (unknown) date) g/dL unknown) (unknown) (no (unknown) (unknown) Albumin (3.5-5.0) (uni ts (unknown) date) g/dL unknown) (unknown) (no (unknown) (unknown) Albumin 4.6 (units ( unknown) date) (3.5-5.0) g/dL unknown) (unknown) (no (unknown) (unknown) Albumin/Globulin (units (unknown) date) Ratio (1.0-2.8) unknown) (unknown) (no (unknown) (unknown) Albumin/Globulin (units (unknown) date) Ratio (1.0-2.8) unknown) (unknown) (no (unknown) (unknown) Albumin/Globulin (units (unknown) date) Ratio 1.2 unknown) (1.0-2.8) (unknown) (no (unknown) (unknown) Albuterol (Albuterol (uni ts (unknown) date) 2.5 Mg/3 Ml Neb unknown) (Adult)) 20 mg INH NOW ONE (unknown) (no (unknown) (unknown) Alkaline Phosphatase (uni ts (unknown) date) (38-126) U/L unknown) (unknown) (no (unknown) (unknown) Alkaline Phosphatase (uni ts (unknown) date) (38-126) U/L unknown) (unknown) (no (unknown) (unknown) Alkaline Phosphatase (uni ts (unknown) date) 192 H (38-126) U/L unknown ) (unknown) (no (unknown) (unknown) Allergy/AdvReac Type (uni ts (unknown) date) Severity Reaction unknown) Status Date / Time (unknown) (no (unknown) (unknown) Approved by: Gunnar (unit s (unknown) date) Abrahan Houser M.D. on unknown) 11/25/2021 at 0:16 ? (unknown) (no (unknown) (unknown) Attestation: (units (u nknown) date) unknown) (unknown) (no (unknown) (unknown) BACK: Nontender (units (unknown) date) without deformity or unknown) crepitance. No flank tenderness. (unknown) (no (unknown) (unknown) BMP [Basic Metabolic (uni ts (unknown) date) Panel] Stat unknown) (unknown) (no (unknown) (unknown) BUN 66 H (9-20) (unit s (unknown) date) mg/dL unknown) (unknown) (no (unknown) (unknown) BUN 70 H (9-20) (unit s (unknown) date) mg/dL unknown) (unknown) (no (unknown) (unknown) BUN 66 H (9-20) (units (unknown) date) mg/dL unknown) (unknown) (no (unknown) (unknown) BUN/Creatinine Ratio (uni ts (unknown) date) 27.5 H (6-22) unknown) (unknown) (no (unknown) (unknown) BUN/Creatinine Ratio (uni ts (unknown) date) 27.7 H (6-22) unknown) (unknown) (no (unknown) (unknown) BUN/Creatinine Ratio (uni ts (unknown) date) 30.3 H (6-22) unknown) (unknown) (no (unknown) (unknown) Baso # (Auto) (units ( unknown) date) unknown) (unknown) (no (unknown) (unknown) Baso # (Auto) (units ( unknown) date) unknown) (unknown) (no (unknown) (unknown) Baso # (Auto) Not (units (unknown) date) Reportable unknown) (unknown) (no (unknown) (unknown) Baso % (Auto) (units ( unknown) date) unknown) (unknown) (no (unknown) (unknown) Baso % (Auto) (units ( unknown) date) unknown) (unknown) (no (unknown) (unknown) Baso % (Auto) Not (units (unknown) date) Reportable unknown) (unknown) (no (unknown) (unknown) Bladder:? Pre-void (units (unknown) date) bladder was unknown) nondistended.? Limited evaluation for (unknown) (no (unknown) (unknown) Blood Pressure (units (unknown) date) 131/58 L unknown) (unknown) (no (unknown) (unknown) Blood Pressure (units (unknown) date) 133/63 129/62 unknown) (unknown) (no (unknown) (unknown) Blood Pressure (units (unknown) date) 155/93 H 11/24/21 unknown) 20:03 (unknown) (no (unknown) (unknown) Blood Pressure 123/58 (un its (unknown) date) L unknown) (unknown) (no (unknown) (unknown) Blood Pressure 137/63 (un its (unknown) date) 161/72 H 151/65 H unknown) (unknown) (no (unknown) (unknown) Blood Pressure 141/61 (un its (unknown) date) H 129/60 141/63 H unknown) (unknown) (no (unknown) (unknown) Blood Pressure 162/70 (un its (unknown) date) H 164/76 H unknown) (unknown) (no (unknown) (unknown) CARDIOVASCULAR: (units (unknown) date) Denies chest pain, unknown) palpitations, orthopnea, edema, (unknown) (no (unknown) (unknown) CARDIOVASCULAR: (units (unknown) date) Regular rate and unknown) rhythm without murmurs, gallops, or rubs. (unknown) (no (unknown) (unknown) CK-MB (CK-2) (units (u nknown) date) unknown) (unknown) (no (unknown) (unknown) CK-MB (CK-2) (units (u nknown) date) unknown) (unknown) (no (unknown) (unknown) CK-MB (CK-2) TNP (units (unknown) date) unknown) (unknown) (no (unknown) (unknown) CK-MB (CK-2) Rel (units (unknown) date) Index unknown) (unknown) (no (unknown) (unknown) CK-MB (CK-2) Rel (units (unknown) date) Index unknown) (unknown) (no (unknown) (unknown) CK-MB (CK-2) Rel (units (unknown) date) Index TNP unknown) (unknown) (no (unknown) (unknown) COMPARISON:? None. (units (unknown) date) unknown) (unknown) (no (unknown) (unknown) COVID19 -Nasal (units (unknown) date) RAPID/Pre-Proc Stat unknown) (unknown) (no (unknown) (unknown) Calcium 10.7 H (units (unknown) date) (8.4-10.2) mg/dL unknown) (unknown) (no (unknown) (unknown) Calcium 10.9 H (units (unknown) date) (8.4-10.2) mg/dL unknown) (unknown) (no (unknown) (unknown) Calcium 10.1 (units ( unknown) date) (8.4-10.2) mg/dL unknown) (unknown) (no (unknown) (unknown) Calcium Gluconate 9.3 (un its (unknown) date) meq/ (Sodium Chloride) unknown ) 70 mls @ 140 mls/hr IV NOW ONE (unknown) (no (unknown) (unknown) Carbon Dioxide 13 L (un its (unknown) date) (22-32) mmol/L unknown) (unknown) (no (unknown) (unknown) Carbon Dioxide 14 L (un its (unknown) date) (22-32) mmol/L unknown) (unknown) (no (unknown) (unknown) Carbon Dioxide 21 L (uni ts (unknown) date) (22-32) mmol/L unknown) (unknown) (no (unknown) (unknown) Chief complaint: (units (unknown) date) Weakness unknown) (unknown) (no (unknown) (unknown) Chloride 111 H (units (unknown) date) (98-107) mmol/L unknown) (unknown) (no (unknown) (unknown) Chloride 112 H (units (unknown) date) (98-107) mmol/L unknown) (unknown) (no (unknown) (unknown) Chloride 108 H (units (unknown) date) (98-107) mmol/L unknown) (unknown) (no (unknown) (unknown) Clinical Impression: (uni ts (unknown) date) unknown) (unknown) (no (unknown) (unknown) Complete Blood Count (uni ts (unknown) date) AUTO DIFF Stat unknown) (unknown) (no (unknown) (unknown) Comprehensive (units ( unknown) date) Metabolic Panel Stat unknown) (unknown) (no (unknown) (unknown) Consultation #1: (units (unknown) date) unknown) (unknown) (no (unknown) (unknown) Consultation #2: (units (unknown) date) unknown) (unknown) (no (unknown) (unknown) Consultation #3: (units (unknown) date) unknown) (unknown) (no (unknown) (unknown) Consultations (units ( unknown) date) unknown) (unknown) (no (unknown) (unknown) Course (units (unkno wn) date) unknown) (unknown) (no (unknown) (unknown) Course Narrative: (units (unknown) date) unknown) (unknown) (no (unknown) (unknown) Creatinine 2.40 H (unit s (unknown) date) (0.66-1.25) mg/dL unknown) (unknown) (no (unknown) (unknown) Creatinine 2.53 H (unit s (unknown) date) (0.66-1.25) mg/dL unknown) (unknown) (no (unknown) (unknown) Creatinine 2.18 H (units (unknown) date) (0.66-1.25) mg/dL unknown) (unknown) (no (unknown) (unknown) Creatinine Urine (units (unknown) date) Random Stat unknown) (unknown) (no (unknown) (unknown) Critical Care Time (units (unknown) date) unknown) (unknown) (no (unknown) (unknown) Critical Care Time: (unit s (unknown) date) Yes unknown) (unknown) (no (unknown) (unknown) D3) (units (unkno wn) date) unknown) (unknown) (no (unknown) (unknown) : 1940 (units (unknown) date) Acct:[id number] unknown) (unknown) (no (unknown) (unknown) : 1940 (units (unknown) date) unknown) (unknown) (no (unknown) (unknown) Date of Service: (units (unknown) date) 11/24/21 unknown) (unknown) (no (unknown) (unknown) Departure (units (unkn own) date) unknown) (unknown) (no (unknown) (unknown) Dextrose (D10w) 250 (uni ts (unknown) date) mls @ 999 mls/hr IV unknown) PRN PRN (unknown) (no (unknown) (unknown) Dictated by: [place] (unit s (unknown) date) Abrahan Houser M.D. on unknown) 11/25/2021 at 0:10 ? ? (unknown) (no (unknown) (unknown) Discharge Plan (units (unknown) date) unknown) (unknown) (no (unknown) (unknown) Discontinued (units (u nknown) date) Medications unknown) (unknown) (no (unknown) (unknown) Doppler (units (unkno wn) date) unknown) (unknown) (no (unknown) (unknown) ECG Data (units (unkno wn) date) unknown) (unknown) (no (unknown) (unknown) EKG 1 (2): EKG is (un its (unknown) date) normal sinus rhythm unknown) rate [70 ] and free of any signs of (unknown) (no (unknown) (unknown) EKG 2 (0112): EKG is (un its (unknown) date) normal sinus rhythm unknown) rate [103 ] and free of any signs of (unknown) (no (unknown) (unknown) EKG 3 (3): EKG is (un its (unknown) date) normal sinus rhythm unknown) rate [ 100] and free of any signs of (unknown) (no (unknown) (unknown) EKG-12 Lead Stat (units (unknown) date) unknown) (unknown) (no (unknown) (unknown) ENT: Nose without (units (unknown) date) bleeding, purulent unknown) drainage. Throat without erythema, (unknown) (no (unknown) (unknown) ER Physician: (units ( unknown) date) Aroldo Bazan D.O. unknown) (unknown) (no (unknown) (unknown) EXTREMITIES: No edema (un its (unknown) date) or joint tenderness. unknown) (unknown) (no (unknown) (unknown) EYES: Pupils equal (units (unknown) date) round and reactive. unknown) Extraocular motions intact. No scleral (unknown) (no (unknown) (unknown) Eos % (Auto) (units (u nknown) date) unknown) (unknown) (no (unknown) (unknown) Eos % (Auto) (units (u nknown) date) unknown) (unknown) (no (unknown) (unknown) Eos % (Auto) Not (units (unknown) date) Reportable unknown) (unknown) (no (unknown) (unknown) Estimated GFR 25 L (uni ts (unknown) date) (>60) mL/min unknown) (unknown) (no (unknown) (unknown) Estimated GFR 26 L (uni ts (unknown) date) (>60) mL/min unknown) (unknown) (no (unknown) (unknown) Estimated GFR 29 L (unit s (unknown) date) (>60) mL/min unknown) (unknown) (no (unknown) (unknown) Exam (units (unkno wn) date) unknown) (unknown) (no (unknown) (unknown) Exam Narrative: (units (unknown) date) unknown) (unknown) (no (unknown) (unknown) FENa (units (unkno wn) date) unknown) (unknown) (no (unknown) (unknown) FINDINGS:? (units (unk nown) date) unknown) (unknown) (no (unknown) (unknown) FeNa of 1.8% (units (u nknown) date) recommends transfer to unknown ) facility with nephrology (unknown) (no (unknown) (unknown) Fractional Excretion (uni ts (unknown) date) of Sodium (FENa) from unknown) [facility] on 11/25/2021 (unknown) (no (unknown) (unknown) Furosemide (units (unk n) date) (Furosemide 40 Mg/4 Ml unknown ) Vial) 40 mg IV NOW ONE (unknown) (no (unknown) (unknown) GASTROINTESTINAL: (units (unknown) date) Abdomen soft, unknown) non-tender, nondistended. (unknown) (no (unknown) (unknown) GASTROINTESTINAL: (units (unknown) date) Denies nausea, unknown) vomiting, abdominal pain, diarrhea, (unknown) (no (unknown) (unknown) GENERAL: Denies (units (unknown) date) chills, fatigue, unknown) malaise, fever, sweats. (unknown) (no (unknown) (unknown) GENERAL: [81 year old (un its (unknown) date) patient appears stated unknown ) age. Well-developed patient, in (unknown) (no (unknown) (unknown) : Denies dysuria, (unit s (unknown) date) frequency, unknown) incontinence, hematuria, urinary retention. (unknown) (no (unknown) (unknown) General (units (unkno wn) date) unknown) (unknown) (no (unknown) (unknown) GenericComposite[Plt (uni ts (unknown) date) Count (150-400) unknown) X10^3/uL ] (unknown) (no (unknown) (unknown) GenericComposite[Plt (uni ts (unknown) date) Count (150-400) unknown) X10^3/uL ] (unknown) (no (unknown) (unknown) GenericComposite[Plt (uni ts (unknown) date) Count 229 unknown) (150-400) X10^3/uL ] (unknown) (no (unknown) (unknown) GenericComposite[RBC (uni ts (unknown) date) (4.5-5.9) X10^6/uL unknown ) ] (unknown) (no (unknown) (unknown) GenericComposite[RBC (uni ts (unknown) date) (4.5-5.9) X10^6/uL unknown) ] (unknown) (no (unknown) (unknown) GenericComposite[RBC (uni ts (unknown) date) 4.45 L (4.5-5.9) unknown) X10^6/uL ] (unknown) (no (unknown) (unknown) GenericComposite[WBC (uni ts (unknown) date) (4.5-11.0) unknown) X10^3/uL ] (unknown) (no (unknown) (unknown) GenericComposite[WBC (uni ts (unknown) date) (4.5-11.0) X10^3/uL unknown ) ] (unknown) (no (unknown) (unknown) GenericComposite[WBC (uni ts (unknown) date) 35.4 H* (4.5-11.0) unknown) X10^3/uL ] (unknown) (no (unknown) (unknown) Globulin (units (unkno wn) date) (1.7-4.1) g/dL unknown) (unknown) (no (unknown) (unknown) Globulin (1.7-4.1) (un its (unknown) date) g/dL unknown) (unknown) (no (unknown) (unknown) Globulin 3.7 (units (unknown) date) (1.7-4.1) g/dL unknown) (unknown) (no (unknown) (unknown) Glucose 115 H (units (unknown) date) (80-110) mg/dL unknown) (unknown) (no (unknown) (unknown) Glucose 117 H (units (unknown) date) (80-110) mg/dL unknown) (unknown) (no (unknown) (unknown) Glucose 126 H (units (unknown) date) (80-110) mg/dL unknown) (unknown) (no (unknown) (unknown) Glucose POC 119 (units (unknown) date) unknown) (unknown) (no (unknown) (unknown) HEAD: Atraumatic. (units (unknown) date) Normocephalic. unknown) (unknown) (no (unknown) (unknown) HEENT: Denies sinus (unit s (unknown) date) pain, ear pain, sore unknown) throat, difficulty swallowing, (unknown) (no (unknown) (unknown) HPI - Weakness (units (unknown) date) unknown) (unknown) (no (unknown) (unknown) HPI Narrative: (units (unknown) date) unknown) (unknown) (no (unknown) (unknown) Hct (41-53) % (units (unknown) date) unknown) (unknown) (no (unknown) (unknown) Hct (41-53) % (units (unknown) date) unknown) (unknown) (no (unknown) (unknown) Hct 40.7 L (units (un known) date) (41-53) % unknown) (unknown) (no (unknown) (unknown) Hgb (13.5-17.5) (unit s (unknown) date) g/dL unknown) (unknown) (no (unknown) (unknown) Hgb (13.5-17.5) (units (unknown) date) g/dL unknown) (unknown) (no (unknown) (unknown) Hgb 13.0 L (units (un known) date) (13.5-17.5) g/dL unknown) (unknown) (no (unknown) (unknown) History of Present (units (unknown) date) Illness unknown) (unknown) (no (unknown) (unknown) IMPRESSION:? (units (u nknown) date) unknown) (unknown) (no (unknown) (unknown) INDICATIONS:? ACUTE (unit s (unknown) date) RENAL FAILURE unknown) (unknown) (no (unknown) (unknown) INPUTS: (units (unkno wn) date) unknown) (unknown) (no (unknown) (unknown) Imaging Data (units (u nknown) date) unknown) (unknown) (no (unknown) (unknown) Initial Vital Signs (unit s (unknown) date) unknown) (unknown) (no (unknown) (unknown) Initial Vital Signs: (uni ts (unknown) date) unknown) (unknown) (no (unknown) (unknown) Insulin Human Regular (uni ts (unknown) date) (Insulin Regular 100 unknown) Unit/Ml 3 Ml Vial) 5 unit IV NOW ONE (unknown) (no (unknown) (unknown) Interpretation: (units (unknown) date) unknown) (unknown) (no (unknown) (unknown) Intrinsic (units (unkn own) date) unknown) (unknown) (no (unknown) (unknown) Kidneys:? Right (units (unknown) date) kidney measures 11.8 unknown) cm long; left kidney measures 11.6 cm (unknown) (no (unknown) (unknown) Lab Data (units (unkno wn) date) unknown) (unknown) (no (unknown) (unknown) Labs: (units (unkno wn) date) unknown) (unknown) (no (unknown) (unknown) Lipase (23-300) (unit s (unknown) date) U/L unknown) (unknown) (no (unknown) (unknown) Lipase (23-300) (units (unknown) date) U/L unknown) (unknown) (no (unknown) (unknown) Lipase 319 H (units (unknown) date) (23-300) U/L unknown) (unknown) (no (unknown) (unknown) Lipase Stat (units (un known) date) unknown) (unknown) (no (unknown) (unknown) Loc: ED (units (unkno wn) date) unknown) (unknown) (no (unknown) (unknown) Lymph # (Auto) (units (unknown) date) unknown) (unknown) (no (unknown) (unknown) Lymph # (Auto) (units (unknown) date) unknown) (unknown) (no (unknown) (unknown) Lymph # (Auto) Not (unit s (unknown) date) Reportable unknown) (unknown) (no (unknown) (unknown) Lymph % (Auto) (units (unknown) date) unknown) (unknown) (no (unknown) (unknown) Lymph % (Auto) (units (unknown) date) unknown) (unknown) (no (unknown) (unknown) Lymph % (Auto) Not (unit s (unknown) date) Reportable unknown) (unknown) (no (unknown) (unknown) Lymphocytes % (units ( unknown) date) (Manual) (25-45) unknown) % (unknown) (no (unknown) (unknown) Lymphocytes % (units ( unknown) date) (Manual) (25-45) % unknown ) (unknown) (no (unknown) (unknown) Lymphocytes % (units ( unknown) date) (Manual) 76.0 H unknown) (25-45) % (unknown) (no (unknown) (unknown) MCH (26-34) PG (unit s (unknown) date) unknown) (unknown) (no (unknown) (unknown) MCH (26-34) PG (units (unknown) date) unknown) (unknown) (no (unknown) (unknown) MCH 29.2 (26-34) (uni ts (unknown) date) PG unknown) (unknown) (no (unknown) (unknown) MCHC (30-36) % (unit s (unknown) date) unknown) (unknown) (no (unknown) (unknown) MCHC (30-36) % (units (unknown) date) unknown) (unknown) (no (unknown) (unknown) MCHC 31.9 (30-36) (un its (unknown) date) % unknown) (unknown) (no (unknown) (unknown) MCV (80-100) fL (uni ts (unknown) date) unknown) (unknown) (no (unknown) (unknown) MCV (80-100) fL (unit s (unknown) date) unknown) (unknown) (no (unknown) (unknown) MCV 91.5 (80-100) (un its (unknown) date) fL unknown) (unknown) (no (unknown) (unknown) MDM - Weakness (units (unknown) date) unknown) (unknown) (no (unknown) (unknown) MR#: [id number] (units (unknown) date) unknown) (unknown) (no (unknown) (unknown) MUSCULOSKELETAL: See (un its (unknown) date) HPI unknown) (unknown) (no (unknown) (unknown) [address] MD (units (unknown) date) [Primary Care unknown) Provider] - (unknown) (no (unknown) (unknown) Miscellaneous:? No (units (unknown) date) free pelvic fluid.? unknown) (unknown) (no (unknown) (unknown) Mode of arrival: (units (unknown) date) Wheelchair unknown) (unknown) (no (unknown) (unknown) [place] # (Auto) (units ( unknown) date) unknown) (unknown) (no (unknown) (unknown) [place] # (Auto) (units ( unknown) date) unknown) (unknown) (no (unknown) (unknown) [place] # (Auto) Not (units (unknown) date) Reportable unknown) (unknown) (no (unknown) (unknown) [place] % (Auto) (units ( unknown) date) unknown) (unknown) (no (unknown) (unknown) [place] % (Auto) (units ( unknown) date) unknown) (unknown) (no (unknown) (unknown) [place] % (Auto) Not (units (unknown) date) Reportable unknown) (unknown) (no (unknown) (unknown) Monocytes % (Manual) (uni ts (unknown) date) (2-11) % unknown) (unknown) (no (unknown) (unknown) Monocytes % (Manual) (uni ts (unknown) date) (2-11) % unknown) (unknown) (no (unknown) (unknown) Monocytes % (Manual) (uni ts (unknown) date) 3.0 (2-11) % unknown) (unknown) (no (unknown) (unknown) NECK: Trachea (units ( unknown) date) midline. Non tender unknown) (unknown) (no (unknown) (unknown) NEURO: AOx3. (units (u nknown) date) unknown) (unknown) (no (unknown) (unknown) NEUROLOGIC: Denies (units (unknown) date) weakness, headache, unknown) numbness, change in speech, confusion, (unknown) (no (unknown) (unknown) Narrative (units (unkn own) date) unknown) (unknown) (no (unknown) (unknown) Narrative: (units (unk nown) date) unknown) (unknown) (no (unknown) (unknown) Neut % (Auto) (units ( unknown) date) unknown) (unknown) (no (unknown) (unknown) Neut % (Auto) (units ( unknown) date) unknown) (unknown) (no (unknown) (unknown) Neut % (Auto) Not (units (unknown) date) Reportable unknown) (unknown) (no (unknown) (unknown) Neutrophils # (units ( unknown) date) (Manual) unknown) ([id number]) /uL (unknown) (no (unknown) (unknown) Neutrophils # (units ( unknown) date) (Manual) unknown) ([phone]) /uL (unknown) (no (unknown) (unknown) Neutrophils # (units ( unknown) date) (Manual) 7434 H unknown) ([id number]) /uL (unknown) (no (unknown) (unknown) No Action (units (unkn own) date) unknown) (unknown) (no (unknown) (unknown) Ordered: (units (unkno wn) date) unknown) (unknown) (no (unknown) (unknown) Ordering Provider: (units (unknown) date) Aroldo Bazan D.O. unknown) (unknown) (no (unknown) (unknown) Orders (units (unkno wn) date) unknown) (unknown) (no (unknown) (unknown) PROCEDURE:? US RENAL (uni ts (unknown) date) COMPLETE unknown) (unknown) (no (unknown) (unknown) PSYCHIATRIC: No (units (unknown) date) concerning unknown) psychosocial issues. (unknown) (no (unknown) (unknown) Patient Disposition: (uni ts (unknown) date) Xfer Acute Care unknown) Hospital (unknown) (no (unknown) (unknown) Patient History (units (unknown) date) unknown) (unknown) (no (unknown) (unknown) Patient: (units (unkno wn) date) Raven Sutherland unknown) MR#: M (unknown) (no (unknown) (unknown) Patient: (units (unkno wn) date) Raven Sutherland unknown) (unknown) (no (unknown) (unknown) Potassium 7.7 H* (units (unknown) date) (3.4-5.1) mmol/L unknown) (unknown) (no (unknown) (unknown) Potassium 8.6 H* (units (unknown) date) (3.4-5.1) mmol/L unknown) (unknown) (no (unknown) (unknown) Potassium 5.9 H D (units (unknown) date) (3.4-5.1) mmol/L unknown) (unknown) (no (unknown) (unknown) Prescriptions: (units (unknown) date) unknown) (unknown) (no (unknown) (unknown) Prevagen 20 mg PO (units (unknown) date) DAILY 11/25/21 unknown) (unknown) (no (unknown) (unknown) Procedure: US renal (unit s (unknown) date) complete unknown) (unknown) (no (unknown) (unknown) Pulse Oximetry 100 (unit s (unknown) date) 97 unknown) (unknown) (no (unknown) (unknown) Pulse Oximetry 94 (units (unknown) date) 11/24/21 20:03 unknown) (unknown) (no (unknown) (unknown) Pulse Oximetry 97 97 (un its (unknown) date) unknown) (unknown) (no (unknown) (unknown) Pulse Oximetry 95 96 (uni ts (unknown) date) 96 unknown) (unknown) (no (unknown) (unknown) Pulse Oximetry 96 96 (un its (unknown) date) unknown) (unknown) (no (unknown) (unknown) Pulse Oximetry 96 97 (uni ts (unknown) date) 97 unknown) (unknown) (no (unknown) (unknown) Pulse Oximetry 98 (units (unknown) date) unknown) (unknown) (no (unknown) (unknown) Pulse Rate 87 (units (unknown) date) 11/24/21 20:03 unknown) (unknown) (no (unknown) (unknown) Pulse Rate 101 H (units (unknown) date) unknown) (unknown) (no (unknown) (unknown) Pulse Rate 102 H 99 H (un its (unknown) date) 97 H unknown) (unknown) (no (unknown) (unknown) Pulse Rate 72 78 79 (unit s (unknown) date) unknown) (unknown) (no (unknown) (unknown) Pulse Rate 72 80 81 (unit s (unknown) date) unknown) (unknown) (no (unknown) (unknown) Pulse Rate 79 91 H (units (unknown) date) 104 H unknown) (unknown) (no (unknown) (unknown) Pulse Rate 99 H 100 H (un its (unknown) date) 104 H unknown) (unknown) (no (unknown) (unknown) RBC Morphology (units (unknown) date) unknown) (unknown) (no (unknown) (unknown) RBC Morphology (units (unknown) date) unknown) (unknown) (no (unknown) (unknown) RBC Morphology (units (unknown) date) Normal morphology unknown) (unknown) (no (unknown) (unknown) RDW (11.6-14.8) (unit s (unknown) date) % unknown) (unknown) (no (unknown) (unknown) RDW (11.6-14.8) % (un its (unknown) date) unknown) (unknown) (no (unknown) (unknown) RDW 14.1 (units (unkn own) date) (11.6-14.8) % unknown) (unknown) (no (unknown) (unknown) RESPIRATORY: Clear to (uni ts (unknown) date) auscultation. Breath unknown) sounds equal bilaterally. No wheezes, (unknown) (no (unknown) (unknown) RESPIRATORY: Denies (unit s (unknown) date) dyspnea, cough, unknown) wheezing, hemoptysis, sputum. (unknown) (no (unknown) (unknown) RESULT SUMMARY: (units (unknown) date) unknown) (unknown) (no (unknown) (unknown) Real-time scanning (units (unknown) date) was performed of the unknown) kidneys and bladder, with image (unknown) (no (unknown) (unknown) Referrals: (units (unk nown) date) unknown) (unknown) (no (unknown) (unknown) Related Data (units (u nknown) date) unknown) (unknown) (no (unknown) (unknown) Renal (units (unkno wn) date) unknown) (unknown) (no (unknown) (unknown) Renal US: (units (unk nown) date) unknown) (unknown) (no (unknown) (unknown) Respiratory Rate (units (unknown) date) unknown) (unknown) (no (unknown) (unknown) Respiratory Rate 15 (uni ts (unknown) date) 11/24/21 20:03 unknown) (unknown) (no (unknown) (unknown) Respiratory Rate 23 (uni ts (unknown) date) 25 H unknown) (unknown) (no (unknown) (unknown) Respiratory Rate 12 (unit s (unknown) date) 16 25 H unknown) (unknown) (no (unknown) (unknown) Respiratory Rate 13 (unit s (unknown) date) unknown) (unknown) (no (unknown) (unknown) Respiratory Rate 18 (unit s (unknown) date) 21 19 unknown) (unknown) (no (unknown) (unknown) Respiratory Rate 25 H (un its (unknown) date) 11 L 22 unknown) (unknown) (no (unknown) (unknown) Result diagrams: (units (unknown) date) unknown) (unknown) (no (unknown) (unknown) Review of Systems (units (unknown) date) unknown) (unknown) (no (unknown) (unknown) SARS-CoV-2 (PCR) (units (unknown) date) (Negative) unknown) (unknown) (no (unknown) (unknown) SARS-CoV-2 (PCR) (units (unknown) date) (Negative) unknown) (unknown) (no (unknown) (unknown) SARS-CoV-2 (PCR) (units (unknown) date) Negative (Negative) unknown) (unknown) (no (unknown) (unknown) SKIN: Denies rash, (units (unknown) date) skin lesions, or other unknown ) (unknown) (no (unknown) (unknown) SKIN: No rash or (units (unknown) date) erythema of visible unknown) areas (unknown) (no (unknown) (unknown) Seg Neutrophils % (units (unknown) date) (38-70) % unknown) (unknown) (no (unknown) (unknown) Seg Neutrophils % (units (unknown) date) (38-70) % unknown) (unknown) (no (unknown) (unknown) Seg Neutrophils % (units (unknown) date) 21.0 L (38-70) % unknown) (unknown) (no (unknown) (unknown) Serum creatinine ?> (unit s (unknown) date) 2.53 mg/dL unknown) (unknown) (no (unknown) (unknown) Serum sodium ?> 134 (unit s (unknown) date) mEq/L unknown) (unknown) (no (unknown) (unknown) Signed By: (units (unk nown) date) unknown) (unknown) (no (unknown) (unknown) Smoking Status: (units (unknown) date) Never smoker unknown) (unknown) (no (unknown) (unknown) Smoking Status: Never (un its (unknown) date) smoker unknown) (unknown) (no (unknown) (unknown) Smudge Cells (units (u nknown) date) unknown) (unknown) (no (unknown) (unknown) Smudge Cells (units (u nknown) date) unknown) (unknown) (no (unknown) (unknown) Smudge Cells 1+ H (units (unknown) date) unknown) (unknown) (no (unknown) (unknown) Social History (units (unknown) date) (Reviewed 11/25/21 @ unknown) 01:28 by Aroldo Bazan DO) (unknown) (no (unknown) (unknown) Sodium 134 L (units (unknown) date) (137-145) mmol/L unknown) (unknown) (no (unknown) (unknown) Sodium 136 L (units (unknown) date) (137-145) mmol/L unknown) (unknown) (no (unknown) (unknown) Sodium 138 (units (un known) date) (137-145) mmol/L unknown) (unknown) (no (unknown) (unknown) Sodium Bicarbonate (units (unknown) date) (Sodium Bicarb 8.4% unknown) Syringe) 150 meq IV NOW ONE (unknown) (no (unknown) (unknown) Sodium Bicarbonate (units (unknown) date) 100 meq/ (Dextrose) unknown) 1,100 mls @ 150 mls/hr IV CONT DEE (unknown) (no (unknown) (unknown) Sodium Chloride (units (unknown) date) (Normal Saline 0.9%) unknown) 1,000 mls @ 1,000 mls/hr IV BOLUS ONE (unknown) (no (unknown) (unknown) Sodium Chloride (units (unknown) date) (Normal Saline 0.9%) unknown) 1,000 mls @ 150 mls/hr IV CONT DEE (unknown) (no (unknown) (unknown) Sodium Urine Random (unit s (unknown) date) Stat unknown) (unknown) (no (unknown) (unknown) Source: patient (units (unknown) date) unknown) (unknown) (no (unknown) (unknown) Stated complaint: (units (unknown) date) Worsening Weakness x3 unknown) days (unknown) (no (unknown) (unknown) Substance Use Type: (unit s (unknown) date) does not use unknown) (unknown) (no (unknown) (unknown) TECHNIQUE:? (units (un known) date) unknown) (unknown) (no (unknown) (unknown) Temperature 98.4 F (unit s (unknown) date) 11/24/21 20:03 unknown) (unknown) (no (unknown) (unknown) Time Seen by (units (u nknown) date) Provider: 11/24/21 unknown) 21:14 (unknown) (no (unknown) (unknown) Total Bilirubin (units (unknown) date) (0.2-1.3) mg/dL unknown) (unknown) (no (unknown) (unknown) Total Bilirubin (units (unknown) date) (0.2-1.3) mg/dL unknown) (unknown) (no (unknown) (unknown) Total Bilirubin 0.6 (un its (unknown) date) (0.2-1.3) mg/dL unknown) (unknown) (no (unknown) (unknown) Total Counted (units ( unknown) date) unknown) (unknown) (no (unknown) (unknown) Total Counted (units ( unknown) date) unknown) (unknown) (no (unknown) (unknown) Total Counted 100 (units (unknown) date) unknown) (unknown) (no (unknown) (unknown) Total Creatine Kinase (un its (unknown) date) (55-170) U/L unknown) (unknown) (no (unknown) (unknown) Total Creatine Kinase (un its (unknown) date) (55-170) U/L unknown) (unknown) (no (unknown) (unknown) Total Creatine Kinase (un its (unknown) date) 53 L (55-170) U/L unknown ) (unknown) (no (unknown) (unknown) Total Critical Care (unit s (unknown) date) Time: 60 unknown) (unknown) (no (unknown) (unknown) Total Protein (units ( unknown) date) (6.3-8.2) g/dL unknown) (unknown) (no (unknown) (unknown) Total Protein (units ( unknown) date) (6.3-8.2) g/dL unknown) (unknown) (no (unknown) (unknown) Total Protein 8.3 H (un its (unknown) date) (6.3-8.2) g/dL unknown) (unknown) (no (unknown) (unknown) Troponin + CK Cardiac (un its (unknown) date) Panel Stat unknown) (unknown) (no (unknown) (unknown) Troponin I (units (unk nown) date) (0.01-0.034) ng/mL unknown) (unknown) (no (unknown) (unknown) Troponin I (units (unk nown) date) (0.01-0.034) ng/mL unknown) (unknown) (no (unknown) (unknown) Troponin I 0.016 (units (unknown) date) (0.01-0.034) ng/mL unknown) (unknown) (no (unknown) (unknown) US renal complete (units (unknown) date) Stat unknown) (unknown) (no (unknown) (unknown) Ur Random Sodium (units (unknown) date) (30-90) mmol/L unknown) (unknown) (no (unknown) (unknown) Ur Random Sodium (units (unknown) date) (30-90) mmol/L unknown) (unknown) (no (unknown) (unknown) Ur Random Sodium 104 (un its (unknown) date) H (30-90) mmol/L unknown) (unknown) (no (unknown) (unknown) Urine Creatinine (units (unknown) date) mg/dL unknown) (unknown) (no (unknown) (unknown) Urine Creatinine (units (unknown) date) mg/dL unknown) (unknown) (no (unknown) (unknown) Urine Creatinine (units (unknown) date) 108.6 mg/dL unknown) (unknown) (no (unknown) (unknown) Urine creatinine ?> (unit s (unknown) date) 108.6 mg/dL unknown) (unknown) (no (unknown) (unknown) Urine sodium ?> 104 (unit s (unknown) date) mEq/L unknown) (unknown) (no (unknown) (unknown) VBG Base Excess (units (unknown) date) (0-4) mmol/L unknown) (unknown) (no (unknown) (unknown) VBG Base Excess (units (unknown) date) -13.0 L (0-4) mmol/L unknown ) (unknown) (no (unknown) (unknown) VBG Base Excess (units (unknown) date) -6.0 L (0-4) mmol/L unknown) (unknown) (no (unknown) (unknown) VBG HCO3 (23-28) (uni ts (unknown) date) mmol/L unknown) (unknown) (no (unknown) (unknown) VBG HCO3 14 L (units (unknown) date) (23-28) mmol/L unknown) (unknown) (no (unknown) (unknown) VBG HCO3 21 L (units (unknown) date) (23-28) mmol/L unknown) (unknown) (no (unknown) (unknown) VBG O2 Saturation (units (unknown) date) (70-75) % unknown) (unknown) (no (unknown) (unknown) VBG O2 Saturation (units (unknown) date) 42 L (70-75) % unknown) (unknown) (no (unknown) (unknown) VBG O2 Saturation (units (unknown) date) 42 L (70-75) % unknown) (unknown) (no (unknown) (unknown) VBG Total CO2 (units ( unknown) date) (24-29) mmol/L unknown) (unknown) (no (unknown) (unknown) VBG Total CO2 15 L (un its (unknown) date) (24-29) mmol/L unknown) (unknown) (no (unknown) (unknown) VBG Total CO2 22 L (uni ts (unknown) date) (24-29) mmol/L unknown) (unknown) (no (unknown) (unknown) VBG [Venous Blood (units (unknown) date) Gas] Stat unknown) (unknown) (no (unknown) (unknown) VBG pCO2 (45-50) (uni ts (unknown) date) mmHg unknown) (unknown) (no (unknown) (unknown) VBG pCO2 35.6 L (units (unknown) date) (45-50) mmHg unknown) (unknown) (no (unknown) (unknown) VBG pCO2 45.9 (units (unknown) date) (45-50) mmHg unknown) (unknown) (no (unknown) (unknown) VBG pH (units (unkno wn) date) (7.33-7.43) unknown) (unknown) (no (unknown) (unknown) VBG pH 7.21 L (units (unknown) date) (7.33-7.43) unknown) (unknown) (no (unknown) (unknown) VBG pH 7.27 L (units (unknown) date) (7.33-7.43) unknown) (unknown) (no (unknown) (unknown) VBG pO2 (35-45) (unit s (unknown) date) mmHg unknown) (unknown) (no (unknown) (unknown) VBG pO2 28 L (units (unknown) date) (35-45) mmHg unknown) (unknown) (no (unknown) (unknown) VBG pO2 27 L (units (unknown) date) (35-45) mmHg unknown) (unknown) (no (unknown) (unknown) Vital Signs (units (un known) date) unknown) (unknown) (no (unknown) (unknown) Vital signs: (units (u nknown) date) unknown) (unknown) (no (unknown) (unknown) XR chest 1V Stat (units (unknown) date) unknown) (unknown) (no (unknown) (unknown) [Embedded Image Not (unit s (unknown) date) Available] unknown) (unknown) (no (unknown) (unknown) [x] Data Review and (unit s (unknown) date) interpretation unknown) (unknown) (no (unknown) (unknown) [x] Documentation (units (unknown) date) unknown) (unknown) (no (unknown) (unknown) [x] Medication orders (un its (unknown) date) and management unknown) (unknown) (no (unknown) (unknown) [x] Patient (units (un known) date) assessment and unknown) monitoring of vital signs (unknown) (no (unknown) (unknown) ago and failed 2 (units (unknown) date) months ago. He does unknown) not suffer urinary retention but instead (unknown) (no (unknown) (unknown) alcohol intake (units (unknown) date) frequency: unknown) holidays/special occasions only (unknown) (no (unknown) (unknown) amlodipine 10 mg (units (unknown) date) tablet 10 mg PO DAILY unknown) 11/25/21 11/25/21 (unknown) (no (unknown) (unknown) aspirin 81 mg capsule (un its (unknown) date) 81 mg PO DAILY unknown) 11/25/21 11/25/21 (unknown) (no (unknown) (unknown) at 150, repeat labs, (uni ts (unknown) date) improved K/acidemia unknown) before transfer possible. Currently no (unknown) (no (unknown) (unknown) been managed by (units (unknown) date) urology at [place]. unknown) It was placed originally about 5 years (unknown) (no (unknown) (unknown) but includes the (units (unknown) date) following: unknown) (unknown) (no (unknown) (unknown) call to Dr. Newberry (units (unknown) date) (Hospitalist at unknown) [place]). Requests Bicarb (3 amps) with drip (unknown) (no (unknown) (unknown) call to hospitalist (unit s (unknown) date) upon receipt of repeat unknown ) labs, given minimal improvement and (unknown) (no (unknown) (unknown) cases due (units (unkn own) date) unknown) (unknown) (no (unknown) (unknown) cholecalciferol (units (unknown) date) (vitamin D3) 50 50 mcg unknown ) PO DAILY 11/25/21 11/25/21 (unknown) (no (unknown) (unknown) constantly leaks (units (unknown) date) urine. He was scoped unknown) by his urologist about 10 days ago and (unknown) (no (unknown) (unknown) constipation, melena. (un its (unknown) date) unknown) (unknown) (no (unknown) (unknown) cortical echotexture (uni ts (unknown) date) appears grossly within unknown ) normal limits.? No hydronephrosis.? (unknown) (no (unknown) (unknown) deterioration of the (uni ts (unknown) date) [/CV] system(s) unknown) required my full and direct attention, (unknown) (no (unknown) (unknown) dizziness. (units (unk nown) date) unknown) (unknown) (no (unknown) (unknown) documentation.? (units (unknown) date) unknown) (unknown) (no (unknown) (unknown) docusate sodium 100 (unit s (unknown) date) mg capsule 100 mg PO unknown) BID 11/25/21 11/25/21 (unknown) (no (unknown) (unknown) e.g. ATN, AIN, (units (unknown) date) glomerulonephritides unknown) (unknown) (no (unknown) (unknown) generalized weakness (uni ts (unknown) date) gradually worsening unknown) over the past few months. He states (unknown) (no (unknown) (unknown) generally, and on the (un its (unknown) date) whole, and very unknown) nonspecifically he feels weak. Patient (unknown) (no (unknown) (unknown) ibuprofen 800 mg (units (unknown) date) tablet 800 mg PO Q8H unknown) PRN 11/25/21 11/25/21 (unknown) (no (unknown) (unknown) icterus. No injection (un its (unknown) date) or drainage. unknown) (unknown) (no (unknown) (unknown) interrogation.? (Of (unit s (unknown) date) note, ureteral jets unknown) may not be detectable in up to 25% of (unknown) (no (unknown) (unknown) intervention and (units (unknown) date) personal management. unknown) The aggregate critical care time was 60] (unknown) (no (unknown) (unknown) intraluminal masses (unit s (unknown) date) unknown) (unknown) (no (unknown) (unknown) inversions. OK 126. (unit s (unknown) date) QRS 140. T waves unknown) improved. (unknown) (no (unknown) (unknown) inversions. OK 152. (unit s (unknown) date) QRS 164. T waves unknown) peaked (unknown) (no (unknown) (unknown) inversions. T waves (unit s (unknown) date) improved. OK 112. QRS unknown) 132 (unknown) (no (unknown) (unknown) ischemia or ectopy. (unit s (unknown) date) No ST segmental unknown) elevation or depression. No T wave (unknown) (no (unknown) (unknown) latanoprost 0.005 % (unit s (unknown) date) eye drops 1 drp unknown) OPHTHALMIC (EYE) DAILY 11/25/21 11/25/21 (unknown) (no (unknown) (unknown) lisinopril 40 mg (units (unknown) date) tablet 40 mg PO DAILY unknown) 11/25/21 11/25/21 (unknown) (no (unknown) (unknown) long.? Right (units (u nknown) date) unknown) (unknown) (no (unknown) (unknown) mcg (2,000 unit) (units (unknown) date) capsule (Vitamin unknown) (unknown) (no (unknown) (unknown) medications or diet. (uni ts (unknown) date) He denies any unknown) headache, blurred vision or trouble with (unknown) (no (unknown) (unknown) metoprolol tartrate (unit s (unknown) date) 25 mg tablet 25 mg PO unknown) BID 11/25/21 11/25/21 (unknown) (no (unknown) (unknown) mg-hydrochlorothiazid (un its (unknown) date) e 50 mg tablet unknown) (unknown) (no (unknown) (unknown) mg-lycopene 300 (units (unknown) date) mcg-lutein 250 mcg unknown) (unknown) (no (unknown) (unknown) mild distress. (units (unknown) date) unknown) (unknown) (no (unknown) (unknown) minutes. This time is (un its (unknown) date) in addition to time unknown) spent performing reported procedures (unknown) (no (unknown) (unknown) [id number] (units (unknown) date) acid 0.4 1 tab PO unknown) DAILY 11/25/21 11/25/21 (unknown) (no (unknown) (unknown) myacin family Allergy (un its (unknown) date) Blister Uncoded unknown) 11/24/21 20:03 (unknown) (no (unknown) (unknown) nystatin 100,000 (units (unknown) date) unit/gram topical 1 unknown) applic TOPICAL BID 11/25/21 11/25/21 (unknown) (no (unknown) (unknown) omega-3 fatty acids (unit s (unknown) date) 1,000 mg PO DAILY unknown) 11/25/21 11/25/21 (unknown) (no (unknown) (unknown) opportunities for (units (unknown) date) dialysis given backed unknown) up service (unknown) (no (unknown) (unknown) or stones.? On (units (unknown) date) pre-void images, unknown) neither ureteral jets are noted with color (unknown) (no (unknown) (unknown) potassium chloride 20 (un its (unknown) date) mEq 20 meq PO BID unknown) 11/25/21 11/25/21 (unknown) (no (unknown) (unknown) powder (units (unkno wn) date) unknown) (unknown) (no (unknown) (unknown) primary care provider (un its (unknown) date) early in the week. He unknown ) denies any change in his (unknown) (no (unknown) (unknown) problems such as (units (unknown) date) unilateral numbness, unknown) tingling or weakness. He states that (unknown) (no (unknown) (unknown) renal cortical (units (unknown) date) thickness is 1.5 cm; unknown) left renal cortical thickness is 1.5 cm.? (unknown) (no (unknown) (unknown) revision in December. He ([facility] ts (unknown) date) had been taking Motrin unknown ) 800mg TID for quite some time but (unknown) (no (unknown) (unknown) rosuvastatin 40 mg (units (unknown) date) tablet 40 mg PO DAILY unknown) 11/25/21 11/25/21 (unknown) (no (unknown) (unknown) seizures, (units (unkn own) date) incoordination. unknown) (unknown) (no (unknown) (unknown) some time, and he met ([facility] ts (unknown) date) with his orthopedist unknown) today and has an appointment with his (unknown) (no (unknown) (unknown) speech. He denies (units (unknown) date) any chest pain or unknown) shortness of breath. 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 He had been unknown) taking KCL 20meq BID until this morning. (unknown) (no (unknown) (unknown) tablet (Centrum (units (unknown) date) Silver) unknown) (unknown) (no (unknown) (unknown) tablet,extended (units (unknown) date) release unknown) (unknown) (no (unknown) (unknown) tadalafil 10 mg (units (unknown) date) tablet 10 mg PO DAILY unknown) PRN 11/25/21 11/25/21 (unknown) (no (unknown) (unknown) that he feels like (units (unknown) date) his joints are tired unknown) and this has been going on for quite (unknown) (no (unknown) (unknown) there were no (units ( unknown) date) abnormalities noted in unknown ) his urethra. He is scheduled for a (unknown) (no (unknown) (unknown) timolol 0.5 % eye (units (unknown) date) drops 1 drp OPHTHALMIC unknown ) (EYE) DAILY 11/25/21 11/25/21 (unknown) (no (unknown) (unknown) to insufficient (units (unknown) date) differences in unknown) specific gravity between ureteral and bladder (unknown) (no (unknown) (unknown) tonsillar hypertrophy (un its (unknown) date) or exudate. Airway unknown) patent. (unknown) (no (unknown) (unknown) triamterene 75 1 tab (uni ts (unknown) date) PO QAM 11/25/21 unknown) 11/25/21 (unknown) (no (unknown) (unknown) urine).? (units (unkno wn) date) unknown) (unknown) (no (unknown) (unknown) we have spoken with (unit s (unknown) date) Dr. Newberry again and unknown) relayed improved EKG, and VBG Social History date description facility (no date) Never smoked tobacco (finding) [facility] Vital Signs date measurement value units +0000 BMI BMI 29.9 kg/m2 [id number] height_metric height_metric 180.34 cm [id number] height_standard height_standard 71 in +0000 temperature_metric temperature_metric 36.89 C [id number] temperature_standard temperature_standard 9 8.4 F [id number] weight_metric weight_metric 97.52 kg [id number] weight_standard weight_standard 214.99 lb [id number]+0000 BP_diastolic BP_diastolic 52 mm[H g] [id number]+0000 BP_systolic BP_systolic 106 mm[Hg] [id number]+0000 heart_rate heart_rate 92 /min [id number]+0000 respiration_rate respiration_rate 15 /min
[2022-01-10] MEDS ORDERED: ACETAMINOPHEN 325 MG TABLET PO PRN (20:18)
[2022-01-10] MEDS ORDERED: SODIUM CHLORIDE FLUSH 0.9% 10 ML SYRINGE IVP PRN (20:18)
--- NOTE | 2022-01-10 20:31 | HISTORY & PHYSICAL EXAMINATION ---
Chief Complaint - Chief Complaint Chief Complaint: Syncope at home, BIBA History of Present Illness - Admitted From Admitted From:: ED - History Obtained From History obtained from: ED provider and the patient - History of Present Illness HPI Comment/Other: This is an 81-year-old white male with past medical history of prostate CA with prostatectomy, glaucoma, chronically elevated white blood count with no established diagnosis yet, and he follows with Hematology, and there was a history of COVID infection about 2 weeks ago. Patient has a history of a heart murmur and an Echo done here in 2019 showed that he had moderate aortic stenosis. 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 He had cardiac clearance done with a stress test and an Echo that he says were stable. He then developed COVID 3 weeks ago, so he did not have the urethral surgery. He has had poor oral intake ever since getting Covid, but had nearly no respiratory symptoms. He has became weaker however and presented to the emergency room here after a syncopal event at home on 12/19/21, was felt to be volume depleted and received IV fluids, then was not orthostatic and was able to be discharged home from the ED. He continued to have poor intake with no appetite and EMS was called today because of another syncopal event at home while he was walking. EMS found him to have a standing blood pressure of 70 mmHg at the scene. In the ED his supine blood pressure was stable, and he received 2 L of iv crystalloid fluids. Labs showed BUN/creatinine of 36/2.1 (his usual creatinine is 1.2-1.5). His white blood blood count is elevated at 33 (usually 22-31). After 2 L of fluids, an orthostatic check was done and he shows a 22 mmHg drop in systolic blood pressure. The ED provider therefore reached out to the Hospitalist team for ma naging this patient in Observation status due to orthostasis, CLEVELAND and syncope. We discussed his CODE BLUE status and he wants to be a Full Code. 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 (His first of Parkinson's, he is w ith his second for 10+ years.) Social History Notes: He never smoked cigarettes, he drinks alcohol very rarely. He lives with his 2nd . - Substance History Use: Uses substance without health or social issues: NONE - POLST Patient has POLST: No Meds/Allgy - Home Medications Home Medications: Ambulatory Orders Medication Instructions Recorded Confirmed Amlodipine Besylate [Norvasc] 10 mg PO DAILY 01/02/18 01/02/18 Aspirin 81 mg PO DAILY 01/02/18 01/02/18 Atorvastatin Calcium 40 mg PO DAILY 01/02/18 01/02/18 Docusate Sodium 100 mg PO BID 01/02/18 01/02/18 Ibuprofen 800 mg PO TID PRN 01/02/18 01/02/18 Latanoprost 0.005% Ophth Drops 1 drops EACHEYE QPM 01/02/18 01/02/18 [Xalatan Ophth Drops] Lisinopril [Zestril] 40 mg PO DAILY 01/02/18 01/02/18 Multivitamin/Iron/Folic Acid 1 tab PO DAILY 01/02/18 01/02/18 [Centrum Adults Tablet] [place]-3/Dha/Epa/Fish Oil [Fish Oil 1 each PO DAILY 01/02/18 01/02/18 1,000 mg Softgel] Timolol 0.5% Ophth Drops [Timoptic 1 drops LEFTEYE BID 01/02/18 01/02/18 0.5% Ophth Drops] hydroCHLOROthiazide 50 mg PO DAILY 01/02/18 01/02/18 [Hydrochlorothiazide] - Allergies Allergies/Adverse Reactions: Allergies Allergy/AdvReac Type Severity Reaction Status Date / Time erythromycin base AdvReac all mycins Verified 01/10/22 17:21 cause open sores in mouth Review of Systems - Constitutional Constitutional: reports: Weakness, Poor appetite - Cardiovascular Cariovascular: reports: Syncope - Respiratory Respiratory: reports: Cough (3 weeks ago had minimal cough during Covid) - Genitourinary Genitourinary: reports: Incontinence - All Other Systems All Other Systems: reports: Reviewed and negative Exam - Vital Signs Vital Signs: Vital Signs x48h Temp Pulse Pulse Pulse Pulse Resp BP 01/10/22 20:00 71 18 112/64 01/10/22 19:55 74 87 74 01/10/22 18:44 36.3 C L 94 18 106/64 01/10/22 17:17 37.6 C 82 13 125/62 BP BP BP Pulse Ox 01/10/22 20:00 98 01/10/22 19:55 115/56 L 105/65 127/73 01/10/22 18:44 100 01/10/22 17:17 94 - Physical Exam General Appearance: positive: No acute distress, Alert Eyes Bilateral: positive: Normal inspection, EOMI ENT: positive: ENT inspection nml, No signs of dehydration Neck: positive: Nml inspection, No JVD Respiratory: positive: No respiratory distress, Breath sounds nml Cardiovascular: positive: Regular rate & rhythm, Systolic murmur (1-2/6 systolic murmur at the base, and a honking 2/6 systolic murmur at the apex) Abdomen: positive: Non-tender, Nml bowel sounds, No distention Skin: positive: Warm, Dry Extremities: positive: Non-tender, No pedal edema Neurologic/Psychiatric: positive: Oriented x3 (Non-focal) Conclusion/Plan - Problem List (1) Syncope Conclusion/Plan: He now has had 2 episodes of syncope in 1 month. They are presumably both from volume depletion but his aortic stenosis could also be playing a role Today the syncope was likely from his low BP (systolic BP 70 mmHg documented at home) and having orthostasis from being dehydrated because of poor po intake due to COVID. We will place the patient on telemetry to watch for arrhythmias. Will begin IV fluids for rehydration and check orthostatic vital signs every shift. Will obtain a complete Echocardiogram, since his aortic stenosis, if it is now severe, could also be the cause of syncope. (2) Orthostasis Conclusion/Plan: He has signs of volume depletion including physical exam dry mucosa and elevated BUN and creatinine. Begin IV fluids. Stop his usual home blood pressure meds. Check orthostatic vital signs every shift (3) CLEVELAND (acute kidney injury) Conclusion/Plan: This is likely from volume depletion related to 3 weeks of poor p.o. intake due to COVID. Avoid nephrotoxins. Begin IV fluids at 125 cc/h. Follow BMP daily (4) Hyponatremia Conclusion/Plan: He has hypovolemic hyponatremia related to the poor p.o. intake for 3 weeks. Will give Normal Saline in his peripheral IV fluids. Follow BMP daily (5) Hypokalemia Conclusion/Plan: Likely related to poor po intake. Will replace with iv K riders and po replacement and in his iv fluid drip. Since he had hyperkalemia 2 months ago, will recheck the serum K, to assure it is not over corrected. Follow BM daily. (6) Heart murmur Conclusion/Plan: The Echo done here in 2019 showed moderate aortic stenosis, preserved LVEF. Today the murmur sounds more like mitral regurg. Will obtain a complete Echo with Doppler to evaluate his heart murmur. If he now has severe or critical aortic stenosis, this could also be causing the symptoms of syncope. (7) Skin tear of elbow without complication Conclusion/Plan: This resulted from his fall at home today. Will keep clean and dry (8) Elevated WBC count Conclusion/Plan: This is his chronic problem and a definitive Dx has not yet been established by Hematology, according to the patient (9) Hx of essential hypertension Conclusion/Plan: The patient reports that "2 mos ago, when he needed hospitalization fo Hyperkalemia, his HCTZ and Amlodipine were stopped, and since then he no longer needs any treatment for HTN". Valsartan and Amlodipine still show up in his med list which has not yet been reconciled. No meds for HTN are needed with this curtrent orthostasis. (10) Glaucoma Conclusion/Plan: We will order his usual glaucoma med eye drops to use while here - Lab Results Fish Bones: 01/10/22 17:29 01/10/22 17:29 - Diagnostic Imaging Results Diagnostic Imaging Results: positive: Final report reviewed
[2022-01-10] MEDS ORDERED: POTASSIUM CHLOR 10 MEQ/100 ML 10 MEQ/100 ML BAG IV SCH (21:00)
[2022-01-10] MEDS: D5NS W/20 MEQ KCL 1,000 ML IV SCH (21:34)
[2022-01-10] MEDS: ATORVASTATIN 40 MG TABLET PO SCH (21:44)
[2022-01-10] MEDS: DOCUSATE SODIUM 100 MG CAPSULE PO SCH (21:44)
[2022-01-10] MEDS: LATANOPROST 0.005% OPHTH DROPS EACHEYE SCH (21:45)
[2022-01-10] MEDS: TIMOLOL 0.5% OPHTH DROPS LEFTEYE SCH (21:46)
[2022-01-11] MEDS: SODIUM CHLORIDE FLUSH 0.9% 10 ML SYRINGE IVP SCH ×4 (01:39→23:53)
[2022-01-11] MEDS: D5NS W/20 MEQ KCL 1,000 ML IV SCH ×4 (05:05→23:52)
[2022-01-11 05:46] LABS: BASOPHILS % (AUTO) 0.1 %; HCT - HEMATOCRIT 30.8 % (42.0-52.0); HGB - HEMOGLOBIN 10.1 g/dL (14.0-18.0); LYMPHOCYTES % (AUTO) 66.6 %; MEAN CORPUSCULAR HEMOGLOBIN 29.9 pg (27.0-31.0); MEAN CORPUSCULAR HGB CONC 32.8 g/dL (32.0-36.0); MEAN CORPUSCULAR VOLUME 91.1 fL (80.0-94.0); MEAN PLATELET VOLUME 10.8 fL (7.4-11.4); MONOCYTES % (AUTO) 3.1 %; NEUTROPHILS % (AUTO) 29.9 %; PLT - PLATELET COUNT 220 10^3/uL (130-450); RED BLOOD COUNT 3.38 10^6/uL (4.70-6.10); RED CELL DISTRIBUTION WIDTH 14.8 % (12.0-15.0); WHITE BLOOD COUNT 29.5 x10^3/uL (4.8-10.8)
[2022-01-11 05:48] LABS: ABNORMAL LYMPHS % (MANUAL) 0 %; BAND NEUTROPHILS % (MANUAL) 0 %
[2022-01-11 05:55] LABS: CALCIUM 8.8 mg/dL (8.5-10.3); CREATININE 1.7 mg/dL (0.6-1.2); MAGNESIUM 2.2 mg/dL (1.7-2.8); POTASSIUM 2.8 mmol/L (3.5-5.0)
[2022-01-11 06:02] LABS: LYMPHOCYTES # (MANUAL) 19.2 10^3/uL (1.5-3.5); LYMPHOCYTES % (MANUAL) 65 %; MONOCYTES # (MANUAL) 0.3 10^3/uL (0.0-1.0)
[2022-01-11 06:03] LABS: DIFFERENTIAL COMMENT MANUAL DIFFERENTIAL; PLATELET ESTIMATE, MANUAL NORMAL (130-450,000) (NORMAL); PLATELET MORPHOLOGY NORMAL APPEARANCE (NORMAL); RBC MORPHOLOGY (MULTIPLE) NORMAL APPEARANCE (NORMAL); WBC MORPHOLOGY (MULTIPLE) 1+ SMUDGE CELLS (NORMAL)
[2022-01-11] MEDS ORDERED: POTASSIUM CHLORIDE 20 MEQ TABLET PO ONE (08:29)
[2022-01-11] MEDS ORDERED: SODIUM CHLORIDE 0.9% 500 ML IV ONE (08:31)
[2022-01-11] MEDS: ASPIRIN CHEW 81 MG TABLET PO SCH (08:55)
[2022-01-11] MEDS: POTASSIUM CHLOR 10 MEQ/100 ML 10 MEQ/100 ML BAG IV SCH ×4 (08:56→12:48)
[2022-01-11] MEDS: DOCUSATE SODIUM 100 MG CAPSULE PO SCH ×2 (08:56→21:03)
[2022-01-11] MEDS: TIMOLOL 0.5% OPHTH DROPS LEFTEYE SCH ×2 (11:15→16:37)
[2022-01-11 15:12] LABS: CALCIUM 8.6 mg/dL (8.5-10.3); CREATININE 1.7 mg/dL (0.6-1.2); POTASSIUM 3.9 mmol/L (3.5-5.0)
--- NOTE | 2022-01-11 15:42 | PHARMACY PROGRESS NOTE ---
- Best Possible Medication History Admit Date and Time: 01/10/222018 Processed by: Pharmacy Medication History completed: Yes Patient Interview: Completed Secondary Source(s): Pharmacy records, Insurance records As the person ultimately responsible for medication therapy, providers are able to order a medication from an existing home medication list in [facility] via the "Reconcile Routine" prior to Confirmation of that medication by call center support consultant. Such practice is discouraged except when the physician, in their clinical judgment, deems that a medical need exists for a medication without regard to previous use.
[2022-01-11] MEDS: ATORVASTATIN 40 MG TABLET PO SCH (21:03)
[2022-01-11] MEDS: LATANOPROST 0.005% OPHTH DROPS EACHEYE SCH (21:03)
[2022-01-12] MEDS: D5NS W/20 MEQ KCL 1,000 ML IV SCH (08:12)
[2022-01-12] MEDS: DOCUSATE SODIUM 100 MG CAPSULE PO SCH (08:18)
[2022-01-12] MEDS: ASPIRIN CHEW 81 MG TABLET PO SCH (08:18)
[2022-01-12] MEDS: SODIUM CHLORIDE FLUSH 0.9% 10 ML SYRINGE IVP SCH (08:19)
[2022-01-12] MEDS: TIMOLOL 0.5% OPHTH DROPS LEFTEYE SCH (08:23)
[2022-01-12 11:45] LABS: BASOPHILS % (AUTO) 0.2 %; EOSINOPHILS # (AUTO) 0.1 10^3/uL (0.0-0.7); EOSINOPHILS % (AUTO) 0.5 %; HCT - HEMATOCRIT 32.7 % (42.0-52.0); HGB - HEMOGLOBIN 10.2 g/dL (14.0-18.0); LYMPHOCYTES # (AUTO) 16.3 10^3/uL (1.5-3.5); LYMPHOCYTES % (AUTO) 74.1 %; MEAN CORPUSCULAR HEMOGLOBIN 29.5 pg (27.0-31.0); MEAN CORPUSCULAR HGB CONC 31.2 g/dL (32.0-36.0); MEAN CORPUSCULAR VOLUME 94.5 fL (80.0-94.0); MONOCYTES # (AUTO) 0.5 10^3/uL (0.0-1.0); MONOCYTES % (AUTO) 2.3 %; NEUTROPHILS % (AUTO) 22.7 %; PLT - PLATELET COUNT 213 10^3/uL (130-450); RED BLOOD COUNT 3.46 10^6/uL (4.70-6.10)
[2022-01-12 11:55] LABS: CALCIUM 8.7 mg/dL (8.5-10.3); CREATININE 1.4 mg/dL (0.6-1.2); POTASSIUM 3.4 mmol/L (3.5-5.0)
[2022-01-12 11:58] VITALS: BP 103/53
[2022-01-12 12:23] LABS: DIFFERENTIAL COMMENT MANUAL=AUTO DIFF; WBC MORPHOLOGY (MULTIPLE) 2+ SMUDGE CELLS (NORMAL)
[2022-01-12] MEDS ORDERED: POTASSIUM CHLORIDE 20 MEQ TABLET PO ONE (12:36)
[2022-01-12] MEDS ORDERED: POTASSIUM CHLOR 10 MEQ/100 ML 10 MEQ/100 ML BAG IV ONE ×2 (12:38→14:00)
--- NOTE | 2022-01-12 14:31 | DISCHARGE SUMMARY ---
Discharge Summary Admit Date: 01/10/21 Discharge Date: 01/12/22 Discharging Provider: Isidro Ackerman Primary Care Provider: [address] Condition at Discharge: Stable Discharge Disposition: 01 Home, Self Care - DIAGNOSES Admission Diagnoses: Syncope Orthostasis CLEVELAND Hyponatremia Hypokalemia Heart murmur Skin tear of elbow without complication Elevated WBC History of essential hypertension Glaucoma Discharge Diagnoses with Status of Each Condition: Syncope: Resolved. 2D echo recently done at [facility] on 12/15/21. Records requested Orthostasis: Resolved. CLEVELAND: s/p IV hydration. Creatinine at discharge was 1.4 Hyponatremia: Likely 2/2 dehydration. Resolved Hypokalemia: Improved/ Resolved Heart murmur: Hx of Moderate Aortic Stenosis. Will follow up with his landscape architecture teacher Skin tear of elbow without complication Elevated WBC: Chronic. 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 Stable. Continue home medications Glaucoma: Chronic. Continue home medications - HPI History of Present Illness: This is an 81-year-old white male with past medical history of prostate CA with prostatectomy, glaucoma, chronically elevated white blood count with no established diagnosis yet, and he follows with Hematology, and there was a history of COVID infection about 2 weeks ago. Patient has a history of a heart murmur and an Echo done here in 2019 showed that he had moderate aortic stenosis. 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 He had cardiac clearance done with a stress test and an Echo that he says were stable. He then developed COVID 3 weeks ago, so he did not have the urethral surgery. He has had poor oral intake ever since getting Covid, but had nearly no respiratory symptoms. He has became weaker however and presented to the emergency room here after a syncopal event at home on 12/19/21, was felt to be volume depleted and received IV fluids, then was not orthostatic and was able to be discharged home from the ED. He continued to have poor intake with no appetite and EMS was called today because of another syncopal event at home while he was walking. EMS found him to have a standing blood pressure of 70 mmHg at the scene. In the ED his supine blood pressure was stable, and he received 2 L of iv crystalloid fluids. Labs showed BUN/creatinine of 36/2.1 (his usual creatinine is 1.2-1.5). His white blood blood count is elevated at 33 (usually 22-31). After 2 L of fluids, an orthostatic check was done and he shows a 22 mmHg drop in systolic blood pressure. The ED provider therefore reached out to the Hospitalist team for managing this patient in Observation status due to orthostasis, CLEVELAND and syncope. We discussed his CODE BLUE status and he wants to be a Full Code. - HOSPITAL COURSE Hospital Course: 81-year-old male who was admitted on 01/10/2022 after syncopal episode at home. His orthostatic vitals at the time were positive. They remain positive even after 2 L of IV hydration by EMS. In the ED he was noted to have sodium level 133, potassium 3.0, creatinine 2.1 with estimated GFR of 2.1. Patient's baseline creatinine is 1.2-1.5. He was admitted and given IV hydration. He is electrolytes were also replaced. On the day of discharge his potassium was 3.4 thus he was given 20 mEq of potassium IV and 40 mEq p.o. prior to discharge. His creatinine at discharge was 1.4. He was seen by physical therapy and Occupational Therapy and deemed to benefit from home health PT/OT. This was ordered. The rest of his hospital stay was fairly unremarkable. He has been very weak since diagnosis of COVID and after recovery he has remained weak with a decreased oral intake. He was advised to keep hydrated. He was advised on foods high in potassium like bananas. He was also advised to buy Gatorade and food supplement like Ensure to ensure adequate calories and appropriate nutrition. He was recently admitted to [facility] to on 12/15/2021 with hyperkalemia. He reports his potassium being as high as 8 then. During that hospital stay he underwent 2D echocardiogram and a stress test. He was cleared by his cardiolog ist for upcoming urologic procedures. He has aortic stenosis and it was noted to be moderate. His white blood cell count is persistently high between 20 and 30. This has been the case for several years. There are no other indications of infection. The patient may follow-up with his primary care physician for possible referral to hematology/oncology. Is expected that his primary care physician Dr. Way would order a BMP in 3 days to recheck his potassium level. This was explained to the patient and his at bedside who expressed understanding. The patient was discharged in stable condition. - ALLERGIES Allergies/Adverse Reactions: Allergies Allergy/AdvReac Type Severity Reaction Status Date / Time erythromycin base AdvReac all mycins Verified 01/10/22 17:21 cause open sores in mouth - MEDICATIONS Home Medications: Ambulatory Orders Medication Instructions Recorded Confirmed Docusate Sodium 100 mg PO BID 01/02/18 01/11/22 Latanoprost 0.005% Ophth Drops 1 drops EACHEYE QPM 01/02/18 01/11/22 [Xalatan Ophth Drops] Multivitamin/Iron/Folic Acid 1 tab PO DAILY 01/02/18 01/11/22 [Centrum Adults Tablet] Timolol 0.5% Ophth Drops [Timoptic 1 drops .ROUTE .EACHEYE BID 01/02/18 01/11/22 0.5% Ophth Drops] hydroCHLOROthiazide 50 mg PO DAILY 01/02/18 01/11/22 [Hydrochlorothiazide] Acetaminophen [Tylenol] 650 mg PO TID PRN 01/11/22 01/11/22 Nystatin [Nystop] 1 applic TOP BID PRN 01/11/22 01/11/22 Rosuvastatin Calcium [Crestor] 40 mg PO HS 01/11/22 01/11/22 - PHYSICAL EXAM AT DISCHARGE General Appearance: positive: No acute distress, Alert Eyes Bilateral: positive: PERRL, EOMI ENT: positive: No signs of dehydration Neck: positive: No JVD, Trachea midline Respiratory: positive: Chest non-tender, No respiratory distress, Breath sounds nml. negative: Wheezes, Rales, Rhonchi Cardiovascular: positive: Regular rate & rhythm, Systolic murmur Abdomen: positive: Non-tender, No organomegaly, Nml bowel sounds, No distention. negative: Guarding, Rebound Back: positive: Nml inspection Skin: positive: Color nml, No rash, Warm, Dry Extremities: positive: Non-tender, Full ROM, Nml appearance, No pedal edema Neurologic/Psychiatric: positive: Oriented x3, CN's nml (2-12), Mood/affect nml - LABS Result Diagrams: 01/12/22 11:41 01/12/22 11:41 - TIME SPENT Time Spent in Discharge (Minutes): 20
--- NOTE | 2022-01-12 14:38 | Discharge Plan ---
Discharge Plan Problem Reviewed?: Yes Disposition: Home, Self Care Condition: Stable Diet: Regular Activity Restrictions: Activity as Tolerated Weight Bearing: Full Weight Health Concerns: 81-year-old male who was admitted on 01/10/2022 after syncopal episode at home. His orthostatic vitals at the time were positive. They remain positive even after 2 L of IV hydration by EMS. In the ED he was noted to have sodium level 133, potassium 3.0, creatinine 2.1 with estimated GFR of 2.1. Patient's baseline creatinine is 1.2-1.5. He was admitted and given IV hydration. He is electrolytes were also replaced. On the day of discharge his potassium was 3.4 thus he was given 20 mEq of potassium IV and 40 mEq p.o. prior to discharge. His creatinine at discharge was 1.4. He was seen by physical therapy and Occupational Therapy and deemed to benefit from home health PT/OT. This was ordered. The rest of his hospital stay was fairly unremarkable. He has been very weak since diagnosis of COVID and after recovery he has remained weak with a decreased oral intake. He was advised to keep hydrated. He was advised on foods high in potassium like bananas. He was also advised to buy Gatorade and food supplement like Ensure to ensure adequate calories and appropriate nutrition. He was recently admitted to [facility] to on 12/15/2021 with hyperkalemia. He reports his potassium being as high as 8 then. During that hospital stay he underwent 2D echocardiogram and a stress test. He was cleared by his sql architect for upcoming urologic procedures. He has aortic stenosis and it was noted to be moderate. His white blood cell count is persistently high between 20 and 30. This has been the case for several years. There are no other indications of infection. The patient may follow-up with his primary care physician for possible referral to hematology/oncology. Is expected that his primary care physician Dr. Way would order a BMP in 3 days to recheck his potassium level. This was explained to the patient and his at bedside who expressed understanding. The patient was discharged in stable condition. No Smoking: If you smoke, Please STOP! Call for help.
== END 2022-01-12 16:37 | disposition home or self-care (01) ==
LOC: EDUNIT# → ED 17:10 → MS2 20:19
PROVIDERS: ADMIT Internal Medicine; ATTEND Internal Medicine
DX: R55 Syncope and collapse (principal); N17.9 Acute kidney failure, unspecified; E86.0 Dehydration; E86.1 Hypovolemia; E87.1 Hypo-osmolality and hyponatremia; E87.6 Hypokalemia; D72.829 Elevated white blood cell count, unspecified; K59.00 Constipation, unspecified; I10 Essential (primary) hypertension; I35.0 Nonrheumatic aortic (valve) stenosis; I45.10 Unspecified right bundle-branch block; S51.011A Laceration without foreign body of right elbow, initial encounter; W19.XXXA Unspecified fall, initial encounter; Y92.008 Other place in unspecified non-institutional (private) residence as the place of occurrence of the external cause; H40.9 Unspecified glaucoma; R01.1 Cardiac murmur, unspecified; R32 Unspecified urinary incontinence; R53.1 Weakness; Z20.822 Contact with and (suspected) exposure to COVID-19; Z79.82 Long term (current) use of aspirin; Z79.899 Other long term (current) drug therapy; Z85.46 Personal history of malignant neoplasm of prostate; Z86.16 Personal history of COVID-19; Z88.1 Allergy status to other antibiotic agents; Z90.79 Acquired absence of other genital organ(s)
CPT/HCPCS: 36415; 80048; 80053; 83690; 83735; 84132; 85025; 87635; 93005; 96361; 96365; 96366; 96368; 96376; 97116; 97161; 97165; 99284; 99285; A9270; G0378; J7120; 84484

== ENCOUNTER 2022-01-15 09:56 | Outpatient (CLI) | payer MEDICARE ==
[2022-01-15 10:21] LABS: CALCIUM 9.6 mg/dL (8.5-10.3); CREATININE 1.7 mg/dL (0.6-1.2); POTASSIUM 3.7 mmol/L (3.5-5.0)
== END 2022-01-15 09:57 | disposition home or self-care (01) ==
LOC: LAB 09:56
PROVIDERS: ATTEND Internal Medicine
DX: E11.9 Type 2 diabetes mellitus without complications (principal); I10 Essential (primary) hypertension; N28.9 Disorder of kidney and ureter, unspecified
CPT/HCPCS: 36415; 80048

== ENCOUNTER 2022-02-06 08:50 | Outpatient (CLI) | payer MEDICARE ==
--- NOTE | 2022-02-06 09:32 | SLEEP CARE CONSULTATION ---
Information from patient questionnaire entered by Rachele Chatman MA. I have reviewed and concur with the information entered by Rachele Chatman MA. This document represents the service I personally performed and the decisions made by , Matilde Khan ARNP. History of Present Illness Service Date and Time: 02/06/2022 0850 Previous diagnosis: Very Severe, Obstructive Sleep Apnea-Hypopnea Syndrome AHI: 70.9 (in 2017) Reason for follow up: annual (LAST SEEN 08/2020, LEONOR, MILLER 11/08/2016, NEW RX? ) Equipment type: CPAP Equipment obtained from: [employer] (getting supplies as needed) Mask style: Full face Backup mask available: Yes (old mask) Last cushion change: 2 weeks ago Prior sleep studies: Yes Year and Where: 2016 - [facility]; 1991 - in [place] HPI additional information: RAVEN SUTHERLAND was diagnosed to have very severe, AHI 70.9, obstructive sleep apnea-hypopnea syndrome and returned today for CPAP therapy annual follow-up. Sleep Study - Results Prior sleep studies: Yes Year and Where: 2016 - [facility]; 1991 - in [place] CPAP Compliance Data - Data Reviewed with Patient Average duration of nightly device use: 9 HOURS 14 MINUTES Compliance rate %: 94.4 (11/07/21-02/04/22; 87/90 days used) Current pressure setting (cmH2O): 16-18 Humidity settin Heated hose settin Average residual AHI: 4.1 Average large leak: 6 MIN 23 SEC Subjective Missed days of use due to: reports: illness (IN HOSPITAL) Patient concerns: denies: aerophagia, mask discomfort, air blowing in eyes, mask leak noise, condensation in mask/hose, nasal congestion, dry mouth, nose, throat, epistaxis, other Observed to snore while using device: No Current pressure setting perceived as: comfortable On therapy, patient: reports: sleeping better, awakening more refreshed, being more awake and alert during the day, more rested overall. denies: drowsiness while driving Initial Mckenney Sleepiness Scale score: 4 (in 2017) Current Mckenney Sleepiness Scale score: 1 (02/06/22) Allergies and Home Medications Known drug allergies: No (NKA) Drug allergies reviewed: Yes Home medication list reviewed: Yes Allergy and home medication list: Allergies erythromycin base Adverse Reaction (Verified 01/10/22 17:21) all mycins cause open sores in mouth Medications: Rosuvastatin 40 mg daily at bedtime Triamt/HCTZ 75-50 daily Centrum Silver Vitamin aspirin 81 mg daily (on hold) Fish oil 1400 mg (on hold) Vitamin D3 Colace stool softener 100 mg bid Balance of Nature Review of Systems Review of systems same as previous: No (Hospitalized Covid and potassium; scheduled for artificial sphincter surgry) Physical Exam Vital signs obtained and entered by: Julieta CHATMAN CMA JOSE Blood Pressure: 129/76 (RESP 20, PULSE 68, RIGHT) Cuff size: wrist Heart Rate: 70 O2 Saturation: 97 (N95) Height: 5 ft 8 in Weight: 210 lb (CLOTHES) Weight change since last visit: 60 lb loss Body Mass Index: 31.9 BMI Classification: Obese Impression and Plan 1. Obstructive Sleep Apnea-Hypopnea Syndrome, very severe, with good treatment compliance and good apnea control. On CPAP therapy, the patient has better sleep quality and is more rested overall. Patient has a Dreamstation that was last updated in 10/2016. Raven is aware that he can update his CPAP but he states it is working fine and he will continue to wait for [employer] to repair or replace his device. He was cautioned to monitor for changes in his machine, black debris or physical symptoms. He voiced understanding. Patient's apnea severity and rationale for treatment to reduce apnea, improve sleep quality and reduce cardiovascular and cerebrovascular events was reviewed. I also reviewed the benefit of consistent device use of CPAP for hypertension. 2. Obesity, unspecified. Patient has lost weight. Currently patients BMI is 39.1. Obesity increases the risk of apnea, CPAP pressure requirements and overall health risks especially cardiovascular and diabetes. Thus patient is advised to continue to try to lose weight. Weight loss can be done with reducing portion size, reducing refined foods and balancing content with vegetables, fruit and whole grain foods. In addition, patient encouraged to get regular exercise. The patient's CPAP pressure range should accommodate some weight loss. Symptoms to report for additional pressure adjustment discussed. * Continue auto CPAP pressure at 16-18 cmH2O * Notify me if snoring with mask or feeling that the pressure is too much or too little * Continue to try to lose weight * Call this office if any problems using CPAP * Return for follow up in 1 year, or sooner if concerns arise Counseling Topics: Spare mask, Weight loss health impact Visit Type: In Office Time Spent with Patient (minutes): 23 Provider Statement: I spent 100% of the Face to Face Visit with the patient with greater than 50% spent counseling the patient and coordination of care.
[2022-02-06 09:34] VITALS: BP 129/76
== END 2022-02-06 08:51 | disposition home or self-care (01) ==
LOC: SC 08:50
PROVIDERS: ATTEND Nurse Practitioner Family
DX: G47.33 Obstructive sleep apnea (adult) (pediatric) (principal); E66.9 Obesity, unspecified; Z68.31 Body mass index [BMI] 31.0-31.9, adult
CPT/HCPCS: 99213; G0463; 99212

== ENCOUNTER 2022-03-13 09:12 | Outpatient (CLI) | payer MEDICARE ==
[2022-03-13 11:53] LABS: BASOPHILS % (AUTO) 0.2 %; EOSINOPHILS % (AUTO) 0.3 %; HCT - HEMATOCRIT 41.5 % (42.0-52.0); HGB - HEMOGLOBIN 12.9 g/dL (14.0-18.0); LYMPHOCYTES % (AUTO) 74.7 %; MEAN CORPUSCULAR HEMOGLOBIN 29.5 pg (27.0-31.0); MEAN CORPUSCULAR HGB CONC 31.1 g/dL (32.0-36.0); MEAN CORPUSCULAR VOLUME 94.7 fL (80.0-94.0); MEAN PLATELET VOLUME 11.1 fL (7.4-11.4); MONOCYTES % (AUTO) 6.1 %; NEUTROPHILS % (AUTO) 18.5 %; PLT - PLATELET COUNT 224 10^3/uL (130-450); RED BLOOD COUNT 4.38 10^6/uL (4.70-6.10); RED CELL DISTRIBUTION WIDTH 14.6 % (12.0-15.0); WHITE BLOOD COUNT 25.4 x10^3/uL (4.8-10.8)
[2022-03-13 12:01] LABS: ABNORMAL LYMPHS % (MANUAL) 0 %; BAND NEUTROPHILS % (MANUAL) 0 %
[2022-03-13 12:17] LABS: DIFFERENTIAL COMMENT MANUAL DIFFERENTIAL; LYMPHOCYTES # (MANUAL) 18.5 10^3/uL (1.5-3.5); LYMPHOCYTES % (MANUAL) 46 %; NEUTROPHILS # (MANUAL) 5.8 10^3/uL (1.5-6.6); REACTIVE LYMPHS % (MANUAL) 27 %
[2022-03-13 12:21] LABS: ALBUMIN 4.2 g/dL (3.2-5.5); ALBUMIN/GLOBULIN RATIO 1.3 (1.0-2.2); ALKALINE PHOSPHATASE 54 IU/L (42-121); ALT ALANINE AMINOTRANSFERASE 16 IU/L (10-60); AST ASPARTATE AMINOTRANSFERASE 23 IU/L (10-42); BILIRUBIN,TOTAL 0.5 mg/dL (0.2-1.0); BUN - BLOOD UREA NITROGEN 30 mg/dL (6-20); CALCIUM 10.1 mg/dL (8.5-10.3); CARBON DIOXIDE - CO2 28 mmol/L (21-32); CHLORIDE 99 mmol/L (101-111); CHOL/HDL RATIO 3.1 (<5.0); CHOLESTEROL 165 mg/dL; CREATININE 1.5 mg/dL (0.6-1.2); GFR - MDRD 45 (>89); GLUCOSE 104 mg/dL (70-100); HDL CHOLESTEROL 54 mg/dL; LDL CHOLESTEROL,CALCULATED 81 mg/dL; LDL/HDL RATIO 1.5 (<3.6); SODIUM 137 mmol/L (135-145); TOTAL PROTEIN 7.4 g/dL (6.7-8.2); TRIGLYCERIDES 148 mg/dL; VLDL CHOLESTEROL 30 mg/dL
[2022-03-13 12:46] LABS: ESTIMATED AVERAGE GLUCOSE 108 mg/dL (70-100); HEMOGLOBIN A1c% 5.4 % (4.27-6.07)
== END 2022-03-13 09:13 | disposition home or self-care (01) ==
LOC: LAB.N 09:12
PROVIDERS: ATTEND Internal Medicine
DX: N28.9 Disorder of kidney and ureter, unspecified (principal); E78.5 Hyperlipidemia, unspecified; E11.9 Type 2 diabetes mellitus without complications; C91.10 Chronic lymphocytic leukemia of B-cell type not having achieved remission
CPT/HCPCS: 36415; 80053; 80061; 83036; 83721; 85025

== ENCOUNTER 2022-07-11 08:38 | Outpatient (CLI) | payer MEDICARE ==
[2022-07-11 08:53] LABS: BASOPHILS # (AUTO) 0.1 10^3/uL (0.0-0.1); BASOPHILS % (AUTO) 0.2 %; EOSINOPHILS # (AUTO) 0.1 10^3/uL (0.0-0.7); EOSINOPHILS % (AUTO) 0.3 %; HGB - HEMOGLOBIN 13.9 g/dL (14.0-18.0); LYMPHOCYTES % (AUTO) 75.5 %; MEAN CORPUSCULAR HEMOGLOBIN 28.4 pg (27.0-31.0); MEAN CORPUSCULAR HGB CONC 30.9 g/dL (32.0-36.0); MEAN PLATELET VOLUME 9.9 fL (7.4-11.4); MONOCYTES # (AUTO) 1.2 10^3/uL (0.0-1.0); MONOCYTES % (AUTO) 4.9 %; NEUTROPHILS # (AUTO) 4.5 10^3/uL (1.5-6.6); PLT - PLATELET COUNT 226 10^3/uL (130-450); RED BLOOD COUNT 4.89 10^6/uL (4.70-6.10); RED CELL DISTRIBUTION WIDTH 14.7 % (12.0-15.0); WHITE BLOOD COUNT 23.8 x10^3/uL (4.8-10.8)
[2022-07-11 09:03] LABS: CREATININE,URINE 141.1 mg/dL; MICROALBUM/CREATININE RATIO,UR 84.3 ug/mg (<30.0); MICROALBUMIN,URINE 11.9 mg/dL (0-300.0)
[2022-07-11 09:09] LABS: ALBUMIN 4.2 g/dL (3.2-5.5); ALBUMIN/GLOBULIN RATIO 1.2 (1.0-2.2); ALKALINE PHOSPHATASE 79 IU/L (42-121); ALT ALANINE AMINOTRANSFERASE 16 IU/L (10-60); AST ASPARTATE AMINOTRANSFERASE 22 IU/L (10-42); BILIRUBIN,TOTAL 0.9 mg/dL (0.2-1.0); BUN - BLOOD UREA NITROGEN 30 mg/dL (6-20); CALCIUM 9.6 mg/dL (8.5-10.3); CARBON DIOXIDE - CO2 32 mmol/L (21-32); CHLORIDE 95 mmol/L (101-111); CHOL/HDL RATIO 2.5 (<5.0); CHOLESTEROL 123 mg/dL; CREATININE 1.6 mg/dL (0.6-1.2); GFR - MDRD 41 (>89); GLUCOSE 113 mg/dL (70-100); HDL CHOLESTEROL 50 mg/dL; LDL CHOLESTEROL,CALCULATED 50 mg/dL; POTASSIUM 3.8 mmol/L (3.5-5.0); SODIUM 136 mmol/L (135-145); TOTAL PROTEIN 7.6 g/dL (6.7-8.2); TRIGLYCERIDES 116 mg/dL; VLDL CHOLESTEROL 23 mg/dL
[2022-07-11 09:10] LABS: PLATELET ESTIMATE, MANUAL NORMAL (130-450,000) (NORMAL); PLATELET MORPHOLOGY NORMAL APPEARANCE (NORMAL); RBC MORPHOLOGY (MULTIPLE) NORMAL APPEARANCE (NORMAL); SLIDE REVIEW? Indicated
[2022-07-11 13:25] LABS: ESTIMATED AVERAGE GLUCOSE 120 mg/dL (70-100); HEMOGLOBIN A1c% 5.8 % (4.27-6.07)
== END 2022-07-11 08:39 | disposition home or self-care (01) ==
LOC: LAB 08:38
PROVIDERS: ATTEND Internal Medicine
DX: I10 Essential (primary) hypertension (principal); E78.5 Hyperlipidemia, unspecified; E11.9 Type 2 diabetes mellitus without complications; Z85.46 Personal history of malignant neoplasm of prostate
CPT/HCPCS: 36415; 80053; 80061; 82043; 82570; 83036; 83721; 84153; 85025

== ENCOUNTER 2022-08-15 14:37 | Outpatient (CLI) | payer MEDICARE ==
[2022-08-15 14:57] LABS: BASOPHILS % (AUTO) 0.3 %; EOSINOPHILS % (AUTO) 0.5 %; HCT - HEMATOCRIT 42.9 % (42.0-52.0); HGB - HEMOGLOBIN 13.3 g/dL (14.0-18.0); LYMPHOCYTES % (AUTO) 73.4 %; MEAN CORPUSCULAR HEMOGLOBIN 28.4 pg (27.0-31.0); MEAN CORPUSCULAR VOLUME 91.5 fL (80.0-94.0); MEAN PLATELET VOLUME 9.6 fL (7.4-11.4); MONOCYTES % (AUTO) 3.8 %; NEUTROPHILS % (AUTO) 21.8 %; PLT - PLATELET COUNT 292 10^3/uL (130-450); RED BLOOD COUNT 4.69 10^6/uL (4.70-6.10); RED CELL DISTRIBUTION WIDTH 14.2 % (12.0-15.0); WHITE BLOOD COUNT 21.8 x10^3/uL (4.8-10.8)
[2022-08-15 15:05] LABS: ABNORMAL LYMPHS % (MANUAL) 0 %; BAND NEUTROPHILS % (MANUAL) 0 %
[2022-08-15 15:12] LABS: ALBUMIN 3.7 g/dL (3.2-5.5); ALBUMIN/GLOBULIN RATIO 0.9 (1.0-2.2); BILIRUBIN,TOTAL 0.6 mg/dL (0.2-1.0); CALCIUM 9.7 mg/dL (8.5-10.3); CREATININE 1.3 mg/dL (0.6-1.2); POTASSIUM 2.9 mmol/L (3.5-5.0); TOTAL PROTEIN 7.6 g/dL (6.7-8.2)
[2022-08-15 15:54] LABS: DIFFERENTIAL COMMENT MANUAL DIFFERENTIAL; LYMPHOCYTES # (MANUAL) 17.2 10^3/uL (1.5-3.5); LYMPHOCYTES % (MANUAL) 79 %; MONOCYTES # (MANUAL) 0.2 10^3/uL (0.0-1.0); NEUTROPHILS # (MANUAL) 4.4 10^3/uL (1.5-6.6); PLATELET ESTIMATE, MANUAL NORMAL (130-450,000) (NORMAL); PLATELET MORPHOLOGY NORMAL APPEARANCE (NORMAL); RBC MORPHOLOGY (MULTIPLE) NORMAL APPEARANCE (NORMAL)
[2022-08-15 21:09] LABS: ESTIMATED AVERAGE GLUCOSE 126 mg/dL (70-100)
== END 2022-08-15 14:38 | disposition home or self-care (01) ==
LOC: LAB 14:37
PROVIDERS: ATTEND Internal Medicine
DX: C91.10 Chronic lymphocytic leukemia of B-cell type not having achieved remission (principal); E11.9 Type 2 diabetes mellitus without complications
CPT/HCPCS: 36415; 80053; 83036; 85025

== ENCOUNTER 2022-08-16 12:39 | Outpatient (CLI) | payer MEDICARE ==
--- NOTE | 2022-08-16 15:16 | XRAY Report ---
PROCEDURE: Chest 2 View X-Ray INDICATIONS: PNEUMOTHRAX TECHNIQUE: 2 views of the chest were acquired. COMPARISON: Chest x-ray on 722 FINDINGS: Patient is markedly rotated, limiting evaluation. Surgical changes and devices: None. Lungs and pleura: Small patchy areas of opacity are noted within the left base with costophrenic angl e blunting. Mediastinum: Mediastinal contours are normal. Heart size is normal. Bones and chest wall: No suspicious bony abnormalities. Soft tissues appear unremarkable. IMPRESSION: Mild areas of opacity within the left base possibly related to trace effusion versus superimposed ate lectasis/dependent change. No definitively visualized pneumothorax. Reviewed by: Fiona Lombardo MD on 08/16/2022 3:15 PM PST Approved by: Fiona Lombardo MD on 08/16/2022 3:15 PM PST Station ID: [id number]
== END 2022-08-16 12:40 | disposition home or self-care (01) ==
LOC: DI 12:39
PROVIDERS: ATTEND Nurse Practitioner
DX: J93.9 Pneumothorax, unspecified (principal)

== ENCOUNTER 2023-01-01 11:31 | Outpatient (CLI) | payer MEDICARE ==
[2023-01-01 11:42] LABS: BASOPHILS % (AUTO) 0.2 %; EOSINOPHILS # (AUTO) 0.2 10^3/uL (0.0-0.7); EOSINOPHILS % (AUTO) 0.8 %; HCT - HEMATOCRIT 46.1 % (42.0-52.0); HGB - HEMOGLOBIN 14.3 g/dL (14.0-18.0); LYMPHOCYTES # (AUTO) 14.4 10^3/uL (1.5-3.5); MEAN CORPUSCULAR HEMOGLOBIN 28.3 pg (27.0-31.0); MEAN CORPUSCULAR VOLUME 91.1 fL (80.0-94.0); MEAN PLATELET VOLUME 9.9 fL (7.4-11.4); MONOCYTES # (AUTO) 0.6 10^3/uL (0.0-1.0); MONOCYTES % (AUTO) 2.8 %; NEUTROPHILS # (AUTO) 4.6 10^3/uL (1.5-6.6); PLT - PLATELET COUNT 222 10^3/uL (130-450); RED BLOOD COUNT 5.06 10^6/uL (4.70-6.10); RED CELL DISTRIBUTION WIDTH 14.7 % (12.0-15.0); WHITE BLOOD COUNT 19.7 x10^3/uL (4.8-10.8)
[2023-01-01 11:58] LABS: SLIDE REVIEW? Indicated
[2023-01-01 11:59] LABS: WBC MORPHOLOGY (MULTIPLE) 3+ REACTIVE LYMPHS (NORMAL)
[2023-01-01 12:15] LABS: ESTIMATED AVERAGE GLUCOSE 120 mg/dL (70-100); HEMOGLOBIN A1c% 5.8 % (4.27-6.07)
[2023-01-01 20:33] LABS: ALBUMIN 4.1 g/dL (3.2-5.5); ALBUMIN/GLOBULIN RATIO 1.1 (1.0-2.2); ALKALINE PHOSPHATASE 60 IU/L (42-121); ALT ALANINE AMINOTRANSFERASE 15 IU/L (10-60); AST ASPARTATE AMINOTRANSFERASE 23 IU/L (10-42); BILIRUBIN,TOTAL 0.9 mg/dL (0.2-1.0); BUN - BLOOD UREA NITROGEN 23 mg/dL (6-20); CALCIUM 9.7 mg/dL (8.5-10.3); CARBON DIOXIDE - CO2 32 mmol/L (21-32); CHLORIDE 98 mmol/L (101-111); CHOLESTEROL 137 mg/dL; CREATININE 1.2 mg/dL (0.6-1.2); GFR - MDRD 58 (>89); GLUCOSE 95 mg/dL (70-100); HDL CHOLESTEROL 45 mg/dL; LDL CHOLESTEROL,CALCULATED 62 mg/dL; LDL/HDL RATIO 1.4 (<3.6); POTASSIUM 3.6 mmol/L (3.5-5.0); SODIUM 141 mmol/L (135-145); TOTAL PROTEIN 7.7 g/dL (6.7-8.2); TRIGLYCERIDES 151 mg/dL; VLDL CHOLESTEROL 30 mg/dL
== END 2023-01-01 11:32 | disposition home or self-care (01) ==
LOC: LAB 11:31
PROVIDERS: ATTEND Internal Medicine
DX: E11.9 Type 2 diabetes mellitus without complications (principal); C91.10 Chronic lymphocytic leukemia of B-cell type not having achieved remission; E78.5 Hyperlipidemia, unspecified
CPT/HCPCS: 36415; 80053; 80061; 83036; 83721; 85025

== ENCOUNTER 2023-02-08 08:27 | Outpatient (CLI) | payer MEDICARE ==
--- NOTE | 2023-02-08 08:48 | Sleep Patient Instructions ---
Sleep Center Visit Summary - Patient Visit Information Reason for Visit: Annual visit for PAP therapy - Patient Instructions Additional Instructions: You will continue with CPAP therapy with pressure set at 16-18 cmH2O. A supply prescription will be updated with your DME. We encourage you to continue to try to lose weight. Please follow up with the sleep care office in 1 year. - Clinic Information Contact: [facility] [address] [place] [address] [email or web address] T: [phone]
--- NOTE | 2023-02-08 08:51 | SLEEP CARE CONSULTATION ---
Information from patient questionnaire entered by Fernanda Grace. I have reviewed and concur with the information entered by Fernanda Grace. This document represents the service I personally performed and the decisions made by me, Matilde Khan ARNP. History of Present Illness Service Date and Time: 02/08/2023826 Previous diagnosis: Very Severe, Obstructive Sleep Apnea-Hypopnea Syndrome AHI: 70.9 (in 2017) Reason for follow up: annual (LAST SEEN 01/2022) Equipment type: CPAP (HERRERA Dreamstation 2) Equipment obtained from: [employer] (getting supplies as needed) Mask style: Full face Mask brand: [employer] (Simplus) Backup mask available: Yes (old mask) Last cushion change: 3 weeks Prior sleep studies: Yes Year and Where: 2016 - [facility]; 1991 - in [place] HPI additional information: RAVEN SUTHERLAND was diagnosed to have very severe, AHI 70.9, obstructive sleep apnea-hypopnea syndrome and returned today for CPAP therapy annual follow-up. Sleep Study - Results Prior sleep studies: Yes Year and Where: 2016 - [facility]; 1991 - in [place] CPAP Compliance Data - Data Reviewed with Patient Average duration of nightly device use: 8 HRS 10 MINS 14 SEC Compliance rate %: 100 (08/10/22-02/05/23; 180/180 days used) Current pressure setting (cmH2O): 16-18 Average residual AHI: 3.3 Average large leak: 13 secs Subjective Patient concerns: denies: aerophagia, mask discomfort, air blowing in eyes, mask leak noise, condensation in mask/hose, nasal congestion, dry mouth, nose, throat, epistaxis Observed to snore while using device: No Current pressure setting perceived as: comfortable On therapy, patient: reports: sleeping better, awakening more refreshed, being more awake and alert during the day, more rested overall. denies: drowsiness while driving Initial [place] Sleepiness Scale score: 4 (in 2017) Current [place] Sleepiness Scale score: 5 (02/08/23) Allergies and Home Medications Known drug allergies: Yes (erythromycin base) Drug allergies reviewed: Yes Home medication list reviewed: Yes (no changes) Allergy and home medication list: Allergies erythromycin base Adverse Reaction (Verified 02/07/23 14:38) all mycins cause open sores in mouth Review of Systems Review of systems same as previous: No (Lung collapse, end of Jul) Physical Exam Vital signs obtained and entered by: FERNANDA De Paz MA Blood Pressure: 122/70 (LEFT ARM) Cuff size: regular Heart Rate: 60 O2 Saturation: 98 Height: 5 ft 8 in Weight: 219 lb 12.8 oz Weight change since last visit: 9 lb gain Body Mass Index: 33.4 BMI Classification: Obese Impression and Plan 1. Obstructive Sleep Apnea-Hypopnea Syndrome, very severe, with good treatment compliance and good apnea control. On CPAP therapy, the patient has better sleep quality and is more rested overall. Patient has significant improvement of their sleep apnea and is satisfied with current CPAP therapy. Patient denies problems with oral dryness, nasal congestion, epistaxis, skin irritation or aerophagia. Patient's apnea severity and rationale for treatment to reduce apnea, improve sleep quality and reduce cardiovascular and cerebrovascular events was reviewed. I also reviewed the benefit of consistent device use of CPAP for hypertension. 2. Obesity, unspecified. Currently patients BMI is 33.4. Obesity increases the risk of apnea, CPAP pressure requirements and overall health risks especially cardiovascular and diabetes. Thus patient is advised to lose weight. * Continue auto CPAP pressure at 16-18 cmH2O * Update supply prescription * Notify me if snoring with mask or feeling that the pressure is too much or too little * Attempt to lose weight * Call this office if any problems using CPAP * Return for follow up in 1 year, or sooner if concerns arise Counseling Topics: Spare mask, Weight loss health impact Visit Type: In Office Time Spent with Patient (minutes): 22 Provider Statement: I spent 100% of the Face to Face Visit with the patient with greater than 50% spent counseling the patient and coordination of care.
[2023-02-08 08:54] VITALS: BP 122/70
== END 2023-02-08 08:28 | disposition home or self-care (01) ==
LOC: SC 08:27
PROVIDERS: ATTEND Nurse Practitioner Family
DX: G47.33 Obstructive sleep apnea (adult) (pediatric) (principal); E66.9 Obesity, unspecified; Z68.33 Body mass index [BMI] 33.0-33.9, adult
CPT/HCPCS: 99213; G0463; 99212

== ENCOUNTER 2023-03-08 11:37 | Outpatient (CLI) | payer MEDICARE ==
[2023-03-08 12:04] LABS: CALCIUM 10.2 mg/dL (8.5-10.3); CREATININE 1.5 mg/dL (0.6-1.3); POTASSIUM 3.7 mmol/L (3.5-4.5)
== END 2023-03-08 11:38 | disposition home or self-care (01) ==
LOC: LAB 11:37
PROVIDERS: ATTEND Internal Medicine
DX: I10 Essential (primary) hypertension (principal)
CPT/HCPCS: 36415; 80048

== ENCOUNTER 2023-09-04 09:40 | Outpatient (CLI) | payer MEDICARE, OTHER ==
[2023-09-04 09:58] LABS: BASOPHILS % (AUTO) 0.1 %; EOSINOPHILS # (AUTO) 0.2 10^3/uL (0.0-0.7); EOSINOPHILS % (AUTO) 0.8 %; HCT - HEMATOCRIT 44.6 % (42.0-52.0); LYMPHOCYTES # (AUTO) 16.9 10^3/uL (1.5-3.5); LYMPHOCYTES % (AUTO) 80.1 %; MEAN CORPUSCULAR HEMOGLOBIN 29.9 pg (27.0-31.0); MEAN CORPUSCULAR HGB CONC 31.4 g/dL (32.0-36.0); MEAN CORPUSCULAR VOLUME 95.3 fL (80.0-94.0); MEAN PLATELET VOLUME 9.9 fL (7.4-11.4); MONOCYTES # (AUTO) 0.5 10^3/uL (0.0-1.0); MONOCYTES % (AUTO) 2.2 %; NEUTROPHILS # (AUTO) 3.5 10^3/uL (1.5-6.6); NEUTROPHILS % (AUTO) 16.7 %; PLT - PLATELET COUNT 266 10^3/uL (130-450); RED BLOOD COUNT 4.68 10^6/uL (4.70-6.10); RED CELL DISTRIBUTION WIDTH 15.6 % (12.0-15.0)
[2023-09-04 10:10] LABS: SLIDE REVIEW? Indicated
[2023-09-04 10:16] LABS: ALBUMIN 4.2 g/dL (3.2-5.5); ALBUMIN/GLOBULIN RATIO 1.3 (1.0-2.2); ALKALINE PHOSPHATASE 60 IU/L (42-121); ALT ALANINE AMINOTRANSFERASE 13 IU/L (10-60); AST ASPARTATE AMINOTRANSFERASE 16 IU/L (10-42); BILIRUBIN,TOTAL 0.6 mg/dL (0.2-1.0); BUN - BLOOD UREA NITROGEN 25 mg/dL (6-20); CALCIUM 10.5 mg/dL (8.5-10.3); CARBON DIOXIDE - CO2 32 mmol/L (21-32); CHLORIDE 99 mmol/L (101-111); CHOL/HDL RATIO 3.2 (<5.0); CHOLESTEROL 127 mg/dL; CREATININE 1.4 mg/dL (0.6-1.3); GFR - MDRD 48 (>89); GLUCOSE 105 mg/dL (74-104); HDL CHOLESTEROL 40 mg/dL; LDL CHOLESTEROL,CALCULATED 49 mg/dL; LDL/HDL RATIO 1.2 (<3.6); POTASSIUM 4.6 mmol/L (3.5-4.5); SODIUM 138 mmol/L (135-145); TOTAL PROTEIN 7.4 g/dL (6.4-8.9); TRIGLYCERIDES 191 mg/dL (48-352); VLDL CHOLESTEROL 38 mg/dL
[2023-09-04 10:21] LABS: PLATELET ESTIMATE, MANUAL NORMAL (130-450,000) (NORMAL); RBC MORPHOLOGY (MULTIPLE) 2+ ANISOCYTOSIS (NORMAL)
[2023-09-04 10:22] LABS: MICROALBUM/CREATININE RATIO,UR 33.7 ug/mg (<30.0); MICROALBUMIN,URINE 3.1 mg/dL
[2023-09-04 19:55] LABS: ESTIMATED AVERAGE GLUCOSE 117 mg/dL (70-100); HEMOGLOBIN A1c% 5.7 % (4.27-6.07)
== END 2023-09-04 09:41 | disposition home or self-care (01) ==
LOC: LAB 09:40
PROVIDERS: ATTEND Internal Medicine
DX: E11.9 Type 2 diabetes mellitus without complications (principal); E78.5 Hyperlipidemia, unspecified; Z85.46 Personal history of malignant neoplasm of prostate; C91.10 Chronic lymphocytic leukemia of B-cell type not having achieved remission
CPT/HCPCS: 36415; 80053; 80061; 82043; 82570; 83036; 83721; 84153; 85025

== ENCOUNTER 2024-02-12 08:22 | Outpatient (CLI) | payer MEDICARE, OTHER ==
--- NOTE | 2024-02-12 08:48 | Sleep Patient Instructions ---
Sleep Center Visit Summary - Patient Visit Information Reason for Visit: Annual follow-up - Patient Instructions Additional Instructions: You will continue with CPAP therapy with pressure set at 16-18 cmH2O. A supply prescription will be updated with your DME. We encourage you to continue to try to lose weight. Please follow up with the sleep care office in 1 year. - Clinic Information Contact: [facility] [address] [place] [address] [email or web address] T: [phone]
--- NOTE | 2024-02-12 08:51 | SLEEP CARE CONSULTATION ---
Information from patient questionnaire entered by Fernanda Grace. I have reviewed and concur with the information entered by Fernanda Grace. This document represents the service I personally performed and the decisions made by , Matilde Khan ARNP. History of Present Illness Service Date and Time: 02/12/2024821 Previous diagnosis: Very Severe, Obstructive Sleep Apnea-Hypopnea Syndrome AHI: 70.9 (in 2017) Reason for follow up: annual (LAST SEEN 01/2023) Equipment type: CPAP (HERRERA Dreamstation 2) Equipment obtained from: [employer] (getting supplies as needed) Mask style: Full face (Simplus) Backup mask available: Yes (old mask) Last cushion change: 3 weeks Prior sleep studies: Yes Year and Where: 2016 - [facility]; 1991 - in [place] HPI additional information: RAVEN SUTHERLAND was diagnosed to have very severe, AHI 70.9, obstructive sleep apnea-hypopnea syndrome and returned today for CPAP therapy annual follow-up. Sleep Study - Results Prior sleep studies: Yes Year and Where: 2016 - [facility]; 1991 - in [place] CPAP Compliance Data - Data Reviewed with Patient Average duration of nightly device use: 9 HRS 10 MINS 44 SECS Compliance rate %: 98.1 (02/09/23-02/08/24; 362/365 days used) Current pressure setting (cmH2O): 16-18 Average residual AHI: 3.2 Central apnea: 1.5 Obstructive apnea: 1.1 Hypopnea: 0.6 Average large leak: 8 secs Subjective Patient concerns: denies: aerophagia, mask discomfort, air blowing in eyes, mask leak noise, condensation in mask/hose, nasal congestion, dry mouth, nose, throat, epistaxis Observed to snore while using device: No Current pressure setting perceived as: comfortable On therapy, patient: reports: sleeping better, awakening more refreshed, being more awake and alert during the day, more rested overall. denies: drowsiness while driving Initial [place] Sleepiness Scale score: 4 (in 2016) Current [place] Sleepiness Scale score: 6 (02/12/24) Allergies and Home Medications Known drug allergies: Yes (as listed) Drug allergies reviewed: Yes Home medication list reviewed: Yes (no changes) Allergy and home medication list: Allergies erythromycin base Adverse Reaction (Verified 02/12/24 08:31) all mycins cause open sores in mouth Review of Systems Review of systems same as previous: Yes (NO CHANGE) Physical Exam Vital signs obtained and entered by: FERNANDA De Paz MA Blood Pressure: 169/82 (RIGHT ARM) Cuff size: regular Heart Rate: 92 O2 Saturation: 95 Height: 5 ft 8 in Weight: 200 lb Weight change since last visit: 19 lb loss Body Mass Index: 30.4 BMI Classification: Obese Impression and Plan 1. Obstructive Sleep Apnea-Hypopnea Syndrome, very severe, with good treatment compliance and good apnea control. On CPAP therapy, the patient has better sleep quality and is more rested overall. Patient has been trying to lose weight and has lost 19 pounds at the behest of his orthopedic doctor to take weight off his knees. Patient has significant improvement of their sleep apnea and is satisfied with current CPAP therapy. Patient denies problems with oral dryness, nasal congestion, epistaxis, skin irritation or aerophagia. Patient's apnea severity and rationale for treatment to reduce apnea, improve sleep quality and reduce cardiovascular and cerebrovascular events was reviewed. I also reviewed the benefit of consistent device use of CPAP for hypertension. 2. Obesity, unspecified. Currently patients BMI is 30.4. He has lost weight. Obesity increases the risk of apnea, CPAP pressure requirements and overall health risks especially cardiovascular and diabetes. Thus patient is advised to continue to try to lose weight. * Continue auto CPAP pressure at 16-18 cmH2O * Update supply prescription * Notify me if snoring with mask or feeling that the pressure is too much or too little * Continue to try to lose weight * Call this office if any problems using CPAP * Return for follow up in 12 months, or sooner if concerns arise Counseling Topics: Spare mask, Weight loss health impact Prescriptions: Device supplies Follow up with Sleep Care in: 1 year Visit Type: In Office Time Spent with Patient (minutes): 20 Provider Statement: I spent 100% of the Face to Face Visit with the patient with greater than 50% spent counseling the patient and coordination of care.
[2024-02-12 08:56] VITALS: BP 169/82; O2SAT 95
== END 2024-02-12 08:23 | disposition home or self-care (01) ==
LOC: SC 08:22
PROVIDERS: ATTEND Nurse Practitioner Family
DX: G47.33 Obstructive sleep apnea (adult) (pediatric) (principal); E66.9 Obesity, unspecified; Z68.30 Body mass index [BMI] 30.0-30.9, adult
CPT/HCPCS: 99213; G0463; 99212